=== PATIENT | male | born 1935 | race Caucasian/White ===

== ENCOUNTER 2021-10-23 18:15 | Inpatient (IN) | payer MEDICARE, SELFPAY ==
--- NOTE | ~2021-10-23 | XR_ITS ---
EXAMINATION: XR CHEST CLINICAL INFORMATION: Pacemaker placement COMPARISON: Previous chest x-rays most recent from yesterday TECHNIQUE: Frontal view of the chest was obtained. FINDINGS: The cardiac and mediastinal contours are stable. There is a left subclavian dual chamber pacemaker with one lead projecting over the right atrium and one lead projecting over the right atrial ventricular region or proximal right ventricle.. This appears more proximal than seen on yesterday's exams. This could be better assessed with repeat chest x-ray including lateral view if clinically indicated. There is subsegmental atelectasis in the left midlung. The lungs are otherwise clear. There is no pleural effusion or pneumothorax. There are degenerative changes of the spine. XR/XR chest 1V IMPRESSION: Left subclavian dual chamber pacemaker. The location of the ventricular lead may be slightly different or more proximal compared to yesterday's exam. Follow-up PA and lateral chest x-ray could be performed if clinically indicated.
--- NOTE | ~2021-10-23 | XR_ITS ---
EXAMINATION: XR CHEST CLINICAL INFORMATION: Acute respiratory failure. Question aspiration COMPARISON: Chest 10/23/2021 TECHNIQUE: Frontal view of the chest was obtained. FINDINGS: The lungs are hypoexpanded but clear of acute process. The heart size and pulmonary vascularity is normal. No gross bony abnormality seen. XR/XR chest 1V IMPRESSION: Hypoexpanded lungs without acute process.
--- NOTE | ~2021-10-23 | CT_ITS ---
EXAMINATION: CT HEAD WITHOUT CONTRAST CLINICAL INFORMATION: Change in mental status. COMPARISON: None. TECHNIQUE: Contiguous axial imaging was performed from the skull base to vertex without intravenous contrast. This CT examination was performed using dose optimization techniques as appropriate, variously including the following: * Automated exposure control * Adjustment of mA and/or kV according to patient size (this includes techniques or standardized protocols for targeted exams where dose is matched to indication/reason for exam; i.e. extremities or head) Use of iterative reconstruction technique DLP: 817 mGy-cm. FINDINGS: There is no evidence of acute intracranial hemorrhage or territorial infarction. No abnormal mass effect or midline shift is seen. [place] to white matter differentiation is well preserved. No extra-axial fluid collections are identified. No hydrocephalus. Proportional prominence of the ventricles and sulcal spaces is consistent with moderate volume loss. Patchy periventricular and deep white matter hypoattenuation is consistent with mild small vessel ischemic changes. The osseous structures and soft tissues are normal. The mastoid air cells and visualized portions of the paranasal sinuses are well aerated. CT/CT head/brain wo con IMPRESSION: No acute intracranial pathology. Chronic volume loss with small vessel ischemic change.
--- NOTE | ~2021-10-23 | CT_ITS ---
EXAMINATION: CT ANGIOGRAM OF THE CHEST WITH AND WITHOUT CONTRAST (CT PULMONARY ANGIOGRAM FOR PE) CT ABDOMEN AND PELVIS WITH CONTRAST CLINICAL INFORMATION: Distended abdomen. Rule out bowel obstruction. Chest pain. Hypoxia. COMPARISON: Chest radiograph from earlier in the evening. TECHNIQUE: Prior to contrast administration, noncontrast localization images were obtained. Subsequently, multidetector volumetric imaging was performed from the thoracic inlet to the pubic symphysis following the administration of 65 mL Omnipaque 350 intravenous contrast. This was followed by multidetector acquisition of the abdomen and pelvis. No contrast reaction reported Sagittal, coronal, and MIP oblique sagittal reformatted images were obtained on the CT workstation, uploaded to PACS, and reviewed. This CT examination was performed using dose optimization techniques as appropriate, variously including the following: *Automated exposure control *Adjustment of mA and/or kV according to patient size (this includes techniques or standardized protocols for targeted exams where dose is matched to indication/reason for exam; i.e. extremities or head) *Use of iterative reconstruction technique Total exam dose-length product 1340 mGy-cm FINDINGS: Motion limits the evaluation. QUALITY OF STUDY/CONTRAST BOLUS: Satisfactory. PULMONARY ARTERIES: No central or segmental pulmonary emboli. The main pulmonary artery is dilated measuring 4.4 cm. THORACIC AORTA: No aneurysm or dissection. LUNG: The central airways are patent. There is patchy groundglass opacification throughout the lingula. Bibasilar linear atelectasis. PLEURA: No pleural effusion or pneumothorax. MEDIASTINUM: Normal heart size. Coronary artery calcifications. No pericardial effusion. No hilar or mediastinal lymphadenopathy. No evidence of septal bowing or right heart strain. CHEST WALL/AXILLA: No axillary or internal mammary lymphadenopathy. LIVER, GALLBLADDER, AND BILIARY TREE: The liver is normal in size, shape, and attenuation. No focal hepatic lesion or biliary ductal dilatation is present. The gallbladder is unremarkable with no evidence of radiopaque gallstones, gallbladder wall thickening, or obvious pericholecystic inflammatory changes. PANCREAS: Unremarkable. SPLEEN: Unremarkable. ADRENAL GLANDS: Unremarkable. KIDNEYS AND URETERS: The kidneys are normal in size, shape, and attenuation. No hydronephrosis, hydroureter, or calculi seen. No perinephric stranding. Left midpole simple renal cyst. No follow-up imaging recommended. BLADDER: Unremarkable. GASTROINTESTINAL TRACT: The stomach is decompressed. Normal caliber small bowel. No obstruction. There is mild stool burden. Somewhat distended sigmoid colon. Scattered colonic diverticulosis without diverticulitis. The appendix is not seen. ABDOMINAL WALL: Fat-containing periumbilical abdominal wall hernia. LYMPH NODES: Normal. VASCULAR: Normal caliber aorta with mild atherosclerotic calcification. PELVIC VISCERA: The prostate and seminal vesicles are unremarkable. OSSEOUS STRUCTURES: No acute or suspicious osseous abnormality. Scoliotic curvature of the spine with multilevel degenerative changes. CT/CT angio chest PE protocol IMPRESSION: 1. No pulmonary embolism. 2. Groundglass opacities are seen in the lingula which could be infectious or inflammatory. 3. No acute finding in the abdomen or pelvis. No bowel obstruction. There is somewhat distended appearance of the sigmoid colon. VTE: negative
--- NOTE | ~2021-10-23 | XR_ITS ---
EXAMINATION: PORTABLE CHEST 1 VIEW CLINICAL INFORMATION: SOB, low O2 sat . COMPARISON: No recent pertinent prior studies are available for comparison. TECHNIQUE: Portable frontal view of the chest was obtained. FINDINGS: Lungs are hypoexpanded with increased markings at the left base obscuring the left hemidiaphragm. Early left basilar infiltrate would be suspected. No significant effusion, overt edema, or pneumothorax. Cardiac silhouette within normal limits for this technique with vascular calcification in the aorta. XR/XR chest 1V IMPRESSION: Hypoexpanded. Increased left basilar markings suggesting consolidation/atelectasis in the acute setting. Clinical correlation and follow-up would be recommended.
--- NOTE | ~2021-10-23 | FL_ITS ---
EXAMINATION: INTRAOPERATIVE FLUOROSCOPY AND CHEST X-RAY CLINICAL INFORMATION: Pacemaker COMPARISON: Previous chest x-ray 10/25/2021 TECHNIQUE: Fluoroscopy guidance was provided to Dr. Skinner for pacemaker placement. Fluoroscopy time 6.4 minutes. DAP 26 jeffries per centimeter squared. 1 saved fluoroscopy image. AP portable chest x-ray FINDINGS: Single fluoroscopic image demonstrates a dual-chamber pacemaker with lead projecting over the right atrium and one lead projecting over the right ventricle. CHEST: The cardiac and mediastinal contours are stable. There is a new left subclavian dual chamber pacemaker in satisfactory position. There may be pulmonary venous redistribution. There is atelectasis at the left lung base. There is no pleural effusion or pneumothorax. There are EKG leads. There are 2 rings projecting over the left upper quadrant. There is a linear density that projects over the base of the heart and upper midline abdomen measuring 8 cm. This is not seen on the fluoroscopic image. Clinical correlation to exclude foreign body recommended. There are degenerative changes of the spine and shoulders. FL/FL guidance in OR IMPRESSION: Left subclavian dual chamber pacemaker in satisfactory position. No pneumothorax. 8 cm new linear radiopaque density projecting over the base of the heart and upper midline abdomen seen on the AP portable chest x-ray only. Clinical correlation recommended to exclude foreign body.
[2021-10-23 18:49] VITALS: BP 112/66; BP 132/80; PULSE 105; PULSE 114; RESP 20; TEMP 37.6; O2SAT 96; BMI 29.7
--- NOTE | 2021-10-23 18:55 | ED.SOB ---
HPI - SOB/Dyspnea General Chief Complaint: Dyspnea <CHATO Jackson - Last Filed: 10/23/21 22:32> Stated Complaint: shortness of breath <CHATO Jackson - Last Filed: 10/23/21 22:32> Time Seen by Provider: 10/23/21 18:55 <MARCK JacksonBC - Last Filed: 10/23/21 22:32> Source: EMS and RN notes reviewed <CHATO Jackson - Last Filed: 10/23/21 22:32> Mode of arrival: EMS <CHATO Jackson - Last Filed: 10/23/21 22:32> Limitations: altered mental status <CHATO Jackson - Last Filed: 10/23/21 22:32> History of Present Illness HPI Narrative: 86-year-old male with past medical history of anemia, polyneuropathy, hyperlipidemia, diabetes, aphasia, was brought here today by EMS services. Patient was residing at local nursing facility. Patient was complaining of feeling short of breath yesterday and was placed on O2 at 2 L via nasal cannula. His O2 saturation was 86% at that time. Today staff noticed patient feeling weak. Rapid COVID test done and it was negative. PCP was called and suggested patient go to ER for evaluation. Patient received updraft in the ambulance and upon arrival to the emergency department his O2 sat is 94 on room air. Patient denies any chest pain, palpitations, shortness of breath. Patient is a poor historian. <CHATO Jackson - Last Filed: 10/23/21 22:32> MD elicited complaint: shortness of breath <CHATO Jackson - Last Filed: 10/23/21 22:32> Related Data Allergies/Adverse Reactions: Allergies Allergy/AdvReac Type Severity Reaction Status Date / Time rasagiline [From Azilect] Allergy Unknown Verified 10/23/21 18:48 risperidone Allergy Unknown Verified 10/23/21 18:48 sertraline Allergy Unknown Verified 10/23/21 18:48 <CHATO Jackson - Last Filed: 10/23/21 22:32> Review of Systems Review of Systems: Constitutional : No Weight loss, Fever, No Chills, No Night Sweats, No Fatigue, No Malaise ENT/Mouth : No Hearing loss, No Ear Pain, No Nasal Congestion, No Sinus Pain, No Hoarseness, No sore throat, No Rhinorrhea, No Swallowing Difficulty Eyes: No Eye Pain, No Swelling, No Redness, No Foreign Body, No Discharge, No Vision Changes Cardiovascular : No Chest Pain, SOB, No Dyspnea on Exertion, No Orthopnea, No Edema, No Palpitations Respiratory : No Cough, No Sputum, No Wheezing, No Smoke Exposure, No Dyspnea Gastrointestinal : No Nausea, No Vomiting, No Diarrhea, No Constipation, No abdominal Pain, No Hematochezia, No Melena Genitourinary : no irregular bleeding, No Dysuria, No Urinary Frequency, No Hematuria, No Urinary Incontinence, No Urgency, No Flank Pain, No Urinary Flow Changes, No Hesitancy Musculoskeletal : No joint pain, No Myalgias, No Joint Swelling Skin : No Skin Lesions, No rash Neuro : Weakness, No Numbness, No Paresthesias, No Loss of Consciousness, No Dizziness, No Headache <LORENE Jackson-BC - Last Filed: 10/23/21 22:32> Yes all other systems are reviewed and are negative <LORENE Jackson-BC - Last Filed: 10/23/21 22:32> [facility] Past Medical History Medical History: Medical History (Updated 10/23/21 @ 23:31 by Chuy Pineda MD) Anemia Aphasia Diabetes High cholesterol Psychosis <LORENE Jackson-BC - Last Filed: 10/23/21 22:32> Social History Social History: Social History Advance Directives: Yes Advance Directives Information Provided: No Advance Directives on File: No <LORENE Jackson-BC - Last Filed: 10/23/21 22:32> Physical Exam Vital Signs: Vital Signs: Last Vital Signs Temp 99.6 F 10/23/21 18:49 Pulse 88 10/23/21 22:00 Resp 15 10/23/21 22:00 BP 122/74 10/23/21 22:00 Pulse Ox 97 10/23/21 22:00 BMI result Body Mass Index 29.7 <Monika Prescott [employer]CH[employer]-BC - Last Filed: 10/23/21 22:32> Vital Signs: Last Vital Signs Temp 99.6 F 10/23/21 18:49 Pulse 88 10/23/21 22:00 Resp 15 10/23/21 22:00 BP 122/74 10/23/21 22:00 Pulse Ox 97 10/23/21 22:00 BMI result Body Mass Index 29.7 <Chuy Pineda MD - Last Filed: 10/23/21 23:31> Const: General: healthy appearing, no acute distress and well developed <Monika Prescott [employer]-BC - Last Filed: 10/23/21 22:32> Nutritional Appearance: well nourished <ERVIN JacksonP-BC - Last Filed: 10/23/21 22:32> Orientation/consciousness: patient oriented x3 <ERVIN JacksonP-BC - Last Filed: 10/23/21 22:32> HENMT: Head: Yes normal to inspection, Yes normocephalic and Yes atraumatic <ERVIN JacksonP-BC - Last Filed: 10/23/21 22:32> Face and sinus: Yes normal facial exam <LORENE Jackson-BC - Last Filed: 10/23/21 22:32> Mouth: Normal oral and palatal mucosa present <ERVIN JacksonP-BC - Last Filed: 10/23/21 22:32> Throat: Yes posterior oropharynx normal, Yes tonsils normal and Yes uvula midline <Monika Prescott [employer]-BC - Last Filed: 10/23/21 22:32> Eyes: General: appearance normal, both eyes and all related structures <Monika Prescott [employer]CH[employer]IC-BC - Last Filed: 10/23/21 22:32> Neck: Neck: Yes normal visual inspection, Yes full ROM and Yes trachea midline <Monikaleigh ann Prescott [employer]-BC - Last Filed: 10/23/21 22:32> Thyroid: Thyroid normal <Monika Prescott [employer]CH[employer]-BC - Last Filed: 10/23/21 22:32> Resp: Effort & Inspection: normal respiratory effort, no tracheal deviation and symmetric chest movement <Monika D Kenyon, [employer]CH[employer]IC-BC - Last Filed: 10/23/21 22:32> Auscultation: wheezes (Left and right upper lobes) inspiratory wheezes and diminished lung sounds (Bilateral lower lobes) <Monika D Kenyon, [employer]CH[employer]IC-BC - Last Filed: 10/23/21 22:32> Cardio: Rate: tachycardic <Monika D Kenyon, [employer]CH[employer]IC-BC - Last Filed: 10/23/21 22:32> Heart sounds: S1 normal heart sound present, S2 normal heart sound present, no gallops and no murmurs <Monika D Kenyon, [employer]CH[employer]IC-BC - Last Filed: 10/23/21 22:32> GI: Other: Umbilical hernia <Monika D Kenyon, [employer] MECH[employer]IC-BC - Last Filed: 10/23/21 22:32> Inspection: Yes normal to inspection, No distended and Yes obesity <Monika D Kenyon, [employer]CH[employer]IC-BC - Last Filed: 10/23/21 22:32> Palpation (GI): Soft to palpation, not firm, nontender and No hepatosplenomegaly present <Monika D Kenyon, [employer]CH[employer]IC-BC - Last Filed: 10/23/21 22:32> Auscultation: normal bowel sounds <Monika D Kenyon, [employer] MECH[employer]IC-BC - Last Filed: 10/23/21 22:32> : General: Yes no CVA tenderness <Monika D Kenyon, [employer] MECH[employer]IC-BC - Last Filed: 10/23/21 22:32> Back/Spine/Pelvis: Back: no CVA tenderness <Monika D Kenyon, [employer] MECH[employer]IC-BC - Last Filed: 10/23/21 22:32> Skin: General skin exam: elasticity normal, turgor normal and dry skin <Monika D Kenyon, [employer] MECH[employer]IC-BC - Last Filed: 10/23/21 22:32> Neuro: General: patient oriented x3 <Monika D Kenyon, [employer] MECH[employer]IC-BC - Last Filed: 10/23/21 22:32> Extrem: Other: Bilateral lower extremity pitting edema <Monika D Kenyon, [employer] MECH[employer]IC-BC - Last Filed: 10/23/21 22:32> Psych: Appearance: grossly normal <CHATO Jackson - Last Filed: 10/23/21 22:32> Mental Status: other (Altered) <CHATO Jackson - Last Filed: 10/23/21 22:32> Speech and movement: Normal speech and movement present <CHATO Jackson - Last Filed: 10/23/21 22:32> Attitude: cooperative <CHATO Jackson - Last Filed: 10/23/21 22:32> Course Course Course Narrative: 86-year-old male with past medical history of anemia, polyneuropathy, hyperlipidemia, diabetes, aphasia, was brought here today by EMS services. Patient was residing at local nursing facility. Patient was complaining of feeling short of breath yesterday and was placed on O2 at 2 L via nasal cannula. His O2 saturation was 86% at that time. Today staff noticed patient feeling weak. Rapid COVID test done and it was negative. PCP was called and suggested patient go to ER for evaluation. Patient received updraft in the ambulance and upon arrival to the emergency department his O2 sat is 94 on room air. Patient denies any chest pain, palpitations, shortness of breath. Patient is a poor historian. We will do chest x-ray, CBC, BMP, BNP, recheck for COVID. Upon exam patient does have mild wheeze on the RUQ, lung sounds diminished throughout. Will order updraft. Further treatment pending results <CHATO Jackson - Last Filed: 10/23/21 22:32> Reevaluation(s) Reevaluation #1: WBC 15.2, urine negative nitrate, bacteria. BNP 50, chest x-ray reviewed and it showed left lower lobe infiltrate, awaiting for official report from Radiology. Will add lactic acid, blood cultures will start Zosyn 3.375 g IV. Awaiting for chemistry results. COVID test negative. Most likely source of infection would be community acquired pneumonia, no source of infection and a urine. Pending admission, awaiting rest of the results, lactic and chest x-ray results pending. Reports given to Dr. Pena. <CHATO Jackson - Last Filed: 10/23/21 22:32> WBC 15.2, urine negative nitrate, bacteria. BNP 50, chest x-ray reviewed and it showed left lower lobe infiltrate, awaiting for official report from Radiology. Will add lactic acid, blood cultures will start Zosyn 3.375 g IV. Awaiting for chemistry results. COVID test negative. Most likely source of infection would be healthcare acquired pneumonia, no source of infection and a urine. Pending admission, awaiting rest of the results, lactic and chest x-ray results pending. Reports given to Dr. Pineda. <Chuy Pineda MD - Last Filed: 10/23/21 23:31> Reevaluation #2: [id number]: I assumed care of this patient from my colleague, nurse practitioner Morena Nielsen at 9:00 p.m, pending the patient's laboratory evaluation. Patient's [place] [address], elevated lactate acid of 3.2, negative COVID-19, urinalysis/microscopic with 15-29 RBCs but no WBCs, normal BNP of 50. Chest x-ray did reveal left lower lobe infiltrate. Patient was ordered to get a 30 cc/kilogram fluid bolus. I did discuss the patient's presentation with the covering hospitalist, Dr. Brown. He is concerned the patient may also have a pulmonary embolism therefore a CT pulmonary angiogram was ordered. I will also get a CT scan of the patient's brain secondary to his altered mental status. The patient will be admitted to the hospitalist service. <Chuy Pineda MD - Last Filed: 10/23/21 23:31> Time: 23:22 <Chuy Pineda MD - Last Filed: 10/23/21 23:31> MDM - SOB/Dyspnea Lab Data Result diagrams: : 10/23/21 19:51 10/23/21 20:40 <CHATO Jackson - Last Filed: 10/23/21 22:32> Labs: Lab Results 10/23/21 10/23/21 10/23/21 Range/Units 19:51 19:51 19:51 WBC 15.2 H (4.8-10.8) X10*3/uL RBC 3.89 L (4.60-5.80) X10*6/uL Hgb 12.7 L (14.0-18.0) g/dl Hct 37.9 L (42.0-52.0) % MCV 97.4 (80.0-98.0) fL MCH 32.6 (27.0-33.0) pg MCHC 33.5 (31.0-36.0) g/dl RDW 12.8 (11.0-16.0) % Plt Count 180 (160-400) X10*3/uL MPV 10.4 (9.4-12.4) fL Immature Gran % (Auto) 0.3 (0.0-0.4) % Neut % (Auto) 90.2 H (45-73) % Lymph % (Auto) 4.7 L (20-40) % [place] % (Auto) 4.6 (2-11) % Eos % (Auto) 0.0 (0-4) % Baso % (Auto) 0.2 (0-2) % Lymph # (Auto) 0.7 L (1.2-4.9) X10*3/uL [place] # (Auto) 0.7 (0.1-1.2) X10*3/uL Eos # (Auto) 0.0 (0.0-0.4) X10*3/uL Baso # (Auto) 0.0 (0.0-0.2) X10*3/uL Abs Immat Gran (auto) 0.04 H (0.00-0.03) X10*3/uL Absolute Neuts (auto) 13.7 H (2.0-8.3) x10*3/uL Absolute Nucleated RBC 0.000 (0.0-0.012) X10*3/uL Nucleated RBC % (auto) 0.0 (0.0-0.2) /100WBC Smear Tech's Comments VERIFIED Sodium (135-145) mmol/L Potassium (3.3-5.1) mmol/L Chloride (96-108) mmol/L Carbon Dioxide (22-29) mmol/L Anion Gap (12-20) BUN (9-16) mg/dL Creatinine (0.5-1.4) mg/dL Estim Creat Clear Calc Estimated GFR Random Glucose (60-115) mg/dL Lactic Acid (0.5-2.0) mmol/L Calcium (8.4-10.2) mg/dL B-Natriuretic Peptide 50 (<100) pg/mL Urine Color Urine Appearance Urine pH (5.0-8.0) Ur Specific [place] (1.005-1.025) Urine Protein (NEG-TRACE) MG/DL Urine Glucose (UA) (NEG) MG/DL Urine Ketones (NEG) MG/DL Urine Blood (NEG) Urine Nitrite (NEG) Ur Leukocyte Esterase (NEG) Urine RBC (0) /HPF Urine WBC (0-4) /HPF Ur Squamous Epith Cells /LPF Ur Renal Epithelial Cell /LPF Urine Bacteria /LPF Urine Mucus /LPF COVID-19 ([facility]) Negative (Negative) COVID-19 Clin Com See Note 10/23/21 10/23/21 10/23/21 Range/Units 19:59 20:40 20:55 WBC (4.8-10.8) X10*3/uL RBC (4.60-5.80) X10*6/uL Hgb (14.0-18.0) g/dl Hct (42.0-52.0) % MCV (80.0-98.0) fL MCH (27.0-33.0) pg MCHC (31.0-36.0) g/dl RDW (11.0-16.0) % Plt Count (160-400) X10*3/uL MPV (9.4-12.4) fL Immature Gran % (Auto) (0.0-0.4) % Neut % (Auto) (45-73) % Lymph % (Auto) (20-40) % [place] % (Auto) (2-11) % Eos % (Auto) (0-4) % Baso % (Auto) (0-2) % Lymph # (Auto) (1.2-4.9) X10*3/uL [place] # (Auto) (0.1-1.2) X10*3/uL Eos # (Auto) (0.0-0.4) X10*3/uL Baso # (Auto) (0.0-0.2) X10*3/uL Abs Immat Gran (auto) (0.00-0.03) X10*3/uL Absolute Neuts (auto) (2.0-8.3) x10*3/uL Absolute Nucleated RBC (0.0-0.012) X10*3/uL Nucleated RBC % (auto) (0.0-0.2) /100WBC Smear Tech's Comments Sodium 143 (135-145) mmol/L Potassium 3.7 (3.3-5.1) mmol/L Chloride 107 (96-108) mmol/L Carbon Dioxide 25 (22-29) mmol/L Anion Gap 15 (12-20) BUN 18 H (9-16) mg/dL Creatinine 0.89 (0.5-1.4) mg/dL Estim Creat Clear Calc 55.4 Estimated GFR > 60 Random Glucose 201 H (60-115) mg/dL Lactic Acid 3.2 H* (0.5-2.0) mmol/L Calcium 9.4 (8.4-10.2) mg/dL B-Natriuretic Peptide (<100) pg/mL Urine Color YELLOW Urine Appearance HAZY Urine pH 5.5 (5.0-8.0) Ur Specific [place] >= 1.030 H (1.005-1.025) Urine Protein 1+ H (NEG-TRACE) MG/DL Urine Glucose (UA) 100 H (NEG) MG/DL Urine Ketones 5 (NEG) MG/DL Urine Blood 1+ H (NEG) Urine Nitrite NEG (NEG) Ur Leukocyte Esterase NEG (NEG) Urine RBC 15-29 H (0) /HPF Urine WBC 0-2 (0-4) /HPF Ur Squamous Epith Cells TRACE /LPF Ur Renal Epithelial Cell TRACE /LPF Urine Bacteria 1+ /LPF Urine Mucus TRACE /LPF COVID-19 ([facility]) (Negative) COVID-19 Clin Com <Monika Prescott, [employer] MECH[employer]IC-BC - Last Filed: 10/23/21 22:32> Lab Results 10/23/21 10/23/21 10/23/21 Range/Units 19:51 19:51 19:51 WBC 15.2 H (4.8-10.8) X10*3/uL RBC 3.89 L (4.60-5.80) X10*6/uL Hgb 12.7 L (14.0-18.0) g/dl Hct 37.9 L (42.0-52.0) % MCV 97.4 (80.0-98.0) fL MCH 32.6 (27.0-33.0) pg MCHC 33.5 (31.0-36.0) g/dl RDW 12.8 (11.0-16.0) % Plt Count 180 (160-400) X10*3/uL MPV 10.4 (9.4-12.4) fL Immature Gran % (Auto) 0.3 (0.0-0.4) % Neut % (Auto) 90.2 H (45-73) % Lymph % (Auto) 4.7 L (20-40) % [place] % (Auto) 4.6 (2-11) % Eos % (Auto) 0.0 (0-4) % Baso % (Auto) 0.2 (0-2) % Lymph # (Auto) 0.7 L (1.2-4.9) X10*3/uL [place] # (Auto) 0.7 (0.1-1.2) X10*3/uL Eos # (Auto) 0.0 (0.0-0.4) X10*3/uL Baso # (Auto) 0.0 (0.0-0.2) X10*3/uL Abs Immat Gran (auto) 0.04 H (0.00-0.03) X10*3/uL Absolute Neuts (auto) 13.7 H (2.0-8.3) x10*3/uL Absolute Nucleated RBC 0.000 (0.0-0.012) X10*3/uL Nucleated RBC % (auto) 0.0 (0.0-0.2) /100WBC Smear Tech's Comments VERIFIED Sodium (135-145) mmol/L Potassium (3.3-5.1) mmol/L Chloride (96-108) mmol/L Carbon Dioxide (22-29) mmol/L Anion Gap (12-20) BUN (9-16) mg/dL Creatinine (0.5-1.4) mg/dL Estim Creat Clear Calc Estimated GFR Random Glucose (60-115) mg/dL Lactic Acid (0.5-2.0) mmol/L Calcium (8.4-10.2) mg/dL B-Natriuretic Peptide 50 (<100) pg/mL Urine Color Urine Appearance Urine pH (5.0-8.0) Ur Specific [place] (1.005-1.025) Urine Protein (NEG-TRACE) MG/DL Urine Glucose (UA) (NEG) MG/DL Urine Ketones (NEG) MG/DL Urine Blood (NEG) Urine Nitrite (NEG) Ur Leukocyte Esterase (NEG) Urine RBC (0) /HPF Urine WBC (0-4) /HPF Ur Squamous Epith Cells /LPF Ur Renal Epithelial Cell /LPF Urine Bacteria /LPF Urine Mucus /LPF COVID-19 ([facility]) Negative (Negative) COVID-19 Clin Com See Note 10/23/21 10/23/21 10/23/21 Range/Units 19:59 20:40 20:55 WBC (4.8-10.8) X10*3/uL RBC (4.60-5.80) X10*6/uL Hgb (14.0-18.0) g/dl Hct (42.0-52.0) % MCV (80.0-98.0) fL MCH (27.0-33.0) pg MCHC (31.0-36.0) g/dl RDW (11.0-16.0) % Plt Count (160-400) X10*3/uL MPV (9.4-12.4) fL Immature Gran % (Auto) (0.0-0.4) % Neut % (Auto) (45-73) % Lymph % (Auto) (20-40) % [place] % (Auto) (2-11) % Eos % (Auto) (0-4) % Baso % (Auto) (0-2) % Lymph # (Auto) (1.2-4.9) X10*3/uL [place] # (Auto) (0.1-1.2) X10*3/uL Eos # (Auto) (0.0-0.4) X10*3/uL Baso # (Auto) (0.0-0.2) X10*3/uL Abs Immat Gran (auto) (0.00-0.03) X10*3/uL Absolute Neuts (auto) (2.0-8.3) x10*3/uL Absolute Nucleated RBC (0.0-0.012) X10*3/uL Nucleated RBC % (auto) (0.0-0.2) /100WBC Smear Tech's Comments Sodium 143 (135-145) mmol/L Potassium 3.7 (3.3-5.1) mmol/L Chloride 107 (96-108) mmol/L Carbon Dioxide 25 (22-29) mmol/L Anion Gap 15 (12-20) BUN 18 H (9-16) mg/dL Creatinine 0.89 (0.5-1.4) mg/dL Estim Creat Clear Calc 55.4 Estimated GFR > 60 Random Glucose 201 H (60-115) mg/dL Lactic Acid 3.2 H* (0.5-2.0) mmol/L Calcium 9.4 (8.4-10.2) mg/dL B-Natriuretic Peptide (<100) pg/mL Urine Color YELLOW Urine Appearance HAZY Urine pH 5.5 (5.0-8.0) Ur Specific [place] >= 1.030 H (1.005-1.025) Urine Protein 1+ H (NEG-TRACE) MG/DL Urine Glucose (UA) 100 H (NEG) MG/DL Urine Ketones 5 (NEG) MG/DL Urine Blood 1+ H (NEG) Urine Nitrite NEG (NEG) Ur Leukocyte Esterase NEG (NEG) Urine RBC 15-29 H (0) /HPF Urine WBC 0-2 (0-4) /HPF Ur Squamous Epith Cells TRACE /LPF Ur Renal Epithelial Cell TRACE /LPF Urine Bacteria 1+ /LPF Urine Mucus TRACE /LPF COVID-19 ([facility]) (Negative) COVID-19 Clin Com <Chuy Pineda MD - Last Filed: 10/23/21 23:31> Discharge Plan Discharge Clinical Impression: Pneumonia, Acute alteration in mental status <CHATO Jackson - Last Filed: 10/23/21 22:32> Patient Disposition: Admitted As Inpatient <CHATO Jackson - Last Filed: 10/23/21 22:32>
--- NOTE | 2021-10-23 19:32 | ECG_ITS ---
Test Reason : dyspnea Blood Pressure : / mmHG Vent. Rate : 098 BPM Atrial Rate : 098 BPM P-R Int : 266 ms QRS Dur : 092 ms QT Int : 328 ms P-R-T Axes : 058 -10 004 degrees QTc Int : 418 ms Sinus rhythm with 1st degree A-V block Inferior infarct , age undetermined Abnormal ECG No previous ECGs available Referred By: Monika Prescott Electronically Signed By:Nasir Gates
[2021-10-23 19:58] LABS: Basophils Percent Auto 0.2 % (0-2); Hematocrit 37.9 % (42.0-52.0); Hemoglobin 12.7 g/dl (14.0-18.0); Imm Gran Abs Auto 0.04 X10*3/uL (0.00-0.03); Imm Gran Pct Auto 0.3 % (0.0-0.4); Lymphocytes Absolute Auto 0.7 X10*3/uL (1.2-4.9); Lymphocytes Percent Auto 4.7 % (20-40); MANUAL DIFF FLAG SCAN; Mean Corpuscular HGB Conc 33.5 g/dl (31.0-36.0); Mean Corpuscular Hemoglobin 32.6 pg (27.0-33.0); Mean Corpuscular Volume 97.4 fL (80.0-98.0); Mean Platelet Volume 10.4 fL (9.4-12.4); Monocytes Absolute Auto 0.7 X10*3/uL (0.1-1.2); Monocytes Percent Auto 4.6 % (2-11); Neutrophils Absolute Auto 13.7 x10*3/uL (2.0-8.3); Neutrophils Percent Auto 90.2 % (45-73); Platelet Count 180 X10*3/uL (160-400); Red Blood Count 3.89 X10*6/uL (4.60-5.80); Red Cell Distribution Width 12.8 % (11.0-16.0); SCAN SMEAR FLAG 1; White Blood Count 15.2 X10*3/uL (4.8-10.8)
[2021-10-23 19:59] VITALS: BP 120/77; PULSE 98; RESP 16; O2SAT 98
[2021-10-23] MEDS: 0.9 % Sodium Chloride 500 ML IV (20:04)
[2021-10-23 20:06] LABS: Appearance Urine HAZY; Color Urine YELLOW; Glucose Urine UA 100 MG/DL (NEG); Leukocyte Esterase Urine NEG (NEG); Nitrite Urine NEG (NEG); PH 5.5 (5.0-8.0); Specific Gravity - Urine >= 1.030 (1.005-1.025); UACC Culture Trigger NO; Urine Blood 1+ (NEG); Urine Ketones 5 MG/DL (NEG); Urine Protein 1+ MG/DL (NEG-TRACE)
[2021-10-23 20:12] LABS: WBC Urine 0-2 /HPF (0-4)
[2021-10-23 20:13] LABS: Bacteria Urine 1+ /LPF; Mucus Urine TRACE /LPF; Renal Epithelial Cells Urine TRACE /LPF; Squamous Epithelial Cell Urine TRACE /LPF
[2021-10-23 20:14] LABS: COVID-19 Test Negative (Negative)
[2021-10-23 20:16] LABS: SLIDE REVIEW VERIFIED
[2021-10-23 20:17] LABS: B Type Natriuretic Peptide 50 pg/mL (<100)
[2021-10-23] MEDS: Albuterol Sulfate (0.083%) 2.5 MG/3 ML VIAL.NEB 5 MG INHALE (20:24)
[2021-10-23 20:37] VITALS: PULSE 100; RESP 16; O2SAT 94
[2021-10-23 21:04] LABS: Anion Gap 15 (12-20); Blood Urea Nitrogen 18 mg/dL (9-16); Calcium 9.4 mg/dL (8.4-10.2); Carbon Dioxide 25 mmol/L (22-29); Chloride 107 mmol/L (96-108); Creatinine Clr Calc Pharmacy 55.4; Estimated Glomerular Filt Rate > 60; Glucose Random 201 mg/dL (60-115); Potassium 3.7 mmol/L (3.3-5.1); Sodium 143 mmol/L (135-145)
[2021-10-23 21:23] LABS: Lactic Acid 3.2 mmol/L (0.5-2.0)
[2021-10-23] MEDS: Piperacillin Sodium/Tazobactam 3.375 GM in 0.9 % Sodium Chloride 50 ML IV (21:38)
[2021-10-23 21:41] VITALS: BP 122/74; PULSE 100; RESP 17; O2SAT 97
[2021-10-23 22:00] VITALS: BP 122/74; PULSE 88; RESP 15; O2SAT 97
--- NOTE | 2021-10-23 22:05 | PC.NURSE ---
This RN spoke with PT's daughter (Kayleigh) who stated that PT might need his Sinemet, otherwise, PT may experience episodes of paralysis without the medication. Provider made aware.
[2021-10-23] MEDS: SODIUM CHLORIDE 2286 ML IV (22:33)
[2021-10-23 22:59] LABS: Reflex Lactate? Lactic Acid Added
--- NOTE | 2021-10-23 23:32 | P.HPHOSP_ITS ---
History of Present Illness Date of Service: 10/23/21 Chief Complaint: SOB 86-year-old male with a past medical history of hypertension, hyperlipidemia, diabetes, aphasia, COPD, Parkinson disease, longterm resident presented to the hospital with a chief complaint of shortness of breath for last 2 days. Patient is drowsy, altered; unable to obtain history. Most of the history obtained from the staff and records Per report patient was saturating 88% of the longterm placed on supplemental oxygen; diabetic COVID test was done which was negative. Subsequently patient was sent to the hospital for further evaluation. Denies any chest pain palpitations lightheadedness or dizziness. Denies any cough or sputum production. Denies any fevers. Denies any urinary symptoms. Review of all other systems is limited. ER course: Per ER team patient was saturating 94% on room air on presentation; chest x-ray showed left lower lobe pneumonia-patient was given Zosyn. CT chest and CT abdomen were done - results pending; EKG was nonischemic; patient was noted to be drowsy and response to tactile stimuli. also mentioned patient was noted to be altered. CT head was pending. On labs noted to have leukocytosis, lactic acidosis, urinalysis showed microscopic hematuria; patient was given 30 cc/kg IV fluid bolus; [facility] Medical History (Updated 10/23/21 @ 23:31 by Chuy Pineda MD) Anemia Aphasia Diabetes High cholesterol Psychosis Pertinent family history: unable to obtain information Social History Advance Directives: Yes Advance Directives Information Provided: No Advance Directives on File: No Meds Allergies Allergy/AdvReac Type Severity Reaction Status Date / Time rasagiline [From Azilect] Allergy Unknown Verified 10/23/21 18:48 risperidone Allergy Unknown Verified 10/23/21 18:48 sertraline Allergy Unknown Verified 10/23/21 18:48 Active Medications: Current Medications Acetaminophen (Acetaminophen 325 Mg Tablet) 650 mg PO Q6H PRN PRN Reason: Pain, Mild (Pain Scale 1-3) Albuterol/Ipratropium (Albuterol/Iprat 2.5/0.5mg 3 Ml Ampul.Neb) 3 ml INHALE RQ4H PRN PRN Reason: Shortness of Breath/Wheezing Benzonatate (Benzonatate 100 Mg Capsule) 100 mg PO TID PRN PRN Reason: Cough Enoxaparin Sodium (Enoxaparin Sodium 40 Mg/0.4 Ml Syringe) 40 mg SUBCUT Q24H GISELLE Ceftriaxone Sodium 1 gm/ (Sodium Chloride) 50 mls @ 100 mls/hr IV Q24H GISELLE Azithromycin 500 mg/ Sodium (Chloride) 250 mls @ 125 mls/hr IV Q24H GISELLE Melatonin (Melatonin 3 Mg Tablet) 6 mg PO BEDTIME PRN PRN Reason: Insomnia Pharmacy Consult (Consult Rx Perform Med Rec) 1 each MISCELLANE ONCE PRN PRN Reason: Consult order Senna (Sennosides 8.6 Mg Tablet) 17.2 mg PO BEDTIME PRN PRN Reason: Constipation Sodium Chloride (0.9 % Sodium Chloride Flush 3 Ml Syringe) 3 ml IVFLUSH QSHIFT GISELLE Physical Exam Verdana 4l Vital Signs and Narrative: Verdana 4d Verdana 4d Vital Signs: Verdana 4d Verdana 4Bd Last Vital Signs Verdana 4d [employer] New 4d [employer] Ranger New 4d Temp 99.6 F 10/23/21 18:49 [employer] New 4d Pulse 88 10/23/21 22:00 [employer] NewNew 4d Resp 15 10/23/21 22:00 BP 122/74 10/23/21 22:00 Pulse Ox 97 10/23/21 22:00 BMI result Body Mass Index 29.7 Gen: Appears be in no acute distress HEENT: NCAT, Moist mucosa. Pulmonary: Coarse breath sounds CVS: Normal S1-S2 Abdomen: BS+, Soft, Nontender Extremities: Warm well perfused Neuro: patient drowsy and altered; Results Labs CBC and Chem 7: 10/23/21 19:51 10/23/21 20:40 Labs: Laboratory Results - last 24 hr 10/23/21 10/23/21 10/23/21 19:51 19:51 19:51 MCV 97.4 MCH 32.6 MCHC 33.5 RDW 12.8 Plt Count 180 MPV 10.4 Immature Gran % (Auto) 0.3 Neut % (Auto) 90.2 H Lymph % (Auto) 4.7 L Payne % (Auto) 4.6 Eos % (Auto) 0.0 Baso % (Auto) 0.2 Lymph # (Auto) 0.7 L Payne # (Auto) 0.7 Eos # (Auto) 0.0 Baso # (Auto) 0.0 Abs Immat Gran (auto) 0.04 H Absolute Neuts (auto) 13.7 H Absolute Nucleated RBC 0.000 Nucleated RBC % (auto) 0.0 Smear Tech's Comments VERIFIED Anion Gap Estim Creat Clear Calc Estimated GFR Random Glucose Lactic Acid Calcium B-Natriuretic Peptide 50 Urine Color Urine Appearance Urine pH Ur Specific [place] Urine Protein Urine Glucose (UA) Urine Ketones Urine Blood Urine Nitrite Ur Leukocyte Esterase Urine RBC Urine WBC Ur Squamous Epith Cells Ur Renal Epithelial Cell Urine Bacteria Urine Mucus COVID-19 (KONRAD) Negative COVID-19 Clin Com See Note 10/23/21 10/23/21 10/23/21 19:59 20:40 20:55 MCV MCH MCHC RDW Plt Count MPV Immature Gran % (Auto) Neut % (Auto) Lymph % (Auto) Payne % (Auto) Eos % (Auto) Baso % (Auto) Lymph # (Auto) Payne # (Auto) Eos # (Auto) Baso # (Auto) Abs Immat Gran (auto) Absolute Neuts (auto) Absolute Nucleated RBC Nucleated RBC % (auto) Smear Tech's Comments Anion Gap 15 Estim Creat Clear Calc 55.4 Estimated GFR > 60 Random Glucose 201 H Lactic Acid 3.2 H* Calcium 9.4 B-Natriuretic Peptide Urine Color YELLOW Urine Appearance HAZY Urine pH 5.5 Ur Specific [place] >= 1.030 H Urine Protein 1+ H Urine Glucose (UA) 100 H Urine Ketones 5 Urine Blood 1+ H Urine Nitrite NEG Ur Leukocyte Esterase NEG Urine RBC 15-29 H Urine WBC 0-2 Ur Squamous Epith Cells TRACE Ur Renal Epithelial Cell TRACE Urine Bacteria 1+ Urine Mucus TRACE COVID-19 (KONRDA) COVID-19 Clin Com Imaging Radiologist's Impressions: Impressions Chest X-Ray 10/23/21 20:24 IMPRESSION: Hypoexpanded. Increased left basilar markings suggesting consolidation/atelectasis in the acute setting. Clinical correlation and follow-up would be recommended. Assessment and Plan (1) Pneumonia: Qualifiers: Laterality: left Lung location: lower lobe of lung Pneumonia type: due to unspecified organism Qualified Code(s): J18.9 - Pneumonia, unspecified organism Status: Acute 86-year-old male with a past medical history of hypertension, hyperlipidemia, diabetes, aphasia, COPD, Parkinson disease, longterm resident presented to the hospital with a chief complaint of shortness of breath. noted to have following conditions Altered mental status: Likely toxic metabolic encephalopathy. CT head showed no acute findings. NPO. Gentle IV fluids. Speech and swallow eval. Supportive care. Hypoxia: Patient was saturating 88% at the longterm. Currently saturating well on room air. Placed on supplemental oxygen p.r.n.. ? Pneumonia: Chest x-ray showed left lower lobe pneumonia. CT chest showed no evidence of pulmonary embolism but noted to have ground-glass opacities. Patient started on empiric antibiotics. Will continue for now. Microscopic hematuria: Will defer to the primary team tomorrow to follow-up repeat urinalysis after hydration to ensure improvement history of Parkinson disease: Continue home carbidopa levodopa. History of diabetes: Insulin sliding scale DVT prophylaxis: Lovenox Code status: Full code Quality Stroke Does the patient have a stroke diagnosis?: No VTE Prior VTE?: No VTE Risk Level:: Medical - moderate - high VTE Device Contraindication: Treatment Not Indicated VTE Drug Contraindication: N/A - Med Ordered
[2021-10-23 23:36] VITALS: BP 105/63; PULSE 87; RESP 15; O2SAT 97
[2021-10-23 23:57] LABS: ~Lactic Acid-LAB USE ONLY 3.6 mmol/L (0.5-2.0)
[2021-10-24] VITALS (8 sets, daily range): BP systolic 114–135; BP diastolic 67–87; PULSE 58–91; RESP 13–20; TEMP 36.7–37.4; O2SAT 94–98
--- NOTE | 2021-10-24 | ECG_ITS ---
Test Reason : repeat Blood Pressure : / mmHG Vent. Rate : 077 BPM Atrial Rate : 077 BPM P-R Int : 248 ms QRS Dur : 084 ms QT Int : 374 ms P-R-T Axes : 067 -14 011 degrees QTc Int : 423 ms Sinus rhythm with 1st degree A-V block with Premature atrial complexes Possible Lateral infarct , age undetermined or lead placement? Inferior infarct (cited on or before 23-OCT-2021) Abnormal ECG When compared with ECG of 23-OCT-2021 19:35, Premature atrial complexes are now Present Borderline criteria for Lateral infarct are now Present Referred By: Chuy Pineda Electronically Signed By:RICHARD FISHER MD
[2021-10-24] MEDS: Enoxaparin Sodium 40 MG/0.4 ML SYRINGE SUBCUT (00:03)
[2021-10-24] MEDS: cefTRIAXone sodium 1 GM in 0.9 % Sodium Chloride 50 ML IV (00:03)
[2021-10-24] MEDS: Carbidopa/Levodopa 25/100 TABLET 2 TAB PO ×5 (00:21→21:39)
--- NOTE | 2021-10-24 00:45 | PC.NURSE ---
PT able to swallow pills whole with repositioning in bed to sit up straight.
--- NOTE | 2021-10-24 00:46 | PC.NURSE ---
Repeat EKG put on hold for now. Per Mehran ROSALES
--- NOTE | 2021-10-24 00:46 | PC.NURSE ---
PT being transferred to CT scan.
[2021-10-24] MEDS: Azithromycin 500 MG in 0.9 % Sodium Chloride 250 ML 125 MG IV (01:27)
[2021-10-24] MEDS: 0.9 % Sodium Chloride Flush 3 ML SYRINGE IVFLUSH ×3 (01:27→16:33)
[2021-10-24] MEDS: 0.9 % Sodium Chloride 1,000 ML 999 ML IV (01:28)
[2021-10-24] MEDS: iohexoL 350 MG/ML 100 ML INFUS..BTL 65 ML IV (01:31)
[2021-10-24 01:37] LABS: Reflex Lactate? 2 Y
--- NOTE | 2021-10-24 03:49 | PC.NURSE ---
Pt bed wet from urine, changed bedding and mikel got pt comfortable.
[2021-10-24] MEDS: 0.9 % Sodium Chloride 1,000 ML 50 ML IVCONT (03:55)
--- NOTE | 2021-10-24 06:51 | PC.NURSE ---
PT is concerned that he came to the hospital without his glasses. PT asked this RN to call this facility to find the whereabouts of his glasses. Spoke with [facility] staff who confirmed that his glasses are at the facility.
[2021-10-24 07:28] LABS: Glucose, Whole Blood 113 mg/dL (60-115)
[2021-10-24 07:45] LABS: MANUAL DIFF FLAG NO
[2021-10-24 07:56] LABS: Basophils Percent Auto 0.3 % (0-2); Eosinophils Absolute Auto 0.1 X10*3/uL (0.0-0.4); Eosinophils Percent Auto 0.5 % (0-4); Hematocrit 36.4 % (42.0-52.0); Imm Gran Abs Auto 0.03 X10*3/uL (0.00-0.03); Imm Gran Pct Auto 0.2 % (0.0-0.4); Lymphocytes Absolute Auto 2.2 X10*3/uL (1.2-4.9); Lymphocytes Percent Auto 17.8 % (20-40); Mean Corpuscular Hemoglobin 31.7 pg (27.0-33.0); Mean Platelet Volume 11.3 fL (9.4-12.4); Monocytes Absolute Auto 0.7 X10*3/uL (0.1-1.2); Monocytes Percent Auto 5.7 % (2-11); Neutrophils Absolute Auto 9.5 x10*3/uL (2.0-8.3); Neutrophils Percent Auto 75.5 % (45-73); Platelet Count 188 X10*3/uL (160-400); Red Blood Count 3.79 X10*6/uL (4.60-5.80); White Blood Count 12.5 X10*3/uL (4.8-10.8)
[2021-10-24 08:21] LABS: Anion Gap 13 (12-20); Blood Urea Nitrogen 10 mg/dL (9-16); Calcium 9.1 mg/dL (8.4-10.2); Carbon Dioxide 23 mmol/L (22-29); Chloride 113 mmol/L (96-108); Creatinine Clr Calc Pharmacy 74.7; Estimated Glomerular Filt Rate > 60; Glucose Random 119 mg/dL (60-115); Potassium 3.5 mmol/L (3.3-5.1); Sodium 145 mmol/L (135-145)
--- NOTE | 2021-10-24 08:37 | PHA.MEDREC ---
Pharmacy Consult ? Medication Reconciliation Pharmacy has completed the medication reconciliation. pt from [facility] [place].
[2021-10-24] MEDS: Carbidopa/Levodopa CR 25/100 TABLET.ER 2 TAB PO ×2 (09:51→20:26)
[2021-10-24] MEDS: ARIPiprazole 15 MG TABLET PO (09:51)
--- NOTE | 2021-10-24 11:04 | P.PNIM_ITS ---
Subjective Subjective Date of Service: 10/24/21 Interval History: cc: sob interval history: still osb, cough Cardiovascular Cardiovascular: Reports no additional cardiovascular complaints Respiratory Respiratory: Reports no additional respiratory complaints Physical Exam Vital Signs: Vital Signs: Last Vital Signs Temp 99.4 F 10/24/21 10:59 Pulse 78 10/24/21 10:59 Resp 15 10/24/21 10:59 BP 131/79 10/24/21 10:59 Pulse Ox 94 10/24/21 10:59 BMI result Body Mass Index 29.7 General: AO X 3, no acute distress Resp: Crackles, no accessory muscles used CVS: S1,S2,RRR GI: soft, non tender, non distended Neuro: motor grossly intact, alert Psych: appropriate affect, appropriate insight Objective Data Active Medications Acetaminophen (Acetaminophen 325 Mg Tablet) 650 mg PO Q6H PRN PRN Reason: Pain, Mild (Pain Scale 1-3) Albuterol/Ipratropium (Albuterol/Iprat 2.5/0.5mg 3 Ml Ampul.Neb) 3 ml INHALE RQ4H PRN PRN Reason: Shortness of Breath/Wheezing Aripiprazole (Aripiprazole 15 Mg Tablet) 15 mg PO DAILY [facility] Last Admin: 10/24/21 09:51 Dose: 15 mg Documented by: FATUMA Carbidopa/Levodopa (Carbidopa/Levodopa Cr 25/100 Tablet.Er) 2 tab PO BID [facility] Last Admin: 10/24/21 09:51 Dose: 2 tab Documented by: FATUMA Carbidopa/Levodopa (Carbidopa/Levodopa 25/100 Tablet) 2 tab PO 6XD [facility] Last Admin: 10/24/21 09:51 Dose: 2 tab Documented by: FATUMA Dextrose (Dextrose 50 % 25 Gm/50 Ml Syringe) 25 gm IVPUSH Q15M PRN; Protocol PRN Reason: per Hypoglycemia Standing Ord. Enoxaparin Sodium (Enoxaparin Sodium 40 Mg/0.4 Ml Syringe) 40 mg SUBCUT Q24H [facility] Last Admin: 10/24/21 00:03 Dose: 40 mg Documented by: KING Glucose (Glucose Gel 15 Gm Gel..Gram.) 15 gm PO Q15M PRN; Protocol PRN Reason: per Hypoglycemia Standing Ord. Ceftriaxone Sodium 1 gm/ (Sodium Chloride) 50 mls @ 100 mls/hr IV Q24H [facility] Last Infusion: 10/24/21 01:27 Dose: 0 mls/hr Documented by: KING Azithromycin 500 mg/ Sodium (Chloride) 250 mls @ 125 mls/hr IV Q24H [facility] Last Infusion: 10/24/21 04:16 Dose: 0 mls/hr Documented by: KING Insulin Human Lispro (Insulin Lispro 100 Unit/Ml 3 Ml Vial) 0 unit SUBCUT QIDACHS [facility]; Protocol Last Admin: 10/24/21 09:51 Dose: Not Given Documented by: FATUMA Non-Admin Reason: NPO Pharmacy Consult (Consult Rx Perform Med Rec) 1 each MISCELLANE ONCE PRN PRN Reason: Consult order Senna (Sennosides 8.6 Mg Tablet) 17.2 mg PO BEDTIME PRN PRN Reason: Constipation Sodium Chloride (0.9 % Sodium Chloride Flush 3 Ml Syringe) 3 ml IVFLUSH QSHIFT [facility] Last Admin: 10/24/21 09:52 Dose: 3 ml Documented by: FTAUMA Labs CBC & Chem 7: 10/24/21 06:58 10/24/21 06:58 Labs: Laboratory Results - last 24 hr 10/23/21 10/23/21 10/23/21 19:51 19:51 19:51 MCV 97.4 MCH 32.6 MCHC 33.5 RDW 12.8 Plt Count 180 MPV 10.4 Immature Gran % (Auto) 0.3 Neut % (Auto) 90.2 H Lymph % (Auto) 4.7 L [place] % (Auto) 4.6 Eos % (Auto) 0.0 Baso % (Auto) 0.2 Lymph # (Auto) 0.7 L [place] # (Auto) 0.7 Eos # (Auto) 0.0 Baso # (Auto) 0.0 Abs Immat Gran (auto) 0.04 H Absolute Neuts (auto) 13.7 H Absolute Nucleated RBC 0.000 Nucleated RBC % (auto) 0.0 Smear Tech's Comments VERIFIED Anion Gap Estim Creat Clear Calc Estimated GFR POC Glucose Random Glucose Lactic Acid Lactic Acid F/U @ 2Hr Lactic Acid F/U @ 4Hr Calcium B-Natriuretic Peptide 50 Urine Color Urine Appearance Urine pH Ur Specific [place] Urine Protein Urine Glucose (UA) Urine Ketones Urine Blood Urine Nitrite Ur Leukocyte Esterase Urine RBC Urine WBC Ur Squamous Epith Cells Ur Renal Epithelial Cell Urine Bacteria Urine Mucus COVID-19 ([facility]RAD) Negative COVID-19 Clin Com See Note 10/23/21 10/23/21 10/23/21 19:59 20:40 20:55 MCV MCH MCHC RDW Plt Count MPV Immature Gran % (Auto) Neut % (Auto) Lymph % (Auto) [place] % (Auto) Eos % (Auto) Baso % (Auto) Lymph # (Auto) [place] # (Auto) Eos # (Auto) Baso # (Auto) Abs Immat Gran (auto) Absolute Neuts (auto) Absolute Nucleated RBC Nucleated RBC % (auto) Smear Tech's Comments Anion Gap 15 Estim Creat Clear Calc 55.4 Estimated GFR > 60 POC Glucose Random Glucose 201 H Lactic Acid 3.2 H* Lactic Acid F/U @ 2Hr Lactic Acid F/U @ 4Hr Calcium 9.4 B-Natriuretic Peptide Urine Color YELLOW Urine Appearance HAZY Urine pH 5.5 Ur Specific [place] >= 1.030 H Urine Protein 1+ H Urine Glucose (UA) 100 H Urine Ketones 5 Urine Blood 1+ H Urine Nitrite NEG Ur Leukocyte Esterase NEG Urine RBC 15-29 H Urine WBC 0-2 Ur Squamous Epith Cells TRACE Ur Renal Epithelial Cell TRACE Urine Bacteria 1+ Urine Mucus TRACE COVID-19 ([facility]) COVID-19 Clin Com 10/23/21 10/24/21 10/24/21 23:31 01:48 06:58 MCV 96.0 MCH 31.7 MCHC 33.0 RDW 13.0 Plt Count 188 MPV 11.3 Immature Gran % (Auto) 0.2 Neut % (Auto) 75.5 H Lymph % (Auto) 17.8 L [place] % (Auto) 5.7 Eos % (Auto) 0.5 Baso % (Auto) 0.3 Lymph # (Auto) 2.2 [place] # (Auto) 0.7 Eos # (Auto) 0.1 Baso # (Auto) 0.0 Abs Immat Gran (auto) 0.03 Absolute Neuts (auto) 9.5 H Absolute Nucleated RBC 0.000 Nucleated RBC % (auto) 0.0 Smear Tech's Comments Anion Gap Estim Creat Clear Calc Estimated GFR POC Glucose Random Glucose Lactic Acid Lactic Acid F/U @ 2Hr 3.6 H* Lactic Acid F/U @ 4Hr 3.0 H* Calcium B-Natriuretic Peptide Urine Color Urine Appearance Urine pH Ur Specific [place] Urine Protein Urine Glucose (UA) Urine Ketones Urine Blood Urine Nitrite Ur Leukocyte Esterase Urine RBC Urine WBC Ur Squamous Epith Cells Ur Renal Epithelial Cell Urine Bacteria Urine Mucus COVID-19 ([facility]) COVID-19 [employer] 10/24/21 10/24/21 06:58 07:10 MCV MCH MCHC RDW Plt Count MPV Immature Gran % (Auto) Neut % (Auto) Lymph % (Auto) [place] % (Auto) Eos % (Auto) Baso % (Auto) Lymph # (Auto) [place] # (Auto) Eos # (Auto) Baso # (Auto) Abs Immat Gran (auto) Absolute Neuts (auto) Absolute Nucleated RBC Nucleated RBC % (auto) Smear Tech's Comments Anion Gap 13 Estim Creat Clear Calc 74.7 Estimated GFR > 60 POC Glucose 113 Random Glucose 119 H D Lactic Acid Lactic Acid F/U @ 2Hr Lactic Acid F/U @ 4Hr Calcium 9.1 B-Natriuretic Peptide Urine Color Urine Appearance Urine pH Ur Specific [place] Urine Protein Urine Glucose (UA) Urine Ketones Urine Blood Urine Nitrite Ur Leukocyte Esterase Urine RBC Urine WBC Ur Squamous Epith Cells Ur Renal Epithelial Cell Urine Bacteria Urine Mucus COVID-19 ([facility]RAD) COVID-19 [employer] Assessment and Plan (1) Pneumonia: Status: Acute Assessment and Plan: 86M presented with sob, ams severe sepsis and acute hypoxic respiratory failure and metabolic encephalopathy due to left lingula pneumonia, likely aspiration pneumonia rocephin, azithro follow up cultures wean o2 as tolerated DIGITAL STRATEGY SPECIALIST parkinsons sinemet DM insulin microscopic hematuria outpatient work up if desired Quality Stroke Does the patient have a stroke diagnosis?: No VTE Prior VTE?: No VTE Risk Level:: Medical - moderate - high VTE Device Contraindication: Treatment Not Indicated VTE Drug Contraindication: N/A - Med Ordered
[2021-10-24 11:41] LABS: Glucose, Whole Blood 127 mg/dL (60-115)
--- NOTE | 2021-10-24 14:37 | MHC.CM.PN ---
IMM 10/24/21, CM CONTACTED TS HCP GABY [phone] TO REVIEW AND SEND IMM, GABY REPORTS PT IS IN A W/C AND PT IS 2 PERSON TXFR W/ STAFF OCCASIONALLY HAVING TO USE LIFT TO TRANSFER PT, GABY CONCERNED ABOUT PT RECEIVING ABILIFY AND SINEMET AND THIS CM HAS VERIFIED PT IS RECEIVING BOTH, GABY ALSO CONCERNED ABOUT PT NOT HAVING HIS GLASSES AND CM HAS REACHED OUT TO FACILITY FOR GLASSES AND COPY OF HCP VIA [email or web address], PT'S PCP JASMIN MCALLISTER AND PT HAS A NEUROLOGIST AT [facility]. D/C PLAN: RETURN TO [facility] W/ACTION FOR BLS TRANSPORT.
[2021-10-24 15:14] LABS: Glucose, Whole Blood 169 mg/dL (60-115)
[2021-10-24 16:35] LABS: Glucose, Whole Blood 132 mg/dL (60-115)
[2021-10-24] MEDS: Acetaminophen 325 MG TABLET 650 MG PO (18:09)
[2021-10-24 20:50] LABS: Glucose, Whole Blood 148 mg/dL (60-115)
--- NOTE | 2021-10-24 21:14 | PC.NURSE ---
Alert and oriented, but forgetful, bizarre, shouts out instead of using call walter. One dose of carbidopa/levodopa was missed due to not being available in unit, called registration, got patient into [facility]. SQ insulin was held by prior nurse for 12;00; for dinner, POC required no coverage. Patient was able to eat dinner and fed self. Pills whole in apple sauce. Iincontinent of urine and stool, attempted [place] catheter with good effect.
--- NOTE | 2021-10-24 22:55 | PC.NURSE ---
RN took over patient's care at 1900, patient alert and oriented, but vague/forgetful. Patient denies any pain or discomfort at this time, vss, repositioned, bedtime medications administered per emar.
[2021-10-25] VITALS (9 sets, daily range): BP systolic 113–135; BP diastolic 69–88; PULSE 80–110; RESP 20–76; TEMP 36.7–37.2; O2SAT 83–96
[2021-10-25] MEDS: cefTRIAXone sodium 1 GM in 0.9 % Sodium Chloride 50 ML IV ×2 (00:55→22:01)
[2021-10-25] MEDS: 0.9 % Sodium Chloride Flush 3 ML SYRINGE IVFLUSH ×4 (00:56→22:03)
[2021-10-25] MEDS: Enoxaparin Sodium 40 MG/0.4 ML SYRINGE SUBCUT ×2 (00:58→22:01)
[2021-10-25] MEDS: Azithromycin 500 MG in 0.9 % Sodium Chloride 250 ML 125 MG IV ×2 (00:59→22:36)
[2021-10-25] MEDS: Carbidopa/Levodopa 25/100 TABLET 2 TAB PO ×3 (06:27→21:37)
[2021-10-25 07:34] LABS: Hematocrit 38.9 % (42.0-52.0); Hemoglobin 12.8 g/dl (14.0-18.0); Mean Corpuscular HGB Conc 32.9 g/dl (31.0-36.0); Mean Corpuscular Hemoglobin 31.4 pg (27.0-33.0); Mean Corpuscular Volume 95.6 fL (80.0-98.0); Mean Platelet Volume 11.1 fL (9.4-12.4); Platelet Count 203 X10*3/uL (160-400); Red Blood Count 4.07 X10*6/uL (4.60-5.80); Red Cell Distribution Width 12.7 % (11.0-16.0); White Blood Count 10.4 X10*3/uL (4.8-10.8)
[2021-10-25 07:47] LABS: Anion Gap 14 (12-20); Blood Urea Nitrogen 11 mg/dL (9-16); Calcium 9.4 mg/dL (8.4-10.2); Carbon Dioxide 26 mmol/L (22-29); Chloride 106 mmol/L (96-108); Creatinine Clr Calc Pharmacy 71.5; Estimated Glomerular Filt Rate > 60; Glucose Fasting 141 mg/dL (60-99); Potassium 3.4 mmol/L (3.3-5.1); Sodium 143 mmol/L (135-145)
[2021-10-25 07:53] LABS: Glucose, Whole Blood 147 mg/dL (60-115)
[2021-10-25] MEDS: ARIPiprazole 15 MG TABLET PO (08:39)
[2021-10-25] MEDS: Carbidopa/Levodopa CR 25/100 TABLET.ER 2 TAB PO ×2 (08:39→21:32)
--- NOTE | 2021-10-25 10:28 | PC.NURSE ---
Pt A& Ox4 upon my initial assessment. No complaints of pain, shallow breathing with grunting and snorting, per RN report this is patient's baseline due to parkinson, asked the patient if the breathing was normal for him and he stated it was not. Lungs severely diminished, pt took medications in applesauce, no signs of aspiration. Pt pale in color, incontinence care provided, skin intact, repositioned. At approx 1000, pt found to be hypoxic on room air, O2 sat in the 40's, responsive and replied to name. Pt suctioned for small amount of clear mucus, respirations became more shallow and pt became unresponsive, rapid response called at this time. Pt placed on NRB and O2 went up to the 90's but pt remained unresponsive. Pt transported to ICU at this time.
--- NOTE | 2021-10-25 10:32 | HO.PM.IMPN ---
Subjective Subjective Date of Service: 10/25/21 Interval History: ?cc: sob interval history: still sob, cough Review of Systems Review of Systems: Yes Unobtainable due to mental condition Physical Exam Vital Signs: Vital Signs: Last Vital Signs Temp 98.9 F 10/25/21 00:00 Pulse 90 10/25/21 00:00 Resp 20 10/25/21 00:00 BP 135/80 10/25/21 00:00 Pulse Ox 96 10/24/21 22:47 BMI result Body Mass Index 29.7 General: initially lethargic, subdued but answering questions - during OCEANOGRAPHIC METEOROLOGIST obtunded, minimal movement to painful stimuli Resp: rhonchi bilateral, accessory muscles used CVS: S1,S2,RRR GI: soft, non tender, non distended Neuro: no focal defecits previously, during OCEANOGRAPHIC METEOROLOGIST obtunded, not protecting airway Psych: impaired insight Objective Data Active Medications Acetaminophen (Acetaminophen 325 Mg Tablet) 650 mg PO Q6H PRN PRN Reason: Pain, Mild (Pain Scale 1-3) Last Admin: 10/24/21 18:09 Dose: 650 mg Documented by: MUNIR Albuterol/Ipratropium (Albuterol/Iprat 2.5/0.5mg 3 Ml Ampul.Neb) 3 ml INHALE RQ4H PRN PRN Reason: Shortness of Breath/Wheezing Aripiprazole (Aripiprazole 15 Mg Tablet) 15 mg PO DAILY [facility] Last Admin: 10/25/21 08:39 Dose: 15 mg Documented by: BRENDA Carbidopa/Levodopa (Carbidopa/Levodopa 25/100 Tablet) 2 tab PO 6XD [facility] Last Admin: 10/25/21 09:10 Dose: Not Given Documented by: BRENDA Non-Admin Reason: Duplicate Order Carbidopa/Levodopa (Carbidopa/Levodopa Cr 25/100 Tablet.Er) 2 tab PO BID@0800,2000 [facility] Last Admin: 10/25/21 08:39 Dose: 2 tab Documented by: BRENDA Dextrose (Dextrose 50 % 25 Gm/50 Ml Syringe) 25 gm IVPUSH Q15M PRN; Protocol PRN Reason: per Hypoglycemia Standing Ord. Enoxaparin Sodium (Enoxaparin Sodium 40 Mg/0.4 Ml Syringe) 40 mg SUBCUT Q24H [facility] Last Admin: 10/25/21 00:58 Dose: 40 mg Documented by: MARIA LUZ Glucose (Glucose Gel 15 Gm Gel..Gram.) 15 gm PO Q15M PRN; Protocol PRN Reason: per Hypoglycemia Standing Ord. Ceftriaxone Sodium 1 gm/ (Sodium Chloride) 50 mls @ 100 mls/hr IV Q24H [facility] Last Infusion: 10/25/21 02:07 Dose: 0 mls/hr Documented by: MARIA LUZ Azithromycin 500 mg/ Sodium (Chloride) 250 mls @ 125 mls/hr IV Q24H [facility] Last Infusion: 10/25/21 03:00 Dose: 0 mls/hr Documented by: SENAIT Insulin Human Lispro (Insulin Lispro 100 Unit/Ml 3 Ml Vial) 0 unit SUBCUT QIDACHS [facility]; Protocol Last Admin: 10/25/21 08:31 Dose: Not Given Documented by: BRENDA Non-Admin Reason: No Insulin Coverage Pharmacy Consult (Consult Rx Perform Med Rec) 1 each MISCELLANE ONCE PRN PRN Reason: Consult order Senna (Sennosides 8.6 Mg Tablet) 17.2 mg PO BEDTIME PRN PRN Reason: Constipation Sodium Chloride (0.9 % Sodium Chloride Flush 3 Ml Syringe) 3 ml IVFLUSH QSHIFT [facility] Last Admin: 10/25/21 08:41 Dose: 3 ml Documented by: BRENDA Labs CBC & Chem 7: 10/25/21 07:07 10/25/21 07:07 Labs: Laboratory Results - last 24 hr 10/24/21 10/24/21 10/24/21 11:36 14:37 16:29 MCV MCH MCHC RDW Plt Count MPV Absolute Nucleated RBC Nucleated RBC % (auto) Anion Gap Estim Creat Clear Calc Estimated GFR POC Glucose 127 H 169 H 132 H Fasting Glucose Calcium 10/24/21 10/25/21 10/25/21 20:30 07:07 07:07 MCV 95.6 MCH 31.4 MCHC 32.9 RDW 12.7 Plt Count 203 MPV 11.1 Absolute Nucleated RBC 0.000 Nucleated RBC % (auto) 0.0 Anion Gap 14 Estim Creat Clear Calc 71.5 Estimated GFR > 60 POC Glucose 148 H Fasting Glucose 141 H Calcium 9.4 10/25/21 07:30 MCV MCH MCHC RDW Plt Count MPV Absolute Nucleated RBC Nucleated RBC % (auto) Anion Gap Estim Creat Clear Calc Estimated GFR POC Glucose 147 H Fasting Glucose Calcium Microbiology Microbiology Results: Microbiology 10/23/21 21:01 Blood Culture - Preliminary Blood - Venous No growth after 24 hours. 10/23/21 20:55 Blood Culture - Preliminary Blood - Venous No growth after 24 hours. Assessment and Plan (1) Pneumonia: Status: Acute Assessment and Plan: 86M presented with sob, ams, course now complicated by OCEANOGRAPHIC METEOROLOGIST for unresponsiveness, acute hypoxia into the 40s, patient placed on NRB and o2 improved to 100%, transfered to ICU severe sepsis and acute hypoxic respiratory failure and metabolic encephalopathy due to pneumonia, likely aspiration pneumonia, transferred to ICU has been on rocephin, azithro parkinsons sinemet DM insulin full code - confirmed with [facility] Corinna [phone] Quality Stroke Does the patient have a stroke diagnosis?: No VTE Prior VTE?: No VTE Risk Level:: Medical - moderate - high VTE Device Contraindication: Treatment Not Indicated VTE Drug Contraindication: N/A - Med Ordered
--- NOTE | 2021-10-25 10:49 | PM.CCPN ---
Subjective Subjective Date of Service: 10/25/21 Interval History: Mr. Evans was transferred to the ICU emergently from the ED overflow unit after an event where he became seemingly suddenly unresponsive, Sat?s in the 40s, and didn?t seem to be breathing well. ?He was transferred to ICU on NRBFM oxygen with the expectation that he would be intubated. The patient is an 86 yo M with PMHx of Parkinson's disease, COPD, diabetes, polyneuropathy, aphasia.? Lives is at nursing facility.? He was brought to the ED 2 days ago complaining of shortness of breath and weakness.? COVID test was negative at the nursing facility. In the ED, Sat was 94% on room air.? COVID test was negative.? Mental status was altered.? He was admitted to [facility] medicine with diagnoses of toxic/metabolic encephalopathy, and ? left lower lobe pneumonia.? He was treated with ceftriaxone and Zithromax. ?He had a CTA yesterday which showed no pulmonary embolism, but showed enlarged pulmonary arteries, and enlarged RV with straightened left heart border.? The radiologist read ground-glass opacities in the lingula.? Looks to me like he has shmutz in both lower lobes.? He was boarded in the ED overflow unit, waiting for a regular room. On arrival to the ICU this morning after the above event, the patient was easily arousable, but letargic.? He appears to have a fairly fixed neck in the left lateral and flexed position. ?He was able to talk and answer my simple questions.? He was breathing with a RR of about 20-24, with Sat 100% on the NRBFM, with abdom paradox but no access musc use. ?On 30% venti mask, RR was about 20 with Sat mid-90s.? Auscultation of his chest showed rhonchi isolated to the right lung.? Stat chest x-ray showed clear right lung field, with possibly a left lower lobe infiltrate.? The film is not significantly different from his admission chest x-ray on October 23. Over the next few hours, he became more fully awake.? At 14:30, he is fully awake, wearing his glasses, talks easily in full sentences, asks insightful questions, he's telling me about his , and he wants his medications.? HR is 81, SR, BP is 129/88, RR 16, Sat 95% on 4L NC with ETCO2 about 30.? Heart rate 81, blood pressure 129/88.? He is afebrile. IMPRESSION:? I can?t say for sure what happened in the overflow unit, but my guess is that the patient had an aspiration event mostly confined to the upper airway.? His oxygenation seems to be back to baseline, and his breathing is undoubtedly back to baseline.? No further treatment or follow-up for this is indicated at this time, other than a formal swallow evaluation. The patient is stable for transfer back to telemetry..? I will sign out to the hospitalists. Time:? [id number]. Critical Care Time (minutes): 0 Physical Exam Vital Signs: Vital Signs: Last Vital Signs Temp 98.9 F 10/25/21 00:00 Pulse 90 10/25/21 00:00 Resp 20 10/25/21 00:00 BP 135/80 10/25/21 00:00 Pulse Ox 96 10/24/21 22:47 BMI result Body Mass Index 29.7 Objective Data Labs CBC & Chem 7: 10/25/21 07:07 10/25/21 07:07 Labs: Laboratory Results - last 24 hr 10/24/21 10/24/21 10/24/21 11:36 14:37 16:29 WBC RBC Hgb Hct MCV MCH MCHC RDW Plt Count MPV Absolute Nucleated RBC Nucleated RBC % (auto) Sodium Potassium Chloride Carbon Dioxide Anion Gap BUN Creatinine Estim Creat Clear Calc Estimated GFR POC Glucose 127 H 169 H 132 H Fasting Glucose Calcium 10/24/21 10/25/21 10/25/21 20:30 07:07 07:07 WBC 10.4 RBC 4.07 L Hgb 12.8 L Hct 38.9 L MCV 95.6 MCH 31.4 MCHC 32.9 RDW 12.7 Plt Count 203 MPV 11.1 Absolute Nucleated RBC 0.000 Nucleated RBC % (auto) 0.0 Sodium 143 Potassium 3.4 Chloride 106 Carbon Dioxide 26 Anion Gap 14 BUN 11 Creatinine 0.69 Estim Creat Clear Calc 71.5 Estimated GFR > 60 POC Glucose 148 H Fasting Glucose 141 H Calcium 9.4 10/25/21 07:30 WBC RBC Hgb Hct MCV MCH MCHC RDW Plt Count MPV Absolute Nucleated RBC Nucleated RBC % (auto) Sodium Potassium Chloride Carbon Dioxide Anion Gap BUN Creatinine Estim Creat Clear Calc Estimated GFR POC Glucose 147 H Fasting Glucose Calcium Microbiology Microbiology Results: Microbiology 10/23/21 21:01 Blood - Venous Blood Culture - Preliminary No growth after 24 hours. 10/23/21 20:55 Blood - Venous Blood Culture - Preliminary No growth after 24 hours. Quality Stroke Does the patient have a stroke diagnosis?: No VTE Prior VTE?: No VTE Risk Level:: Medical - moderate - high VTE Device Contraindication: Treatment Not Indicated VTE Drug Contraindication: N/A - Med Ordered
[2021-10-25 11:44] LABS: ABG Base Excess 1.4 mmol/L; ABG HCO3 24 mmol/L (22-26); ABG pCO2 33 mmHg (32-45); ABG pCO2 TC 32 mmHg (32-45); ABG pH 7.47 (7.35-7.45); ABG pH TC 7.47 (7.35-7.45); ABG pO2 78 mmHg (83-108); ABG pO2 TC 77 (83-108)
[2021-10-25 11:47] LABS: Glucose, Whole Blood 192 mg/dL (60-115)
--- NOTE | 2021-10-25 11:49 | MHC.SLORD ---
Speech Language Pathology Order Status: Order received for bedside dysphagia evaluation. Per chart review, patient became unresponsive this morning and rapid response called. Patient placed on nonrebreather, 02 went up to 90s, but patient remained unresponsive. Patient transferred to ICU. HAND COREMAKER spoke to RN in unit, who reports patient slightly more responsive, but will not open eyes, swatting. Patient not appropriate for PO trials this morning given patient decline. Please contact HAND COREMAKER via [place] Message or ext [phone] if able to complete eval later today. Otherwise, plan for eval tomorrow morning.
[2021-10-25 12:21] LABS: ABG Refer to POC result
--- NOTE | 2021-10-25 16:30 | MHC.SL.SWA ---
Speech Pathologist Impression: Risk of Aspiration Oralpharyngeal Dysphagia Risk of Aspiration Due to: Neurological Condition Dysphasia Diet Status: Upgrade Liquid Consistency and Strategies for Safe Swallow: Liquid Intake Recommendation: [place] Thick Liquid Intake Strategies: Small Sips No Straws Solid Food Consistency: Dietary Recommendations: Grnd/Mech Altered (NDD2) Additional Modifications to Solid Foods: Recommend GROUND/MECH ALTERED (NDD2) solids and NECTAR THICK liquids, pills CRUSHED in PUREE. Patient is able to feed himself, but requires assistance with tray set up and throughout meal as needed. Aspiration precautions apply. MECHANICAL PROCESS ENGINEER will continue to f/u to monitor tolerance and re-assess potential for upgrade. Oral Medication Intake: Crushed with Puree Compensatory Strategies and Precautions to be Taken for Safe Swallow: Sitting Upright (90 deg) No Straw Small Bites and Sips Alternate Liquids/Solids Rate of Ingestion Change Supervision While Eating and Drinking for Safe Swallow: Total Assistance Swallowing Recommended Treatments: Compens. Strategy Educat. Recommendation for Speech: Inpatient Speech Therapy Comment: Frequency/Duration: M-F Date Range for Service Req: Timeline to reassess: Title Search Manager Clinican/Clinical Fellow: No Supervisory Statement: I have reviewed and agree with the student/clinical fellow's documentation: N/A Speech Language Pathologist: Carley Anderson M.A., CCC-MECHANICAL PROCESS ENGINEER
[2021-10-25 17:02] LABS: Glucose, Whole Blood 129 mg/dL (60-115)
--- NOTE | 2021-10-25 19:18 | PC.NURSE ---
Updated daughter on pt status, attempted to call Gonzalo from [facility]. Daughter said pt neurologist is Dr Brittany Pickard,
[2021-10-26] VITALS (8 sets, daily range): BP systolic 120–148; BP diastolic 57–96; PULSE 48–98; RESP 18–24; TEMP 36.2–37.1; O2SAT 93–100
--- NOTE | 2021-10-26 | ECG_ITS ---
Test Reason : pauses Blood Pressure : / mmHG Vent. Rate : 089 BPM Atrial Rate : 089 BPM P-R Int : 228 ms QRS Dur : 088 ms QT Int : 376 ms P-R-T Axes : 044 000 018 degrees QTc Int : 457 ms Sinus rhythm with 1st degree A-V block with Premature supraventricular complexes Possible Inferior infarct (cited on or before 23-OCT-2021) Abnormal ECG When compared with ECG of 24-OCT-2021 11:19, Borderline criteria for Lateral infarct are no longer Present Referred By: Gopal Jaimes Electronically Signed By:RICHARD FISHER MD
--- NOTE | 2021-10-26 00:06 | P.EN_ITS ---
Event Note Date of Service: 10/26/21 Event Note: pt had a 3 second pause - per nurse been having frequent pauses. w ill obtain ekg, consult cardiology. labs
[2021-10-26 00:50] LABS: Anion Gap 12 (12-20); Blood Urea Nitrogen 19 mg/dL (9-16); Calcium 9.6 mg/dL (8.4-10.2); Carbon Dioxide 26 mmol/L (22-29); Chloride 108 mmol/L (96-108); Creatinine Clr Calc Pharmacy 61.7; Estimated Glomerular Filt Rate > 60; Glucose Random 132 mg/dL (60-115); Potassium 3.2 mmol/L (3.3-5.1); Sodium 143 mmol/L (135-145)
[2021-10-26] MEDS: Carbidopa/Levodopa 25/100 TABLET 2 TAB PO ×2 (05:10→13:04)
[2021-10-26] MEDS: 0.9 % Sodium Chloride Flush 3 ML SYRINGE IVFLUSH ×2 (08:04→19:43)
[2021-10-26 08:16] LABS: Glucose, Whole Blood 135 mg/dL (60-115)
[2021-10-26] MEDS: KCl 40 mEq in 0.9 % Sodium Chl 40 MEQ/1,000 ML IV.SOLN 80 MEQ IVCONT ×2 (08:40→19:42)
--- NOTE | 2021-10-26 09:50 | P.CONCA_ITS ---
History of Present Illness History of Present Illness Date of Service: 10/26/21 Requesting physician: Thea Mcpherson Chief complaint: Pauses Narrative: I was requested to see Uriah in cardiology consultation today as overnight he was noted to have pauses up to 5.7 seconds including a pause this morning of 5.3 seconds. Reviewing the strip it appears that he has sinus bradycardia and then has also advanced blocks. He has PACs and some of the rhythm strips could appear to be blocked PACs in a bigeminal pattern. Does not appear to be that he has Wenckebach. No clear reported symptoms at that time. Patient has been admitted for hypoxemic respiratory failure suspected to be due to aspiration. He had a rapid response yesterday very was noted to be very hypoxic and was then subsequently briefly observed in the ICU and and recovered. He still requires oxygen supplementation. Findings are consistent with aspiration pneumonia and a speech swallow evaluation suggest that he has some swallowing issues. He has underlying issues with Parkinson's disease, diabetes, hypertension, question aphasia. He has not had any syncopal episode as per him. He does respond coherently to questions but somewhat appears to be confused as to the place. Review of Systems Constitutional: Constitutional: Reports no additional constitutional complaints Eyes: Eyes: Reports no additional eye complaints Cardiovascular: Cardiovascular: Denies chest pain, Denies lightheadedness, Denies Loss of Consciousness, Denies palpitations and Reports dyspnea Respiratory: Respiratory: Reports no additional respiratory complaints and Reports dyspnea Gastrointestinal: Gastrointestinal: Reports no additional gastrointestinal complaints Neurologic: Reports system reviewed and no additional complaints, except as documented Psychiatric: Psychiatric: Reports no additional psychiatric complaints Endocrine: Endocrine: Denies palpitations PMFSH Past Medical History Medical History (Updated 10/26/21 @ 09:57 by Angelito Cruz MD) Anemia Aphasia Diabetes High cholesterol Psychosis Social History Social History service: No Current occupational status: retired Meds Allergies Allergy/AdvReac Type Severity Reaction Status Date / Time rasagiline [From Azilect] Allergy Unknown Verified 10/23/21 18:48 risperidone Allergy Unknown Verified 10/23/21 18:48 sertraline Allergy Unknown Verified 10/23/21 18:48 Active Medications: Current Medications Acetaminophen (Acetaminophen 325 Mg Tablet) 650 mg PO Q6H PRN PRN Reason: Pain, Mild (Pain Scale 1-3) Last Admin: 10/24/21 18:09 Dose: 650 mg Documented by: Albuterol/Ipratropium (Albuterol/Iprat 2.5/0.5mg 3 Ml Ampul.Neb) 3 ml INHALE RQ4H PRN PRN Reason: Shortness of Breath/Wheezing Aripiprazole (Aripiprazole 15 Mg Tablet) 15 mg PO DAILY [facility] Last Admin: 10/26/21 08:10 Dose: Not Given Documented by: Carbidopa/Levodopa (Carbidopa/Levodopa 25/100 Tablet) 2 tab PO 6XD [facility] Last Admin: 10/26/21 05:10 Dose: 2 tab Documented by: Carbidopa/Levodopa (Carbidopa/Levodopa Cr 25/100 Tablet.Er) 2 tab PO BID@0800,2000 [facility] Last Admin: 10/26/21 08:11 Dose: Not Given Documented by: Dextrose (Dextrose 50 % 25 Gm/50 Ml Syringe) 25 gm IVPUSH Q15M PRN; Protocol PRN Reason: per Hypoglycemia Standing Ord. Enoxaparin Sodium (Enoxaparin Sodium 40 Mg/0.4 Ml Syringe) 40 mg SUBCUT Q24H [facility] Last Admin: 10/25/21 22:01 Dose: 40 mg Documented by: Glucose (Glucose Gel 15 Gm Gel..Gram.) 15 gm PO Q15M PRN; Protocol PRN Reason: per Hypoglycemia Standing Ord. Ceftriaxone Sodium 1 gm/ (Sodium Chloride) 50 mls @ 100 mls/hr IV Q24H [facility] Last Infusion: 10/25/21 22:33 Dose: Infused Documented by: Azithromycin 500 mg/ Sodium (Chloride) 250 mls @ 125 mls/hr IV Q24H [facility] Last Infusion: 10/26/21 01:56 Dose: Infused Documented by: Potassium Chloride/Sodium Chloride () 40 meq in 1,000 mls @ 80 mls/hr IVCONT . [id number] [facility] Last Admin: 10/26/21 08:40 Dose: 80 mls/hr Documented by: Insulin Human Lispro (Insulin Lispro 100 Unit/Ml 3 Ml Vial) 0 unit SUBCUT QIDACHS [facility]; Protocol Last Admin: 10/26/21 07:55 Dose: Not Given Documented by: Pharmacy Consult (Consult Rx Perform Med Rec) 1 each MISCELLANE ONCE PRN PRN Reason: Consult order Senna (Sennosides 8.6 Mg Tablet) 17.2 mg PO BEDTIME PRN PRN Reason: Constipation Sodium Chloride (0.9 % Sodium Chloride Flush 3 Ml Syringe) 3 ml IVFLUSH QSHIFT [facility] Last Admin: 10/26/21 08:04 Dose: 3 ml Documented by: Home Medications Medication Instructions Recorded Confirmed Last Taken Type amlodipine 10 mg tablet 10 mg PO DAILY 10/24/21 10/24/21 Unknown History aripiprazole 15 mg tablet 15 mg PO DAILY 10/24/21 10/24/21 Unknown History carbidopa 25 mg-levodopa 100 mg 2 tab PO 6XD 10/24/21 10/24/21 Unknown History tablet carbidopa ER 25 mg-levodopa 100 mg 2 tab PO BID 10/24/21 10/24/21 Unknown History tablet,extended release cholecalciferol (vitamin D3) 1,250 1,250 mcg PO QMONTH 10/24/21 10/24/21 Unknown History mcg (50,000 unit) capsule gabapentin 400 mg capsule 400 mg PO QID 10/24/21 10/24/21 Unknown History metformin 500 mg tablet 1 tab PO DAILY 10/24/21 10/24/21 Unknown History Physical Exam Vital Signs: Vital Signs: Last Vital Signs Temp 98.7 F 10/26/21 08:00 Pulse 62 10/26/21 08:00 Resp 24 H 10/26/21 08:00 BP 123/64 10/26/21 08:00 Pulse Ox 96 10/26/21 08:00 BMI result Body Mass Index 29.7 Const: General: cooperative, alert, awake and other (Pursed lip breathing) Nutritional Appearance: average body habitus HENMT: Head: Yes normocephalic and Yes atraumatic Neck: Neck: Yes trachea midline and Yes no JVD Resp: Effort & Inspection: normal respiratory effort Auscultation: no rales, no rhonchi and other (Coarse breath sounds at bases) Cardio: Jugular venous distension: no JVD Palpation: normal PMI Rate: regular rate Rhythm: regular rhythm Heart sounds: S1 normal heart sound present, S2 normal heart sound present, no click, no gallops, no murmurs and no rubs GI: Auscultation: normal bowel sounds Skin: General skin exam: no rashes or lesions noted Neuro: General: moves all extremities and other (Generalized tremors) Extrem: General: Yes no clubbing, cyanosis or edema Objective Labs and Meds Result diagrams: 10/25/21 07:07 10/26/21 00:18 Lab results: Laboratory Results - last 24 hr 10/25/21 10/25/21 10/25/21 11:37 11:39 16:58 O2 Saturation 96.0 ABG pH at Pt Temp 7.47 H ABG pH (Temp Correct) 7.47 H ABG pCO2 at Pt Temp 33 ABG pCO2 (Temp Corrct 32 ABG pO2 at Pt Temp 78 L ABG pO2 (Temp Correct 77 L ABG HCO3 24 ABG Base Excess (Actual) 1.4 Sodium Potassium Chloride Carbon Dioxide Anion Gap BUN Creatinine Estim Creat Clear Calc Estimated GFR POC Glucose 192 H 129 H Random Glucose Calcium Magnesium 10/26/21 10/26/21 00:18 07:12 O2 Saturation ABG pH at Pt Temp ABG pH (Temp Correct) ABG pCO2 at Pt Temp ABG pCO2 (Temp Corrct ABG pO2 at Pt Temp ABG pO2 (Temp Correct ABG HCO3 ABG Base Excess (Actual) Sodium 143 Potassium 3.2 L Chloride 108 Carbon Dioxide 26 Anion Gap 12 BUN 19 H D Creatinine 0.80 Estim Creat Clear Calc 61.7 Estimated GFR > 60 POC Glucose 135 H Random Glucose 132 H Calcium 9.6 Magnesium 2.0 Imaging Radiologist's impression: Impressions Chest X-Ray 10/25/21 10:47 IMPRESSION: Hypoexpanded lungs without acute process. Assessment and Plan (1) Sinus pause: Status: Acute Patient with underlying sinus rhythm with significant pauses with prior cardia as well as AV conduction issues with blocked PACs. Discussed with patient about need for pacemaker. He at this time declines to undergo pacemaker. Says that he wants to wait 48 hours. We discussed about possibility of cardiac standstill and requirement for resuscitative efforts. He was not sure but then said that he does not want to be resuscitated. Discussed with h ospitalist team. I discussed the need for pacemaker including the procedure including risk, benefits, alternatives. He continued to decline the pacemaker and said he does not want to make a decision in a clifton. No alternative to pacing therapy for him. Avoid rate lowering medications. Continue to manage his underlying medical issues as per the hospitalist team. Consider competency evaluation Will sign off the case and if patient agrees for pacemaker, please consult us again. Procedures Date of Service Date of Service: 10/26/21
--- NOTE | 2021-10-26 10:32 | PM.PSYCN ---
History of Present Illness Chief Complaint: Pauses [facility] Medical History (Updated 10/26/21 @ 09:57 by Angelito Cruz MD) Anemia Aphasia Diabetes High cholesterol Psychosis Diagnostics Vital Signs (24Hr): Vital Signs - 24 hr 10/25/21 11:00 10/25/21 12:00 10/25/21 13:00 Temperature 98.1 F Pulse Rate 87 80 91 Respiratory Rate 24 H 76 H 29 H Blood Pressure 113/69 122/76 135/69 Pulse Oximetry 96 83 L 94 10/25/21 14:00 10/25/21 14:08 10/25/21 16:00 Temperature Pulse Rate 110 H 92 Respiratory Rate 25 H 22 H Blood Pressure 129/88 131/70 Pulse Oximetry 88 L 96 91 L 10/26/21 00:00 10/26/21 04:00 10/26/21 08:00 Temperature 98.6 F 98.2 F 98.7 F Pulse Rate 98 98 62 Respiratory Rate 20 20 24 H Blood Pressure 137/89 147/73 H 123/64 Pulse Oximetry 97 98 96 BMI result Body Mass Index 29.7 Labs Results: 10/25/21 07:07 10/26/21 00:18 Labs: Laboratory Results - last 48 hr 10/24/21 10/24/21 10/24/21 11:36 14:37 16:29 WBC RBC Hgb Hct MCV MCH MCHC RDW Plt Count MPV Absolute Nucleated RBC Nucleated RBC % (auto) O2 Saturation ABG pH at Pt Temp ABG pH (Temp Correct) ABG pCO2 at Pt Temp ABG pCO2 (Temp Corrct ABG pO2 at Pt Temp ABG pO2 (Temp Correct ABG HCO3 ABG Base Excess (Actual) Sodium Potassium Chloride Carbon Dioxide Anion Gap BUN Creatinine Estim Creat Clear Calc Estimated GFR POC Glucose 127 H 169 H 132 H Random Glucose Fasting Glucose Calcium Magnesium 10/24/21 10/25/21 10/25/21 20:30 07:07 07:07 WBC 10.4 RBC 4.07 L Hgb 12.8 L Hct 38.9 L MCV 95.6 MCH 31.4 MCHC 32.9 RDW 12.7 Plt Count 203 MPV 11.1 Absolute Nucleated RBC 0.000 Nucleated RBC % (auto) 0.0 O2 Saturation ABG pH at Pt Temp ABG pH (Temp Correct) ABG pCO2 at Pt Temp ABG pCO2 (Temp Corrct ABG pO2 at Pt Temp ABG pO2 (Temp Correct ABG HCO3 ABG Base Excess (Actual) Sodium 143 Potassium 3.4 Chloride 106 Carbon Dioxide 26 Anion Gap 14 BUN 11 Creatinine 0.69 Estim Creat Clear Calc 71.5 Estimated GFR > 60 POC Glucose 148 H Random Glucose Fasting Glucose 141 H Calcium 9.4 Magnesium 10/25/21 10/25/21 10/25/21 07:30 11:37 11:39 WBC RBC Hgb Hct MCV MCH MCHC RDW Plt Count MPV Absolute Nucleated RBC Nucleated RBC % (auto) O2 Saturation 96.0 ABG pH at Pt Temp 7.47 H ABG pH (Temp Correct) 7.47 H ABG pCO2 at Pt Temp 33 ABG pCO2 (Temp Corrct 32 ABG pO2 at Pt Temp 78 L ABG pO2 (Temp Correct 77 L ABG HCO3 24 ABG Base Excess (Actual) 1.4 Sodium Potassium Chloride Carbon Dioxide Anion Gap BUN Creatinine Estim Creat Clear Calc Estimated GFR POC Glucose 147 H 192 H Random Glucose Fasting Glucose Calcium Magnesium 10/25/21 10/26/21 10/26/21 16:58 00:18 07:12 WBC RBC Hgb Hct MCV MCH MCHC RDW Plt Count MPV Absolute Nucleated RBC Nucleated RBC % (auto) O2 Saturation ABG pH at Pt Temp ABG pH (Temp Correct) ABG pCO2 at Pt Temp ABG pCO2 (Temp Corrct ABG pO2 at Pt Temp ABG pO2 (Temp Correct ABG HCO3 ABG Base Excess (Actual) Sodium 143 Potassium 3.2 L Chloride 108 Carbon Dioxide 26 Anion Gap 12 BUN 19 H D Creatinine 0.80 Estim Creat Clear Calc 61.7 Estimated GFR > 60 POC Glucose 129 H 135 H Random Glucose 132 H Fasting Glucose Calcium 9.6 Magnesium 2.0 Imaging Radiology Impressions: ITS Impressions Chest X-Ray 10/23/21 20:24 IMPRESSION: Hypoexpanded. Increased left basilar markings suggesting consolidation/atelectasis in the acute setting. Clinical correlation and follow-up would be recommended. Head CT 10/24/21 01:00 IMPRESSION: No acute intracranial pathology. Chronic volume loss with small vessel ischemic change. Abdomen/Pelvis CT 10/24/21 01:25 IMPRESSION: 1. No pulmonary embolism. 2. Groundglass opacities are seen in the lingula which could be infectious or inflammatory. 3. No acute finding in the abdomen or pelvis. No bowel obstruction. There is somewhat distended appearance of the sigmoid colon. VTE: negative Chest CTA 10/24/21 01:25 IMPRESSION: 1. No pulmonary embolism. 2. Groundglass opacities are seen in the lingula which could be infectious or inflammatory. 3. No acute finding in the abdomen or pelvis. No bowel obstruction. There is somewhat distended appearance of the sigmoid colon. VTE: negative Chest X-Ray 10/25/21 10:47 IMPRESSION: Hypoexpanded lungs without acute process. Medications Medications Current Medications Acetaminophen (Acetaminophen 325 Mg Tablet) 650 mg PO Q6H PRN PRN Reason: Pain, Mild (Pain Scale 1-3) Last Admin: 10/24/21 18:09 Dose: 650 mg Documented by: Albuterol/Ipratropium (Albuterol/Iprat 2.5/0.5mg 3 Ml Ampul.Neb) 3 ml INHALE RQ4H PRN PRN Reason: Shortness of Breath/Wheezing Aripiprazole (Aripiprazole 15 Mg Tablet) 15 mg PO DAILY [facility] Last Admin: 10/26/21 08:10 Dose: Not Given Documented by: Carbidopa/Levodopa (Carbidopa/Levodopa 25/100 Tablet) 2 tab PO 6XD [facility] Last Admin: 10/26/21 10:22 Dose: Not Given Documented by: Carbidopa/Levodopa (Carbidopa/Levodopa Cr 25/100 Tablet.Er) 2 tab PO BID@0800,2000 [facility] Last Admin: 10/26/21 08:11 Dose: Not Given Documented by: Dextrose (Dextrose 50 % 25 Gm/50 Ml Syringe) 25 gm IVPUSH Q15M PRN; Protocol PRN Reason: per Hypoglycemia Standing Ord. Enoxaparin Sodium (Enoxaparin Sodium 40 Mg/0.4 Ml Syringe) 40 mg SUBCUT Q24H [facility] Last Admin: 10/25/21 22:01 Dose: 40 mg Documented by: Glucose (Glucose Gel 15 Gm Gel..Gram.) 15 gm PO Q15M PRN; Protocol PRN Reason: per Hypoglycemia Standing Ord. Ceftriaxone Sodium 1 gm/ (Sodium Chloride) 50 mls @ 100 mls/hr IV Q24H [facility] Last Infusion: 10/25/21 22:33 Dose: Infused Documented by: Azithromycin 500 mg/ Sodium (Chloride) 250 mls @ 125 mls/hr IV Q24H [facility] Last Infusion: 10/26/21 01:56 Dose: Infused Documented by: Potassium Chloride/Sodium Chloride () 40 meq in 1,000 mls @ 80 mls/hr IVCONT .[id number] [facility] Last Admin: 10/26/21 08:40 Dose: 80 mls/hr Documented by: Insulin Human Lispro (Insulin Lispro 100 Unit/Ml 3 Ml Vial) 0 unit SUBCUT QIDACHS [facility]; Protocol Last Admin: 10/26/21 07:55 Dose: Not Given Documented by: Pharmacy Consult (Consult Rx Perform Med Rec) 1 each MISCELLANE ONCE PRN PRN Reason: Consult order Senna (Sennosides 8.6 Mg Tablet) 17.2 mg PO BEDTIME PRN PRN Reason: Constipation Sodium Chloride (0.9 % Sodium Chloride Flush 3 Ml Syringe) 3 ml IVFLUSH QSHIFT [facility] Last Admin: 10/26/21 08:04 Dose: 3 ml Documented by: Allergies Allergies Allergy/AdvReac Type Severity Reaction Status Date / Time rasagiline [From Azilect] Allergy Unknown Verified 10/23/21 18:48 risperidone Allergy Unknown Verified 10/23/21 18:48 sertraline Allergy Unknown Verified 10/23/21 18:48 Assessment & Plan I spent minutes with the patient and/or on the patient floor today, greater than?50% of which was spent counseling/coordinating care.
[2021-10-26 11:50] LABS: Glucose, Whole Blood 123 mg/dL (60-115)
--- NOTE | 2021-10-26 12:34 | MHC.SLORD ---
Speech Language Pathology Order Status: Attempted to see Pt this am to assess toleration of diet, re-assess swallow function. Pt pointedly refused treatment and asked me to leave. Per nurse, Pt has been refusing treatment generally, refusing food. Will follow and re-attempt if pt indicates readiness.
--- NOTE | 2021-10-26 12:39 | HO.PM.IMPN ---
Subjective Subjective Date of Service: 10/26/21 Interval History: Events from last night reviewed patient noted to have multiple recurrent pauses upto 5.7, patient remains asymptomatic, denies chest pain, no palpitation, no lightheadedness, and dizziness, resting quietly in bed, answers yes no to questions. Review of Systems Review of Systems: Yes all other systems are reviewed and are negative Physical Exam Vital Signs: Vital Signs: Last Vital Signs Temp 98.7 F 10/26/21 08:00 Pulse 62 10/26/21 08:00 Resp 24 H 10/26/21 08:00 BP 123/64 10/26/21 08:00 Pulse Ox 96 10/26/21 08:00 BMI result Body Mass Index 29.7 Const: Other: General resting in bed, no acute distress. Neck is supple no JVD. CVS regular rate rhythm, Respiratory lungs clear to auscultation, diminished at bases, using abdominal muscles, tachypneic, no wheeze, no rhonchi. No change since yesterday Gastrointestinal abdomen soft, nontender, bowel sounds audible, no guarding , no rigidity. Extremities no edema. Neuro nonfocal , speech clear, hand tremors Skin no rash Objective Data Active Medications Acetaminophen (Acetaminophen 325 Mg Tablet) 650 mg PO Q6H PRN PRN Reason: Pain, Mild (Pain Scale 1-3) Last Admin: 10/24/21 18:09 Dose: 650 mg Documented by: MUNIR Albuterol/Ipratropium (Albuterol/Iprat 2.5/0.5mg 3 Ml Ampul.Neb) 3 ml INHALE RQ4H PRN PRN Reason: Shortness of Breath/Wheezing Aripiprazole (Aripiprazole 15 Mg Tablet) 15 mg PO DAILY [facility] Last Admin: 10/26/21 08:10 Dose: Not Given Documented by: YOLI Non-Admin Reason: pt unable to swallow med Carbidopa/Levodopa (Carbidopa/Levodopa 25/100 Tablet) 2 tab PO 6XD [facility] Last Admin: 10/26/21 10:22 Dose: Not Given Documented by: YOLI Non-Admin Reason: pt refusing medication Carbidopa/Levodopa (Carbidopa/Levodopa Cr 25/100 Tablet.Er) 2 tab PO BID@0800,1999 [facility] Last Admin: 10/26/21 08:11 Dose: Not Given Documented by: YOLI Non-Admin Reason: pt unable to swallow med Dextrose (Dextrose 50 % 25 Gm/50 Ml Syringe) 25 gm IVPUSH Q15M PRN; Protocol PRN Reason: per Hypoglycemia Standing Ord. Enoxaparin Sodium (Enoxaparin Sodium 40 Mg/0.4 Ml Syringe) 40 mg SUBCUT Q24H [facility] Last Admin: 10/25/21 22:01 Dose: 40 mg Documented by: JESSENIA Glucose (Glucose Gel 15 Gm Gel..Gram.) 15 gm PO Q15M PRN; Protocol PRN Reason: per Hypoglycemia Standing Ord. Ceftriaxone Sodium 1 gm/ (Sodium Chloride) 50 mls @ 100 mls/hr IV Q24H [facility] Last Infusion: 10/25/21 22:33 Dose: 0 mls/hr Documented by: JESSENIA Azithromycin 500 mg/ Sodium (Chloride) 250 mls @ 125 mls/hr IV Q24H [facility] Last Infusion: 10/26/21 01:56 Dose: 0 mls/hr Documented by: JESSENIA Potassium Chloride/Sodium Chloride () 40 meq in 1,000 mls @ 80 mls/hr IVCONT .[id number] [facility] Last Admin: 10/26/21 08:40 Dose: 80 mls/hr Documented by: YOLI Insulin Human Lispro (Insulin Lispro 100 Unit/Ml 3 Ml Vial) 0 unit SUBCUT QIDACHS [facility]; Protocol Last Admin: 10/26/21 12:17 Dose: Not Given Documented by: YOLI Non-Admin Reason: bs 123 Pharmacy Consult (Consult Rx Perform Med Rec) 1 each MISCELLANE ONCE PRN PRN Reason: Consult order Senna (Sennosides 8.6 Mg Tablet) 17.2 mg PO BEDTIME PRN PRN Reason: Constipation Sodium Chloride (0.9 % Sodium Chloride Flush 3 Ml Syringe) 3 ml IVFLUSH QSHIFT [facility] Last Admin: 10/26/21 08:04 Dose: 3 ml Documented by: YOLI Labs CBC & Chem 7: 10/25/21 07:07 10/26/21 00:18 Labs: Laboratory Results - last 24 hr 10/25/21 10/26/21 10/26/21 16:58 00:18 07:12 Anion Gap 12 Estim Creat Clear Calc 61.7 Estimated GFR > 60 POC Glucose 129 H 135 H Random Glucose 132 H Calcium 9.6 Magnesium 2.0 10/26/21 11:31 Anion Gap Estim Creat Clear Calc Estimated GFR POC Glucose 123 H Random Glucose Calcium Magnesium Microbiology Microbiology Results: Microbiology 10/23/21 21:01 Blood Culture - Preliminary Blood - Venous No growth after 48 hours. 10/23/21 20:55 Blood Culture - Preliminary Blood - Venous No growth after 48 hours. Assessment and Plan (1) Sinus pause: Status: Acute (2) Pneumonia: Status: Acute (3) Acute alteration in mental status: Status: Acute Assessment and Plan: 86M presented with sob, ams, on 10/25 course complicated by an episode of unresponsive with hypoxia into the 40s, patient placed on NRB and o2 improved to 100%, transfered to ICU, soon after arrival to ICU he became arousable, communicated by answering simple questions, his oxygenation improved, stat chest x-ray showed clear right lung field with possibility of a left lower lobe infiltrate, patient was transferred back to medical floor with stable vitals, no cause of acute unresponsiveness was found CTA chest showed no PE since patient was back to baseline he was continued on antibiotics as before. On 10/26 patient noted to have bradycardia with multiple episode of sinus pauses, up to 5.7 seconds patient remained asymptomatic, blood pressure is stable, patient evaluated by landscape artist initially patient refused to have pace maker but after discussing with daughter Lyndsey patient agreed to undergo pacemaker placement, therefore obtained a thoracic surgery consultation, patient noted to have low potassium that will be repleted, stable Mag. Continue pacer pads, NPO after midnight, IV fluid, follow electrolytes, continue tele monitor, patient not on rate lowering medications. Spoke with patient's daughter Lyndsey informed her about patient's current clinical condition she wishes father to remain full code as per his wishes and she confirms that father wishes to undergo pacemaker placement. severe sepsis and acute hypoxic respiratory failure and metabolic encephalopathy due to pneumonia, likely aspiration pneumonia, Encephalopathy resolved, patient at baseline answering questions appropriately Continue rocephin, azithro D3/7, continue modified diet as per speech recommendation Wean oxygen as tolerated parkinsons Continue sinemet DM Blood sugars stable, continue insulin sliding scale, diabetic diet, resume metformin on discharge full code - confirmed with [facility] Corinna?[phone] Quality Stroke Does the patient have a stroke diagnosis?: No VTE Prior VTE?: No VTE Risk Level:: Medical - moderate - high VTE Device Contraindication: Treatment Not Indicated VTE Drug Contraindication: N/A - Med Ordered
[2021-10-26 15:53] LABS: Glucose, Whole Blood 120 mg/dL (60-115)
[2021-10-26 19:38] LABS: Glucose, Whole Blood 132 mg/dL (60-115)
[2021-10-26] MEDS: Enoxaparin Sodium 40 MG/0.4 ML SYRINGE SUBCUT (21:17)
[2021-10-26] MEDS: Azithromycin 500 MG in 0.9 % Sodium Chloride 250 ML 125 MG IV (21:18)
[2021-10-26] MEDS: cefTRIAXone sodium 1 GM in 0.9 % Sodium Chloride 50 ML IV (21:18)
[2021-10-27 02:28] VITALS: BP 138/68; PULSE 58; RESP 20; TEMP 36.1; O2SAT 99
[2021-10-27 07:03] LABS: INTERNATIONAL NORM RATIO 1.1 (0.9-1.1); Prothrombin Time 12.9 SEC (9.9-13.0)
[2021-10-27 07:31] LABS: Glucose, Whole Blood 102 mg/dL (60-115)
[2021-10-27 07:43] VITALS: BP 138/82; PULSE 55; RESP 24; TEMP 36.4; O2SAT 100
[2021-10-27 08:54] LABS: Anion Gap 15 (12-20); Blood Urea Nitrogen 19 mg/dL (9-16); Calcium 9.3 mg/dL (8.4-10.2); Carbon Dioxide 25 mmol/L (22-29); Chloride 110 mmol/L (96-108); Creatinine Clr Calc Pharmacy 66.7; Estimated Glomerular Filt Rate > 60; Glucose Random 128 mg/dL (60-115); Potassium 3.2 mmol/L (3.3-5.1); Sodium 147 mmol/L (135-145)
[2021-10-27] MEDS: ARIPiprazole 15 MG TABLET PO (10:30)
[2021-10-27 10:58] LABS: Glucose, Whole Blood 125 mg/dL (60-115)
[2021-10-27 11:15] VITALS: BP 140/64; PULSE 85; RESP 16; TEMP 36.6; O2SAT 100
--- NOTE | 2021-10-27 11:50 | P.PNCA_ITS ---
Subjective Subjective Date of Service: 10/27/21 Principal diagnosis: Sinus pause Interval history: Patient has no cardiac symptoms. Overnight eyes has sinus bradycardia, significant but no significant sinus pauses. Has agreed for pacemaker which is scheduled for later today Review of Systems Review of Systems Yes all other systems are reviewed and are negative Physical Exam Vital Signs: Last Vital Signs Temp 97.9 F 10/27/21 11:15 Pulse 85 10/27/21 11:15 Resp 16 10/27/21 11:15 BP 140/64 H 10/27/21 11:15 Pulse Ox 100 10/27/21 11:15 BMI result Verdana 4 Body Mass Index Verdana 4 29.7 Verdana 4 Verdana 4 Const General: cooperative, comfortable, alert and awake Nutritional Appearance: overweight Neck Neck: Yes trachea midline, Yes supple and Yes no JVD Cardio Jugular venous distension: no JVD Palpation: normal PMI Rate: regular rate Rhythm: regular rhythm Heart sounds: S1 normal heart sound present, S2 normal heart sound present, no click, no gallops and no murmurs Objective Labs and Meds Result diagrams: 10/25/21 07:07 10/27/21 06:30 Lab results: Laboratory Results - last 24 hr 10/26/21 10/26/21 10/26/21 11:31 15:40 19:32 PT INR Sodium Potassium Chloride Carbon Dioxide Anion Gap BUN Creatinine Estim Creat Clear Calc Estimated GFR POC Glucose 123 H 120 H 132 H Random Glucose Calcium Blood Type Antibody Screen 10/27/21 10/27/21 10/27/21 06:29 06:30 06:30 PT 12.9 INR 1.1 Sodium 147 H Potassium 3.2 L Chloride 110 H Carbon Dioxide 25 Anion Gap 15 BUN 19 H Creatinine 0.74 Estim Creat Clear Calc 66.7 Estimated GFR > 60 POC Glucose Random Glucose 128 H Calcium 9.3 Blood Type B Positive Antibody Screen NEGATIVE 10/27/21 10/27/21 07:15 10:47 PT INR Sodium Potassium Chloride Carbon Dioxide Anion Gap BUN Creatinine Estim Creat Clear Calc Estimated GFR POC Glucose 102 125 H Random Glucose Calcium Blood Type Antibody Screen Progress Note: A&P Assessment and plan (1) Sinus pause: Status: Acute Assessment and Plan: Significant sinus pauses as well as AV conduction abnormality and persistent sinus bradycardia without symptoms. This is however suggestive of sinoatrial rosendo dysfunction. Patient will benefit with pacing therapy. Schedule for dual-chamber pacemaker later today. Again discussed with patient about the risks and benefits. He showed some understanding and is more agreeable today. Will follow with you Fall Risk Details Current Medications: Current Medications Acetaminophen (Acetaminophen 325 Mg Tablet) 650 mg PO Q6H PRN PRN Reason: Pain, Mild (Pain Scale 1-3) Last Admin: 10/24/21 18:09 Dose: 650 mg Documented by: Albuterol/Ipratropium (Albuterol/Iprat 2.5/0.5mg 3 Ml Ampul.Neb) 3 ml INHALE RQ4H PRN PRN Reason: Shortness of Breath/Wheezing Aripiprazole (Aripiprazole 15 Mg Tablet) 15 mg PO DAILY [facility] Last Admin: 10/27/21 10:48 Dose: Not Given Documented by: Atropine Sulfate (Atropine Sulfate 1 Mg/Ml Vial) 0.5 mg IVPUSH ONCE PRN PRN Reason: bradycardia Carbidopa/Levodopa (Carbidopa/Levodopa 25/100 Tablet) 2 tab PO 6XD [facility] Last Admin: 10/27/21 10:48 Dose: Not Given Documented by: Carbidopa/Levodopa (Carbidopa/Levodopa Cr 25/100 Tablet.Er) 2 tab PO BID@0800,2000 [facility] Last Admin: 10/27/21 10:47 Dose: Not Given Documented by: Dextrose (Dextrose 50 % 25 Gm/50 Ml Syringe) 25 gm IVPUSH Q15M PRN; Protocol PRN Reason: per Hypoglycemia Standing Ord. Enoxaparin Sodium (Enoxaparin Sodium 40 Mg/0.4 Ml Syringe) 40 mg SUBCUT Q24H [facility] Last Admin: 10/26/21 21:17 Dose: 40 mg Documented by: Glucose (Glucose Gel 15 Gm Gel..Gram.) 15 gm PO Q15M PRN; Protocol PRN Reason: per Hypoglycemia Standing Ord. Ceftriaxone Sodium 1 gm/ (Sodium Chloride) 50 mls @ 100 mls/hr IV Q24H [facility] Last Infusion: 10/26/21 22:11 Dose: Infused Documented by: Azithromycin 500 mg/ Sodium (Chloride) 250 mls @ 125 mls/hr IV Q24H [facility] Last Infusion: 10/26/21 23:23 Dose: Infused Documented by: Potassium Chloride/Sodium Chloride () 40 meq in 1,000 mls @ 80 mls/hr IVCONT .[id number] [facility] Last Admin: 10/27/21 10:47 Dose: Not Given Documented by: Insulin Human Lispro (Insulin Lispro 100 Unit/Ml 3 Ml Vial) 0 unit SUBCUT Q IDACHS [facility]; Protocol Last Admin: 10/27/21 10:48 Dose: Not Given Documented by: Pharmacy Consult (Consult Rx Perform Med Rec) 1 each MISCELLANE ONCE PRN PRN Reason: Consult order Senna (Sennosides 8.6 Mg Tablet) 17.2 mg PO BEDTIME PRN PRN Reason: Constipation Sodium Chloride (0.9 % Sodium Chloride Flush 3 Ml Syringe) 3 ml IVFLUSH QSHIFT [facility] Last Admin: 10/27/21 10:20 Dose: Not Given Documented by: Time Spent With Patient Time: Total time spent is greater than 50% in coordination of care (as documented) at patient's floor/unit and/or counseling patient: Time with patient: 15 - 24 minutes Progress Note: Quality Stroke Does the patient have a stroke diagnosis?: No Procedures Date of Service Date of Service: 10/27/21
[2021-10-27] MEDS: KCl 40 mEq in 0.9 % Sodium Chl 40 MEQ/1,000 ML IV.SOLN 80 MEQ IVCONT (13:38)
--- NOTE | 2021-10-27 15:08 | PC.NURSE ---
Patient waiting to be called for pacer. remains NPO (unable to to give meds because he needs applesauce to ingest).
[2021-10-27 15:09] VITALS: BP 162/73; PULSE 80; RESP 20; TEMP 36.6; O2SAT 96
--- NOTE | 2021-10-27 15:23 | MHC.CM.PN ---
Male 86 DX arrythmia. He is scheduled for Pacemaker insertion today. DP return to [facility] via BLS.
[2021-10-27] MEDS: 0.9 % Sodium Chloride Flush 3 ML SYRINGE IVFLUSH (15:52)
[2021-10-27 16:12] LABS: Glucose, Whole Blood 123 mg/dL (60-115)
--- NOTE | 2021-10-27 16:12 | MHC.SHP ---
Pre-Procedural Eval Section A Date of Service: 10/27/21 Section B Chief Complaint: Pauses Allergies: Allergies Allergy/AdvReac Type Severity Reaction Status Date / Time rasagiline [From Azilect] Allergy Unknown Verified 10/23/21 18:48 risperidone Allergy Unknown Verified 10/23/21 18:48 sertraline Allergy Unknown Verified 10/23/21 18:48 Plan I have reviewed the history and physical and performed a pertinent physical examination on my patient. No changes have occurred unless specified.I had a discussion with him and his daughter about the risks, benefits, and alternatives of a dual-chamber permanent pacemaker. They understood and agreed to proceed. The patient is NPO.
--- NOTE | 2021-10-27 16:16 | P.CONGS_ITS ---
History of Present Illness Consult details Consult date: 10/27/21 Requesting physician: Angelito Cruz Narrative: 86-year-old male admitted with altered mental status and did have an aspiration is being treated for that. While in the hospital he did have a rapid response and was watched in the ICU for 24 hours without further incident. Noted on his rhythm strips were nearly 2nd pauses without clear symptomatology associated with this. There is also relatively frequent PACs. He was approached about a pacemaker yesterday but initially did not want to do it and now after discussion with his daughter has decided that he will proceed with a pacemaker if that is what he needs. He is still on supplemental oxygen. He does have some confusion at times it seems but denies cough or hemoptysis currently. He denies chest pain, shortness of breath, fevers, chills, or any new neurologic symptoms. Denies syncope in the past. Other than above, 12 point review of systems was done and documented separately in the office chart with detailed social and family history. PMFSH Past Medical History Medical History Anemia Aphasia Diabetes High cholesterol Psychosis Family History Pertinent family history: None Social History Social History service: No Current occupational status: retired Meds Allergies Allergy/AdvReac Type Severity Reaction Status Date / Time rasagiline [From Azilect] Allergy Unknown Verified 10/23/21 18:48 risperidone Allergy Unknown Verified 10/23/21 18:48 sertraline Allergy Unknown Verified 10/23/21 18:48 Active Medications: Current Medications Acetaminophen (Acetaminophen 325 Mg Tablet) 650 mg PO Q6H PRN PRN Reason: Pain, Mild (Pain Scale 1-3) Last Admin: 10/24/21 18:09 Dose: 650 mg Documented by: Albuterol/Ipratropium (Albuterol/Iprat 2.5/0.5mg 3 Ml Ampul.Neb) 3 ml INHALE RQ4H PRN PRN Reason: Shortness of Breath/Wheezing Aripiprazole (Aripiprazole 15 Mg Tablet) 15 mg PO DAILY [facility] Last Admin: 10/27/21 10:48 Dose: Not Given Documented by: Atropine Sulfate (Atropine Sulfate 1 Mg/Ml Vial) 0.5 mg IVPUSH ONCE PRN PRN Reason: bradycardia Carbidopa/Levodopa (Carbidopa/Levodopa 25/100 Tablet) 2 tab PO 6XD [facility] Last Admin: 10/27/21 14:57 Dose: Not Given Documented by: Carbidopa/Levodopa (Carbidopa/Levodopa Cr 25/100 Tablet.Er) 2 tab PO BID@0800,2000 [facility] Last Admin: 10/27/21 10:47 Dose: Not Given Documented by: Dextrose (Dextrose 50 % 25 Gm/50 Ml Syringe) 25 gm IVPUSH Q15M PRN; Protocol PRN Reason: per Hypoglycemia Standing Ord. Enoxaparin Sodium (Enoxaparin Sodium 40 Mg/0.4 Ml Syringe) 40 mg SUBCUT Q24H [facility] Last Admin: 10/26/21 21:17 Dose: 40 mg Documented by: Glucose (Glucose Gel 15 Gm Gel..Gram.) 15 gm PO Q15M PRN; Protocol PRN Reason: per Hypoglycemia Standing Ord. Ceftriaxone Sodium 1 gm/ (Sodium Chloride) 50 mls @ 100 mls/hr IV Q24H [facility] Last Infusion: 10/26/21 22:11 Dose: Infused Documented by: Azithromycin 500 mg/ Sodium (Chloride) 250 mls @ 125 mls/hr IV Q24H [facility] Last Infusion: 10/26/21 23:23 Dose: Infused Documented by: Potassium Chloride/Sodium Chloride () 40 meq in 1,000 mls @ 80 mls/hr IVCONT .[id number] [facility] Last Admin: 10/27/21 13:38 Dose: 80 mls/hr Documented by: Cefazolin Sodium/Dextrose (Ancef) 2 gm in 50 mls @ 100 mls/hr IV PREOP ONE Stop: 10/27/21 16:40 Insulin Human Lispro (Insulin Lispro 100 Unit/Ml 3 Ml Vial) 0 unit SUBCUT QIDACHS [facility]; Protocol Last Admin: 10/27/21 10:48 Dose: Not Given Documented by: Pharmacy Consult (Consult Rx Perform Med Rec) 1 each MISCELLANE ONCE PRN PRN Reason: Consult order Senna (Sennosides 8.6 Mg Tablet) 17.2 mg PO BEDTIME PRN PRN Reason: Constipation Sodium Chloride (0.9 % Sodium Chloride Flush 3 Ml Syringe) 3 ml IVFLUSH QSHIFT [facility] Last Admin: 10/27/21 15:52 Dose: 3 ml Documented by: Home Medications Medication Instructions Recorded Confirmed Last Taken Type amlodipine 10 mg 10 mg PO DAILY 10/24/21 10/24/21 Unknown History tablet aripiprazole 15 15 mg PO DAILY 10/24/21 10/24/21 Unknown History mg tablet carbidopa 25 2 tab PO 6XD 10/24/21 10/24/21 Unknown History mg-levodopa 100 mg tablet carbidopa ER 25 2 tab PO BID 10/24/21 10/24/21 Unknown History mg-levodopa 100 mg tablet,extended release cholecalciferol 1,250 mcg PO 10/24/21 10/24/21 Unknown History (vitamin D3) QMONTH 1,250 mcg (50,000 unit) capsule gabapentin 400 mg 400 mg PO QID 10/24/21 10/24/21 Unknown History capsule metformin 500 mg 1 tab PO DAILY 10/24/21 10/24/21 Unknown History tablet Physical Exam Verdana 4l Vital Signs: Verdana 4d Verdana 4d Vital Signs: Verdana 4d Verdana 4Bd Last Vital Signs Verdana 4d Tour Guide New 4d Tour Guide New 4d Temp 97.9 F 10/27/21 15:09 Tour Guide New 4d Pulse 80 10/27/21 15:09 Tour Guide New 4d Resp 20 10/27/21 15:09 BP 162/73 H 10/27/21 15:09 Pulse Ox 96 10/27/21 15:09 BMI result Body Mass Index 29.7 General: No acute distress HEENT: Moist mucous membranes, normocephalic, pupils equal round and reactive to light. Neck: No thyromegaly, supple, no JVD Lymph: No cervical, supraclavicular, or other lymphadenopathy Chest: No chest wall abnormalities or deformities Heart: Regular rate and rhythm bradycardic Lungs: Clear to auscultation bilaterally Abdomen: Soft, nontender, normal bowel sounds Extremities: No edema, cyanosis, or clubbing. Full range of motion Neuro: Grossly intact, alert and oriented x3, and nonfocal Skin: Warm and dry no rashes Affect: Normal Results Labs Result diagrams: 10/25/21 07:07 10/27/21 06:30 Labs: Abnormal lab results 10/26/21 10/27/21 10/27/21 Range/Units 19:32 06:30 10:47 Sodium 147 H (135-145) mmol/L Potassium 3.2 L (3.3-5.1) mmol/L Chloride 110 H (96-108) mmol/L BUN 19 H (9-16) mg/dL POC Glucose 132 H 125 H (60-115) mg/dL Random Glucose 128 H (60-115) mg/dL 10/27/21 Range/Units 16:03 Sodium (135-145) mmol/L Potassium (3.3-5.1) mmol/L Chloride (96-108) mmol/L BUN (9-16) mg/dL POC Glucose 123 H (60-115) mg/dL Random Glucose (60-115) mg/dL BMP 10/27/21 06:30 Sodium 147 H Potassium 3.2 L Chloride 110 H Carbon Dioxide 25 BUN 19 H Creatinine 0.74 Calcium 9.3 Urine 10/23/21 Range/Units 19:59 Urine Color YELLOW Urine Appearance HAZY Urine pH 5.5 (5.0-8.0) Ur Specific Muddy >= 1.030 H (1.005-1.025) Urine Protein 1+ H (NEG-TRACE) MG/DL Urine Glucose (UA) 100 H (NEG) MG/DL All other labs normal. Imaging Chest x-ray: image reviewed EKG: image reviewed Assessment and Plan (1) Sinus pause: Status: Acute 86-year-old male with significant nearly 6 second pauses occurring multiple times over the previous night and once in the morning. I do agree a dual- chamber permanent pacemaker is indicated and patient is NPO today in preparation for this. Plan is for dual-chamber permanent pacemaker as soon as the OR is available. Afterwards he will need to be in a sling for at least 2 days. Pacemaker will be checked tomorrow morning and upon discharge will need a 2 week follow-up with me in the office with restrictions of no lifting his left arm usually above the level of his shoulder or reaching behind himself with that arm. All questions were answered. I did discuss the risks, benefits, and alternatives with him in detail which he understood and agreed to proceed. Procedures Date of Service Date of Service: 10/27/21
--- NOTE | 2021-10-27 16:17 | P.PNIM_ITS ---
Subjective Subjective Date of Service: 10/27/21 Interval History: patient awake alert,feels uncomfortable since incontinent of urine and feels wet, is NPO for pacemaker placement, continue to have pauses on tele monitor remains asymptomatic. Review of Systems Review of Systems: Yes all other systems are reviewed and are negative Physical Exam Verdana 4l Vital Signs: Verdana 4d Verdana 4d Vital Signs: Verdana 4d Verdana 4Bd Last Vital Signs Verdana 4d Outside Plant Engineer New 4d Outside Plant Engineer New 4d Temp 97.9 F 10/27/21 15:09 Outside Plant Engineer New 4d Pulse 80 10/27/21 15:09 Outside Plant Engineer New 4d Resp 20 10/27/21 15:09 BP 162/73 H 10/27/21 15:09 Pulse Ox 96 10/27/21 15:09 BMI result Body Mass Index 29.7 Const: Other: General? resting in bed, no acute distress.? Neck is supple no JVD. CVS? regular rate rhythm, Respiratory lungs clear to auscultation, diminished at bases, no wheeze, no rhonchi.? No use of abdominal muscles Gastrointestinal abdomen soft, nontender, bowel sounds audible, no guarding , no rigidity. Extremities no? edema. Neuro nonfocal , speech clear, hand tremors Skin no rash psych appropriate affect Objective Data Active Medications Acetaminophen (Acetaminophen 325 Mg Tablet) 650 mg PO Q6H PRN PRN Reason: Pain, Mild (Pain Scale 1-3) Last Admin: 10/24/21 18:09 Dose: 650 mg Documented by: MUNIR Albuterol/Ipratropium (Albuterol/Iprat 2.5/0.5mg 3 Ml Ampul.Neb) 3 ml INHALE RQ4H PRN PRN Reason: Shortness of Breath/Wheezing Aripiprazole (Aripiprazole 15 Mg Tablet) 15 mg PO DAILY [facility] Last Admin: 10/27/21 10:30 Dose: 15 mg Documented by: ROSEMARY Atropine Sulfate (Atropine Sulfate 1 Mg/Ml Vial) 0.5 mg IVPUSH ONCE PRN PRN Reason: bradycardia Carbidopa/Levodopa (Carbidopa/Levodopa 25/100 Tablet) 2 tab PO 6XD [facility] Last Admin: 10/27/21 14:57 Dose: Not Given Documented by: ROSEMARY Non-Admin Reason: npo for pacer. takes pills in applesauce Carbidopa/Levodopa (Carbidopa/Levodopa Cr 25/100 Tablet.Er) 2 tab PO BID@0800,2000 [facility] Last Admin: 10/27/21 10:47 Dose: Not Given Documented by: ROSEMARY Non-Admin Reason: NPO Dextrose (Dextrose 50 % 25 Gm/50 Ml Syringe) 25 gm IVPUSH Q15M PRN; Protocol PRN Reason: per Hypoglycemia Standing Ord. Enoxaparin Sodium (Enoxaparin Sodium 40 Mg/0.4 Ml Syringe) 40 mg SUBCUT Q24H [facility] Last Admin: 10/26/21 21:17 Dose: 40 mg Documented by: DARRYL Glucose (Glucose Gel 15 Gm Gel..Gram.) 15 gm PO Q15M PRN; Protocol PRN Reason: per Hypoglycemia Standing Ord. Ceftriaxone Sodium 1 gm/ (Sodium Chloride) 50 mls @ 100 mls/hr IV Q24H [facility] Last Infusion: 10/26/21 22:11 Dose: 0 mls/hr Documented by: DARRYL Azithromycin 500 mg/ Sodium (Chloride) 250 mls @ 125 mls/hr IV Q24H [facility] Last Infusion: 10/26/21 23:23 Dose: 0 mls/hr Documented by: DARRYL Potassium Chloride/Sodium Chloride () 40 meq in 1,000 mls @ 80 mls/hr IVCONT .[id number] [facility] Last Admin: 10/27/21 13:38 Dose: 80 mls/hr Documented by: ROSEMARY Cefazolin Sodium/Dextrose (Ancef) 2 gm in 50 mls @ 100 mls/hr IV PREOP ONE Stop: 10/27/21 16:40 Insulin Human Lispro (Insulin Lispro 100 Unit/Ml 3 Ml Vial) 0 unit SUBCUT QIDACHS [facility]; Protocol Last Admin: 10/27/21 10:48 Dose: Not Given Documented by: ROSEMARY Non-Admin Reason: NPO Pharmacy Consult (Consult Rx Perform Med Rec) 1 each MISCELLANE ONCE PRN PRN Reason: Consult order Senna (Sennosides 8.6 Mg Tablet) 17.2 mg PO BEDTIME PRN PRN Reason: Constipation Sodium Chloride (0.9 % Sodium Chloride Flush 3 Ml Syringe) 3 ml IVFLUSH QSHIFT [facility] Last Admin: 10/27/21 15:52 Dose: 3 ml Documented by: ROSEMARY Labs CBC & Chem 7: 10/25/21 07:07 10/27/21 06:30 Labs: Laboratory Results - last 24 hr 10/26/21 10/27/21 10/27/21 19:32 06:29 06:30 PT 12.9 INR 1.1 Anion Gap Estim Creat Clear Calc Estimated GFR POC Glucose 132 H Random Glucose Calcium Blood Type B Positive Antibody Screen NEGATIVE 10/27/21 10/27/21 10/27/21 06:30 07:15 10:47 PT INR Anion Gap 15 Estim Creat Clear Calc 66.7 Estimated GFR > 60 POC Glucose 102 125 H Random Glucose 128 H Calcium 9.3 Blood Type Antibody Screen 10/27/21 16:03 PT INR Anion Gap Estim Creat Clear Calc Estimated GFR POC Glucose 123 H Random Glucose Calcium Blood Type Antibody Screen Assessment and Plan (1) Sinus pause: Status: Acute (2) Pneumonia: Status: Acute (3) Acute alteration in mental status: Status: Acute Plan 86M presented with sob, ams, on 10/25 course complicated by an episode of unresponsive with hypoxia into the 40s, patient placed on NRB and o2 improved to 100%, transfered to ICU, soon after arrival to ICU he became arousable, communicated by answering simple questions, his oxygenation improved, stat chest x-ray showed clear right lung field with possibility of a left lower lobe infiltrate, patient was transferred back to medical floor with stable vitals, no cause of acute unresponsiveness was found CTA chest showed no PE since patient was back to baseline he was continued on antibiotics as before. On 10/26 patient noted to have bradycardia with multiple episode of sinus pauses, up to 5.7 seconds patient remained asymptomatic, blood pressure is stable, patient evaluated by dental laboratory technology teacher initially patient refused to have pacemaker but after discussing with daughter Lyndsey patient agreed to undergo pacemaker placement, therefore obtained a thoracic surgery consultation, patient noted to have low potassium that will be repleted, stable Mag. Problem list Sinus pauses Continue pacer pads, NPO , IV fluid, follow electrolytes, continue tele monitor scheduled for pacemaker today by thoracic surgery avoid rate lowering medications severe sepsis and acute hypoxic respiratory failure and metabolic encephalopathy due to pneumonia, likely aspiration pneumonia, resolved Continue rocephin, azithro D4/7, continue modified diet as per speech recommendation Wean oxygen as tolerated Encephalopathy resolved, patient at baseline answering questions appropriately mild hypokalemia/ mild hypernatremia and hyperchloremia will change IV fluid to D5W and replete potassium parkinsons Continue sinemet DM Blood sugars stable, continue insulin sliding scale, diabetic diet, resume me tformin on discharge full code - Quality Stroke Does the patient have a stroke diagnosis?: No VTE Prior VTE?: No VTE Risk Level:: Medical - moderate - high VTE Device Contraindication: Treatment Not Indicated VTE Drug Contraindication: N/A - Med Ordered
[2021-10-27] MEDS: KCl 20 mEq in 5 % Dextrose 20 MEQ/1,000 ML IV.SOLN 80 MEQ IVCONT (17:49)
[2021-10-27] MEDS: Carbidopa/Levodopa 25/100 TABLET 2 TAB PO ×2 (17:50→21:00)
[2021-10-27 18:56] VITALS: BP 164/75; PULSE 71; RESP 20; TEMP 36.6; O2SAT 99
[2021-10-27 19:32] LABS: Glucose, Whole Blood 139 mg/dL (60-115)
[2021-10-27] MEDS: Carbidopa/Levodopa CR 25/100 TABLET.ER 2 TAB PO (21:00)
[2021-10-27 23:05] VITALS: BP 149/73; PULSE 73; RESP 20; TEMP 36.1; O2SAT 99
[2021-10-28] VITALS (15 sets, daily range): BP systolic 125–153; BP diastolic 65–88; PULSE 40–84; RESP 13–20; TEMP 36.2–37.1; O2SAT 94–100
[2021-10-28] MEDS: Enoxaparin Sodium 40 MG/0.4 ML SYRINGE SUBCUT ×2 (00:38→23:45)
[2021-10-28] MEDS: cefTRIAXone sodium 1 GM in 0.9 % Sodium Chloride 50 ML IV ×2 (00:38→23:43)
[2021-10-28] MEDS: Azithromycin 500 MG in 0.9 % Sodium Chloride 250 ML 125 MG IV (01:13)
--- NOTE | 2021-10-28 06:37 | PC.NURSE ---
Report given to short stay rn, patient down to short stay at 0615.
[2021-10-28 07:02] LABS: Glucose, Whole Blood 126 mg/dL (60-115)
[2021-10-28 07:05] LABS: Anion Gap 13 (12-20); Blood Urea Nitrogen 14 mg/dL (9-16); Calcium 8.9 mg/dL (8.4-10.2); Carbon Dioxide 26 mmol/L (22-29); Chloride 106 mmol/L (96-108); Creatinine Clr Calc Pharmacy 75.9; Estimated Glomerular Filt Rate > 60; Glucose Random 137 mg/dL (60-115); Potassium 3.2 mmol/L (3.3-5.1); Sodium 142 mmol/L (135-145)
--- NOTE | 2021-10-28 07:34 | HO.ANESPROP2 ---
HPI - Anesthesia Eval Consult details Narrative: 86 M for pacemaker insertion aspiration Pnemonia , sinus pauses , parkinson PMFSH Active Problems Active Problems: All Active Problems (Updated 10/26/21 @ 09:57 by Angelito Cruz MD) Sinus pause (Acute) Pneumonia (Acute) Acute alteration in mental status (Acute) Past Medical History Medical History Anemia Aphasia Diabetes High cholesterol Psychosis Family History Family history of problems with anesthesia: No Surgical History History of Problems with Anesthesia: No Social History Social History Patient Tobacco Use Status: Current everyday Tobacco user Tobacco use type: Cigar and Pipe Advance Directives Date on File: 10/28/21 service: No Current occupational status: retired [employer] Allergies Allergy/AdvReac Type Severity Reaction Status Date / Time rasagiline [From Azilect] Allergy Unknown Verified 10/23/21 18:48 risperidone Allergy Unknown Verified 10/23/21 18:48 sertraline Allergy Unknown Verified 10/23/21 18:48 Active Medications: Current Medications Acetaminophen (Acetaminophen 325 Mg Tablet) 650 mg PO Q6H PRN PRN Reason: Pain, Mild (Pain Scale 1-3) Last Admin: 10/24/21 18:09 Dose: 650 mg Documented by: Albuterol/Ipratropium (Albuterol/Iprat 2.5/0.5mg 3 Ml Ampul.Neb) 3 ml INHALE RQ4H PRN PRN Reason: Shortness of Breath/Wheezing Aripiprazole (Aripiprazole 15 Mg Tablet) 15 mg PO DAILY [facility] Last Admin: 10/27/21 10:48 Dose: Not Given Documented by: Atropine Sulfate (Atropine Sulfate 1 Mg/Ml Vial) 0.5 mg IVPUSH ONCE PRN PRN Reason: bradycardia Carbidopa/Levodopa (Carbidopa/Levodopa 25/100 Tablet) 2 tab PO 6XD [facility] Last Admin: 10/28/21 05:32 Dose: Not Given Documented by: Carbidopa/Levodopa (Carbidopa/Levodopa Cr 25/100 Tablet.Er) 2 tab PO BID@0800,2000 [facility] Last Admin: 10/27/21 21:00 Dose: 2 tab Documented by: Dextrose (Dextrose 50 % 25 Gm/50 Ml Syringe) 25 gm IVPUSH Q15M PRN; Protocol PRN Reason: per Hypoglycemia Standing Ord. Enoxaparin Sodium (Enoxaparin Sodium 40 Mg/0.4 Ml Syringe) 40 mg SUBCUT Q24H [facility] Last Admin: 10/28/21 00:38 Dose: 40 mg Documented by: Glucose (Glucose Gel 15 Gm Gel..Gram.) 15 gm PO Q15M PRN; Protocol PRN Reason: per Hypoglycemia Standing Ord. Ceftriaxone Sodium 1 gm/ (Sodium Chloride) 50 mls @ 100 mls/hr IV Q24H [facility] Last Infusion: 10/28/21 01:10 Dose: Infused Documented by: Azithromycin 500 mg/ Sodium (Chloride) 250 mls @ 125 mls/hr IV Q24H [facility] Last Infusion: 10/28/21 03:13 Dose: Infused Documented by: Potassium Chloride/Dextrose () 20 meq in 1,000 mls @ 80 mls/hr IVCONT .[id number] [facility] Last Admin: 10/28/21 05:30 Dose: Not Given Documented by: Insulin Human Lispro (Insulin Lispro 100 Unit/Ml 3 Ml Vial) 0 unit SUBCUT QIDACHS [facility]; Protocol Last Admin: 10/27/21 20:59 Dose: Not Given Documented by: Pharmacy Consult (Consult Rx Perform Med Rec) 1 each MISCELLANE ONCE PRN PRN Reason: Consult order Senna (Sennosides 8.6 Mg Tablet) 17.2 mg PO BEDTIME PRN PRN Reason: Constipation Sodium Chloride (0.9 % Sodium Chloride Flush 3 Ml Syringe) 3 ml IVFLUSH QSHIFT [facility] Last Admin: 10/27/21 21:05 Dose: Not Given Documented by: Home Medications Medication Instructions Recorded Confirmed Last Taken Type amlodipine 10 mg tablet 10 mg PO DAILY 10/24/21 10/24/21 Unknown History aripiprazole 15 mg tablet 15 mg PO DAILY 10/24/21 10/24/21 Unknown History carbidopa 25 mg-levodopa 100 mg 2 tab PO 6XD 10/24/21 10/24/21 Unknown History tablet carbidopa ER 25 mg-levodopa 100 mg 2 tab PO BID 10/24/21 10/24/21 Unknown History tablet,extended release cholecalciferol (vitamin D3) 1,250 1,250 mcg PO QMONTH 10/24/21 10/24/21 Unknown History mcg (50,000 unit) capsule gabapentin 400 mg capsule 400 mg PO QID 10/24/21 10/24/21 Unknown History metformin 500 mg tablet 1 tab PO DAILY 10/24/21 10/24/21 Unknown History Exam Exam Date and Time: October 28, 2021 0734 Height,Weight and Vital Signs: Height 5 ft 3 in Weight 76.2 kg Last Vital Signs Temp 98.4 F 10/28/21 06:22 Pulse 69 10/28/21 06:22 Resp 20 10/28/21 06:22 BP 136/72 10/28/21 06:22 Pulse Ox 97 10/28/21 06:22 Pertinent Lab Results Pertinent Lab Results: Laboratory Tests 10/23/21 10/23/21 10/23/21 19:51 19:51 19:51 WBC 15.2 H RBC 3.89 L Hgb 12.7 L Hct 37.9 L MCV 97.4 MCH 32.6 MCHC 33.5 RDW 12.8 Plt Count 180 MPV 10.4 Immature Gran % (Auto) 0.3 Neut % (Auto) 90.2 H Lymph % (Auto) 4.7 L [place] % (Auto) 4.6 Eos % (Auto) 0.0 Baso % (Auto) 0.2 Lymph # (Auto) 0.7 L [place] # (Auto) 0.7 Eos # (Auto) 0.0 Baso # (Auto) 0.0 Abs Immat Gran (auto) 0.04 H Absolute Neuts (auto) 13.7 H Absolute Nucleated RBC 0.000 Nucleated RBC % (auto) 0.0 Smear Tech's Comments VERIFIED PT INR O2 Saturation ABG pH at Pt Temp ABG pH (Temp Correct) ABG pCO2 at Pt Temp ABG pCO2 (Temp Corrct ABG pO2 at Pt Temp ABG pO2 (Temp Correct ABG HCO3 ABG Base Excess (Actual) Sodium Potassium Chloride Carbon Dioxide Anion Gap BUN Creatinine Estim Creat Clear Calc Estimated GFR POC Glucose Random Glucose Fasting Glucose Lactic Acid Lactic Acid F/U @ 2Hr Lactic Acid F/U @ 4Hr Calcium Magnesium B-Natriuretic Peptide 50 Urine Color Urine Appearance Urine pH Ur Specific [place] Urine Protein Urine Glucose (UA) Urine Ketones Urine Blood Urine Nitrite Ur Leukocyte Esterase Urine RBC Urine WBC Ur Squamous Epith Cells Ur Renal Epithelial Cell Urine Bacteria Urine Mucus COVID-19 ([facility]) Negative COVID-19 Clin Com See Note Blood Type Antibody Screen 10/23/21 10/23/21 10/23/21 19:59 20:40 20:55 WBC RBC Hgb Hct MCV MCH MCHC RDW Plt Count MPV Immature Gran % (Auto) Neut % (Auto) Lymph % (Auto) [place] % (Auto) Eos % (Auto) Baso % (Auto) Lymph # (Auto) [place] # (Auto) Eos # (Auto) Baso # (Auto) Abs Immat Gran (auto) Absolute Neuts (auto) Absolute Nucleated RBC Nucleated RBC % (auto) Smear Tech's Comments PT INR O2 Saturation ABG pH at Pt Temp ABG pH (Temp Correct) ABG pCO2 at Pt Temp ABG pCO2 (Temp Corrct ABG pO2 at Pt Temp ABG pO2 (Temp Correct ABG HCO3 ABG Base Excess (Actual) Sodium 143 Potassium 3.7 Chloride 107 Carbon Dioxide 25 Anion Gap 15 BUN 18 H Creatinine 0.89 Estim Creat Clear Calc 55.4 Estimated GFR > 60 POC Glucose Random Glucose 201 H Fasting Glucose Lactic Acid 3.2 H* Lactic Acid F/U @ 2Hr Lactic Acid F/U @ 4Hr Calcium 9.4 Magnesium B-Natriuretic Peptide Urine Color YELLOW Urine Appearance HAZY Urine pH 5.5 Ur Specific [place] >= 1.030 H Urine Protein 1+ H Urine Glucose (UA) 100 H Urine Ketones 5 Urine Blood 1+ H Urine Nitrite NEG Ur Leukocyte Esterase NEG Urine RBC 15-29 H Urine WBC 0-2 Ur Squamous Epith Cells TRACE Ur Renal Epithelial Cell TRACE Urine Bacteria 1+ Urine Mucus TRACE COVID-19 ([facility]) COVID-19 Clin Com Blood Type Antibody Screen 10/23/21 10/24/21 10/24/21 23:31 01:48 06:58 WBC 12.5 H RBC 3.79 L Hgb 12.0 L Hct 36.4 L MCV 96.0 MCH 31.7 MCHC 33.0 RDW 13.0 Plt Count 188 MPV 11.3 Immature Gran % (Auto) 0.2 Neut % (Auto) 75.5 H Lymph % (Auto) 17.8 L [place] % (Auto) 5.7 Eos % (Auto) 0.5 Baso % (Auto) 0.3 Lymph # (Auto) 2.2 [place] # (Auto) 0.7 Eos # (Auto) 0.1 Baso # (Auto) 0.0 Abs Immat Gran (auto) 0.03 Absolute Neuts (auto) 9.5 H Absolute Nucleated RBC 0.000 Nucleated RBC % (auto) 0.0 Smear Tech's Comments PT INR O2 Saturation ABG pH at Pt Temp ABG pH (Temp Correct) ABG pCO2 at Pt Temp ABG pCO2 (Temp Corrct ABG pO2 at Pt Temp ABG pO2 (Temp Correct ABG HCO3 ABG Base Excess (Actual) Sodium Potassium Chloride Carbon Dioxide Anion Gap BUN Creatinine Estim Creat Clear Calc Estimated GFR POC Glucose Random Glucose Fasting Glucose Lactic Acid Lactic Acid F/U @ 2Hr 3.6 H* Lactic Acid F/U @ 4Hr 3.0 H* Calcium Magnesium B-Natriuretic Peptide Urine Color Urine Appearance Urine pH Ur Specific [place] Urine Protein Urine Glucose (UA) Urine Ketones Urine Blood Urine Nitrite Ur Leukocyte Esterase Urine RBC Urine WBC Ur Squamous Epith Cells Ur Renal Epithelial Cell Urine Bacteria Urine Mucus COVID-19 ([facility]) COVID-19 Clin Com Blood Type Antibody Screen 10/24/21 10/24/21 10/24/21 06:58 07:10 11:36 WBC RBC Hgb Hct MCV MCH MCHC RDW Plt Count MPV Immature Gran % (Auto) Neut % (Auto) Lymph % (Auto) [place] % (Auto) Eos % (Auto) Baso % (Auto) Lymph # (Auto) [place] # (Auto) Eos # (Auto) Baso # (Auto) Abs Immat Gran (auto) Absolute Neuts (auto) Absolute Nucleated RBC Nucleated RBC % (auto) Smear Tech's Comments PT INR O2 Saturation ABG pH at Pt Temp ABG pH (Temp Correct) ABG pCO2 at Pt Temp ABG pCO2 (Temp Corrct ABG pO2 at Pt Temp ABG pO2 (Temp Correct ABG HCO3 ABG Base Excess (Actual) Sodium 145 Potassium 3.5 Chloride 113 H Carbon Dioxide 23 Anion Gap 13 BUN 10 Creatinine 0.66 Estim Creat Clear Calc 74.7 Estimated GFR > 60 POC Glucose 113 127 H Random Glucose 119 H D Fasting Glucose Lactic Acid Lactic Acid F/U @ 2Hr Lactic Acid F/U @ 4Hr Calcium 9.1 Magnesium B-Natriuretic Peptide Urine Color Urine Appearance Urine pH Ur Specific [place] Urine Protein Urine Glucose (UA) Urine Ketones Urine Blood Urine Nitrite Ur Leukocyte Esterase Urine RBC Urine WBC Ur Squamous Epith Cells Ur Renal Epithelial Cell Urine Bacteria Urine Mucus COVID-19 ([facility]) COVID-19 [employer] Blood Type Antibody Screen 10/24/21 10/24/21 10/24/21 14:37 16:29 20:30 WBC RBC Hgb Hct MCV MCH MCHC RDW Plt Count MPV Immature Gran % (Auto) Neut % (Auto) Lymph % (Auto) [place] % (Auto) Eos % (Auto) Baso % (Auto) Lymph # (Auto) [place] # (Auto) Eos # (Auto) Baso # (Auto) Abs Immat Gran (auto) Absolute Neuts (auto) Absolute Nucleated RBC Nucleated RBC % (auto) Smear Tech's Comments PT INR O2 Saturation ABG pH at Pt Temp ABG pH (Temp Correct) ABG pCO2 at Pt Temp ABG pCO2 (Temp Corrct ABG pO2 at Pt Temp ABG pO2 (Temp Correct ABG HCO3 ABG Base Excess (Actual) Sodium Potassium Chloride Carbon Dioxide Anion Gap BUN Creatinine Estim Creat Clear Calc Estimated GFR POC Glucose 169 H 132 H 148 H Random Glucose Fasting Glucose Lactic Acid Lactic Acid F/U @ 2Hr Lactic Acid F/U @ 4Hr Calcium Magnesium B-Natriuretic Peptide Urine Color Urine Appearance Urine pH Ur Specific [place] Urine Protein Urine Glucose (UA) Urine Ketones Urine Blood Urine Nitrite Ur Leukocyte Esterase Urine RBC Urine WBC Ur Squamous Epith Cells Ur Renal Epithelial Cell Urine Bacteria Urine Mucus COVID-19 ([facility]) COVID-19 [facility] Blood Type Antibody Screen 10/25/21 10/25/21 10/25/21 07:07 07:07 07:30 WBC 10.4 RBC 4.07 L Hgb 12.8 L Hct 38.9 L MCV 95.6 MCH 31.4 MCHC 32.9 RDW 12.7 Plt Count 203 MPV 11.1 Immature Gran % (Auto) Neut % (Auto) Lymph % (Auto) [place] % (Auto) Eos % (Auto) Baso % (Auto) Lymph # (Auto) [place] # (Auto) Eos # (Auto) Baso # (Auto) Abs Immat Gran (auto) Absolute Neuts (auto) Absolute Nucleated RBC 0.000 Nucleated RBC % (auto) 0.0 Smear Tech's Comments PT INR O2 Saturation ABG pH at Pt Temp ABG pH (Temp Correct) ABG pCO2 at Pt Temp ABG pCO2 (Temp Corrct ABG pO2 at Pt Temp ABG pO2 (Temp Correct ABG HCO3 ABG Base Excess (Actual) Sodium 143 Potassium 3.4 Chloride 106 Carbon Dioxide 26 Anion Gap 14 BUN 11 Creatinine 0.69 Estim Creat Clear Calc 71.5 Estimated GFR > 60 POC Glucose 147 H Random Glucose Fasting Glucose 141 H Lactic Acid Lactic Acid F/U @ 2Hr Lactic Acid F/U @ 4Hr Calcium 9.4 Magnesium B-Natriuretic Peptide Urine Color Urine Appearance Urine pH Ur Specific [place] Urine Protein Urine Glucose (UA) Urine Ketones Urine Blood Urine Nitrite Ur Leukocyte Esterase Urine RBC Urine WBC Ur Squamous Epith Cells Ur Renal Epithelial Cell Urine Bacteria Urine Mucus COVID-19 ([facility]) [employer] Blood Type Antibody Screen 10/25/21 10/25/21 10/25/21 11:37 11:39 16:58 WBC RBC Hgb Hct MCV MCH MCHC RDW Plt Count MPV Immature Gran % (Auto) Neut % (Auto) Lymph % (Auto) [place] % (Auto) Eos % (Auto) Baso % (Auto) Lymph # (Auto) [place] # (Auto) Eos # (Auto) Baso # (Auto) Abs Immat Gran (auto) Absolute Neuts (auto) Absolute Nucleated RBC Nucleated RBC % (auto) Smear Tech's Comments PT INR O2 Saturation 96.0 ABG pH at Pt Temp 7.47 H ABG pH (Temp Correct) 7.47 H ABG pCO2 at Pt Temp 33 ABG pCO2 (Temp Corrct 32 ABG pO2 at Pt Temp 78 L ABG pO2 (Temp Correct 77 L ABG HCO3 24 ABG Base Excess (Actual) 1.4 Sodium Potassium Chloride Carbon Dioxide Anion Gap BUN Creatinine Estim Creat Clear Calc Estimated GFR POC Glucose 192 H 129 H Random Glucose Fasting Glucose Lactic Acid Lactic Acid F/U @ 2Hr Lactic Acid F/U @ 4Hr Calcium Magnesium B-Natriuretic Peptide Urine Color Urine Appearance Urine pH Ur Specific [place] Urine Protein Urine Glucose (UA) Urine Ketones Urine Blood Urine Nitrite Ur Leukocyte Esterase Urine RBC Urine WBC Ur Squamous Epith Cells Ur Renal Epithelial Cell Urine Bacteria Urine Mucus COVID-19 ([facility]) COVID-19 [employer] Blood Type Antibody Screen 10/26/21 10/26/21 10/26/21 00:18 07:12 11:31 WBC RBC Hgb Hct MCV MCH MCHC RDW Plt Count MPV Immature Gran % (Auto) Neut % (Auto) Lymph % (Auto) [place] % (Auto) Eos % (Auto) Baso % (Auto) Lymph # (Auto) [place] # (Auto) Eos # (Auto) Baso # (Auto) Abs Immat Gran (auto) Absolute Neuts (auto) Absolute Nucleated RBC Nucleated RBC % (auto) Smear Tech's Comments PT INR O2 Saturation ABG pH at Pt Temp ABG pH (Temp Correct) ABG pCO2 at Pt Temp ABG pCO2 (Temp Corrct ABG pO2 at Pt Temp ABG pO2 (Temp Correct ABG HCO3 ABG Base Excess (Actual) Sodium 143 Potassium 3.2 L Chloride 108 Carbon Dioxide 26 Anion Gap 12 BUN 19 H D Creatinine 0.80 Estim Creat Clear Calc 61.7 Estimated GFR > 60 POC Glucose 135 H 123 H Random Glucose 132 H Fasting Glucose Lactic Acid Lactic Acid F/U @ 2Hr Lactic Acid F/U @ 4Hr Calcium 9.6 Magnesium 2.0 B-Natriuretic Peptide Urine Color Urine Appearance Urine pH Ur Specific [place] Urine Protein Urine Glucose (UA) Urine Ketones Urine Blood Urine Nitrite Ur Leukocyte Esterase Urine RBC Urine WBC Ur Squamous Epith Cells Ur Renal Epithelial Cell Urine Bacteria Urine Mucus COVID-19 ([facility]) COVID-19 Clin [facility] Blood Type Antibody Screen 10/26/21 10/26/21 10/27/21 15:40 19:32 06:29 WBC RBC Hgb Hct MCV MCH MCHC RDW Plt Count MPV Immature Gran % (Auto) Neut % (Auto) Lymph % (Auto) [place] % (Auto) Eos % (Auto) Baso % (Auto) Lymph # (Auto) [place] # (Auto) Eos # (Auto) Baso # (Auto) Abs Immat Gran (auto) Absolute Neuts (auto) Absolute Nucleated RBC Nucleated RBC % (auto) Smear Tech's Comments PT 12.9 INR 1.1 O2 Saturation ABG pH at Pt Temp ABG pH (Temp Correct) ABG pCO2 at Pt Temp ABG pCO2 (Temp Corrct ABG pO2 at Pt Temp ABG pO2 (Temp Correct ABG HCO3 ABG Base Excess (Actual) Sodium Potassium Chloride Carbon Dioxide Anion Gap BUN Creatinine Estim Creat Clear Calc Estimated GFR POC Glucose 120 H 132 H Random Glucose Fasting Glucose Lactic Acid Lactic Acid F/U @ 2Hr Lactic Acid F/U @ 4Hr Calcium Magnesium B-Natriuretic Peptide Urine Color Urine Appearance Urine pH Ur Specific [place] Urine Protein Urine Glucose (UA) Urine Ketones Urine Blood Urine Nitrite Ur Leukocyte Esterase Urine RBC Urine WBC Ur Squamous Epith Cells Ur Renal Epithelial Cell Urine Bacteria Urine Mucus COVID-19 ([facility]) COVID-19 [employer] Blood Type Antibody Screen 10/27/21 10/27/21 10/27/21 06:30 06:30 07:15 WBC RBC Hgb Hct MCV MCH MCHC RDW Plt Count MPV Immature Gran % (Auto) Neut % (Auto) Lymph % (Auto) [place] % (Auto) Eos % (Auto) Baso % (Auto) Lymph # (Auto) [place] # (Auto) Eos # (Auto) Baso # (Auto) Abs Immat Gran (auto) Absolute Neuts (auto) Absolute Nucleated RBC Nucleated RBC % (auto) Smear Tech's Comments PT INR O2 Saturation ABG pH at Pt Temp ABG pH (Temp Correct) ABG pCO2 at Pt Temp ABG pCO2 (Temp Corrct ABG pO2 at Pt Temp ABG pO2 (Temp Correct ABG HCO3 ABG Base Excess (Actual) Sodium 147 H Potassium 3.2 L Chloride 110 H Carbon Dioxide 25 Anion Gap 15 BUN 19 H Creatinine 0.74 Estim Creat Clear Calc 66.7 Estimated GFR > 60 POC Glucose 102 Random Glucose 128 H Fasting Glucose Lactic Acid Lactic Acid F/U @ 2Hr Lactic Acid F/U @ 4Hr Calcium 9.3 Magnesium B-Natriuretic Peptide Urine Color Urine Appearance Urine pH Ur Specific [place] Urine Protein Urine Glucose (UA) Urine Ketones Urine Blood Urine Nitrite Ur Leukocyte Esterase Urine RBC Urine WBC Ur Squamous Epith Cells Ur Renal Epithelial Cell Urine Bacteria Urine Mucus COVID-19 ([facility]) COVID-19 [employer] [facility] Blood Type B Positive Antibody Screen NEGATIVE 10/27/21 10/27/21 10/27/21 10:47 16:03 19:23 WBC RBC Hgb Hct MCV MCH MCHC RDW Plt Count MPV Immature Gran % (Auto) Neut % (Auto) Lymph % (Auto) [place] % (Auto) Eos % (Auto) Baso % (Auto) Lymph # (Auto) [place] # (Auto) Eos # (Auto) Baso # (Auto) Abs Immat Gran (auto) Absolute Neuts (auto) Absolute Nucleated RBC Nucleated RBC % (auto) Smear Tech's Comments PT INR O2 Saturation ABG pH at Pt Temp ABG pH (Temp Correct) ABG pCO2 at Pt Temp ABG pCO2 (Temp Corrct ABG pO2 at Pt Temp ABG pO2 (Temp Correct ABG HCO3 ABG Base Excess (Actual) Sodium Potassium Chloride Carbon Dioxide Anion Gap BUN Creatinine Estim Creat Clear Calc Estimated GFR POC Glucose 125 H 123 H 139 H Random Glucose Fasting Glucose Lactic Acid Lactic Acid F/U @ 2Hr Lactic Acid F/U @ 4Hr Calcium Magnesium B-Natriuretic Peptide Urine Color Urine Appearance Urine pH Ur Specific [place] Urine Protein Urine Glucose (UA) Urine Ketones Urine Blood Urine Nitrite Ur Leukocyte Esterase Urine RBC Urine WBC Ur Squamous Epith Cells Ur Renal Epithelial Cell Urine Bacteria Urine Mucus COVID-19 ([facility]) [employer] Blood Type Antibody Screen 10/28/21 10/28/21 05:53 06:54 WBC RBC Hgb Hct MCV MCH MCHC RDW Plt Count MPV Immature Gran % (Auto) Neut % (Auto) Lymph % (Auto) [place] % (Auto) Eos % (Auto) Baso % (Auto) Lymph # (Auto) [place] # (Auto) Eos # (Auto) Baso # (Auto) Abs Immat Gran (auto) Absolute Neuts (auto) Absolute Nucleated RBC Nucleated RBC % (auto) Smear Tech's Comments PT INR O2 Saturation ABG pH at Pt Temp ABG pH (Temp Correct) ABG pCO2 at Pt Temp ABG pCO2 (Temp Corrct ABG pO2 at Pt Temp ABG pO2 (Temp Correct ABG HCO3 ABG Base Excess (Actual) Sodium 142 Potassium 3.2 L Chloride 106 Carbon Dioxide 26 Anion Gap 13 BUN 14 Creatinine 0.65 Estim Creat Clear Calc 75.9 Estimated GFR > 60 POC Glucose 126 H Random Glucose 137 H Fasting Glucose Lactic Acid Lactic Acid F/U @ 2Hr Lactic Acid F/U @ 4Hr Calcium 8.9 Magnesium B-Natriuretic Peptide Urine Color Urine Appearance Urine pH Ur Specific [place] Urine Protein Urine Glucose (UA) Urine Ketones Urine Blood Urine Nitrite Ur Leukocyte Esterase Urine RBC Urine WBC Ur Squamous Epith Cells Ur Renal Epithelial Cell Urine Bacteria Urine Mucus COVID-19 ([facility]) COVID-19 [employer] [facility] Blood Type Antibody Screen Airway Mallampati Class: III TM Dist: >3cm Neck ROM: Full Loose/Missing/Broken Teeth: Yes Heart: rrr Lungs: bl breath sounds Assessment and Plan Assessment Anesthesia Assessment: Anesthesia Plan Discussed Final Anesthetic Review Family History of Problems with Anesthesia: No History of Problems with Anesthesia: No NPO: Yes ASA Class: IV Final Preanesthetic Review: Meds/Allgs Chart Reviewed, Consent Obtained/Reviewed and Anes Risks/Benef Reviewed Patient Risk: High Procedure Risk: Intermediate Anesthetic Plan Anesthetic Plan: GA Disposition: Inp. Admit - Standard Bed
--- NOTE | 2021-10-28 09:24 | P.OP_ITS ---
Operative Note Operative Note Date of Service: 10/28/21 Narrative: Preoperative diagnosis: Heart block Postoperative diagnosis: Same Operation: Placement of dual-chamber permanent pacemaker with fluoroscopic guidance Surgeon: Shaggy Freeman MD Specimens: None EBL: 5 cc Operative findings: The pacemaker placed was a [employer] MRI serial [id number]. The atrial lead was a [employer] serial number [id number]. The ventricular lead was a [employer] serial number [id number]. Parameters in the right atrial lead sensing was 2.3 with impedance of 410 and a threshold of 0.3 volts at 0.4 milliseconds. In the ventricular lead threshold was 0.7 volts at 0.4 milliseconds with an impedance of 520 Ohms. Patient tolerated procedure well. Operation in detail: The patient was brought to the operating room, placed supine on the operating room table, anesthesia moderate of ices were placed, and the patient was gently sedated. A time-out was performed confirming the correct patient site and procedure. After injection of local anesthetic, a 3 cm incision was made in the left infraclavicular region and carried down to the pectoralis fascia with electrocautery. The patient was then placed in Trendelenburg and an 18 gauge needle was used to access subclavian vein on the 1st take. And a wire was placed into the right atrium under fluoroscopic guidance. A 2nd 18 gauge needle was then used to access the subclavian vein again on the 1st ache and a wire was placed under fluoroscopic guidance and parked in the right atrium. The patient was then taken out of Trendelenburg and a pocket was formed using blunt and electrocautery dissection. The 1st 6 [place] sheath was then placed over wire and the wire and dilator were removed. The ventricular lead was then placed through the sheath and parked in the right atrium and the peel-away sheath was removed. After several attempts using a curved stylet we were eventually able to access the right ventricle and the tip of the lead was positioned at the right ventricular apex. The endocardial screw was deployed and the lead was tested with excellent parameters above. This lead was then secured with silk sutures to the pectoralis fascia. The 2nd 6 [place] sheath was then placed over the 2nd wire and a wire dilator removed. The atrial lead was then placed and parked in the right atrium. AJ stylet was used to position this in the right atrial appendage. The endocardial screws deployed and the lead was tested with excellent parameters above. This lead was also secured with silk sutures to the pectoralis fascia. The pocket was then copiously irrigated with antibiotic solution. The leads were then placed in their appropriate receptacles and the pacemaker was tested again with excellent parameters. The generator and excess lead was then placed into the pocket. The wound was then closed with a deep running 3-0 Vicryl suture followed by running 3-0 Vicryl suture and Dermabond glue in the skin. The patient was then brought back to the recovery room in stable condition.
[2021-10-28 11:37] LABS: Glucose, Whole Blood 117 mg/dL (60-115)
[2021-10-28] MEDS: 0.9 % Sodium Chloride Flush 3 ML SYRINGE IVFLUSH ×3 (12:18→20:16)
[2021-10-28] MEDS: Potassium Chloride ER 20 MEQ TAB.ER.PRT 40 MEQ PO (12:19)
[2021-10-28] MEDS: Carbidopa/Levodopa 25/100 TABLET 2 TAB PO ×4 (12:19→20:15)
--- NOTE | 2021-10-28 12:43 | P.PNCA_ITS ---
Subjective Subjective Date of Service: 10/28/21 Principal diagnosis: Sinus pause Interval history: Status post pacemaker today. Appears much more alert and awake today. Happier. No significant pain. Review of Systems Review of Systems Yes Unobtainable due to mental status Physical Exam Vital Signs: Last Vital Signs Temp 97.5 F 10/28/21 11:00 Pulse 79 10/28/21 11:00 Resp 20 10/28/21 11:00 BP 142/88 H 10/28/21 11:00 Pulse Ox 95 10/28/21 11:00 BMI result Verdana 4 Body Mass Index Verdana 4 29.7 Verdana 4 Verdana 4 Const General: cooperative, comfortable, alert and awake Orientation/consciousness: patient oriented x3 Neck Neck: Yes trachea midline, Yes supple and Yes no JVD Chest Chest palpation & inspection: other (Small hematoma at the site of pacemaker) Resp Effort & Inspection: decreased respiratory effort Auscultation: clear to auscultation bilaterally Cardio Jugular venous distension: no JVD Palpation: normal PMI Rate: regular rate Rhythm: regular rhythm Heart sounds: S1 normal heart sound present and S2 normal heart sound present Skin General skin exam: no rashes or lesions noted Neuro General: patient oriented x3 and no focal motor deficits Extrem General: Yes no clubbing, cyanosis or edema Objective Labs and Meds Result diagrams: 10/25/21 07:07 10/28/21 05:53 Lab results: Laboratory Results - last 24 hr 10/27/21 10/27/21 10/28/21 16:03 19:23 05:53 Sodium 142 Potassium 3.2 L Chloride 106 Carbon Dioxide 26 Anion Gap 13 BUN 14 Creatinine 0.65 Estim Creat Clear Calc 75.9 Estimated GFR > 60 POC Glucose 123 H 139 H Random Glucose 137 H Calcium 8.9 10/28/21 10/28/21 06:54 11:24 Sodium Potassium Chloride Carbon Dioxide Anion Gap BUN Creatinine Estim Creat Clear Calc Estimated GFR POC Glucose 126 H 117 H Random Glucose Calcium Imaging Radiologist's impression: Impressions Guidance Fluoroscopy 10/28/21 09:20 IMPRESSION: Left subclavian dual chamber pacemaker in satisfactory position. No pneumothorax. 8 cm new linear radiopaque density projecting over the base of the heart and upper midline abdomen seen on the AP portable chest x-ray only. Clinical correlation recommended to exclude foreign body. Chest X-Ray 10/28/21 10:04 IMPRESSION: Left subclavian dual chamber pacemaker in satisfactory position. No pneumothorax. 8 cm new linear radiopaque density projecting over the base of the heart and upper midline abdomen seen on the AP portable chest x-ray only. Clinical correlation recommended to exclude foreign body. Progress Note: A&P Assessment and plan (1) Sinus pause: Status: Acute Assessment and Plan: Sinus pause status post dual-chamber pacemaker. Mentally doing extremely well. Respiratory pattern also has improved. Pacemaker pocket looks benign. Chest x- ray tomorrow and a pacer check tomorrow. If stable from cardiac perspective can be discharged home. Will set up for outpatient follow-up in 6 weeks time. Fall Risk Details Current Medications: Current Medications Acetaminophen (Acetaminophen 325 Mg Tablet) 650 mg PO Q6H PRN PRN Reason: Pain, Mild (Pain Scale 1-3) Last Admin: 10/24/21 18:09 Dose: 650 mg Documented by: Albuterol/Ipratropium (Albuterol/Iprat 2.5/0.5mg 3 Ml Ampul.Neb) 3 ml INHALE RQ4H PRN PRN Reason: Shortness of Breath/Wheezing Aripiprazole (Aripiprazole 15 Mg Tablet) 15 mg PO DAILY [facility] Last Admin: 10/27/21 10:48 Dose: Not Given Documented by: Atropine Sulfate (Atropine Sulfate 1 Mg/Ml Vial) 0.5 mg IVPUSH ONCE PRN PRN Reason: bradycardia Carbidopa/Levodopa (Carbidopa/Levodopa 25/100 Tablet) 2 tab PO 6XD [facility] Last Admin: 10/28/21 12:19 Dose: 2 tab Documented by: Carbidopa/Levodopa (Carbidopa/Levodopa Cr 25/100 Tablet.Er) 2 tab PO BID@0800, 2000 [facility] Last Admin: 10/28/21 12:16 Dose: Not Given Documented by: Dextrose (Dextrose 50 % 25 Gm/50 Ml Syringe) 25 gm IVPUSH Q15M PRN; Protocol PRN Reason: per Hypoglycemia Standing Ord. Enoxaparin Sodium (Enoxaparin Sodium 40 Mg/0.4 Ml Syringe) 40 mg SUBCUT Q24H [facility] Last Admin: 10/28/21 00:38 Dose: 40 mg Documented by: Fentanyl (Fentanyl Citrate/Pf 100 Mcg/2 Ml Vial) 25 mcg IVPUSH Q5M PRN; Protocol PRN Reason: Pain, Moderate (Pain Scale 4-6 Glucose (Glucose Gel 15 Gm Gel..Gram.) 15 gm PO Q15M PRN; Protocol PRN Reason: per Hypoglycemia Standing Ord. Ceftriaxone Sodium 1 gm/ (Sodium Chloride) 50 mls @ 100 mls/hr IV Q24H [facility] Last Infusion: 10/28/21 01:10 Dose: Infused Documented by: Azithromycin 500 mg/ Sodium (Chloride) 250 mls @ 125 mls/hr IV Q24H [facility] Last Infusion: 10/28/21 03:13 Dose: Infused Documented by: Insulin Human Lispro (Insulin Lispro 100 Unit/Ml 3 Ml Vial) 0 unit SUBCUT [facility]; Protocol Last Admin: 10/28/21 12:24 Dose: Not Given Documented by: Pharmacy Consult (Consult Rx Perform Med Rec) 1 each MISCELLANE ONCE PRN PRN Reason: Consult order Senna (Sennosides 8.6 Mg Tablet) 17.2 mg PO BEDTIME PRN PRN Reason: Constipation Sodium Chloride (0.9 % Sodium Chloride Flush 3 Ml Syringe) 3 ml IVFLUSH QSHIFT [facility] Last Admin: 10/28/21 12:18 Dose: 3 ml Documented by: Time Spent With Patient Time: Total time spent is greater than 50% in coordination of care (as documented) at patient's floor/unit and/or counseling patient: Time with patient: 15 - 24 minutes Progress Note: Quality Stroke Does the patient have a stroke diagnosis?: No Procedures Date of Service Date of Service: 10/28/21
--- NOTE | 2021-10-28 15:18 | P.PNIM_ITS ---
Subjective Subjective Date of Service: 10/28/21 Interval History: returned back after pacemaker placement, denies pain, denies shortness of breath, no nausea, no vomiting, no overnight events. Review of Systems Review of Systems: Yes all other systems are reviewed and are negative Physical Exam Verdana 4l Vital Signs: Verdana 4d Verdana 4d Vital Signs: Verdana 4d Verdana 4Bd Last Vital Signs Verdana 4d Mold Swabber New 4d Mold Swabber New 4d Temp 97.8 F 10/28/21 15:04 Mold Swabber New 4d Pulse 80 10/28/21 15:04 Mold Swabber New 4d Resp 20 10/28/21 15:04 BP 137/73 10/28/21 15:04 Pulse Ox 94 10/28/21 15:04 BMI result Body Mass Index 29.7 Const: Other: NGeneral? resting i n bed, no acute di stress.? Neck is s upple no JVD. CVS? regular rate rhyt hm, Respiratory clifford ngs clear to auscu ltation, no wheez e, no rhonchi.?? N o use of abdominal muscles Gastroint estinal abdomen so ft, nontender, bow el sounds audible, no guarding , no rigidity. Extremit ies left arm in sl ing, dressing to l eft anterior chest at site of pacema ker, no bleeding N euro nonfocal , sp eech clear, hand t remors Skin no korina h psych appropriat e affect Objective Data Active Medications Acetaminophen (Acetaminophen 325 Mg Tablet) 650 mg PO Q6H PRN PRN Reason: Pain, Mild (Pain Scale 1-3) Last Admin: 10/24/21 18:09 Dose: 650 mg Documented by: MUNIR Albuterol/Ipratropium (Albuterol/Iprat 2.5/0.5mg 3 Ml Ampul.Neb) 3 ml INHALE R Q4H PRN PRN Reason: Shortness of Breath/Wheezing Aripiprazole (Aripiprazole 15 Mg Tablet) 15 mg PO DAILY [facility] Last Admin: 10/27/21 10:30 Dose: 15 mg Documented by: ROSEMARY Atropine Sulfate (Atropine Sulfate 1 Mg/Ml Vial) 0.5 mg IVPUSH ONCE PRN PRN Reason: bradycardia Carbidopa/Levodopa (Carbidopa/Levodopa 25/100 Tablet) 2 tab PO 6XD [facility] Last Admin: 10/28/21 12:19 Dose: 2 tab Documented by: LILIAN Carbidopa/Levodopa (Carbidopa/Levodopa Cr 25/100 Tablet.Er) 2 tab PO BID@0800,2000 [facility] Last Admin: 10/28/21 12:16 Dose: Not Given Documented by: LILIAN Non-Admin Reason: Off Unit: Surgery Dextrose (Dextrose 50 % 25 Gm/50 Ml Syringe) 25 gm IVPUSH Q15M PRN; Protocol PRN Reason: per Hypoglycemia Standing Ord. Enoxaparin Sodium (Enoxaparin Sodium 40 Mg/0.4 Ml Syringe) 40 mg SUBCUT Q24H [facility] Last Admin: 10/28/21 00:38 Dose: 40 mg Documented by: BHAVANI Fentanyl (Fentanyl Citrate/Pf 100 Mcg/2 Ml Vial) 25 mcg IVPUSH Q5M PRN; Protocol PRN Reason: Pain, Moderate (Pain Scale 4-6 Glucose (Glucose Gel 15 Gm Gel..Gram.) 15 gm PO Q15M PRN; Protocol PRN Reason: per Hypoglycemia Standing Ord. Ceftriaxone Sodium 1 gm/ (Sodium Chloride) 50 mls @ 100 mls/hr IV Q24H [facility] Last Infusion: 10/28/21 01:10 Dose: 0 mls/hr Documented by: BHAVANI Azithromycin 500 mg/ Sodium (Chloride) 250 mls @ 125 mls/hr IV Q24H [facility] Last Infusion: 10/28/21 03:13 Dose: 0 mls/hr Documented by: BHAVANI Insulin Human Lispro (Insulin Lispro 100 Unit/Ml 3 Ml Vial) 0 unit SUBCUT QIDACHS [facility]; Protocol Last Admin: 10/28/21 12:24 Dose: Not Given Documented by: LILIAN Non-Admin Reason: No Insulin Coverage Pharmacy Consult (Consult Rx Perform Med Rec) 1 each MISCELLANE ONCE PRN PRN Reason: Consult order Senna (Sennosides 8.6 Mg Tablet) 17.2 mg PO BEDTIME PRN PRN Reason: Constipation Sodium Chloride (0.9 % Sodium Chloride Flush 3 Ml Syringe) 3 ml IVFLUSH QSHIFT [facility] Last Admin: 10/28/21 12:18 Dose: 3 ml Documented by: LILIAN Labs CBC & Chem 7: 10/25/21 07:07 10/28/21 05:53 Labs: Laboratory Results - last 24 hr 10/27/21 10/27/21 10/28/21 16:03 19:23 05:53 Anion Gap 13 Estim Creat Clear Calc 75.9 Estimated GFR > 60 POC Glucose 123 H 139 H Random Glucose 137 H Calcium 8.9 10/28/21 10/28/21 06:54 11:24 Anion Gap Estim Creat Clear Calc Estimated GFR POC Glucose 126 H 117 H Random Glucose Calcium Assessment and Plan (1) Sinus pause: Status: Acute (2) Pneumonia: Status: Acute (3) Acute alteration in mental status: Status: Acute Plan 86M presented with sob, ams, on 10/25 course complicated by an episode of unresponsive with hypoxia into the 40s, patient placed on NRB and o2 improved to 100%, transfered to ICU, soon after arrival to ICU he became arousable, communicated by answering simple questions, his oxygenation improved, stat chest x-ray showed clear right lung field with possibility of a left lower lobe infiltrate, patient was transferred back to medical floor with stable vitals, no cause of acute unresponsiveness was found CTA chest showed no PE since patient was back to baseline he was continued on antibiotics as before. On 10/26 patient noted to have bradycardia with multiple episode of sinus pauses, up to 5.7 seconds patient remained asymptomatic, blood pressure is stable, patient evaluated by armored truck driver initially patient refused to have pacemaker but after discussing with daughter Lyndsey patient agreed to undergo pacemaker placement, therefore obtained a thoracic surgery consultation, patient noted to have low potassium that will be repleted, stable Mag. Problem list Sinus pauses status post dual-chamber pacemaker placement, patient offers no acute complaints awake alert answering questions appropriately continue tele monitor Being followed by Cardiology in thoracic surgery will have chest x-ray and pacemaker check tomorrow severe sepsis and acute hypoxic respiratory failure and metabolic encephalopathy due to pneumonia, likely aspiration pneumonia, resolved Continue rocephin, azithro D5/7, continue modified diet as per speech recommendation, transition to by mouth antibiotic at am. Wean oxygen as tolerated Encephalopathy resolved, patient at baseline answering questions appropriately mild hypokalemia will replete and follow mild hypernatremia and hyperchloremia resolved will DC IV fluid parkinsons Continue sinemet DM Blood sugars stable, continue insulin sliding scale, diabetic diet, resume metformin on discharge full code - Disposition back to nursing facility Quality Stroke Does the patient have a stroke diagnosis?: No VTE Prior VTE?: No VTE Risk Level:: Medical - moderate - high VTE Device Contraindication: Treatment Not Indicated VTE Drug Contraindication: N/A - Med Ordered
--- NOTE | 2021-10-28 15:21 | PC.NURSE ---
Addendum entered by Chelsie Rhodes RN 10/28/21 19:20: dsg intact on left chest. sling on left arm. VSS denies pain Original Note: 1500 dsg intact on right upper chest sling on arm. Denies pain
[2021-10-28 15:58] LABS: Glucose, Whole Blood 167 mg/dL (60-115)
[2021-10-28] MEDS: Insulin Lispro 100 UNIT/ML 3 ML VIAL SUBCUT (16:13)
[2021-10-28 20:00] LABS: Glucose, Whole Blood 126 mg/dL (60-115)
[2021-10-28] MEDS: Carbidopa/Levodopa CR 25/100 TABLET.ER 2 TAB PO (20:15)
[2021-10-29] MEDS: Azithromycin 500 MG in 0.9 % Sodium Chloride 250 ML 125 MG IV (00:25)
[2021-10-29 04:00] VITALS: BP 138/63; PULSE 69; RESP 16; TEMP 36.9; O2SAT 95
[2021-10-29 06:00] VITALS: BMI 28.2
[2021-10-29] MEDS: Carbidopa/Levodopa 25/100 TABLET 2 TAB PO ×3 (06:36→11:48)
[2021-10-29 06:57] LABS: Anion Gap 12 (12-20); Blood Urea Nitrogen 10 mg/dL (9-16); Calcium 8.9 mg/dL (8.4-10.2); Carbon Dioxide 27 mmol/L (22-29); Chloride 107 mmol/L (96-108); Creatinine Clr Calc Pharmacy 71.8; Estimated Glomerular Filt Rate > 60; Glucose Random 124 mg/dL (60-115); Potassium 3.3 mmol/L (3.3-5.1); Sodium 143 mmol/L (135-145)
[2021-10-29 07:17] LABS: Glucose, Whole Blood 144 mg/dL (60-115)
[2021-10-29 07:44] VITALS: BP 147/86; PULSE 78; RESP 16; TEMP 36.4; O2SAT 98
[2021-10-29] MEDS: ARIPiprazole 15 MG TABLET PO (09:00)
[2021-10-29] MEDS: Carbidopa/Levodopa CR 25/100 TABLET.ER 2 TAB PO (09:00)
[2021-10-29] MEDS: 0.9 % Sodium Chloride Flush 3 ML SYRINGE IVFLUSH (09:01)
[2021-10-29 09:08] VITALS: O2SAT 97
[2021-10-29 11:01] LABS: Glucose, Whole Blood 174 mg/dL (60-115)
--- NOTE | 2021-10-29 11:10 | P.DS_ITS ---
DS: Providers Provider Date of Service: 10/29/21 Date of admission: 10/23/21 23:28 Primary care physician: Shannen Hodge MD Consults: 10/26/21 00:06 Consult to Cardiology Routine Consulting Provider: Angelito Cruz Reason for consultation: pauses Has provider been notified: No 10/26/21 07:27 Consult to Cardiology Routine Consulting Provider: Angelito Cruz Reason for consultation: sinus pause Has provider been notified: No 10/26/21 12:36 Consult to Thoracic Surgery Routine Consulting Provider: Shaggy Freeman Reason for consultation: pacemaker Has provider been notified: No DS: Diagnosis Discharge Diagnosis (1) Sinus pause: Status: Acute (2) Pneumonia: Status: Acute (3) Acute alteration in mental status: Status: Acute DS: Summary Hospital Course Hospital Course: Chief Complaint: SOB ?86-year-old male with a past medical history of hypertension, hyperlipidemia, diabetes, aphasia, COPD, Parkinson disease, correction resident presented to the hospital with a chief complaint of shortness of breath for last 2 days.? ? Patient is drowsy, altered; unable to obtain history. Most of the history obtained from the staff and records Per report patient was saturating 88% of the correction placed on supplemental oxygen; diabetic COVID test was done which? was negative.? Subsequently patient was sent to the hospital for further evaluation.? Denies any chest pain palpitations lightheadedness or dizziness.? Denies any cough or sputum production.? Denies any fevers.? Denies any urinary symptoms.? Review of all other systems is limited.? ER course: Per ER team patient was saturating 94% on room air on presentation; chest x-ray showed left lower lobe pneumonia-patient was given Zosyn.? CT chest and CT abdomen were done - results pending; EKG was nonischemic; patient was noted to be drowsy and response to tactile stimuli. also mentioned patient was noted to be altered.? CT head was pending. On labs noted to have leukocytosis, lactic acidosis, urinalysis showed microscopic hematuria; patient was given 30 cc/kg IV fluid bolus; hospital course 86M presented with sob, ams, patient diagnosed to have acute metabolic encephalopathy,severe sepsis due to pneumonia and acute hypoxic respiratory failure and electrolyte abnormality andwas placed on IV antibiotic, IV fluids and O2 support subsequently on 10/25 hospital course complicated by an episode of unresponsive with? hypoxia into the 40s, patient placed on NRB and o2 improved to 100%, transfered to ICU, soon after arrival to ICU he became arousable, communicated by answering simple questions, his oxygenation improved, stat chest x-ray showed clear right lung field with possibility of a left lower lobe infiltrate, patient was transferred back to medical floor with stable vitals, no cause of acute unresponsiveness was found CTA chest showed no PE since patient was back to baseline he was continued on antibiotics as before,on 10/26 patient noted to have bradycardia with multiple episode of sinus pauses, up to 5.7 seconds patient remained asymptomatic, blood pressure stable, patient evaluated by juke box mechanic initially patient refused to have pacemaker but after discussing with daughter Lyndsey patient agreed to undergo pacemaker placement, but was placed on 10/28 postprocedure patient remains stable pacemaker functioning fine therefore patient is being discharged back to rehab facility to finish a total 7 day course of antibiotic for pneumonia, mild hypokalemia and hypernatremia has been normalized, patient was noted to have soft blood pressures therefore dose of Norvasc has been reduced to 5 mg by mouth daily all other medications will remain same. All features of severe sepsis resolved. Likely acute metabolic encephalopathy related to electrolyte abnormalities ,infection and sinus pauses. patient need to follow post pacemaker instructions. In regard to chronic medical issues including Parkinson's disease diabetes mellitus he is recommended to continue home medication Time Spent with Patient Time attestation: Total time spent providing and/or coordinating discharge services: Discharge coordination time: Greater than 30 minutes Quality: Stroke Does the patient have a stroke diagnosis?: No Physical Exam Verdana 4l Vital Signs: Verdana 4d Verdana 4d Vital Signs: Verdana 4d Verdana 4Bd Last Vital Signs Verdana 4d Community Living Instructor New 4d Community Living Instructor New 4d Temp 97.6 F 10/29/21 07:44 Community Living Instructor New 4d Pulse 78 10/29/21 07:44 Community Living Instructor New 4d Resp 16 10/29/21 07:44 BP 147/86 H 10/29/21 07:44 Pulse Ox 97 10/29/21 09:08 BMI result Body Mass Index 28.2 Const: Other: General? resting in bed, no acute distress.? Neck is supple no JVD. left arm in sling, dressing to left anterior chest?at site of pacemaker, no bleeding CVS? regular rate rhythm, Respiratory lungs clear to auscultation, diminished at bases, no wheeze, no rhonchi.?? No use of abdominal muscles Gastrointestinal abdomen soft, nontender, bowel sounds audible, no guarding , no rigidity. Extremities no? edema. Neuro nonfocal , speech clear, hand tremors Skin no rash psych appropriate affect DS: Data Data Completed and Pending Labs on day of discharge: Laboratory Results - last 24 hr 10/28/21 10/28/21 10/28/21 11:24 15:50 19:50 Sodium Potassium Chloride Carbon Dioxide Anion Gap BUN Creatinine Estim Creat Clear Calc Estimated GFR POC Glucose 117 H 167 H 126 H Random Glucose Calcium 10/29/21 10/29/21 10/29/21 05:52 07:09 10:57 Sodium 143 Potassium 3.3 Chloride 107 Carbon Dioxide 27 Anion Gap 12 BUN 10 Creatinine 0.67 Estim Creat Clear Calc 71.8 Estimated GFR > 60 POC Glucose 144 H 174 H Random Glucose 124 H Calcium 8.9 Discharge Plan Discharge Patient Disposition: [facility] Discharge Diagnosis: Sinus pause/bradycardia status post pacemaker placement severe sepsis due to pneumonia acute hypoxic respiratory failure acute metabolic encephalopathy mild hypokalemia and hypernatremia Referrals: Shannen Hodge MD [Primary Care Provider] - 1 Week Discharge Medications: New cefuroxime axetil 500 mg tablet 500 mg PO Q12H Qty: 4 0RF amlodipine 5 mg tablet 5 mg PO DAILY Qty: 30 0RF Continued metformin 500 mg tablet 1 tab PO DAILY 0RF gabapentin 400 mg capsule 400 mg PO QID 0RF aripiprazole 15 mg tablet 15 mg PO DAILY 0RF carbidopa-levodopa 25-100 mg tablet extended release 2 tab PO BID 0RF carbidopa-levodopa 25-100 mg tablet 2 tab PO 6XD 0RF cholecalciferol (vitamin D3) 1,250 mcg (50,000 unit) Capsule 1,250 mcg PO QMONTH 0RF Rx Instructions: takes on the 4th of each month Discontinued amlodipine 10 mg tablet 10 mg PO DAILY 0RF Discharge Orders: Discharge Order (Routine); Ordered 10/29/21 Ordered By: Thea Mcpherson Diet: diabetic diet Activity on Discharge: As tolerated Stand Alone Forms: Patient Portal Discharge page Care Plan Goals: status post pacemaker placement, in regard to pneumonia take 2 more days of by mouth antibiotics, dose of amlodipine lowered due to low blood pressure, continue all other medications as before. Health Concerns: resume all home medication Plan of Treatment: Outpatient follow-up with Dr. Matt Coon in 10 days for wound check, outpatient follow-up with Cardiology Dr. Marinelli in 6 weeks Assessment: as per discharge summary
[2021-10-29] MEDS: Insulin Lispro 100 UNIT/ML 3 ML VIAL SUBCUT (11:46)
[2021-10-29] MEDS: Potassium Chloride ER 20 MEQ TAB.ER.PRT PO (11:46)
--- NOTE | 2021-10-29 11:51 | HO.POSTANES ---
Post Anesthesia Evaluation Post Anesthesia Evaluation Vital Signs: Vital Signs Temp Pulse Resp BP Pulse Ox 10/29/21 09:08 97 10/29/21 07:44 97.6 F 78 16 147/86 H 98 10/29/21 04:00 98.5 F 69 16 138/63 95 Anesthesia: General Mental Status: Awake Pain Control: Satisfactory Nausea/Vomiting: None Hydration: Adequate Anesthesia-Related Issues: No Anes. Related Issues
--- NOTE | 2021-10-29 11:59 | MHC.CM.PN ---
pt dcd today arrangements made with gelacio christopher [phone] at [place] [facility]
--- NOTE | 2021-10-29 12:02 | P.PNTS_ITS ---
Subjective Subjective Date of Service: 10/29/21 Interval history: Patient was seen and examined this afternoon at 12 noon. Denies any concerning symptoms such as dizziness, shortness of breath, hemoptysis, fevers or chills. Physical Exam Verdana 4l Vital Signs: Verdana 4d Verdana 4d Vital Signs: Verdana 4d Verdana 4Bd Last Vital Signs Verdana 4d Loader Operator Supervisor New 4d Loader Operator Supervisor New 4d Temp 97.6 F 10/29/21 07:44 Loader Operator Supervisor New 4d Pulse 78 10/29/21 07:44 Loader Operator Supervisor New 4d Resp 16 10/29/21 07:44 BP 147/86 H 10/29/21 07:44 Pulse Ox 97 10/29/21 09:08 BMI result Body Mass Index 28.2 Const: General: comfortable, no acute distress, alert and awake Eyes: General: appearance normal, both eyes and all related structures Sclerae: sclerae normal Neck: Other: No subcutaneous emphysema noted Neck: Yes normal visual inspection, Yes trachea midline and Yes no JVD Chest: Other: Left-sided surgical incision along the anterior midclavicular line does not appear to have any erythema, edema or signs of hematoma. Dressing is clean dry and intact. Resp: Other: BS clear with no adventitious sounds such as wheezes or rhonchi. 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 According to nursing pacemaker rep was here this morning who interrogated the leads and stated that everything was working okay. Patient is being prepared for discharge. And will follow up with Dr.Laki Freeman in 2 weeks for postop appointment. Surgical discharge instructions. ACTIVITY: ARM MOVEMENT RESTRICTIONS: No lifting your left arm over your head or behind your back, no pushing/pulling/lifting anything >10lb with your ___ arm for 6-8 weeks. This ensures the pacemaker wires stay in place and do not get pulled out accidentally. Make sure you are doing gentle range of motion exercises with the ___ arm (such as pendulum exercise) to make sure your elbow and shoulder do not get frozen up. ARM SLING: Keep the sling on until tomorrow. You may then take the sling off and leave it off. HOWEVER, if you are noticing a difficulty limiting your ___ arm movement (as outline above) then wear your sling during the day to make sure you are adhering to the restrictions above. Ask your doctor when you can expect to return to work. You can still exercise. It is good for your body and your heart. Talk with your doctor about an exercise plan. INCISION CARE: You may shower starting tomorrow. Sponge bathe only until then. Do not submerge yourself in water (baths, pools, etc.) for 2 weeks. Monitor the incision for increased redness, swelling, bruising, pain, open area, or drainage. OTHER PRECAUTIONS: Before you receive any treatment, tell all healthcare providers (including your dentist) that you have a pacemaker. You will be given an ID card that contains information about your pacemaker. Always carry this card with you. You can show this card if your pacemaker sets off a metal detector. You should also show it to avoid screening with a hand-held security wand. Keep your cell phone away from your pacemaker. Do not carry the phone in your shirt pocket, even it if is turned off. Avoid strong magnets. Examples are those used in MRI's or in hand-held security wands. Avoid strong electrical esquivel. Examples are those made by radio transmitting towers, [employer] radios, and heavy-duty electrical equipment. Avoid leaning over the open deleon of a running car. A running engine creates an electrical field. Most household and yard appliances will not cause any problems. If you use any large power tools, such as an industrial research clerk, talk with your doctor. WHEN TO CALL YOUR DOCTOR: Call your doctor immediately if you have any of the following: Dizziness Chest pain Lack of energy Fainting spells Twitching chest muscles Rapid pule or pounding heartbeat Shortness of breath Pain around your pacemaker Fever above 100.4 F (38 C) or other signs of infection (redness, swelling, drainage, or warmth at the incision site). Hiccups that will not stop FOLLOWUP APPOINTMENTS: Call Dr. Freeman's office (Thoracic Surgery) as soon as you get home to schedule a followup appointment for 2 weeks from now. The office number is / . Call your embroidery designer to make an appointment for the next couple weeks. Make regular follow-up appointments with your doctor. He or she will check the pacemaker to make sure it is working properly. Fall Risk Details Current Medications: Current Medications Acetaminophen (Acetaminophen 325 Mg Tablet) 650 mg PO Q6H PRN PRN Reason: Pain, Mild (Pain Scale 1-3) Last Admin: 10/24/21 18:09 Dose: 650 mg Documented by: Albuterol/Ipratropium (Albuterol/Iprat 2.5/0.5mg 3 Ml Ampul.Neb) 3 ml INHALE RQ4H PRN PRN Reason: Shortness of Breath/Wheezing Aripiprazole (Aripiprazole 15 Mg Tablet) 15 mg PO DAILY [facility] Last Admin: 10/29/21 09:00 Dose: 15 mg Documented by: Atropine Sulfate (Atropine Sulfate 1 Mg/Ml Vial) 0.5 mg IVPUSH ONCE PRN PRN Reason: bradycardia Carbidopa/Levodopa (Carbidopa/Levodopa 25/100 Tablet) 2 tab PO 6XD [facility] Last Admin: 10/29/21 11:48 Dose: 2 tab Documented by: Carbidopa/Levodopa (Carbidopa/Levodopa Cr 25/100 Tablet.Er) 2 tab PO BID@0800,2000 [facility] Last Admin: 10/29/21 09:00 Dose: 2 tab Documented by: Dextrose (Dextrose 50 % 25 Gm/50 Ml Syringe) 25 gm IVPUSH Q15M PRN; Protocol PRN Reason: per Hypoglycemia Standing Ord. Enoxaparin Sodium (Enoxaparin Sodium 40 Mg/0.4 Ml Syringe) 40 mg SUBCUT Q24H [facility] Last Admin: 10/28/21 23:45 Dose: 40 mg Documented by: Fentanyl (Fentanyl Citrate/Pf 100 Mcg/2 Ml Vial) 25 mcg IVPUSH Q5M PRN; Protocol PRN Reason: Pain, Moderate (Pain Scale 4-6 Glucose (Glucose Gel 15 Gm Gel..Gram.) 15 gm PO Q15M PRN; Protocol PRN Reason: per Hypoglycemia Standing Ord. Ceftriaxone Sodium 1 gm/ (Sodium Chloride) 50 mls @ 100 mls/hr IV Q24H [facility] Last Infusion: 10/29/21 00:24 Dose: Infused Documented by: Azithromycin 500 mg/ Sodium (Chloride) 250 mls @ 125 mls/hr IV Q24H [facility] Last Infusion: 10/29/21 02:36 Dose: Infused Documented by: Insulin Human Lispro (Insulin Lispro 100 Unit/Ml 3 Ml Vial) 0 unit SUBCUT QIDACHS [facility]; Protocol Last Admin: 10/29/21 11:46 Dose: 2 unit Documented by: Pharmacy Consult (Consult Rx Perform Med Rec) 1 each MISCELLANE ONCE PRN PRN Reason: Consult order Senna (Sennosides 8.6 Mg Tablet) 17.2 mg PO BEDTIME PRN PRN Reason: Constipation Sodium Chloride (0.9 % Sodium Chloride Flush 3 Ml Syringe) 3 ml IVFLUSH QSHIFT [facility] Last Admin: 10/29/21 09:01 Dose: 3 ml Documented by: Time Spent With Patient Time: Total time spent is greater than 50% in coordination of care (as documented) at patient's floor/unit and/or counseling patient: Time with patient: less than 15 minutes Quality Stroke Does the patient have a stroke diagnosis?: No VTE Prior VTE?: No VTE Risk Level:: Medical - moderate - high VTE Device Contraindication: Treatment Not Indicated VTE Drug Contraindication: N/A - Med Ordered
--- NOTE | 2021-10-29 12:20 | P.PNCA_ITS ---
Subjective Subjective Date of Service: 10/29/21 Principal diagnosis: Sinus pause Interval history: No cardiac complaints Review of Systems Review of Systems Yes all other systems are reviewed and are negative Physical Exam Vital Signs: Last Vital Signs Temp 97.6 F 10/29/21 07:44 Pulse 78 10/29/21 07:44 Resp 16 10/29/21 07:44 BP 147/86 H 10/29/21 07:44 Pulse Ox 97 10/29/21 09:08 BMI result Verdana 4 Body Mass Index Verdana 4 28.2 Verdana 4 Verdana 4 Const General: cooperative, comfortable, no acute distress, alert and awake Nutritional Appearance: overweight Orientation/consciousness: patient oriented x3 Neck Neck: Yes trachea midline, Yes supple and Yes no JVD Resp Effort & Inspection: normal respiratory effort Auscultation: clear to auscultation bilaterally Cardio Heart sounds: S1 normal heart sound present, S2 normal heart sound present, no click, no gallops and no murmurs Neuro General: patient oriented x3 and no focal motor deficits Objective Labs and Meds Result diagrams: 10/25/21 07:07 10/29/21 05:52 Lab results: Laboratory Results - last 24 hr 10/28/21 10/28/21 10/29/21 15:50 19:50 05:52 Sodium 143 Potassium 3.3 Chloride 107 Carbon Dioxide 27 Anion Gap 12 BUN 10 Creatinine 0.67 Estim Creat Clear Calc 71.8 Estimated GFR > 60 POC Glucose 167 H 126 H Random Glucose 124 H Calcium 8.9 10/29/21 10/29/21 07:09 10:57 Sodium Potassium Chloride Carbon Dioxide Anion Gap BUN Creatinine Estim Creat Clear Calc Estimated GFR POC Glucose 144 H 174 H Random Glucose Calcium Imaging Radiologist's impression: Impressions Chest X-Ray 10/29/21 08:41 IMPRESSION: Left subclavian dual chamber pacemaker. The location of the ventricular lead may be slightly different or more proximal compared to yesterday's exam. Follow-up PA and lateral chest x-ray could be performed if clinically indicated. Progress Note: A&P Assessment and plan (1) Sinus pause: Status: Acute Assessment and Plan: Significant sinus pause as well as sinus bradycardia status post dual-chamber pacemaker. Doing well. Pacemaker function is adequate. Patient's mental status appears much significantly improved. Could be due to treatment of his underlying medical condition. Will follow up in the clinic in 6 weeks time. Fall Risk Details Current Medications: Current Medications Acetaminophen (Acetaminophen 325 Mg Tablet) 650 mg PO Q6H PRN PRN Reason: Pain, Mild (Pain Scale 1-3) Last Admin: 10/24/21 18:09 Dose: 650 mg Documented by: Albuterol/Ipratropium (Albuterol/Iprat 2.5/0.5mg 3 Ml Ampul.Neb) 3 ml INHALE RQ4H PRN PRN Reason: Shortness of Breath/Wheezing Aripiprazole (Aripiprazole 15 Mg Tablet) 15 mg PO DAILY [facility] Last Admin: 10/29/21 09:00 Dose: 15 mg Documented by: Atropine Sulfate (Atropine Sulfate 1 Mg/Ml Vial) 0.5 mg IVPUSH ONCE PRN PRN Reason: bradycardia Carbidopa/Levodopa (Carbidopa/Levodopa 25/100 Tablet) 2 tab PO 6XD [facility] Last Admin: 10/29/21 11:48 Dose: 2 tab Documented by: Carbidopa/Levodopa (Carbidopa/Levodopa Cr 25/100 Tablet.Er) 2 tab PO BID@0800,2000 [facility] Last Admin: 10/29/21 09:00 Dose: 2 tab Documented by: Dextrose (Dextrose 50 % 25 Gm/50 Ml Syringe) 25 gm IVPUSH Q15M PRN; Protocol PRN Reason: per Hypoglycemia Standing Ord. Enoxaparin Sodium (Enoxaparin Sodium 40 Mg/0.4 Ml Syringe) 40 mg SUBCUT Q24H [facility] Last Admin: 10/28/21 23:45 Dose: 40 mg Documented by: Fentanyl (Fentanyl Citrate/Pf 100 Mcg/2 Ml Vial) 25 mcg IVPUSH Q5M PRN; Protocol PRN Reason: Pain, Moderate (Pain Scale 4-6 Glucose (Glucose Gel 15 Gm Gel..Gram.) 15 gm PO Q15M PRN; Protocol PRN Reason: per Hypoglycemia Standing Ord. Ceftriaxone Sodium 1 gm/ (Sodium Chloride) 50 mls @ 100 mls/hr IV Q24H [facility] Last Infusion: 10/29/21 00:24 Dose: Infused Documented by: Azithromycin 500 mg/ Sodium (Chloride) 250 mls @ 125 mls/hr IV Q24H [facility] Last Infusion: 10/29/21 02:36 Dose: Infused Documented by: Insulin Human Lispro (Insulin Lispro 100 Unit/Ml 3 Ml Vial) 0 unit SUBCUT QIDACHS [facility]; Protocol Last Admin: 10/29/21 11:46 Dose: 2 unit Documented by: Pharmacy Consult (Consult Rx Perform Med Rec) 1 each MISCELLANE ONCE PRN PRN Reason: Consult order Senna (Sennosides 8.6 Mg Tablet) 17.2 mg PO BEDTIME PRN PRN Reason: Constipation Sodium Chloride (0.9 % Sodium Chloride Flush 3 Ml Syringe) 3 ml IVFLUSH [facility] Last Admin: 10/29/21 09:01 Dose: 3 ml Documented by: Time Spent With Patient Time: Total time spent is greater than 50% in coordination of care (as documented) at patient's floor/unit and/or counseling patient: Time with patient: 15 - 24 minutes Progress Note: Quality Stroke Does the patient have a stroke diagnosis?: No Procedures Date of Service Date of Service: 10/29/21
--- NOTE | 2021-10-29 13:20 | MHC.SL.SWA ---
Speech Pathologist Impression: Risk of Aspiration Oralpharyngeal Dysphagia Risk of Aspiration Due to: Neurological Condition Dysphasia Diet Status: Upgrade Liquid Consistency and Strategies for Safe Swallow: Liquid Intake Recommendation: Thin Liquid Intake Strategies: Small Sips No Straws Solid Food Consistency: Upgrade to thin Oral Medication Intake: Crushed with Puree Compensatory Strategies and Precautions to be Taken for Safe Swallow: Sitting Upright (90 deg) No Straw Small Bites and Sips Alternate Liquids/Solids Rate of Ingestion Change Supervision While Eating and Drinking for Safe Swallow: Intermittent Supervision Foods to Avoid: Swallowing Recommended Treatments: Compens. Strategy Educat. Recommendation for Speech: Inpatient Speech Therapy Comment: upgrade to thin Frequency/Duration: M-F Date Range for Service Req: Timeline to reassess: Fire Manager Clinican/Clinical Fellow: No Supervisory Statement: I have reviewed and agree with the student/clinical fellow's documentation: N/A Speech Language Pathologist: Kaley Pemberton MA, CCC-WOMEN'S SWIM COACH
[2021-10-29 15:10] VITALS: BP 148/87; PULSE 54; RESP 18; TEMP 36.5; O2SAT 98
== END 2021-10-29 16:11 | disposition skilled nursing facility (03) | DRG 853 ==
LOC: HO.ED 23:31 → HO.EDOVER 23:59 → HO.ICU 10-25 10:54 → HO.S3 10-25 19:28 → HO.IMC 10-26 17:14
PROVIDERS: Anesthesiology; Internal Medicine; Nurse Practitioner Family; Surgery; Admitting Provider Hospitalist; Emergency Provider Emergency Medicine Emergency Medical Services; PCP Internal Medicine; Visit Provider Hospitalist
PROC: 0JH606Z Insertion of Pacemaker, Dual Chamber into Chest Subcutaneous Tissue and Fascia, Open Approach (ICD-10-PCS; principal; 2021-10-28 07:30)
DX: A41.9 Sepsis, unspecified organism (principal); J18.9 Pneumonia, unspecified organism; J96.01 Acute respiratory failure with hypoxia; G93.41 Metabolic encephalopathy; E87.0 Hyperosmolality and hypernatremia; I49.5 Sick sinus syndrome; E87.6 Hypokalemia; R65.20 Severe sepsis without septic shock; R31.29 Other microscopic hematuria; E11.9 Type 2 diabetes mellitus without complications; G20 Parkinson's disease; Z20.822 Contact with and (suspected) exposure to COVID-19; Z79.899 Other long term (current) drug therapy
CPT/HCPCS: 36415; 36600; 70450; 71045; 71275; 74177; 80048; 81001; 82803; 82947; 83605; 83735; 83880; 85025; 85027; 85610; 86850; 86900; 86901; 87040; 87635; 92526; 92610; 93005; 94640; 96361; 96365; 99285; C1785; C1892; C1898; J0456; J0690; J0696; J1650; J2370; J2405; J2543; J3010; J3370; Q9967

== ENCOUNTER → 2021-11-12 10:23 | Outpatient (BNVA) | payer MEDICARE, SELFPAY | PROVIDERS: PCP Internal Medicine; Visit Provider Surgery | DX: Z79.899 Other long term (current) drug therapy (principal); F17.290 Nicotine dependence, other tobacco product, uncomplicated; Z79.84 Long term (current) use of oral hypoglycemic drugs | CPT/HCPCS: 99212 ==

== ENCOUNTER → 2021-12-22 09:01 | Outpatient (BNVA) | payer MEDICARE, SELFPAY | PROVIDERS: Visit Provider Internal Medicine Cardiovascular Disease | DX: Z45.018 Encounter for adjustment and management of other part of cardiac pacemaker (principal); I48.0 Paroxysmal atrial fibrillation | CPT/HCPCS: 99212 ==

== ENCOUNTER → 2022-01-06 10:05 | Outpatient (BNVA) | payer MEDICARE, SELFPAY | PROVIDERS: Visit Provider Psychiatry & Neurology Neurology | DX: G20 Parkinson's disease (principal); F22 Delusional disorders; R41.89 Other symptoms and signs involving cognitive functions and awareness | CPT/HCPCS: 99212 ==

== ENCOUNTER 2022-01-30 16:06 | Emergency (ER) | payer MEDICARE, MEDICAID, SELFPAY ==
--- NOTE | ~2022-01-30 | CT_ITS ---
EXAMINATION: CT ABDOMEN AND PELVIS WITH CONTRAST CLINICAL INFORMATION: Lower abdominal pain. COMPARISON: CT abdomen/pelvis dated 10/24/2021. TECHNIQUE: Multidetector volumetric images were obtained from the superior aspect of the liver through the pubic symphysis following administration 85 mL of Omnipaque 350 intravenous contrast. Sagittal and coronal reformatted images were obtained on the technologist's workstation. Oral Contrast: No. This CT examination was performed using dose optimization techniques as appropriate, variously including the following: *Automated exposure control. *Adjustment of mA and/or kV according to patient size (this includes techniques or standardized protocols for targeted exams where dose is matched to indication/reason for exam; i.e. extremities or head). *Use of iterative reconstruction technique. DLP: 975 mGy-cm FINDINGS: LUNG BASES: Bilateral dependent atelectasis. LIVER, GALLBLADDER, AND BILIARY TREE: The liver is normal in size, shape, and attenuation. No focal hepatic lesion or biliary ductal dilatation is present. The gallbladder is unremarkable with no evidence of radiopaque gallstones, gallbladder wall thickening, or obvious pericholecystic inflammatory changes. PANCREAS: Unremarkable. SPLEEN: Unremarkable. ADRENAL GLANDS: Unremarkable. KIDNEYS AND URETERS: The kidneys are normal in size, shape, and attenuation. No hydronephrosis, hydroureter, or calculi seen. Redemonstration of a simple left renal cyst. This is not clinically significant and no dedicated follow-up imaging is recommended. No perinephric stranding. BLADDER: Partially distended and unremarkable. GASTROINTESTINAL TRACT: Redundant colon with prominent bowel gas in the sigmoid. No evidence of obstruction. No bowel wall thickening or inflammatory change. Appendix not seen, however, no right lower quadrant inflammatory change to suggest acute appendicitis. PERITONEAL CAVITY: No intra-abdominal free air or free fluid. ABDOMINAL WALL: Redemonstration of a fat-containing periumbilical hernia. No inflammatory or ischemic change. LYMPH NODES: No significant lymphadenopathy. VASCULAR: Unremarkable. PELVIC VISCERA: The prostate and seminal vesicles are unremarkable. OSSEOUS STRUCTURES: Unremarkable. CT/CT abdomen pelvis w con IMPRESSION: 1. Redundant colon with prominent bowel gas in the sigmoid. No evidence of obstruction. No wall thickening or inflammatory change. 2. No intra-abdominal mass, lymphadenopathy, or ascites. 3. Additional chronic findings are unchanged. Fleischner guidelines were followed.
--- NOTE | ~2022-01-30 | CT_ITS ---
EXAMINATION: CT HEAD WITHOUT CONTRAST CLINICAL INFORMATION: Altered consciousness. COMPARISON: 10/24/2021 TECHNIQUE: Contiguous axial imaging was performed from the skull base to vertex without intravenous administration of contrast. This CT examination was performed using dose optimization techniques as appropriate, variously including the following: *Automated exposure control *Adjustment of mA and/or kV according to patient size (this includes techniques or standardized protocols for targeted exams where dose is matched to indication/reason for exam; i.e. extremities or head) *Use of iterative reconstruction technique DLP: 798 mGy-cm FINDINGS: There is atherosclerotic calcification of cavernous carotid arteries. Chronic, mild patchy hypoattenuation within supratentorial white white matter is compatible with sequela microangiopathy. The jeffries-white matter differentiation is maintained. No evidence of an acute major vascular territory infarction. No intracranial hemorrhage, extra-axial fluid collection, focal mass effect or midline shift. Chronic volume loss of brain parenchyma with commensurate prominence of ventricles and sulci; no hydrocephalus. The brainstem and cerebellum are unremarkable. The cerebellar tonsils are in normal position. Small mucus retention cyst of the partially visualized left maxillary sinus. Mild mucosal thickening of inferior frontal sinuses. The mastoid air cells and middle ear cavities are well aerated. Chronic degenerative arthropathy at the right temporomandibular joint. There is calcium deposition (likely calcium pyrophosphate dihydrate crystal deposition) along the transverse ligament posterior to the dens. Chronic degenerative subarticular sclerosis and osseous spurring at the atlantodental articulation. CT/CT head/brain wo con IMPRESSION: No intracranial hemorrhage or other acute intracranial pathology compared to 10/24/2021.
--- NOTE | ~2022-01-30 | XR_ITS ---
EXAMINATION: XR chest 1V CLINICAL INFORMATION: Reason for Exam ALOC COMPARISON: Chest radiograph 10/29/2021 TECHNIQUE: One view of the chest XR/XR chest 1V FINDINGS/IMPRESSION: Low lung volumes. Minimal streaky left basilar airspace opacities favored to reflect atelectasis in the setting of low lung volumes. The patient's head overlies the lung apices which limits evaluation. No pneumothorax. No pleural effusion. Unchanged cardiomediastinal silhouette. Left chest wall dual lead cardiac pacemaker in place.
[2022-01-30 16:27] VITALS: BP 126/82; BP 135/85; PULSE 73; PULSE 74; RESP 20; TEMP 36.6; O2SAT 93; O2SAT 97; BMI 25.2
--- NOTE | 2022-01-30 16:46 | ECG_ITS ---
Test Reason : BRADYCARDIA Blood Pressure : / mmHG Vent. Rate : 073 BPM Atrial Rate : 073 BPM P-R Int : 282 ms QRS Dur : 114 ms QT Int : 412 ms P-R-T Axes : 058 -61 097 degrees QTc Int : 453 ms Atrial-sensed ventricular-paced rhythm with prolonged AV conduction Abnormal ECG When compared with ECG of 26-OCT-2021 00:30, Electronic ventricular pacemaker has replaced Sinus rhythm Referred By: Darwin Juárez Electronically Signed By:Nasir Gates
--- NOTE | 2022-01-30 16:55 | ED_ITS ---
HPI - General Adult General Chief complaint: Altered Mental Status Stated complaint: ams Time Seen by Provider: 01/30/22 16:39 Source: EMS, RN notes reviewed and old records reviewed Limitations: altered mental status History of Present Illness HPI narrative: This is a an 86-year-old male sent in from his intermediate facility as he leon s been more lethargic and does not seem himself. The patient usually is independent in his wheelchair. Patient does have a history of mild cognitive impairment, schizophrenia, paranoid personality disorder, hypertension, type 2 diabetes restlessness and agitation, tremor, polyneuropathy, hyponatremia, hyperlipidemia, anemia hyperlipidemia. Not clear if the patient is a reliable historian but he denies any headache, chest pain, shortness of breath. He does admit to abdominal pain but when asked about it said it is ?ring of fire?. Denies any vomiting. EMS reported that the patient recently had a pacemaker placed, but that on route he had episodes of bradycardia down into the 20s before his pacemaker apparently kicked in. Related Data Home Medications Medication Instructions Recorded Confirmed carbidopa 25 mg-levodopa 100 mg 2 tab PO 6XD 10/24/21 01/06/22 tablet carbidopa ER 25 mg-levodopa 100 mg 2 tab PO BID 10/24/21 01/06/22 tablet,extended release cholecalciferol (vitamin D3) 1,250 1,250 mcg PO QMONTH 10/24/21 01/06/22 mcg (50,000 unit) capsule gabapentin 400 mg capsule 400 mg PO QID 10/24/21 01/06/22 metformin 500 mg tablet 1 tab PO DAILY 10/24/21 01/06/22 acetaminophen 325 mg tablet 650 mg PO Q6H PRN 01/06/22 01/06/22 acetaminophen 650 mg rectal 650 mg SD Q6H 01/06/22 01/06/22 suppository albuterol sulfate 90 mcg/actuation 2 puff INHALATION Q4-6H PRN 01/06/22 01/06/22 aerosol inhaler (Ventolin HFA) albuterol sulfate 90 mcg/actuation 2 inh INHALATION Q4-6H PRN 01/06/22 01/06/22 breath activated powder inhaler aripiprazole 10 mg tablet 10 mg PO DAILY 01/06/22 01/06/22 bisacodyl 10 mg rectal suppository 10 mg SD DAILY PRN 01/06/22 01/06/22 dextrose 40 % oral gel (Glutose-15) 15 g PO Q15M PRN 01/06/22 01/06/22 glucagon 1 mg injection kit mg IM 01/06/22 01/06/22 hydrocortisone acetate 25 mg 25 mg SD BID 01/06/22 01/06/22 rectal suppository (Anucort-HC) magnesium hydroxide 400 mg/5 mL 30 ml PO .PRN ml 01/06/22 01/06/22 oral suspension (Milk of Magnesia) miconazole nitrate 2 % topical 1 appl TOPICAL BID 01/06/22 01/06/22 cream naloxone 0.4 mg/mL injection 0.4 mg SUBCUT Q2M PRN 01/06/22 01/06/22 solution naloxone 4 mg/actuation nasal spray 4 mg INTRANASAL Q3M PRN 01/06/22 01/06/22 Previous Rx's Medication Instructions Recorded amlodipine 5 mg tablet 5 mg PO DAILY #30 tab 10/29/21 apixaban 5 mg tablet (Eliquis) 5 mg PO BID #60 tab 12/22/21 metoprolol succinate 50 mg 50 mg PO DAILY #30 tab 12/22/21 tablet,extended release 24 hr (Toprol XL) cefdinir 300 mg capsule 300 mg PO BID #14 cap 01/30/22 Allergies Allergy/AdvReac Type Severity Reaction Status Date / Time rasagiline [From Azilect] Allergy Unknown Verified 01/06/22 10:18 risperidone Allergy Unknown Verified 01/06/22 10:18 sertraline Allergy Unknown Verified 01/06/22 10:18 Review of Systems Review of Systems: Yes Unobtainable due to mental status and Other (As per HPI) [facility] Past Medical History Medical History Anemia Aphasia Diabetes High cholesterol HTN (hypertension) Neuropathy Pacemaker (~10/2021) Paranoid behavior Paroxysmal atrial fibrillation Psychosis Surgical History History of cardiac pacemaker (~10/2021) Social History Social History Household Members Other:: [facility] Patient Tobacco Use Status: Former Tobacco user Tobacco use type: Cigar and Pipe Advance Directives: Yes Advance Directives on File: Yes Advance Directives Date on File: 10/28/21 service: No Current occupational status: retired Physical Exam ED Vital Signs: Vital Signs - 24 hr 01/30/22 16:27 01/30/22 23:27 Temperature 97.8 F Pulse Rate 74 60 Respiratory Rate 20 18 Blood Pressure 135/85 155/89 H Pulse Oximetry 97 98 BMI result Body Mass Index 25.2 Const Other: Patient is somewhat somnolent but readily arousable, does answer questions General: no acute distress Orientation/consciousness: patient oriented x3 HENMT Head: Yes normal to inspection General nose exam: Normal external nose present Mouth: moist mucous membranes Throat: Yes posterior oropharynx normal, Yes tonsils normal and Yes uvula midline Eyes Eyelids: Yes eyelids normal Conjunctivae: conjunctivae normal Pupils: Equal, round and reactive pupils present Neck Neck: Yes supple Resp Effort & Inspection: normal respiratory effort Auscultation: clear to auscultation bilaterally Cardio Rate: regular rate Rhythm: regular rhythm Heart sounds: S1 normal heart sound present, S2 normal heart sound present, no gallops, no murmurs and no rubs GI Other: Soft, mildly obese, tender right lower quadrant Inspection: No distended Palpation (GI): Soft to palpation and Tenderness to palpation present (GI) Skin General skin exam: other (Warm and dry) Neuro Other: Occasional slight jerking/tremors of extremities General: patient oriented x3 and CN's II-XI intact bilaterally Cranial nerves: Yes Equal, round and reactive pupils present Extrem General: Yes no pedal edema Psych Affect: normal affect Attitude: cooperative Medical Decision Making [facility] Narrative Medical decision making narrative: Patient sent in for increased lethargy from his intermediate facility. Patient had poor historian due to his mental status change, history of psychosis. CT of the brain was negative her chest x-ray showed no acute acute findings. Laboratory work showed mild dehydration with a BUN of 24, creatinine 1.1. Urinalysis showed too numerous to count white blood cells per high-power field. Urinalysis also positive for nitrites. Patient was treated with 1 g of Rocephin IV as well as normal saline 1 L IV. Patient can be discharged back to his intermediate facility on cefdinir. Lab Data Lab results reviewed: Yes I reviewed the patient's lab results. Result diagrams: 01/30/22 16:59 01/30/22 18:00 Labs: Lab Results 01/30/22 01/30/22 01/30/22 Range/Units 16:59 18:00 19:04 WBC 10.0 (4.8-10.8) X10*3/uL RBC 3.78 L (4.60-5.80) X10*6/uL Hgb 12.0 L (14.0-18.0) g/dl Hct 36.4 L (42.0-52.0) % MCV 96.3 (80.0-98.0) fL MCH 31.7 (27.0-33.0) pg MCHC 33.0 (31.0-36.0) g/dl RDW 12.9 (11.0-16.0) % Plt Count 163 (160-400) X10*3/uL MPV 11.4 (9.4-12.4) fL Immature Gran % (Auto) 0.2 (0.0-0.4) % Neut % (Auto) 55.6 (45-73) % Lymph % (Auto) 30.6 (20-40) % [place] % (Auto) 7.4 (2-11) % Eos % (Auto) 5.4 H (0-4) % Baso % (Auto) 0.8 (0-2) % Lymph # (Auto) 3.1 (1.2-4.9) X10*3/uL [place] # (Auto) 0.7 (0.1-1.2) X10*3/uL Eos # (Auto) 0.5 H (0.0-0.4) X10*3/uL Baso # (Auto) 0.1 (0.0-0.2) X10*3/uL Abs Immat Gran (auto) 0.02 (0.00-0.03) X10*3/uL Absolute Neuts (auto) 5.6 (2.0-8.3) x10*3/uL Absolute Nucleated RBC 0.000 (0.0-0.012) X10*3/uL Nucleated RBC % (auto) 0.0 (0.0-0.2) /100WBC Sodium 144 (135-145) mmol/L Potassium 3.8 (3.3-5.1) mmol/L Chloride 110 H (96-108) mmol/L Carbon Dioxide 25 (22-29) mmol/L Anion Gap 13 (12-20) BUN 24 H D (9-16) mg/dL Creatinine 1.10 (0.5-1.4) mg/dL Estim Creat Clear Calc 47.5 Estimated GFR > 60 Random Glucose 107 (60-115) mg/dL Calcium 9.1 (8.4-10.2) mg/dL Magnesium 1.7 (1.6-2.6) mg/dL Total Bilirubin 0.6 (0.0-1.0) mg/dL AST 15 (5-37) U/L ALT < 6 (0-40) U/L Alkaline Phosphatase 76 (39-117) U/L Total Protein 6.4 L (6.5-8.0) g/dL Albumin 3.9 (3.5-5.0) g/dL Urine Color YELLOW Urine Appearance HAZY Urine pH 5.5 (5.0-8.0) Ur Specific [place] 1.025 (1.005-1.025) Urine Protein NEG (NEG-TRACE) MG/DL Urine Glucose (UA) NEG (NEG) MG/DL Urine Ketones NEG (NEG) MG/DL Urine Blood NEG (NEG) Urine Nitrite POS H (NEG) Ur Leukocyte Esterase 1+ H (NEG) Urine RBC 1-4 (0) /HPF Urine WBC 30-49 H (0-4) /HPF Ur Squamous Epith Cells TRACE /LPF Ur Renal Epithelial Cell TRACE /LPF Urine Bacteria 4+ /LPF Hyaline Casts 0-2 /LPF Urine Mucus 1+ /LPF Imaging Data Chest x-ray: Radiologist's impression: FINDINGS/IMPRESSION: ? Low lung volumes. Minimal streaky left basilar airspace opacities favored to reflect atelectasis in the setting of low lung volumes. The patient's head overlies the lung apices which limits evaluation. ? No pneumothorax. No pleural effusion. ? Unchanged cardiomediastinal silhouette. ? Left chest wall dual lead cardiac pacemaker in place. ? CT brain: Radiologist's impression: IMPRESSION: No intracranial hemorrhage or other acute intracranial pathology compared to 10/24/2021. CT abdomen and pelvis with IV contrast: Radiologist's impression: 1. Redundant colon with prominent bowel gas in the sigmoid. No evidence of obstruction. No wall thickening or inflammatory change. ? 2. No intra-abdominal mass, lymphadenopathy, or ascites. ? 3. Additional chronic findings are unchanged.? ECG Data Attestation: I personally reviewed and interpreted this ECG as follows: Interpretation: Atrial sensed ventricular paced rhythm with prolonged AV conduction. No discordant T-waves. No ectopy., no pauses Discharge Plan Discharge Clinical Impression: Acute UTI, Acute alteration in mental status Patient Disposition: Home, Self-Care Additional Instructions: Take the antibiotics as prescribed. Encourage fluids. Follow up with primary c are physician. Return for any new or worsened symptoms. Prescriptions: New cefdinir 300 mg capsule 300 mg PO BID Qty: 14 0RF No Action metformin 500 mg tablet 1 tab PO DAILY 0RF gabapentin 400 mg capsule 400 mg PO QID 0RF carbidopa-levodopa 25-100 mg tablet extended release 2 tab PO BID 0RF carbidopa-levodopa 25-100 mg tablet 2 tab PO 6XD 0RF cholecalciferol (vitamin D3) 1,250 mcg (50,000 unit) Capsule 1,250 mcg PO QMONTH 0RF Rx Instructions: takes on the 4th of each month amlodipine 5 mg tablet 5 mg PO DAILY Qty: 30 0RF miconazole nitrate 2 % cream 1 appl topical BID 0RF naloxone 0.4 mg/mL solution 0.4 mg subcut Q2M PRN0RF Rx Instructions: NTExceed 10 mg total dose/episode naloxone 4 mg/actuation spray,non-aerosol 4 mg intranasal Q3M PRN0RF Rx Instructions: spray 1 dose into ONE nostril; alternate nostrils w each dose until help arrives acetaminophen 325 mg tablet 650 mg PO Q6H PRN0RF acetaminophen 650 mg suppository 650 mg SD Q6H 0RF albuterol sulfate 90 mcg/actuation aerosol powdr breath activated 2 inh inhalation Q4-6H PRN0RF bisacodyl 10 mg suppository 10 mg SD DAILY PRN0RF glucagon 1 mg kit IM 0RF dextrose [Glutose-15] 40 % gel 15 g PO Q15M PRN0RF Rx Instructions: until symptoms of low blood sugar are controlled hydrocortisone acetate [Anucort-HC] 25 mg suppository 25 mg SD BID 0RF magnesium hydroxide [Milk of Magnesia] 400 mg/5 mL suspension 30 ml PO .PRN 0RF albuterol sulfate [Ventolin HFA] 90 mcg/actuation HFA aerosol inhaler 2 puff inhalation Q4-6H PRN0RF aripiprazole 10 mg tablet 10 mg PO DAILY 0RF metoprolol succinate [Toprol XL] 50 mg tablet extended release 24 hr 50 mg PO DAILY Qty: 30 5RF Eliquis 5 mg tablet 5 mg PO BID Qty: 60 5RF
[2022-01-30 17:07] LABS: MANUAL DIFF FLAG NO
[2022-01-30] MEDS: 0.9 % Sodium Chloride 500 ML 999 ML IV (17:07)
[2022-01-30 17:08] LABS: Basophils Absolute Auto 0.1 X10*3/uL (0.0-0.2); Basophils Percent Auto 0.8 % (0-2); Eosinophils Absolute Auto 0.5 X10*3/uL (0.0-0.4); Eosinophils Percent Auto 5.4 % (0-4); Hematocrit 36.4 % (42.0-52.0); Imm Gran Abs Auto 0.02 X10*3/uL (0.00-0.03); Imm Gran Pct Auto 0.2 % (0.0-0.4); Lymphocytes Absolute Auto 3.1 X10*3/uL (1.2-4.9); Lymphocytes Percent Auto 30.6 % (20-40); Mean Corpuscular Hemoglobin 31.7 pg (27.0-33.0); Mean Corpuscular Volume 96.3 fL (80.0-98.0); Mean Platelet Volume 11.4 fL (9.4-12.4); Monocytes Absolute Auto 0.7 X10*3/uL (0.1-1.2); Monocytes Percent Auto 7.4 % (2-11); Neutrophils Absolute Auto 5.6 x10*3/uL (2.0-8.3); Neutrophils Percent Auto 55.6 % (45-73); Platelet Count 163 X10*3/uL (160-400); Red Blood Count 3.78 X10*6/uL (4.60-5.80); Red Cell Distribution Width 12.9 % (11.0-16.0)
[2022-01-30 18:35] LABS: Alanine Aminotransferase < 6 U/L (0-40); Albumin Level 3.9 g/dL (3.5-5.0); Alkaline Phosphatase 76 U/L (39-117); Anion Gap 13 (12-20); Aspartate Amino Transferase 15 U/L (5-37); Bilirubin Total 0.6 mg/dL (0.0-1.0); Blood Urea Nitrogen 24 mg/dL (9-16); Calcium 9.1 mg/dL (8.4-10.2); Carbon Dioxide 25 mmol/L (22-29); Chloride 110 mmol/L (96-108); Creatinine Clr Calc Pharmacy 47.5; Estimated Glomerular Filt Rate > 60; Glucose Random 107 mg/dL (60-115); Magnesium 1.7 mg/dL (1.6-2.6); Potassium 3.8 mmol/L (3.3-5.1); Sodium 144 mmol/L (135-145); Total Protein 6.4 g/dL (6.5-8.0)
[2022-01-30 19:15] LABS: Appearance Urine HAZY; Color Urine YELLOW; Glucose Urine UA NEG (NEG); Leukocyte Esterase Urine 1+ (NEG); Nitrite Urine POS (NEG); PH 5.5 (5.0-8.0); Specific Gravity - Urine 1.025 (1.005-1.025); UACC Culture Trigger YES; Urine Blood NEG (NEG); Urine Ketones NEG (NEG); Urine Protein NEG (NEG-TRACE)
[2022-01-30 19:23] LABS: WBC Urine 30-49 /HPF (0-4)
[2022-01-30 19:24] LABS: Bacteria Urine 4+ /LPF; Hyaline Casts Urine 0-2 /LPF; Mucus Urine 1+ /LPF; Renal Epithelial Cells Urine TRACE /LPF; Squamous Epithelial Cell Urine TRACE /LPF
[2022-01-30] MEDS: iohexoL 350 MG/ML 100 ML INFUS..BTL IV (20:16)
[2022-01-30] MEDS: cefTRIAXone sodium 1 GM in 0.9 % Sodium Chloride 50 ML IV (23:00)
[2022-01-30] MEDS: 0.9 % Sodium Chloride 500 ML IV (23:01)
[2022-01-30 23:27] VITALS: BP 155/89; PULSE 60; RESP 18; O2SAT 98
--- NOTE | 2022-01-30 23:57 | PC.NURSE ---
report given to Ezekiel @ [facility] on 2nd floor.
[2022-01-31 02:00] VITALS: BP 143/85; PULSE 76; RESP 16; TEMP 36.5; O2SAT 98
--- NOTE | 2022-01-31 03:21 | PC.NURSE ---
pt alert to self. pt repositioned and faisal care completed. pt is awaiting for ambulance to return to facility.
[2022-01-31 04:32] VITALS: RESP 16
== END 2022-01-31 04:37 | disposition home or self-care (01) ==
PROVIDERS: Emergency Provider Emergency Medicine
DX: N39.0 Urinary tract infection, site not specified (principal); R41.82 Altered mental status, unspecified; I10 Essential (primary) hypertension; E11.9 Type 2 diabetes mellitus without complications; I48.0 Paroxysmal atrial fibrillation; Z95.0 Presence of cardiac pacemaker
CPT/HCPCS: 36415; 70450; 71045; 74177; 80053; 81001; 83735; 85025; 87086; 87088; 87186; 93005; 96365; 99284; J0696; Q9967

== ENCOUNTER 2022-02-20 17:12 | Inpatient (IN) | payer MEDICARE, SELFPAY ==
--- NOTE | ~2022-02-20 | CT_ITS ---
EXAMINATION: CT HEAD WITHOUT CONTRAST CLINICAL INFORMATION: Altered mental status. COMPARISON: CT head 01/30/2022. TECHNIQUE: Contiguous axial imaging was performed from the skull base to vertex without intravenous administration of contrast. This CT examination was performed using dose optimization techniques as appropriate, variously including the following: *Automated exposure control *Adjustment of mA and/or kV according to patient size (this includes techniques or standardized protocols for targeted exams where dose is matched to indication/reason for exam; i.e. extremities or head) *Use of iterative reconstruction technique DLP: 908 mGy-cm FINDINGS: Images are suboptimal secondary to motion artifact. Moderate diffuse commensurate prominence of ventricles and sulci is noted. No intracranial hemorrhage, tumors or acute infarcts are visualized. A left ocular lens extraction is noted. A 2 mm calcific density is noted in the region of the right palpebral cutaneous margin and corresponds to a similar finding present on the 01/30/2022 examination. No significant opacification of the mastoid air cells, middle ear cavities and visualized paranasal sinuses. Mild periventricular white matter and subcortical white matter patchy hypodensities are noted. CT/CT head/brain wo con IMPRESSION: *No acute intracranial abnormalities. *Mild chronic microangiopathic ischemic changes and mild-moderate diffuse parenchymal volume loss of the brain.
--- NOTE | ~2022-02-20 | CT_ITS ---
EXAMINATION: CT chest wo con, CT abdomen pelvis wo con CLINICAL INFORMATION: Reason for Exam ams, tachypnea COMPARISON: CT abdomen 01/30/2022, CT angiography chest 10/24/2021, chest radiograph 01/30/2022. TECHNIQUE: Unenhanced CT of the chest, abdomen pelvis. This CT examination was performed using dose optimization techniques as appropriate, variously including the following: *Automated exposure control *Adjustment of mA and/or kV according to patient size (this includes techniques or standardized protocols for targeted exams where dose is matched to indication/reason for exam; i.e. extremities or head) *Use of iterative reconstruction technique DLP: 2376 mGy-cm FINDINGS: Lungs: Mild bibasilar dependent atelectasis of the lungs is identified. No pulmonary consolidation visualized. Pleura: No pneumothoraces or pleural effusions. Mediastinum: Normal heart size. No lymphadenopathy. Partially visualized left pectoral pacer and associated pacer leads. Partially visualized diffuse coronary artery calcific atherosclerosis. Moderate scattered aortic calcific atherosclerosis. CHEST WALL: No axillary lymphadenopathy. Liver: Normal. Gallbladder and biliary system: Physiologically distended gallbladder. No biliary duct dilatation. Pancreas: Diffuse pancreatic atrophy. Spleen: Normal. Adrenal glands: Normal. Kidneys: A 2.5 cm low density (-11 Hounsfield units) lesion is associated with the anterior aspect of the interpolar segment of the left kidney consistent with a simple cyst requiring no additional imaging follow-up. A 7 mm rounded low density (-17 Hounsfield unit) focus is noted in association with the inferior pole the left kidney consistent with a simple cyst requiring no additional imaging follow-up. No hydronephrosis, perinephric inflammatory changes or renal calculi identified. Urinary bladder: No mural thickening. Gastrointestinal system: Marked redundancy and distention of the sigmoid colon is present with the sigmoid colon measuring up to 12 cm in maximum transaxial diameter. Sigmoid colon extends into the right upper abdominal quadrant. Reticulation of the sigmoid mesentery is present with crossing of proximal and distal segments of the sigmoid colon noted within the the pelvis (series 23 images [id number]) suggestive of an [id number]-sign. 4. Sigmoid volvulus. Remainder of the colon measures up to 7 cm in maximum transverse diameter, predominantly within the ascending colon, slightly above normal limits of size. The appendix is not visualized. No free intraperitoneal gas is noted. No free intraperitoneal fluid collections identified. A small hiatal hernia is noted. Abdominal wall: A periumbilical hernia containing omental fat measuring 5.5 cm in diameter without evidence of associated inflammatory changes is approximately unchanged in size compared with 01/30/2022. Abdominal lymphovascular structures: Moderate scattered calcific atherosclerosis. Normal caliber of the abdominal aorta. No lymphadenopathy. Osseous structures of the chest, abdomen and pelvis: Prominent rotatory scoliosis of the lumbar spine convex rightward is noted. Chronic appearing Schmorl's node deformities of the superior and inferior endplates of L2 are visualized. Similar findings were present on the 01/30/2022 examination. Prominent thoracic kyphosis is noted. Multilevel intervertebral disc space narrowing and endplate osteophytosis is noted within the incidentally visualized cervical spine. CT/CT abdomen pelvis wo con IMPRESSION: *Findings suspicious for sigmoid volvulus resulting in partial or high-grade obstruction. The sigmoid colon measures up to 12 cm with associated twisting and inflammatory changes of the sigmoid mesentery. The differential diagnosis includes colonic pseudoobstruction (Azucena syndrome) though no marked dilatation of the colon outside of the sigmoid colon is noted. No small bowel dilatation identified. No free intraperitoneal gas or fluid collections. *Mild bibasilar atelectasis of the lungs; otherwise, no acute cardiopulmonary abnormalities. *Partially visualized extensive diffuse coronary artery calcific atherosclerosis. This result was discussed with Taylor Crook NP MD by telephone at 02/20/2022 8:50 PM and it was ascertained that the content and urgency of the report was understood at the time of direct communication.
--- NOTE | ~2022-02-20 | XR_ITS ---
EXAMINATION: XR ABDOMEN KUB CLINICAL INDICATION: 1 bullous. Status post sigmoidoscopy COMPARISON: None TECHNIQUE: AP view of the abdomen. FINDINGS: There is moderate gas and stool seen throughout the colon. Question colonic ileus no organomegaly. There is moderate dextroscoliosis lumbar spine. There are degenerative disc changes and spondylosis. No visible acute fracture or dislocation seen. No lytic process. XR/XR KUB IMPRESSION: Constipation with likely colonic ileus status post sigmoidoscopy.
[2022-02-20 17:25] VITALS: BP 136/74; BP 145/70; PULSE 50; PULSE 82; RESP 20; TEMP 37.2; O2SAT 90; O2SAT 97; BMI 22.6
--- NOTE | 2022-02-20 17:30 | ECG_ITS ---
Test Reason : GENERAL MEDICAL Blood Pressure : / mmHG Vent. Rate : 082 BPM Atrial Rate : 082 BPM P-R Int : 274 ms QRS Dur : 094 ms QT Int : 388 ms P-R-T Axes : 067 -13 -26 degrees QTc Int : 453 ms Sinus rhythm with 1st degree A-V block Inferior infarct , age undetermined Posterior infarct, age undetermined Abnormal ECG When compared with ECG of 30-JAN-2022 17:28, Sinus rhythm has replaced Electronic ventricular pacemaker Referred By: Taylor Crook Electronically Signed By:Nasir Gates
--- NOTE | 2022-02-20 17:59 | ED.AMS ---
HPI - Altered Mental Status General Chief Complaint: Altered Mental Status Stated Complaint: AMS Time Seen by Provider: 02/20/22 17:16 Source: EMS Mode of arrival: EMS Limitations: altered mental status History of Present Illness HPI narrative: 86 yo male with a history of Parkinson's disease, high cholesterol, anemia, AFib on Eliquis, hypertension here from [facility] with concerns for altered mental status since 03:00 o'clock this afternoon. Per EMS they noted the patient's abdomen to be distended and painful to touch. On arrival the patient is drowsy but arouses to verbal. He is oriented x3. He is complaining of abdominal pain but denies any nausea, vomiting, diarrhea. Tells me his last bowel movement was this morning. He is denying any urinary symptoms, fevers or chills. Related Data Home Medications Medication Instructions Recorded Confirmed carbidopa 25 mg-levodopa 100 mg 2 tab PO 6XD 10/24/21 02/20/22 tablet cholecalciferol (vitamin D3) 1,250 1,250 mcg PO QMONTH 10/24/21 02/20/22 mcg (50,000 unit) capsule gabapentin 400 mg capsule 400 mg PO QID 10/24/21 02/20/22 metformin 500 mg tablet 1 tab PO DAILY 10/24/21 02/20/22 aripiprazole 10 mg tablet 10 mg PO DAILY 01/06/22 02/20/22 miconazole nitrate 2 % topical 1 appl TOPICAL BID 01/06/22 02/20/22 cream carbidopa ER 50 mg-levodopa 200 mg 1 tab PO BID@,02/20/22 02/20/22 tablet,extended release Previous Rx's Medication Instructions Recorded amlodipine 5 mg tablet 5 mg PO DAILY #30 tab 10/29/21 apixaban 5 mg tablet (Eliquis) 5 mg PO BID #60 tab 12/22/21 metoprolol succinate 50 mg 50 mg PO DAILY #30 tab 12/22/21 tablet,extended release 24 hr (Toprol XL) Allergies Allergy/AdvReac Type Severity Reaction Status Date / Time rasagiline [From Azilect] Allergy Unknown Verified 01/06/22 10:18 risperidone Allergy Unknown Verified 01/06/22 10:18 sertraline Allergy Unknown Verified 01/06/22 10:18 Review of Systems Review of Systems: Yes Unobtainable due to mental status Constitutional: Constitutional: Reports no additional constitutional complaints, Denies body ache(s), Denies chills, Denies fever(s), Denies headache(s) and Denies weakness Eyes: Eyes: Reports no additional eye complaints and Denies change in vision ENT: Reports system reviewed and no additional complaints, except as documented, Denies dizziness, Denies headache(s), Denies nasal congestion, Denies nasal discharge and Denies neck pain Cardiovascular: Cardiovascular: Reports no additional cardiovascular complaints, Denies chest pain, Denies leg edema and Denies dyspnea Respiratory: Respiratory: Reports no additional respiratory complaints, Denies cough and Denies dyspnea Gastrointestinal: Gastrointestinal: Reports no additional gastrointestinal complaints, Reports abdominal pain, Denies diarrhea, Denies nausea and Denies vomiting Genitourinary: Genitourinary: Denies urinary incontinence Musculoskeletal: Musculoskeletal: Reports no additional musculoskeletal complaints, Denies back pain, Denies arthralgias, Denies joint swelling, Denies neck pain, Denies numbness and Denies tingling Integumentary/Breasts: Skin/Breast: Reports system reviewed and no additional complaints, except as docu and Denies rash Neurologic: Reports system reviewed and no additional complaints, except as documented, Denies dizziness, Denies headache(s), Denies numbness, Denies tingling and Denies weakness PMFSH Past Medical History Attestation statement: The following information was validated with the patient. Source: old records reviewed and nursing notes reviewed Medical History Anemia Aphasia Diabetes High cholesterol HTN (hypertension) Neuropathy Pacemaker (~10/2021) Paranoid behavior Paroxysmal atrial fibrillation Psychosis Surgical History History of cardiac pacemaker (~10/2021) Social History Social History Household Members Other:: [facility]ARE [facility] Patient Tobacco Use Status: Former Tobacco user Tobacco use type: Cigar and Pipe Advance Directives: Yes Advance Directives on File: Yes Advance Directives Date on File: 10/28/21 service: No Current occupational status: retired Physical Exam ED Vital Signs: Vital Signs - 24 hr 02/20/22 17:25 02/20/22 18:21 02/20/22 21:29 Temperature 99.0 F 99.0 F 98.8 F Pulse Rate 82 81 77 Respiratory Rate 20 16 16 Blood Pressure 136/74 127/77 127/81 Pulse Oximetry 97 95 97 BMI result Body Mass Index 22.6 Const General: alert Orientation/consciousness: patient oriented x3 Limitations: altered mental status [facility] Head: Yes normal to inspection Ears: hearing grossly normal bilaterally General nose exam: Normal external nose present Face and sinus: Yes normal facial exam Mouth: Normal oral and palatal mucosa present Throat: Yes posterior oropharynx normal, Yes tonsils normal and Yes uvula midline Eyes General: appearance normal, both eyes and all related structures Pupils: Equal, round and reactive pupils present Neck Neck: Yes normal visual inspection, Yes full ROM, Yes no lymphadenopathy and Yes no meningeal signs Chest Chest palpation & inspection: normal inspection of the chest Resp Effort & Inspection: normal respiratory effort Auscultation: clear to auscultation bilaterally Cardio Rate: regular rate Rhythm: regular rhythm Peripheral pulses: Peripheral pulses 2+ throughout GI Other: Distended There is an umbilical hernia with surrounding warmth and redness Diffusely tender Hypoactive bowel sounds General: Yes no CVA tenderness Back/Spine/Pelvis Back: no CVA tenderness Skin General skin exam: no rashes or lesions noted Neuro General: patient oriented x3, moves all extremities, no meningeal signs and Unable to assess gait Cranial nerves: Yes CN's II-XII intact bilaterally, Yes Equal, round and reactive pupils present, Yes Bilaterally intact EOM present, Yes Nystagmus not present, Yes Normal facial strength present and Yes Midline tongue present Gait exam (Neuro): Unable to assess gait Extrem General: Yes normal to inspection Course Course Course Narrative: 86-year-old male coming from a intermediate with concern for change in mental status from sometime this afternoon. During transport EMS noted the patient had a distended abdomen it was quite tender. On arrival the patient is drowsy but responds to verbal stimuli. He is oriented x3. His neuro exam was unremarkable. He has a distended and firm abdomen that is diffusely tender. He has an umbilical hernia with surrounding abdominal wall erythema and warmth. Hypoactive bowel sounds Concern for bowel obstruction versus incarcerated hernia. Will need labs, UA, CT, EKG, flu and COVID testing. At this time infection is suspected. Antibiotics ordered. Patient direct to CT scan. Reevaluation(s) Reevaluation #1: CT A/P shows *Findings suspicious for sigmoid volvulus resulting in partial or high-grade obstruction. The sigmoid colon measures up to 12 cm with associated twisting and inflammatory changes of the sigmoid mesentery. The differential diagnosis includes colonic pseudoobstruction ([place] syndrome) though no marked dilatation of the colon outside of the sigmoid colon is noted. No small bowel dilatation identified. No free intraperitoneal gas or fluid collection Spoke to surgery (Nayeli) who recommended contact GI for a sigmoidoscopy. Call out to Dr. Connell to discuss -informed by nursing that patient has gross hematuria while straight cathing. A Weems catheter with CBI will be started. However, after a weems catheter was placed the urine appears clear. Dr Bauman attempted to place a NGT at the bedside but unsuccessful. Time: 21:00 Reevaluation #2: I spoke to Dr. Connell who will come in to consult on the patient and likely perform a sigmoidoscopy. The patient is unable to provide consent. I spoke to his healthcare proxy Lyndsey Viera [phone]. I explained to her the patient's current status. I explained to her that he will need further interventions and admission to the hospital. She is agreeable to this. Dr Amador tells me patient should be admitted to medicine service. They will consult. I spoke to Dr Brown who accepted patient post procedure unless patient will require higher level of care. Time: 21:30 MDM - Altered Mental Status MDM Narrative Medical decision making narrative: Small-bowel obstruction, incarcerated hernia Medical Records Attestation: I reviewed the patient's medical records. Lab Data Attestation: I reviewed the patient's lab results. Result diagrams: 02/20/22 18:33 02/20/22 18:33 Labs: Lab Results 02/20/22 02/20/22 02/20/22 Range/Units 18:33 18:33 18:33 WBC 15.1 H (4.8-10.8) X10*3/uL RBC 4.06 L (4.60-5.80) X10*6/uL Hgb 12.8 L (14.0-18.0) g/dl Hct 38.8 L (42.0-52.0) % MCV 95.6 (80.0-98.0) fL MCH 31.5 (27.0-33.0) pg MCHC 33.0 (31.0-36.0) g/dl RDW 13.0 (11.0-16.0) % Plt Count 177 (160-400) X10*3/uL MPV 11.3 (9.4-12.4) fL Immature Gran % (Auto) 0.3 (0.0-0.4) % Neut % (Auto) 77.1 H (45-73) % Lymph % (Auto) 16.3 L (20-40) % [place] % (Auto) 5.6 (2-11) % Eos % (Auto) 0.4 (0-4) % Baso % (Auto) 0.3 (0-2) % Lymph # (Auto) 2.5 (1.2-4.9) X10*3/uL [place] # (Auto) 0.8 (0.1-1.2) X10*3/uL Eos # (Auto) 0.1 (0.0-0.4) X10*3/uL Baso # (Auto) 0.1 (0.0-0.2) X10*3/uL Abs Immat Gran (auto) 0.05 H (0.00-0.03) X10*3/uL Absolute Neuts (auto) 11.6 H (2.0-8.3) x10*3/uL Absolute Nucleated RBC 0.000 (0.0-0.012) X10*3/uL Nucleated RBC % (auto) 0.0 (0.0-0.2) /100WBC PT 18.3 H (9.9-13.0) SEC INR 1.6 H (0.9-1.1) Sodium 139 (135-145) mmol/L Potassium 4.0 (3.3-5.1) mmol/L Chloride 103 (96-108) mmol/L Carbon Dioxide 26 (22-29) mmol/L Anion Gap 14 (12-20) BUN 27 H (9-16) mg/dL Creatinine 1.18 (0.5-1.4) mg/dL Estim Creat Clear Calc 47.5 Estimated GFR 59 Random Glucose 147 H D (60-115) mg/dL Lactic Acid (0.5-2.0) mmol/L Calcium 9.8 D (8.4-10.2) mg/dL Magnesium 2.0 (1.6-2.6) mg/dL Total Bilirubin 1.0 (0.0-1.0) mg/dL Direct Bilirubin 0.4 (0.0-0.5) mg/dL AST 20 (5-37) U/L ALT 7 (0-40) U/L Alkaline Phosphatase 86 (39-117) U/L Troponin I High Sens (<3.5-35.0) ng/L Total Protein 7.6 (6.5-8.0) g/dL Albumin 4.6 (3.5-5.0) g/dL COVID-19 (KONRAD) (Negative) COVID-19 Clin Com Influenza Type A (EMELI) (Negative) Influenza Type B (EMELI) (Negative) Influenza A & B Note Blood Type Antibody Screen 02/20/22 02/20/22 02/20/22 Range/Units 18:33 18:34 18:34 WBC (4.8-10.8) X10*3/uL RBC (4.60-5.80) X10*6/uL Hgb (14.0-18.0) g/dl Hct (42.0-52.0) % MCV (80.0-98.0) fL MCH (27.0-33.0) pg MCHC (31.0-36.0) g/dl RDW (11.0-16.0) % Plt Count (160-400) X10*3/uL MPV (9.4-12.4) fL Immature Gran % (Auto) (0.0-0.4) % Neut % (Auto) (45-73) % Lymph % (Auto) (20-40) % [place] % (Auto) (2-11) % Eos % (Auto) (0-4) % Baso % (Auto) (0-2) % Lymph # (Auto) (1.2-4.9) X10*3/uL [place] # (Auto) (0.1-1.2) X10*3/uL Eos # (Auto) (0.0-0.4) X10*3/uL Baso # (Auto) (0.0-0.2) X10*3/uL Abs Immat Gran (auto) (0.00-0.03) X10*3/uL Absolute Neuts (auto) (2.0-8.3) x10*3/uL Absolute Nucleated RBC (0.0-0.012) X10*3/uL Nucleated RBC % (auto) (0.0-0.2) /100WBC PT (9.9-13.0) SEC INR (0.9-1.1) Sodium (135-145) mmol/L Potassium (3.3-5.1) mmol/L Chloride (96-108) mmol/L Carbon Dioxide (22-29) mmol/L Anion Gap (12-20) BUN (9-16) mg/dL Creatinine (0.5-1.4) mg/dL Estim Creat Clear Calc Estimated GFR Random Glucose (60-115) mg/dL Lactic Acid 1.6 (0.5-2.0) mmol/L Calcium (8.4-10.2) mg/dL Magnesium (1.6-2.6) mg/dL Total Bilirubin (0.0-1.0) mg/dL Direct Bilirubin (0.0-0.5) mg/dL AST (5-37) U/L ALT (0-40) U/L Alkaline Phosphatase (39-117) U/L Troponin I High Sens 4.2 (<3.5-35.0) ng/L Total Protein (6.5-8.0) g/dL Albumin (3.5-5.0) g/dL COVID-19 (KONRAD) (Negative) COVID-19 Clin Com Influenza Type A (EMELI) Negative (Negative) Influenza Type B (EMELI) Negative (Negative) Influenza A & B Note See Note Blood Type Antibody Screen 02/20/22 02/20/22 Range/Units 18:34 18:34 WBC (4.8-10.8) X10*3/uL RBC (4.60-5.80) X10*6/uL Hgb (14.0-18.0) g/dl Hct (42.0-52.0) % MCV (80.0-98.0) fL MCH (27.0-33.0) pg MCHC (31.0-36.0) g/dl RDW (11.0-16.0) % Plt Count (160-400) X10*3/uL MPV (9.4-12.4) fL Immature Gran % (Auto) (0.0-0.4) % Neut % (Auto) (45-73) % Lymph % (Auto) (20-40) % [place] % (Auto) (2-11) % Eos % (Auto) (0-4) % Baso % (Auto) (0-2) % Lymph # (Auto) (1.2-4.9) X10*3/uL [place] # (Auto) (0.1-1.2) X10*3/uL Eos # (Auto) (0.0-0.4) X10*3/uL Baso # (Auto) (0.0-0.2) X10*3/uL Abs Immat Gran (auto) (0.00-0.03) X10*3/uL Absolute Neuts (auto) (2.0-8.3) x10*3/uL Absolute Nucleated RBC (0.0-0.012) X10*3/uL Nucleated RBC % (auto) (0.0-0.2) /100WBC PT (9.9-13.0) SEC INR (0.9-1.1) Sodium (135-145) mmol/L Potassium (3.3-5.1) mmol/L Chloride (96-108) mmol/L Carbon Dioxide (22-29) mmol/L Anion Gap (12-20) BUN (9-16) mg/dL Creatinine (0.5-1.4) mg/dL Estim Creat Clear Calc Estimated GFR Random Glucose (60-115) mg/dL Lactic Acid (0.5-2.0) mmol/L Calcium (8.4-10.2) mg/dL Magnesium (1.6-2.6) mg/dL Total Bilirubin (0.0-1.0) mg/dL Direct Bilirubin (0.0-0.5) mg/dL AST (5-37) U/L ALT (0-40) U/L Alkaline Phosphatase (39-117) U/L Troponin I High Sens (<3.5-35.0) ng/L Total Protein (6.5-8.0) g/dL Albumin (3.5-5.0) g/dL COVID-19 (KONRAD) Negative (Negative) COVID-19 Clin Com See Note Influenza Type A (EMELI) (Negative) Influenza Type B (EMELI) (Negative) Influenza A & B Note Blood Type B Positive Antibody Screen NEGATIVE Imaging Data Ct chest/abdomen: Attestation: I personally reviewed and interpreted this imaging study as follows: Radiologist's impression: FINDINGS: Lungs: Mild bibasilar dependent atelectasis of the lungs is identified. No pulmonary consolidation visualized. Pleura: No pneumothoraces or pleural effusions. Mediastinum: Normal heart size. No lymphadenopathy. Partially visualized left pectoral pacer and associated pacer leads. Partially visualized diffuse coronary artery calcific atherosclerosis. Moderate scattered aortic calcific atherosclerosis. CHEST WALL: No axillary lymphadenopathy. Liver: Normal. Gallbladder and biliary system: Physiologically distended gallbladder. No biliary duct dilatation. Pancreas: Diffuse pancreatic atrophy. Spleen: Normal. Adrenal glands: Normal. Kidneys: A 2.5 cm low density (-11 Hounsfield units) lesion is associated with the anterior aspect of the interpolar segment of the left kidney consistent with a simple cyst requiring no additional imaging follow-up. A 7 mm rounded low density (-17 Hounsfield unit) focus is noted in association with the inferior pole the left kidney consistent with a simple cyst requiring no additional imaging follow-up. No hydronephrosis, perinephric inflammatory changes or renal calculi identified. Urinary bladder: No mural thickening. Gastrointestinal system: Marked redundancy and distention of the sigmoid colon is present with the sigmoid colon measuring up to 12 cm in maximum transaxial diameter. Sigmoid colon extends into the right upper abdominal quadrant. Reticulation of the sigmoid mesentery is present with crossing of proximal and distal segments of the sigmoid colon noted within the the pelvis (series 23 images [id number]) suggestive of an [id number]-spot-sign. 4. Sigmoid volvulus. Remainder of the colon measures up to 7 cm in maximum transverse diameter, predominantly within the ascending colon, slightly above normal limits of size. The appendix is not visualized. No free intraperitoneal gas is noted. No free intraperitoneal fluid collections identified. A small hiatal hernia is noted. Abdominal wall: A periumbilical hernia containing omental fat measuring 5.5 cm in diameter without evidence of associated inflammatory changes is approximately unchanged in size compared with 01/30/2022. Abdominal lymphovascular structures: Moderate scattered calcific atherosclerosis. Normal caliber of the abdominal aorta. No lymphadenopathy. Osseous structures of the chest, abdomen and pelvis: Prominent rotatory scoliosis of the lumbar spine convex rightward is noted. Chronic appearing Schmorl's node deformities of the superior and inferior endplates of L2 are visualized. Similar findings were present on the 01/30/2022 examination. Prominent thoracic kyphosis is noted. Multilevel intervertebral disc space narrowing and endplate osteophytosis is noted within the incidentally visualized cervical spine. CT/CT abdomen pelvis wo con IMPRESSION: *Findings suspicious for sigmoid volvulus resulting in partial or high-grade obstruction. The sigmoid colon measures up to 12 cm with associated twisting and inflammatory changes of the sigmoid mesentery. The differential diagnosis includes colonic pseudoobstruction ([place] syndrome) though no marked dilatation of the colon outside of the sigmoid colon is noted. No small bowel dilatation identified. No free intraperitoneal gas or fluid collections. *Mild bibasilar atelectasis of the lungs; otherwise, no acute cardiopulmonary abnormalities. *Partially visualized extensive diffuse coronary artery calcific atherosclerosis. CT scan - head: Attestation: I personally reviewed and interpreted this imaging study as follows: Radiologist's impression: FINDINGS: Images are suboptimal secondary to motion artifact. Moderate diffuse commensurate prominence of ventricles and sulci is noted. No intracranial hemorrhage, tumors or acute infarcts are visualized. A left ocular lens extraction is noted. A 2 mm calcific density is noted in the region of the right palpebral cutaneous margin and corresponds to a similar finding present on the 01/30/2022 examination. No significant opacification of the mastoid air cells, middle ear cavities and visualized paranasal sinuses. Mild periventricular white matter and subcortical white matter patchy hypodensities are noted. CT/CT head/brain wo con IMPRESSION: *No acute intracranial abnormalities. *Mild chronic microangiopathic ischemic changes and mild-moderate diffuse parenchymal volume loss of the brain. ECG Data ECG #1: Attestation: I personally reviewed and interpreted this ECG as follows: ECG interpretation date: 02/20/22 ECG interpretation time: 19:04 Interpretation: Sinus rhythm with first-degree AV block, rate of 82, normal NC, normal QRS Critical Care Time Critical Care Time Critical Care Time: Yes Total Critical Care Time: 90 Attestation: Discussion with specialist (surgery, Gastroenterology, medicine), re-evaluations the patient, discussion w/ family about plan of care Discharge Plan Discharge Clinical Impression: Sigmoid volvulus, Encephalopathy, Leukocytosis Patient Disposition: Admitted As Inpatient
--- NOTE | 2022-02-20 18:07 | PHA.MEDREC ---
Pharmacy Consult ? Medication Reconciliation Pharmacy has completed the medication reconciliation. meds per [facility]
[2022-02-20 18:21] VITALS: BP 127/77; PULSE 81; RESP 16; TEMP 37.2; O2SAT 95
[2022-02-20] MEDS: Piperacillin Sodium/Tazobactam 3.375 GM in 0.9 % Sodium Chloride 50 ML IV (18:32)
[2022-02-20] MEDS: fentaNYL citrate/PF 100 MCG/2 ML VIAL 50 MCG IVPUSH (18:32)
[2022-02-20 18:42] LABS: MANUAL DIFF FLAG NO
[2022-02-20 18:44] LABS: Basophils Absolute Auto 0.1 X10*3/uL (0.0-0.2); Basophils Percent Auto 0.3 % (0-2); Eosinophils Absolute Auto 0.1 X10*3/uL (0.0-0.4); Eosinophils Percent Auto 0.4 % (0-4); Hematocrit 38.8 % (42.0-52.0); Hemoglobin 12.8 g/dl (14.0-18.0); Imm Gran Abs Auto 0.05 X10*3/uL (0.00-0.03); Imm Gran Pct Auto 0.3 % (0.0-0.4); Lymphocytes Absolute Auto 2.5 X10*3/uL (1.2-4.9); Lymphocytes Percent Auto 16.3 % (20-40); Mean Corpuscular Hemoglobin 31.5 pg (27.0-33.0); Mean Corpuscular Volume 95.6 fL (80.0-98.0); Mean Platelet Volume 11.3 fL (9.4-12.4); Monocytes Absolute Auto 0.8 X10*3/uL (0.1-1.2); Monocytes Percent Auto 5.6 % (2-11); Neutrophils Absolute Auto 11.6 x10*3/uL (2.0-8.3); Neutrophils Percent Auto 77.1 % (45-73); Platelet Count 177 X10*3/uL (160-400); Red Blood Count 4.06 X10*6/uL (4.60-5.80); White Blood Count 15.1 X10*3/uL (4.8-10.8)
--- NOTE | 2022-02-20 18:45 | PC.NURSE ---
Pt comes in via EMS from [facility]F with AMS since this afternoon, recently seen for same here on 01/30 and treated for UTI. Pt is lethargic but awakens to name. Oriented to person place and year at this time. C/O pain to abd, umbilical hernia present at this time with redness around it, bladder scaned per provider request, no urine present. Lungs diminished, paced on the monitor in the 70's, straight cath for urine done, approx 100cc thick bloody urine noted. Per provider, urine not to be sent due to blood. Bilateral IV's established, blood cultures drawn, labs sent. Plan for admission. Will continue to monitor.
[2022-02-20 18:49] LABS: INTERNATIONAL NORM RATIO 1.6 (0.9-1.1); Prothrombin Time 18.3 SEC (9.9-13.0)
[2022-02-20 18:55] LABS: Influenza A Negative (Negative); Influenza B2 Negative (Negative)
[2022-02-20 18:56] LABS: COVID-19 Test Negative (Negative); IDNOW Serial# 16C4AD1C; Lactic Acid 1.6 mmol/L (0.5-2.0)
[2022-02-20 19:00] LABS: Alanine Aminotransferase 7 U/L (0-40); Albumin Level 4.6 g/dL (3.5-5.0); Alkaline Phosphatase 86 U/L (39-117); Anion Gap 14 (12-20); Aspartate Amino Transferase 20 U/L (5-37); Bilirubin Direct 0.4 mg/dL (0.0-0.5); Blood Urea Nitrogen 27 mg/dL (9-16); Calcium 9.8 mg/dL (8.4-10.2); Carbon Dioxide 26 mmol/L (22-29); Chloride 103 mmol/L (96-108); Creatinine Clr Calc Pharmacy 47.5; Estimated Glomerular Filt Rate 59; Glucose Random 147 mg/dL (60-115); Sodium 139 mmol/L (135-145); Total Protein 7.6 g/dL (6.5-8.0)
[2022-02-20 19:01] LABS: Troponin-I High Sensitivity 4.2 ng/L (<3.5-35.0)
--- NOTE | 2022-02-20 20:04 | PC.NURSE ---
This RN with help of EDT, attempt NG tube placement with no success, pt unable to follow commands and swallow water on command. MD at bedside to attempt NG tube placement with no success.
--- NOTE | 2022-02-20 21:28 | PC.NURSE ---
CBI placed by this RN per SURGERY TECHNICIAN, urine clear without clots, SURGERY TECHNICIAN at bedside, CBI capped with no fluids running through, catheter to remain in place.
[2022-02-20 21:29] VITALS: BP 127/81; PULSE 77; RESP 16; TEMP 37.1; O2SAT 97
[2022-02-20 23:04] LABS: Appearance Urine CLEAR; Color Urine YELLOW; Glucose Urine UA NEG (NEG); Leukocyte Esterase Urine NEG (NEG); Nitrite Urine NEG (NEG); Specific Gravity - Urine >= 1.030 (1.005-1.025); UACC Culture Trigger NO; Urine Blood 3+ (NEG); Urine Ketones 5 MG/DL (NEG); Urine Protein 1+ MG/DL (NEG-TRACE)
[2022-02-20 23:14] LABS: Bacteria Urine 1+ /LPF; Mucus Urine 1+ /LPF; RBC Urine 30-49 /HPF (0); Squamous Epithelial Cell Urine 1+ /LPF
--- NOTE | 2022-02-20 23:14 | MHC.SHP ---
Pre-Procedural Eval Section A Date of Service: 02/20/22 The patient is an INPATIENT: No Changes since office visit: No Cold of Flu in the past 2 weeks, No New Medical Problems, No Changes in Medication and No Patient answered all questions The History & Physical has been completed within 30 days and I have reviewed it.: Yes Section B Chief Complaint: AMS Allergies: Allergies Allergy/AdvReac Type Severity Reaction Status Date / Time rasagiline [From Azilect] Allergy Unknown Verified 01/06/22 10:18 risperidone Allergy Unknown Verified 01/06/22 10:18 sertraline Allergy Unknown Verified 01/06/22 10:18 Plan I have reviewed the history and physical and performed a pertinent physical examination on my patient. No changes have occurred unless specified.
--- NOTE | 2022-02-20 23:15 | PM.EVENT ---
Event Note Date of Service: 02/20/22 Event Note: GI consult dictated CT appears to show sigmoid volvulus Plan is for flex sig for further evaluation.
[2022-02-20 23:21] VITALS: BP 165/92; PULSE 70; RESP 16; TEMP 37.2; O2SAT 100
--- NOTE | 2022-02-20 23:25 | P.CONAN_ITS ---
[facility] Active Problems Active Problems: All Active Problems (Updated 02/20/22 @ 21:48 by Taylor Crook NP) Sigmoid volvulus (Acute) Encephalopathy (Acute) Leukocytosis (Acute) Parkinson's disease (Acute) Neuropathy (Acute) Paranoid behavior (Acute) HTN (hypertension) (Acute) Cognitive impairment (Acute) Paroxysmal atrial fibrillation (Acute) Pacemaker (Acute ~10/2021) Pneumonia (Acute) Past Medical History Medical History Anemia Aphasia Diabetes High cholesterol HTN (hypertension) Neuropathy Pacemaker (~10/2021) Paranoid behavior Paroxysmal atrial fibrillation Psychosis Family History Family history of problems with anesthesia: No Surgical History Surgical History History of cardiac pacemaker (~10/2021) History of Problems with Anesthesia: No Social History Social History Household Members Other:: CORRECTION Patient Tobacco Use Status: Former Tobacco user Tobacco use type: Cigar and Pipe Advance Directives: Yes Advance Directives on File: Yes Advance Directives Date on File: 10/28/21 service: No Current occupational status: retired Meds Allergies Allergy/AdvReac Type Severity Reaction Status Date / Time rasagiline [From Azilect] Allergy Unknown Verified 01/06/22 10:18 risperidone Allergy Unknown Verified 01/06/22 10:18 sertraline Allergy Unknown Verified 01/06/22 10:18 Active Medications: Current Medications Pharmacy Consult (Consult Rx Perform Med Rec) 1 each MISCELLANE ONCE PRN PRN Reason: Consult order Home Medications Medication Instructions Recorded Confirmed Last Taken Type carbidopa 25 mg-levodopa 100 mg 2 tab PO 6XD 10/24/21 02/20/22 02/20/22 History tablet cholecalciferol (vitamin D3) 1,250 1,250 mcg PO QMONTH 10/24/21 02/20/22 02/02/22 History mcg (50,000 unit) capsule gabapentin 400 mg capsule 400 mg PO QID 10/24/21 02/20/22 02/20/22 History metformin 500 mg tablet 1 tab PO DAILY 10/24/21 02/20/22 02/20/22 History aripiprazole 10 mg tablet 10 mg PO DAILY 01/06/22 02/20/22 02/20/22 History miconazole nitrate 2 % topical 1 appl TOPICAL BID 01/06/22 02/20/22 02/20/22 History cream carbidopa ER 50 mg-levodopa 200 mg 1 tab PO BID@,02/20/22 02/20/22 02/20/22 History tablet,extended release Exam Exam Date and Time: February 20, [id number] Height,Weight and Vital Signs: Height 5 ft 11 in Weight 73.5 kg Last Vital Signs Temp 98.9 F 02/20/22 23:21 Pulse 70 02/20/22 23:21 Resp 16 02/20/22 23:21 BP 165/92 H 02/20/22 23: Pulse Ox 100 02/20/22 23:21 Pertinent Lab Results Pertinent Lab Results: Laboratory Tests 02/20/22 02/20/22 02/20/22 18:33 18:33 18:33 WBC 15.1 H RBC 4.06 L Hgb 12.8 L Hct 38.8 L MCV 95.6 MCH 31.5 MCHC 33.0 RDW 13.0 Plt Count 177 MPV 11.3 Immature Gran % (Auto) 0.3 Neut % (Auto) 77.1 H Lymph % (Auto) 16.3 L [place]ole % (Auto) 5.6 Eos % (Auto) 0.4 Baso % (Auto) 0.3 Lymph # (Auto) 2.5 [place]ole # (Auto) 0.8 Eos # (Auto) 0.1 Baso # (Auto) 0.1 Abs Immat Gran (auto) 0.05 H Absolute Neuts (auto) 11.6 H Absolute Nucleated RBC 0.000 Nucleated RBC % (auto) 0.0 PT 18.3 H INR 1.6 H Sodium 139 Potassium 4.0 Chloride 103 Carbon Dioxide 26 Anion Gap 14 BUN 27 H Creatinine 1.18 Estim Creat Clear Calc 47.5 Estimated GFR 59 Random Glucose 147 H D Lactic Acid Calcium 9.8 D Magnesium 2.0 Total Bilirubin 1.0 Direct Bilirubin 0.4 AST 20 ALT 7 Alkaline Phosphatase 86 Troponin I High Sens Total Protein 7.6 Albumin 4.6 Urine Color Urine Appearance Urine pH Ur Specific [place] Urine Protein Urine Glucose (UA) Urine Ketones Urine Blood Urine Nitrite Ur Leukocyte Esterase Urine RBC Urine WBC Ur Squamous Epith Cells Urine Bacteria Hyaline Casts Urine Mucus COVID-19 (KONRAD) COVID-19 Clin Com Influenza Type A (EMELI) Influenza Type B (EMELI) Influenza A & B Note Blood Type Antibody Screen 02/20/22 02/20/22 02/20/22 18:33 18:34 18:34 WBC RBC Hgb Hct MCV MCH MCHC RDW Plt Count MPV Immature Gran % (Auto) Neut % (Auto) Lymph % (Auto) [place] % (Auto) Eos % (Auto) Baso % (Auto) Lymph # (Auto) [place] # (Auto) Eos # (Auto) Baso # (Auto) Abs Immat Gran (auto) Absolute Neuts (auto) Absolute Nucleated RBC Nucleated RBC % (auto) PT INR Sodium Potassium Chloride Carbon Dioxide Anion Gap BUN Creatinine Estim Creat Clear Calc Estimated GFR Random Glucose Lactic Acid 1.6 Calcium Magnesium Total Bilirubin Direct Bilirubin AST ALT Alkaline Phosphatase Troponin I High Sens 4.2 Total Protein Albumin Urine Color Urine Appearance Urine pH Ur Specific [place] Urine Protein Urine Glucose (UA) Urine Ketones Urine Blood Urine Nitrite Ur Leukocyte Esterase Urine RBC Urine WBC Ur Squamous Epith Cells Urine Bacteria Hyaline Casts Urine Mucus COVID-19 (KONRAD) COVID-19 Clin Com Influenza Type A (EMELI) Negative Influenza Type B (EMELI) Negative Influenza A & B Note See Note Blood Type Antibody Screen 02/20/22 02/20/22 02/20/22 18:34 18:34 23:00 WBC RBC Hgb Hct MCV MCH MCHC RDW Plt Count MPV Immature Gran % (Auto) Neut % (Auto) Lymph % (Auto) [place] % (Auto) Eos % (Auto) Baso % (Auto) Lymph # (Auto) [place] # (Auto) Eos # (Auto) Baso # (Auto) Abs Immat Gran (auto) Absolute Neuts (auto) Absolute Nucleated RBC Nucleated RBC % (auto) PT INR Sodium Potassium Chloride Carbon Dioxide Anion Gap BUN Creatinine Estim Creat Clear Calc Estimated GFR Random Glucose Lactic Acid Calcium Magnesium Total Bilirubin Direct Bilirubin AST ALT Alkaline Phosphatase Troponin I High Sens Total Protein Albumin Urine Color YELLOW Urine Appearance CLEAR Urine pH 6.0 Ur Specific [place] >= 1.030 H Urine Protein 1+ H Urine Glucose (UA) NEG Urine Ketones 5 Urine Blood 3+ H Urine Nitrite NEG Ur Leukocyte Esterase NEG Urine RBC 30-49 H Urine WBC 1-4 Ur Squamous Epith Cells 1+ Urine Bacteria 1+ Hyaline Casts 10-14 Urine Mucus 1+ COVID-19 (KONRAD) Negative COVID-19 Clin Com See Note Influenza Type A (EMELI) Influenza Type B (EMELI) Influenza A & B Note Blood Type B Positive Antibody Screen NEGATIVE Airway Mallampati Class: III TM Dist: >3cm Neck ROM: Limited Loose/Missing/Broken Teeth: Yes, Upper and Lower Assessment and Plan Assessment Anesthesia Assessment: Anesthesia Plan Discussed and Chart Reviewed Final Anesthetic Review Family History of Problems with Anesthesia: No History of Problems with Anesthesia: No NPO: Yes ASA Class: III and Emergency Final Preanesthetic Review: Meds/Allgs Chart Reviewed and Consent Obtained/Reviewed Patient Risk: Intermediate Procedure Risk: Low Anesthetic Plan Anesthetic Plan: MAC: Disposition: Inp. Admit - ICU
[2022-02-20 23:42] LABS: Glucose, Whole Blood 140 mg/dL (60-115)
[2022-02-21] VITALS (19 sets, daily range): BP systolic 92–178; BP diastolic 54–86; PULSE 60–84; RESP 15–19; TEMP 36.4–37.4; O2SAT 94–100
--- NOTE | 2022-02-21 00:27 | PM.EVENT ---
Event Note Date of Service: 02/21/22 Event Note: Flex sig note dictated scope passed to 35 cm, large amount of air and liquid stool suctioned with marked improvement in abd distension no sign of ischemia rec obtain kub in am follow clinically
--- NOTE | 2022-02-21 00:29 | P.BOP_ITS ---
Brief Operative Note Date of Service: 02/21/22 Pre-op diagnosis: volvulus Post-op diagnosis: same Procedure: flex sig Surgeon: Galileo Connell Anesthesia: MAC Was an Seeing [employer] Trainer used for this Procedure?: No Estimated blood loss (mL): 0 Pathology: none sent Condition: stable Disposition: PACU
--- NOTE | 2022-02-21 00:30 | PM.IMHP ---
History of Present Illness Date of Service: 02/21/22 Chief Complaint: abdominal pain 86-year-old male with a past medical history of hypertension, hyperlipidemia, diabetes, paroxysmal AFib, history of cardiac pacemaker, cognitive impairment, aphasia, psychosis, anemia, [facility]; presented to the hospital with a chief complaint of abdominal distention/pain. Patient is a poor historian. Most of the history obtained from the records. Patient has been having abdominal discomfort and confusion subsequently the staff sent him to the hospital for further evaluation. Denies patient having any fever chills cough. Review of all other systems is limited. ER course: Per ER team patient noted to be confused on presentation; noted to have abdominal distention and tenderness; CT scan showed sigmoid volvulus with partial SBO; general surgery was consulted who suggested no acute surgical intervention currently and recommended GI follow-up for possible sigmoidoscopy. ER team spoke to Gastroenterology and subsequently had sigmoidoscopy done; postprocedure patient was admitted to the medicine service for observation. [facility] Medical History Anemia Aphasia Diabetes High cholesterol HTN (hypertension) Neuropathy Pacemaker (~10/2021) Paranoid behavior Paroxysmal atrial fibrillation Psychosis Surgical History History of cardiac pacemaker (~10/2021) Social History Household Members Other:: [facility] Patient Tobacco Use Status: Former Tobacco user Tobacco use type: Cigar and Pipe Advance Directives: Yes Advance Directives on File: Yes Advance Directives Date on File: 10/28/21 service: No Current occupational status: retired Meds Allergies Allergy/AdvReac Type Severity Reaction Status Date / Time rasagiline [From Azilect] Allergy Unknown Verified 01/06/22 10:18 risperidone Allergy Unknown Verified 01/06/22 10:18 sertraline Allergy Unknown Verified 01/06/22 10:18 Active Medications: Current Medications Dextrose (Dextrose 50 % 25 Gm/50 Ml Syringe) 25 gm IVPUSH Q15M PRN; Protocol PRN Reason: per Hypoglycemia Standing Ord. Glucose (Glucose Gel 15 Gm Gel..Gram.) 15 gm PO Q15M PRN; Protocol PRN Reason: per Hypoglycemia Standing Ord. Hydromorphone HCl (Hydromorphone Hcl 1 Mg/Ml Syringe) 0.5 mg IVPUSH Q4H PRN; Protocol PRN Reason: Pain, Severe (Pain Scale 7-10) Sodium Chloride () 1,000 mls @ 50 mls/hr IVCONT .Q20H [facility] Insulin Human Lispro (Insulin Lispro 100 Unit/Ml 3 Ml Vial) 0 unit SUBCUT QIDACHS [facility]; Protocol Melatonin (Melatonin 3 Mg Tablet) 6 mg PO BEDTIME PRN PRN Reason: Insomnia Pharmacy Consult (Consult Rx Perform Med Rec) 1 each MISCELLANE ONCE PRN PRN Reason: Consult order Sodium Chloride (0.9 % Sodium Chloride Flush 3 Ml Syringe) 3 ml IVFLUSH QSHIFT [facility] Home Medications Medication Instructions Recorded Confirmed Last Taken Type carbidopa 25 mg-levodopa 100 mg 2 tab PO 6XD 10/24/21 02/20/22 02/20/22 History tablet cholecalciferol (vitamin D3) 1,250 1,250 mcg PO QMONTH 10/24/21 02/20/22 02/02/22 History mcg (50,000 unit) capsule gabapentin 400 mg capsule 400 mg PO QID 10/24/21 02/20/22 02/20/22 History metformin 500 mg tablet 1 tab PO DAILY 10/24/21 02/20/22 02/20/22 History aripiprazole 10 mg tablet 10 mg PO DAILY 01/06/22 02/20/22 02/20/22 History miconazole nitrate 2 % topical 1 appl TOPICAL BID 01/06/22 02/20/22 02/20/22 History cream carbidopa ER 50 mg-levodopa 200 mg 1 tab PO BID@02/20/22 02/20/22 02/20/22 History tablet,extended release Physical Exam Vital Signs and Narrative: Vital Signs: Last Vital Signs Temp 98.9 F 02/20/22 23: Pulse 70 02/20/22 23:21 Resp 16 02/20/22 23:21 BP 165/92 H 02/20/22 23:21 Pulse Ox 100 02/20/22 23:21 BMI result Body Mass Index 22.6 Results Labs CBC and Chem 7: 02/20/22 18:33 02/20/22 18:33 Labs: Laboratory Results - last 24 hr 02/20/22 02/20/22 02/20/22 18:33 18:33 18:33 MCV 95.6 MCH 31.5 MCHC 33.0 RDW 13.0 Plt Count 177 MPV 11.3 Immature Gran % (Auto) 0.3 Neut % (Auto) 77.1 H Lymph % (Auto) 16.3 L Sherman % (Auto) 5.6 Eos % (Auto) 0.4 Baso % (Auto) 0.3 Lymph # (Auto) 2.5 Sherman # (Auto) 0.8 Eos # (Auto) 0.1 Baso # (Auto) 0.1 Abs Immat Gran (auto) 0.05 H Absolute Neuts (auto) 11.6 H Absolute Nucleated RBC 0.000 Nucleated RBC % (auto) 0.0 PT 18.3 H INR 1.6 H Anion Gap 14 Estim Creat Clear Calc 47.5 Estimated GFR 59 POC Glucose Random Glucose 147 H D Lactic Acid Calcium 9.8 D Magnesium 2.0 Total Bilirubin 1.0 Direct Bilirubin 0.4 AST 20 ALT 7 Alkaline Phosphatase 86 Troponin I High Sens Total Protein 7.6 Albumin 4.6 Urine Color Urine Appearance Urine pH Ur Specific [place] Urine Protein Urine Glucose (UA) Urine Ketones Urine Blood Urine Nitrite Ur Leukocyte Esterase Urine RBC Urine WBC Ur Squamous Epith Cells Urine Bacteria Hyaline Casts Urine Mucus COVID-19 (KONRAD) COVID-19 Clin Com Influenza Type A (EMELI) Influenza Type B (EMELI) Influenza A & B Note Blood Type Antibody Screen 02/20/22 02/20/22 02/20/22 18:33 18:34 18:34 MCV MCH MCHC RDW Plt Count MPV Immature Gran % (Auto) Neut % (Auto) Lymph % (Auto) Sherman % (Auto) Eos % (Auto) Baso % (Auto) Lymph # (Auto) Sherman # (Auto) Eos # (Auto) Baso # (Auto) Abs Immat Gran (auto) Absolute Neuts (auto) Absolute Nucleated RBC Nucleated RBC % (auto) PT INR Anion Gap Estim Creat Clear Calc Estimated GFR POC Glucose Random Glucose Lactic Acid 1.6 Calcium Magnesium Total Bilirubin Direct Bilirubin AST ALT Alkaline Phosphatase Troponin I High Sens 4.2 Total Protein Albumin Urine Color Urine Appearance Urine pH Ur Specific [place] Urine Protein Urine Glucose (UA) Urine Ketones Urine Blood Urine Nitrite Ur Leukocyte Esterase Urine RBC Urine WBC Ur Squamous Epith Cells Urine Bacteria Hyaline Casts Urine Mucus COVID-19 (KONRAD) COVID-19 Clin Com Influenza Type A (EMELI) Negative Influenza Type B (EMELI) Negative Influenza A & B Note See Note Blood Type Antibody Screen 02/20/22 02/20/22 02/20/22 18:34 18:34 23:00 MCV MCH MCHC RDW Plt Count MPV Immature Gran % (Auto) Neut % (Auto) Lymph % (Auto) Sherman % (Auto) Eos % (Auto) Baso % (Auto) Lymph # (Auto) Sherman # (Auto) Eos # (Auto) Baso # (Auto) Abs Immat Gran (auto) Absolute Neuts (auto) Absolute Nucleated RBC Nucleated RBC % (auto) PT INR Anion Gap Estim Creat Clear Calc Estimated GFR POC Glucose Random Glucose Lactic Acid Calcium Magnesium Total Bilirubin Direct Bilirubin AST ALT Alkaline Phosphatase Troponin I High Sens Total Protein Albumin Urine Color YELLOW Urine Appearance CLEAR Urine pH 6.0 Ur Specific [place] >= 1.030 H Urine Protein 1+ H Urine Glucose (UA) NEG Urine Ketones 5 Urine Blood 3+ H Urine Nitrite NEG Ur Leukocyte Esterase NEG Urine RBC 30-49 H Urine WBC 1-4 Ur Squamous Epith Cells 1+ Urine Bacteria 1+ Hyaline Casts 10-14 Urine Mucus 1+ COVID-19 (KONRAD) Negative COVID-19 Clin Com See Note Influenza Type A (EMELI) Influenza Type B (EMELI) Influenza A & B Note Blood Type B Positive Antibody Screen NEGATIVE 02/20/22 23:37 MCV MCH MCHC RDW Plt Count MPV Immature Gran % (Auto) Neut % (Auto) Lymph % (Auto) Sherman % (Auto) Eos % (Auto) Baso % (Auto) Lymph # (Auto) Sherman # (Auto) Eos # (Auto) Baso # (Auto) Abs Immat Gran (auto) Absolute Neuts (auto) Absolute Nucleated RBC Nucleated RBC % (auto) PT INR Anion Gap Estim Creat Clear Calc Estimated GFR POC Glucose 140 H Random Glucose Lactic Acid Calcium Magnesium Total Bilirubin Direct Bilirubin AST ALT Alkaline Phosphatase Troponin I High Sens Total Protein Albumin Urine Color Urine Appearance Urine pH Ur Specific [place] Urine Protein Urine Glucose (UA) Urine Ketones Urine Blood Urine Nitrite Ur Leukocyte Esterase Urine RBC Urine WBC Ur Squamous Epith Cells Urine Bacteria Hyaline Casts Urine Mucus COVID-19 (KONRAD) COVID-19 Clin Com Influenza Type A (EMELI) Influenza Type B (EMELI) Influenza A & B Note Blood Type Antibody Screen Imaging Radiologist's Impressions: Impressions Abdomen/Pelvis CT 02/20/22 17:55 IMPRESSION: *Findings suspicious for sigmoid volvulus resulting in partial or high-grade obstruction. The sigmoid colon measures up to 12 cm with associated twisting and inflammatory changes of the sigmoid mesentery. 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 No small bowel dilatation identified. No free intraperitoneal gas or fluid collections. *Mild bibasilar atelectasis of the lungs; otherwise, no acute cardiopulmonary abnormalities. *Partially visualized extensive diffuse coronary artery calcific atherosclerosis. This result was discussed with Taylor Crook NP MD by telephone at 02/20/2022 8:50 PM and it was ascertained that the content and urgency of the report was understood at the time of direct communication. Chest CT 02/20/22 17:55 IMPRESSION: *Findings suspicious for sigmoid volvulus resulting in partial or high-grade obstruction. The sigmoid colon measures up to 12 cm with associated twisting and inflammatory changes of the sigmoid mesentery. 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 No small bowel dilatation identified. No free intraperitoneal gas or fluid collections. *Mild bibasilar atelectasis of the lungs; otherwise, no acute cardiopulmonary abnormalities. *Partially visualized extensive diffuse coronary artery calcific atherosclerosis. This result was discussed with Taylor Crook NP MD by telephone at 02/20/2022 8:50 PM and it was ascertained that the content and urgency of the report was understood at the time of direct communication. Head CT 02/20/22 17:55 IMPRESSION: *No acute intracranial abnormalities. *Mild chronic microangiopathic ischemic changes and mild-moderate diffuse parenchymal volume loss of the brain. Assessment and Plan (1) Sigmoid volvulus: Status: Acute (2) Encephalopathy: Status: Acute (3) Parkinson's disease: Status: Acute Plan 86-year-old male with a past medical history of hypertension, hyperlipidemia, diabetes, paroxysmal AFib, history of cardiac pacemaker, cognitive impairment, aphasia, psychosis, anemia, [facility] resident; presented to the hospital with a chief complaint of abdominal distention/pain. Noted to have sigmoid volvulus. Status post sigmoidoscopy. Admitted for further management. Sigmoid volvulus: Patient is status post sigmoidoscopy by Dr. Connell. Per Dr. Connell, post procedure patient abdomen is soft; recommended KUB in the morning. Mentioned no evidence of ischemia noted. NPO Gentle IV fluids Supportive care Altered mental status: Likely Toxic metabolic encephalopathy. CT head negative. UA negative for infection. CT chest showed no evidence of pneumonia. Supportive care. Hematuria: Question traumatic. The following urine appears yellow. Not infected. Repeat urinalysis evetually after hydration to ensure improvement. Hypertension/hyperlipidemia: Continue home medications History of Parkinson's: Continue home carbidopa levodopa History of diabetes: Insulin sliding scale History of AFib: Continue home Eliquis DVT prophylaxis: Patient on Eliquis Code status: Full code Quality Stroke Does the patient have a stroke diagnosis?: No VTE Prior VTE?: No VTE Risk Level:: Medical - moderate - high VTE Device Contraindication: Treatment Not Indicated VTE Drug Contraindication: N/A - Med Ordered
[2022-02-21] MEDS: Sodium Chloride 0.45 % 1,000 ML 50 ML IVCONT ×2 (01:27→19:43)
--- NOTE | 2022-02-21 02:12 | OP_ITS ---
SURGEON: Galileo Connell MD INDICATIONS: Sigmoid volvulus. PREOPERATIVE DIAGNOSIS: POSTOPERATIVE DIAGNOSIS: PROCEDURE PERFORMED: ESTIMATED BLOOD LOSS: COMPLICATIONS: ANESTHESIA: ASSISTANTS: SPECIMENS: PROCEDURE: Flexible sigmoidoscopy to 35 cm. MEDICATIONS: Monitored anesthesia care. DESCRIPTION OF PROCEDURE: History and physical performed. The risks and benefits of the procedure were explained to the patient's daughter, Lyndsey Viera, and informed consent was obtained. The patient was placed in the left lateral decubitus position. The Olympus video colonoscope was introduced into the rectum following a digital rectal examination. The scope was advanced to 35-40 cm. Examination was performed. The scope was removed. He tolerated the procedure well and was taken to recovery room in stable condition. FINDINGS: There appeared to be a sigmoid volvulus located at approximately 25 cm with puckering of the mucosa and dilation above this. There was a large amount of liquid stool and air, which was suctioned after passing the twisted area. This resulted in immediate decompression of the patient's abdomen with significant softening. There was no evidence of ischemia. The scope was then withdrawn without retroflexing or additional insufflation. IMPRESSION: Sigmoid volvulus. RECOMMENDATION: Followup KUB will be obtained in the morning. MD CYNDIE Mondargon/ELVIN / [id number] MTDD
[2022-02-21 06:02] LABS: PLT CLUMP 1; SCAN SMEAR FLAG 1
[2022-02-21 06:04] LABS: Basophils Percent Auto 0.3 % (0-2); Eosinophils Absolute Auto 0.1 X10*3/uL (0.0-0.4); Eosinophils Percent Auto 0.5 % (0-4); Hematocrit 37.2 % (42.0-52.0); Hemoglobin 12.3 g/dl (14.0-18.0); Imm Gran Abs Auto 0.05 X10*3/uL (0.00-0.03); Imm Gran Pct Auto 0.4 % (0.0-0.4); Lymphocytes Absolute Auto 2.4 X10*3/uL (1.2-4.9); Lymphocytes Percent Auto 18.4 % (20-40); MANUAL DIFF FLAG SCAN; Mean Corpuscular HGB Conc 33.1 g/dl (31.0-36.0); Mean Corpuscular Hemoglobin 31.5 pg (27.0-33.0); Mean Corpuscular Volume 95.1 fL (80.0-98.0); Mean Platelet Volume 12.4 fL (9.4-12.4); Monocytes Absolute Auto 0.8 X10*3/uL (0.1-1.2); Neutrophils Absolute Auto 9.7 x10*3/uL (2.0-8.3); Neutrophils Percent Auto 74.4 % (45-73); Red Blood Count 3.91 X10*6/uL (4.60-5.80)
[2022-02-21 06:29] LABS: Anion Gap 14 (12-20); Blood Urea Nitrogen 21 mg/dL (9-16); Calcium 9.1 mg/dL (8.4-10.2); Carbon Dioxide 23 mmol/L (22-29); Chloride 105 mmol/L (96-108); Creatinine Clr Calc Pharmacy 75.8; Estimated Glomerular Filt Rate > 60; Glucose Random 122 mg/dL (60-115); Potassium 3.7 mmol/L (3.3-5.1); Sodium 138 mmol/L (135-145)
[2022-02-21 06:35] LABS: Platelet Count 87 X10*3/uL (160-400)
[2022-02-21 06:37] LABS: SLIDE REVIEW VERIFIED
--- NOTE | 2022-02-21 07:10 | P.CONGS_ITS ---
History of Present Illness Consult details Consult date: 02/21/22 Narrative: 86-year-old male patient, resident of [facility] with multiple medical problems including hypertension, hyperlipidemia, diabetes, AFib, aphasia, cognitive impairment, presenting with abdominal distension and pain. Patient was subsequently sent to the emergency department for further evaluation. Abdominal CT revealed evidence of sigmoid volvulus. Patient underwent sigmoidoscopy this morning by Dr. Connell. This morning the patient is in the ICU. There is no apparent abdominal pain. No nausea or vomiting. Review of Systems Review of Systems: Yes Unobtainable due to mental status PMFSH Past Medical History Medical History Anemia Aphasia Diabetes High cholesterol HTN (hypertension) Neuropathy Pacemaker (~10/2021) Paranoid behavior Paroxysmal atrial fibrillation Psychosis Surgical History Surgical History History of cardiac pacemaker (~10/2021) Social History Social History Household Members Other:: HALFWAY Patient Tobacco Use Status: Former Tobacco user Tobacco use type: Cigar and Pipe Advance Directives: Yes Advance Directives on File: Yes Advance Directives Date on File: 10/28/21 service: No Current occupational status: retired Meds Allergies Allergy/AdvReac Type Severity Reaction Status Date / Time rasagiline [From Azilect] Allergy Unknown Verified 01/06/22 10:18 risperidone Allergy Unknown Verified 01/06/22 10:18 sertraline Allergy Unknown Verified 01/06/22 10:18 Active Medications: Current Medications Amlodipine Besylate (Amlodipine Besylate 5 Mg Tablet) 5 mg PO DAILY G[facility]LE; Protocol Apixaban (Apixaban 5 Mg Tablet) 5 mg PO BID [facility] Aripiprazole (Aripiprazole 10 Mg Tablet) 10 mg PO DAILY [facility] Carbidopa/Levodopa (Carbidopa/Levodopa 25/100 Tablet) 2 tab PO 6XD [facility] Last Admin: 02/21/22 05:41 Dose: Not Given Documented by: Carbidopa/Levodopa (Carbidopa/Levodopa Cr 50/200 Tablet.Er) 1 tab PO BID@ GIS[facility]LE Dextrose (Dextrose 50 % 25 Gm/50 Ml Syringe) 25 gm IVPUSH Q15M PRN; Protocol PRN Reason: per Hypoglycemia Standing Ord. Ergocalciferol (Ergocalciferol (Vitamin D2) 1,250 Mcg Capsule) 1,250 mcg PO Q28D [facility] Gabapentin (Gabapentin 400 Mg Capsule) 400 mg PO QID [facility] Glucose (Glucose Gel 15 Gm Gel..Gram.) 15 gm PO Q15M PRN; Protocol PRN Reason: per Hypoglycemia Standing Ord. Hydromorphone HCl (Hydromorphone Hcl 1 Mg/Ml Syringe) 0.5 mg IVPUSH Q4H PRN; Protocol PRN Reason: Pain, Severe (Pain Scale 7-10) Sodium Chloride () 1,000 mls @ 50 mls/hr IVCONT .Q20H [facility] Last Admin: 02/21/22 01:27 Dose: 50 mls/hr Documented by: Insulin Human Lispro (Insulin Lispro 100 Unit/Ml 3 Ml Vial) 0 unit SUBCUT QIDACHS [facility]; Protocol Melatonin (Melatonin 3 Mg Tablet) 6 mg PO BEDTIME PRN PRN Reason: Insomnia Metoprolol Succinate (Metoprolol Succinate Er 50 Mg Tab.Er.24h) 50 mg PO DAILY [facility]; Protocol Miconazole Nitrate (Miconazole 2 % Extra Thick Cr 56.7 Gm Tube) 1 appl TOPICAL BID [facility]; Protocol Pharmacy Consult (Consult Rx Perform Med Rec) 1 each MISCELLANE ONCE PRN PRN Reason: Consult order Sodium Chloride (0.9 % Sodium Chloride Flush 3 Ml Syringe) 3 ml IVFLUSH QSHIFT [facility] Home Medications Medication Instructions Recorded Confirmed Last Taken Type carbidopa 25 mg-levodopa 100 mg 2 tab PO 6XD 10/24/21 02/20/22 02/20/22 History tablet cholecalciferol (vitamin D3) 1,250 1,250 mcg PO QMONTH 10/24/21 02/20/22 02/02/22 History mcg (50,000 unit) capsule gabapentin 400 mg capsule 400 mg PO QID 10/24/21 02/20/22 02/20/22 History metformin 500 mg tablet 1 tab PO DAILY 10/24/21 02/20/22 02/20/22 History aripiprazole 10 mg tablet 10 mg PO DAILY 01/06/22 02/20/22 02/20/22 History miconazole nitrate 2 % topical 1 appl TOPICAL BID 01/06/22 02/20/22 02/20/22 History cream carbidopa ER 50 mg-levodopa 200 mg 1 tab PO BID@,02/20/22 02/20/22 02/20/22 History tablet,extended release Physical Exam Vital Signs: Vital Signs: Last Vital Signs Temp 99.4 F 02/21/22 00:30 Pulse 74 02/21/22 06:00 Resp 17 02/21/22 06:00 BP 127/74 02/21/22 06:00 Pulse Ox 96 02/21/22 06:00 BMI result Body Mass Index 22.6 Const: General: no acute distress and lethargic Nutritional Appearance: well nourished Orientation/consciousness: lethargic HEENT: Head: Yes normocephalic and Yes atraumatic Chest: Other: Breathing comfortably on room air, no respiratory distress GI: Other: Soft, nondistended, nontender to palpation. Rebound, guarding, or rigidity. Skin: Other: Warm, dry, no rash Extrem: Other: No edema Results Labs Result diagrams: 02/21/22 05:29 02/21/22 05:29 Labs: Abnormal lab results 02/20/22 02/20/22 02/20/22 Range/Units 18:33 18:33 18:33 WBC 15.1 H (4.8-10.8) X10*3/uL RBC 4.06 L (4.60-5.80) X10*6/uL Hgb 12.8 L (14.0-18.0) g/dl Hct 38.8 L (42.0-52.0) % Plt Count (160-400) X10*3/uL Neut % (Auto) 77.1 H (45-73) % Lymph % (Auto) 16.3 L (20-40) % Abs Immat Gran (auto) 0.05 H (0.00-0.03) X10*3/uL Absolute Neuts (auto) 11.6 H (2.0-8.3) x10*3/uL PT 18.3 H (9.9-13.0) SEC INR 1.6 H (0.9-1.1) BUN 27 H (9-16) mg/dL POC Glucose (60-115) mg/dL Random Glucose 147 H D (60-115) mg/dL Ur Specific [place] (1.005-1.025) Urine Protein (NEG-TRACE) MG/DL Urine Blood (NEG) Urine RBC (0) /HPF 02/20/22 02/20/22 02/21/22 Range/Units 23:00 23:37 05:29 WBC 13.0 H (4.8-10.8) X10*3/uL RBC 3.91 L (4.60-5.80) X10*6/uL Hgb 12.3 L (14.0-18.0) g/dl Hct 37.2 L (42.0-52.0) % Plt Count 87 L D (160-400) X10*3/uL Neut % (Auto) 74.4 H (45-73) % Lymph % (Auto) 18.4 L (20-40) % Abs Immat Gran (auto) 0.05 H (0.00-0.03) X10*3/uL Absolute Neuts (auto) 9.7 H (2.0-8.3) x10*3/uL PT (9.9-13.0) SEC INR (0.9-1.1) BUN (9-16) mg/dL POC Glucose 140 H (60-115) mg/dL Random Glucose (60-115) mg/dL Ur Specific [place] >= 1.030 H (1.005-1.025) Urine Protein 1+ H (NEG-TRACE) MG/DL Urine Blood 3+ H (NEG) Urine RBC 30-49 H (0) /HPF 02/21/22 Range/Units 05:29 WBC (4.8-10.8) X10*3/uL RBC (4.60-5.80) X10*6/uL Hgb (14.0-18.0) g/dl Hct (42.0-52.0) % Plt Count (160-400) X10*3/uL Neut % (Auto) (45-73) % Lymph % (Auto) (20-40) % Abs Immat Gran (auto) (0.00-0.03) X10*3/uL Absolute Neuts (auto) (2.0-8.3) x10*3/uL PT (9.9-13.0) SEC INR (0.9-1.1) BUN 21 H (9-16) mg/dL POC Glucose (60-115) mg/dL Random Glucose 122 H (60-115) mg/dL Ur Specific [place] (1.005-1.025) Urine Protein (NEG-TRACE) MG/DL Urine Blood (NEG) Urine RBC (0) /HPF Short CBC 02/20/22 02/21/22 Range/Units 18:33 05:29 WBC 15.1 H 13.0 H (4.8-10.8) X10*3/uL Hgb 12.8 L 12.3 L (14.0-18.0) g/dl Hct 38.8 L 37.2 L (42.0-52.0) % Plt Count 177 87 L D (160-400) X10*3/uL BMP 02/20/22 02/21/22 18:33 05:29 Sodium 139 138 Potassium 4.0 3.7 Chloride 103 105 Carbon Dioxide 26 23 BUN 27 H 21 H Creatinine 1.18 0.74 Calcium 9.8 D 9.1 D Liver Function 02/20/22 Range/Units 18:33 Total Bilirubin 1.0 (0.0-1.0) mg/dL Direct Bilirubin 0.4 (0.0-0.5) mg/dL AST 20 (5-37) U/L ALT 7 (0-40) U/L Alkaline Phosphatase 86 (39-117) U/L Albumin 4.6 (3.5-5.0) g/dL Urine 02/20/22 Range/Units 23:00 Urine Color YELLOW Urine Appearance CLEAR Urine pH 6.0 (5.0-8.0) Ur Specific [place] >= 1.030 H (1.005-1.025) Urine Protein 1+ H (NEG-TRACE) MG/DL Urine Glucose (UA) NEG (NEG) MG/DL All other labs normal. Assessment and Plan (1) Sigmoid volvulus: Status: Acute Plan Sigmoid volvulus S/P endoscopy last night. Abdomen is very soft this morning without apparent tenderness. Will check a.m. x-rays. Would be best to avoid surgery if possible on this elderly male with mental status changes and multiple medical problems. Procedures Date of Service Date of Service: 02/21/22
[2022-02-21 07:13] LABS: Glucose, Whole Blood 122 mg/dL (60-115)
--- NOTE | 2022-02-21 08:42 | PM.EVENT ---
Event Note Date of Service: 02/21/22 Event Note: Patient seen and examined, admitted this morning for sigmoid volvulus and underwent emergent Flex sig for decompression, KUB this morning shows constipation. Exam: abdomen is soft, surgery following,
[2022-02-21] MEDS: Carbidopa/Levodopa CR 50/200 TABLET.ER 1 TAB PO ×2 (09:26→20:43)
[2022-02-21] MEDS: Gabapentin 400 MG CAPSULE PO ×4 (09:26→20:42)
[2022-02-21] MEDS: Apixaban 5 MG TABLET PO ×2 (09:26→20:42)
[2022-02-21] MEDS: ARIPiprazole 10 MG TABLET PO (09:26)
[2022-02-21] MEDS: Metoprolol Succinate ER 50 MG TAB.ER.24H PO (09:26)
[2022-02-21] MEDS: Miconazole 2 % Extra Thick Cr 56.7 Gm Tube 1 APPL TOPICAL ×2 (09:26→20:44)
[2022-02-21] MEDS: amLODIPine Besylate 5 MG TABLET PO (09:26)
[2022-02-21] MEDS: Carbidopa/Levodopa 25/100 TABLET 2 TAB PO ×5 (09:59→20:48)
[2022-02-21 11:55] LABS: Glucose, Whole Blood 126 mg/dL (60-115)
--- NOTE | 2022-02-21 12:50 | MHC.CM.PN ---
PATIENT IS IN FROM [facility]. PLAN IS FOR HIS RETURN TOMORROW REFERRAL PLACED IN [facility]
--- NOTE | 2022-02-21 14:22 | MHC.CLN ---
Addendum entered by Brianna Galdamez, LEXA 02/21/22 14:24: ORDER WRITTEN FOR ENSURE CLEAR TID. PROVIDES 720 KCALS, 24 G PROTEIN. Original Note: NUTRITION CONSULT FOR POOR INTAKE. DIET=CLEAR LIQUIDS. SKIN WITH REDNESS TO BILATERAL BUTTOCKS. ADDING ENSURE CLEAR BID TO IMPROVE NUTRITIONAL INTAKE. SUPPLEMENT PROVIDES 480 KCALS, 16 G PROTEIN.
--- NOTE | 2022-02-21 15:25 | CONS_ITS ---
DATE OF SERVICE: 02/20/2022 REFERRING PHYSICIAN: Taylor Crook NP REASON FOR CONSULTATION: Sigmoid volvulus. HISTORY OF PRESENT ILLNESS: The patient is an 86-year-old [facility] resident who presented to the emergency room today with complaints of abdominal distention. 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 He apparently did not undergo colonoscopy at that time. He was evaluated in the emergency department with imaging studies including CT scanning. This is reviewed. It is interpreted as showing sigmoid volvulus. Consultation is requested regarding flexible sigmoidoscopy for relief of his volvulus. PAST MEDICAL HISTORY: 1. Parkinson disease. 2. Hypertension. 3. Atrial fibrillation with pacemaker placement. 4. Elevated cholesterol. 5. Anemia. CURRENT MEDICATIONS: Current medication list is reviewed in the chart. ALLERGIES: RASAGILINE, RISPERIDONE, SERTRALINE. FAMILY HISTORY: This is reviewed in the chart and is noncontributory. SOCIAL HISTORY: There is no current tobacco or alcohol use. REVIEW OF SYSTEMS: This is not reliably obtainable. PHYSICAL EXAMINATION: GENERAL: Pleasant male, lying on a stretcher. He provides very little history. VITAL SIGNS: In the emergency department stable. SKIN: Anicteric. HEENT: No scleral icterus. NECK: Without lymphadenopathy or thyromegaly. LUNGS: Clear. HEART: Regular rate and rhythm. S1, S2. No murmur. ABDOMEN: Distended. Bowel sounds are present. No organomegaly is noted. EXTREMITIES: Without edema. LABORATORY DATA: Reviewed. IMPRESSION: Abdominal pain with CT findings consistent with sigmoid volvulus. I have discussed flexible sigmoidoscopy with the patient's daughter, Lyndsey Viera ([phone]). She understands risks and benefits and agrees to proceed. This will be scheduled for this evening. Thanks for asking me to see him. I will follow him in the hospital with you. MD CYNDIE Mondragon/ELVIN / [id number] MTDD
[2022-02-21 15:37] LABS: Glucose, Whole Blood 192 mg/dL (60-115)
[2022-02-21 19:38] LABS: Glucose, Whole Blood 152 mg/dL (60-115)
[2022-02-22] VITALS (7 sets, daily range): BP systolic 111–136; BP diastolic 57–73; PULSE 60–87; RESP 17–18; TEMP 36.4–36.9; O2SAT 95–99
[2022-02-22] MEDS: Carbidopa/Levodopa 25/100 TABLET 2 TAB PO ×6 (05:44→20:55)
[2022-02-22 07:32] LABS: Glucose, Whole Blood 113 mg/dL (60-115)
[2022-02-22] MEDS: Gabapentin 400 MG CAPSULE PO ×4 (09:05→20:50)
[2022-02-22] MEDS: amLODIPine Besylate 5 MG TABLET PO (09:05)
[2022-02-22] MEDS: Metoprolol Succinate ER 50 MG TAB.ER.24H PO (09:05)
[2022-02-22] MEDS: ARIPiprazole 10 MG TABLET PO (09:05)
[2022-02-22] MEDS: Apixaban 5 MG TABLET PO ×2 (09:05→20:50)
[2022-02-22] MEDS: Carbidopa/Levodopa CR 50/200 TABLET.ER 1 TAB PO ×2 (09:05→20:50)
--- NOTE | 2022-02-22 09:33 | HO.PM.IMPN ---
Subjective Subjective Date of Service: 02/22/22 Interval History: f/u on sigmoid volvulus interval history: doing well since Flex sig decompression tolerating present diet Review of Systems no n/v or abdominal pain, no fever Physical Exam Vital Signs: Vital Signs: Last Vital Signs Temp 97.5 F 02/22/22 07:17 Pulse 60 02/22/22 07:17 Resp 18 02/22/22 07:17 BP 131/66 02/22/22 07:17 Pulse Ox 97 02/22/22 07:17 BMI result Body Mass Index 22.6 Const: Other: General: AO X 3, no acute distress Resp: CTA bilateral CVS: S1,S2,RRR GI: +BS, NT, no distention Skin: No rash Neuro: motor grossly intact Psych: appropriate affect Objective Data Active Medications Amlodipine Besylate (Amlodipine Besylate 5 Mg Tablet) 5 mg PO DAILY [facility]; Protocol Last Admin: 02/22/22 09:05 Dose: 5 mg Documented by: NORBERTO Apixaban (Apixaban 5 Mg Tablet) 5 mg PO BID [facility] Last Admin: 02/22/22 09:05 Dose: 5 mg Documented by: NORBERTO Aripiprazole (Aripiprazole 10 Mg Tablet) 10 mg PO DAILY [facility] Last Admin: 02/22/22 09:05 Dose: 10 mg Documented by: NORBERTO Carbidopa/Levodopa (Carbidopa/Levodopa 25/100 Tablet) 2 tab PO 6XD [facility] Last Admin: 02/22/22 09:07 Dose: 2 tab Documented by: NORBERTO Carbidopa/Levodopa (Carbidopa/Levodopa Cr 50/200 Tablet.Er) 1 tab PO BID@ [facility] Last Admin: 02/22/22 09:05 Dose: 1 tab Documented by: NORBERTO Dextrose (Dextrose 50 % 25 Gm/50 Ml Syringe) 25 gm IVPUSH Q15M PRN; Protocol PRN Reason: per Hypoglycemia Standing Ord. Ergocalciferol (Ergocalciferol (Vitamin D2) 1,250 Mcg Capsule) 1,250 mcg PO Q28D [facility] Gabapentin (Gabapentin 400 Mg Capsule) 400 mg PO QID [facility] Last Admin: 02/22/22 09:05 Dose: 400 mg Documented by: NORBERTO Glucose (Glucose Gel 15 Gm Gel..Gram.) 15 gm PO Q15M PRN; Protocol PRN Reason: per Hypoglycemia Standing Ord. Hydromorphone HCl (Hydromorphone Hcl 1 Mg/Ml Syringe) 0.5 mg IVPUSH Q4H PRN; Protocol PRN Reason: Pain, Severe (Pain Scale 7-10) Sodium Chloride () 1,000 mls @ 50 mls/hr IVCONT .Q20H [facility] Last Admin: 02/21/22 19:43 Dose: 50 mls/hr Documented by: MARILIN Insulin Human Lispro (Insulin Lispro 100 Unit/Ml 3 Ml Vial) 0 unit SUBCUT QIDACHS [facility]; Protocol Last Admin: 02/22/22 07:19 Dose: Not Given Documented by: NORBERTO Non-Admin Reason: No Insulin Coverage Melatonin (Melatonin 3 Mg Tablet) 6 mg PO BEDTIME PRN PRN Reason: Insomnia Metoprolol Succinate (Metoprolol Succinate Er 50 Mg Tab.Er.24h) 50 mg PO DAILY [facility]; Protocol Last Admin: 02/22/22 09:05 Dose: 50 mg Documented by: NORBERTO Miconazole Nitrate (Miconazole 2 % Extra Thick Cr 56.7 Gm Tube) 1 appl TOPICAL BID [facility]; Protocol Last Admin: 02/21/22 20:44 Dose: 1 appl Documented by: MARILIN Pharmacy Consult (Consult Rx Perform Med Rec) 1 each MISCELLANE ONCE PRN PRN Reason: Consult order Sodium Chloride (0.9 % Sodium Chloride Flush 3 Ml Syringe) 3 ml IVFLUSH QSHIFT [facility] Last Admin: 02/22/22 07:20 Dose: Not Given Documented by: NORBERTO Non-Admin Reason: IV Running Labs CBC & Chem 7: 02/21/22 05:29 02/21/22 05:29 Labs: Laboratory Results - last 24 hr 02/21/22 02/21/22 02/21/22 11:51 15:32 19:08 POC Glucose 126 H 192 H 152 H 02/22/22 07:15 POC Glucose 113 Microbiology Microbiology Results: Microbiology 02/20/22 18:33 Blood Culture - Preliminary Blood - Venous No growth after 24 hours. 02/20/22 18:19 Blood Culture - Preliminary Blood - Venous No growth after 24 hours. Assessment and Plan (1) Sigmoid volvulus: Status: Acute Plan 86-year-old male with a past medical history of hypertension, hyperlipidemia, diabetes, paroxysmal AFib, history of cardiac pacemaker, cognitive impairment, aphasia, psychosis, anemia, long term resident; presented to the hospital with a chief complaint of abdominal distention/pain.? ? Noted to have sigmoid volvulus.? Status post sigmoidoscopy.? Admitted for further management.? Sigmoid volvulus status post sigmoidoscopy with decompression by Dr. Connell, follow up kUb showed constipation, tolerating liquid diet Altered mental status: Likely ? Toxic metabolic encephalopathy.? Back to baseline Hematuria:? Question traumatic weems, resolved.. Hypertension: continue Norvasc and metoprolool hyperlipidemia:? Statin History of Parkinson's: Continue home carbidopa levodopa History of diabetes:? Insulin sliding scale History of AFib:metoprolol for rate control and OAC w/ Eliquis DVT prophylaxis:? Patient on Eliquis Code status: Full code need for inpatient: ongoing monitoring s/p volvulous reversal and diet been advanced slowly Quality Stroke Does the patient have a stroke diagnosis?: No VTE Prior VTE?: No VTE Risk Level:: Medical - moderate - high VTE Device Contraindication: Treatment Not Indicated VTE Drug Contraindication: N/A - Med Ordered
[2022-02-22] MEDS: Miconazole 2 % Extra Thick Cr 56.7 Gm Tube 1 APPL TOPICAL ×2 (10:10→20:57)
--- NOTE | 2022-02-22 10:22 | PM.PNGS ---
Subjective Subjective Date of Service: 02/22/22 <ZENIA Monzon - Last Filed: 02/22/22 10:32> 02/22/22 <Roberto Swift MD - Last Filed: 02/22/22 19:02> Interval history: Patient resting comfortably this morning without any new complaints. Out of ICU. He says I feel fine, I want to go home. Denies any abdominal pain. Reports that he has been able to tolerate clear liquids without nausea or vomiting. Had a loose BM last night, does not think he has passed gas. Lloyd cath in place. <ZENIA Monzon - Last Filed: 02/22/22 10:32> Physical Exam Vital Signs: Vital Signs: Last Vital Signs Temp 97.5 F 02/22/22 07:17 Pulse 60 02/22/22 07:17 Resp 18 02/22/22 07:17 BP 131/66 02/22/22 07:17 Pulse Ox 97 02/22/22 07:17 BMI result Body Mass Index 22.6 <ZENIA Monzon - Last Filed: 02/22/22 10:32> Const: General: comfortable and no acute distress <ZENIA Monzon - Last Filed: 02/22/22 10:32> Resp: Effort & Inspection: normal respiratory effort <ZENIA Monzon - Last Filed: 02/22/22 10:32> Cardio: Rate: regular rate <ZENIA Monzon - Last Filed: 02/22/22 10:32> Rhythm: regular rhythm <ZENIA Monzon - Last Filed: 02/22/22 10:32> GI: Other: Abdomen soft, appears distended but nontender, +BS <ZENIA Monzon - Last Filed: 02/22/22 10:32> Extrem: Other: no calf tenderness <ZENIA Monzon - Last Filed: 02/22/22 10:32> Objective Data Active Medications Amlodipine Besylate (Amlodipine Besylate 5 Mg Tablet) 5 mg PO DAILY [facility]; Protocol Last Admin: 02/22/22 09:05 Dose: 5 mg Documented by: DABA Apixaban (Apixaban 5 Mg Tablet) 5 mg PO BID [facility] Last Admin: 02/22/22 09:05 Dose: 5 mg Documented by: NORBERTO Aripiprazole (Aripiprazole 10 Mg Tablet) 10 mg PO DAILY [facility] Last Admin: 02/22/22 09:05 Dose: 10 mg Documented by: NORBERTO Carbidopa/Levodopa (Carbidopa/Levodopa 25/100 Tablet) 2 tab PO 6XD [facility] Last Admin: 02/22/22 09:07 Dose: 2 tab Documented by: NORBERTO Carbidopa/Levodopa (Carbidopa/Levodopa Cr 50/200 Tablet.Er) 1 tab PO BID@ [facility] Last Admin: 02/22/22 09:05 Dose: 1 tab Documented by: NORBEROT Dextrose (Dextrose 50 % 25 Gm/50 Ml Syringe) 25 gm IVPUSH Q15M PRN; Protocol PRN Reason: per Hypoglycemia Standing Ord. Ergocalciferol (Ergocalciferol (Vitamin D2) 1,250 Mcg Capsule) 1,250 mcg PO Q28D [facility] Gabapentin (Gabapentin 400 Mg Capsule) 400 mg PO QID [facility] Last Admin: 02/22/22 09:05 Dose: 400 mg Documented by: NORBERTO Glucose (Glucose Gel 15 Gm Gel..Gram.) 15 gm PO Q15M PRN; Protocol PRN Reason: per Hypoglycemia Standing Ord. Hydromorphone HCl (Hydromorphone Hcl 1 Mg/Ml Syringe) 0.5 mg IVPUSH Q4H PRN; Protocol PRN Reason: Pain, Severe (Pain Scale 7-10) Sodium Chloride () 1,000 mls @ 50 mls/hr IVCONT .Q20H [facility] Last Admin: 02/21/22 19:43 Dose: 50 mls/hr Documented by: MARILIN Insulin Human Lispro (Insulin Lispro 100 Unit/Ml 3 Ml Vial) 0 unit SUBCUT QIDACHS [facility]; Protocol Last Admin: 02/22/22 07:19 Dose: Not Given Documented by: NORBERTO Non-Admin Reason: No Insulin Coverage Melatonin (Melatonin 3 Mg Tablet) 6 mg PO BEDTIME PRN PRN Reason: Insomnia Metoprolol Succinate (Metoprolol Succinate Er 50 Mg Tab.Er.24h) 50 mg PO DAILY [facility]; Protocol Last Admin: 02/22/22 09:05 Dose: 50 mg Documented by: NORBERTO Miconazole Nitrate (Miconazole 2 % Extra Thick Cr 56.7 Gm Tube) 1 appl TOPICAL BID [facility]; Protocol Last Admin: 02/22/22 10:10 Dose: 1 appl Documented by: NORBERTO Pharmacy Consult (Consult Rx Perform Med Rec) 1 each MISCELLANE ONCE PRN PRN Reason: Consult order Sodium Chloride (0.9 % Sodium Chloride Flush 3 Ml Syringe) 3 ml IVFLUSH QSHIFT [facility] Last Admin: 02/22/22 07:20 Dose: Not Given Documented by: NORBERTO Non-Admin Reason: IV Running <ZENIA Monzon - Last Filed: 02/22/22 10:32> Labs CBC & Chem 7: : 02/21/22 05:29 02/21/22 05:29 <ZENIA Monzon - Last Filed: 02/22/22 10:32> Labs: Laboratory Results - last 24 hr 02/21/22 02/21/22 02/21/22 11:51 15:32 19:08 POC Glucose 126 H 192 H 152 H 02/22/22 07:15 POC Glucose 113 <ZENIA Monzon - Last Filed: 02/22/22 10:32> Microbiology Microbiology Results: Microbiology 02/20/22 18:33 Blood Culture - Preliminary Blood - Venous No growth after 24 hours. 02/20/22 18:19 Blood Culture - Preliminary Blood - Venous No growth after 24 hours. <ZENIA Monzon - Last Filed: 02/22/22 10:32> Procedures Date of Service Date of Service: 02/22/22 <ZENIA Monzon - Last Filed: 02/22/22 10:32> Progress Note: A&P Assessment and plan (1) Sigmoid volvulus: Status: Acute <ZENIA Monzon - Last Filed: 02/22/22 10:32> Plan 86 year old male with sigmoid volvulus s/p flexible sigmoidoscopy for decompression by GI. Abdomen currently soft and nontender. No plan for surgical intervention at this time. Continue medical management. <ZENIA Monzon - Last Filed: 02/22/22 10:32> 86 year old male with sigmoid volvulus s/p flexible sigmoidoscopy for decompression by GI. Abdomen currently soft and nontender. No plan for surgical intervention at this time. Continue medical management. Patient seen and examined. He denies abdominal pain. Abdomen is soft and non-distended, Agree with the above assessment and plan. <Roberto Swift MD - Last Filed: 02/22/22 19:02> Time Spent With Patient Time: Total time spent is greater than 50% in coordination of care (as documented) at patient's floor/unit and/or counseling patient: <ZENIA Monzon - Last Filed: 02/22/22 10:32> Quality Stroke Does the patient have a stroke diagnosis?: No <ZENIA Monzon - Last Filed: 02/22/22 10:32> VTE Prior VTE?: No <ZENIA Monzon - Last Filed: 02/22/22 10:32> VTE Risk Level:: Medical - moderate - high <ZENIA Monzon - Last Filed: 02/22/22 10:32> VTE Device Contraindication: Treatment Not Indicated <ZENIA Monzon - Last Filed: 02/22/22 10:32> VTE Drug Contraindication: N/A - Med Ordered <ZENIA Monzon - Last Filed: 02/22/22 10:32>
[2022-02-22 11:35] LABS: Glucose, Whole Blood 121 mg/dL (60-115)
[2022-02-22 15:56] LABS: Glucose, Whole Blood 129 mg/dL (60-115)
[2022-02-22] MEDS: Sodium Chloride 0.45 % 1,000 ML 50 ML IVCONT (17:35)
--- NOTE | 2022-02-22 22:11 | PM.EVENT ---
Event Note Date of Service: 02/22/22 Event Note: Bacteremia: Blood Cx growing GPC- final pending. Vancomycin IV ordered.
[2022-02-22] MEDS: 0.9 % Sodium Chloride Flush 3 ML SYRINGE IVFLUSH (22:35)
[2022-02-22] MEDS: vancomycin HCL 1,500 MG in 0.9 % Sodium Chloride 500 ML 333.33 MG IV (22:35)
[2022-02-23] MEDS: Sodium Chloride 0.45 % 1,000 ML 50 ML IVCONT (00:15)
[2022-02-23 03:22] VITALS: BP 144/73; PULSE 71; RESP 17; TEMP 36.4; O2SAT 96
[2022-02-23] MEDS: Carbidopa/Levodopa 25/100 TABLET 2 TAB PO ×4 (05:05→14:22)
[2022-02-23 07:23] VITALS: BP 144/70; PULSE 62; RESP 18; TEMP 36.3; O2SAT 97
[2022-02-23 07:42] LABS: Glucose, Whole Blood 121 mg/dL (60-115)
[2022-02-23] MEDS: Metoprolol Succinate ER 50 MG TAB.ER.24H PO (08:04)
[2022-02-23] MEDS: Apixaban 5 MG TABLET PO (08:04)
[2022-02-23] MEDS: Carbidopa/Levodopa CR 50/200 TABLET.ER 1 TAB PO (08:05)
[2022-02-23] MEDS: ARIPiprazole 10 MG TABLET PO (08:05)
[2022-02-23] MEDS: Miconazole 2 % Extra Thick Cr 56.7 Gm Tube 1 APPL TOPICAL (08:05)
[2022-02-23] MEDS: Gabapentin 400 MG CAPSULE PO ×2 (08:05→12:25)
[2022-02-23] MEDS: amLODIPine Besylate 5 MG TABLET PO (08:05)
[2022-02-23 11:25] LABS: Glucose, Whole Blood 117 mg/dL (60-115)
[2022-02-23 11:37] VITALS: BP 133/77; PULSE 60; RESP 16; TEMP 36.4; O2SAT 98
[2022-02-23 12:03] LABS: Estimated Glomerular Filt Rate > 60
--- NOTE | 2022-02-23 12:56 | PM.DS ---
DS: Providers Provider Date of Service: 02/23/22 Date of admission: 02/21/22 00:26 Primary care physician: Shannen Hodge MD Consults: 02/21/22 00:27 Consult to Gastroenterology Routine Consulting Provider: Galileo Connell Reason for consultation: sigmoid volvulus Consult to General Surgery Routine Consulting Provider: Samantha Amador Reason for consultation: sigmoid volvulus DS: Diagnosis Discharge Diagnosis (1) Sigmoid volvulus: Status: Acute DS: Summary Hospital Course Hospital Course: from initial hpi: Chief Complaint:? abdominal pain ?86-year-old male with a past medical history of hypertension, hyperlipidemia, diabetes, paroxysmal AFib, history of cardiac pacemaker, cognitive impairment, aphasia, psychosis, anemia, residential resident; presented to the hospital with a chief complaint of abdominal distention/pain.? Patient is a poor historian.? Most of the history obtained from the records.? Patient has been having abdominal discomfort and confusion subsequently the staff sent him to the hospital for further evaluation.? Denies patient having any fever chills cough.? Review of all other systems is limited.? ER course: Per ER team patient noted to be confused on presentation; noted to have abdominal distention and tenderness; CT scan showed sigmoid volvulus with partial SBO; general surgery was consulted who suggested no acute surgical intervention currently and recommended GI follow-up for possible sigmoidoscopy.? ER team spoke to Gastroenterology and subsequently had sigmoidoscopy done; postprocedure patient was admitted to the medicine service for observation. hospital course: Patient was admitted for acute sigmoid volvulus which resolved status post sigmoidoscopy and decompression. Follow-up KUB showed constipation, patient tolerated liquid diet and then solid diet. Course was complicated by metabolic encephalopathy likely due to history of dementia with possible delirium, patient is now back to baseline. Patient had some hematuria due to possible traumatic Lloyd which is resolved. For his hypertension you continue amlodipine and metoprolol. First hyperlipidemia continue statin. For his Parkinson's you continue Sinemet. For diabetes he will continue metformin. First paroxysmal atrial fibrillation new will continue metoprolol and Eliquis. Patient is doing better will be discharged back to [facility] facility. Time Spent with Patient Time attestation: Total time spent providing and/or coordinating discharge services: Discharge coordination time: Greater than 30 minutes Quality: Safe Use of Opioids Does Pt have an Active Cancer Diagnosis on the Problem List?: No Quality: Stroke Does the patient have a stroke diagnosis?: No Physical Exam Vital Signs: Vital Signs: Last Vital Signs Temp 97.6 F 02/23/22 11:37 Pulse 60 02/23/22 11:37 Resp 16 02/23/22 11:37 BP 133/77 02/23/22 11:37 Pulse Ox 98 02/23/22 11:37 BMI result Body Mass Index 22.6 General: AO X 3, no acute distress Resp:? CTA bilateral CVS: S1,S2,RRR GI: +BS, NT, no distention Skin: No rash Neuro:? motor grossly intact Psych: appropriate affect DS: Data Data Completed and Pending Completed studies during hospitalization [Text1]: Procedures Insertion of Pacemaker Lead into Right Atrium, Percutaneous Approach (10/23/21) Insertion of Pacemaker Lead into Right Ventricle, Percutaneous Approach (10/23/21) Insertion of Pacemaker, Dual Chamber into Chest Subcutaneous Tissue and Fascia, Open Approach (10/23/21) Labs on day of discharge: Laboratory Results - last 24 hr 02/22/22 02/23/22 02/23/22 15:32 07:19 11:09 Creatinine Estim Creat Clear Calc Estimated GFR POC Glucose 129 H 121 H 117 H 02/23/22 11:19 Creatinine 0.66 Estim Creat Clear Calc 85.0 Estimated GFR > 60 POC Glucose Preliminary micro results at discharge 02/20/22 18:33 Blood Culture - Preliminary Blood - Venous No growth after 48 hours. Discharge Plan Discharge Patient Disposition: [facility] Discharge Diagnosis: sigmoid volvulus Referrals: Shannen Hodge MD [Primary Care Provider] - 1 Week Discharge Medications: Continued metformin 500 mg tablet 1 tab PO DAILY 0RF gabapentin 400 mg capsule 400 mg PO QID 0RF carbidopa-levodopa 25-100 mg tablet 2 tab PO 6XD 0RF Rx Instructions: 0600,0900,1100,1400,1700,2100 cholecalciferol (vitamin D3) 1,250 mcg (50,000 unit) Capsule 1,250 mcg PO QMONTH 0RF Rx Instructions: takes on the 4th of each month amlodipine 5 mg tablet 5 mg PO DAILY Qty: 30 0RF carbidopa-levodopa 50-200 mg Tablet Extended Release 1 tab PO BID@ 0RF miconazole nitrate 2 % cream 1 appl topical BID 0RF Rx Instructions: to groin aripiprazole 10 mg tablet 10 mg PO DAILY 0RF metoprolol succinate [Toprol XL] 50 mg tablet extended release 24 hr 50 mg PO DAILY Qty: 30 5RF Eliquis 5 mg tablet 5 mg PO BID Qty: 60 5RF Discharge Orders: Discharge Order (Routine); Ordered 02/23/22 Ordered By: Rah Hoffman Diet: advance to usual diet Activity on Discharge: As tolerated Stand Alone Forms: Patient Portal Discharge page Care Plan Goals: recovery Health Concerns: sigmoid volvulus Plan of Treatment: conitnue chopped, nectart thick diet Assessment: see above
--- NOTE | 2022-02-23 12:59 | MHC.CM.PN ---
PATIENT IS DC BACK TO [facility] TODAY RN AND UNIT AWARE OF PLAN. IMM 02/21 PREVIOUSLY COMPLETED
--- NOTE | 2022-02-23 13:41 | MHC.CM.PN ---
NO RESPONSE IN ALLSCRIPTS FROM [facility] CASE MANAGEMENT ATTEMPTING TO SECURE PATIENT'S RETURN FOR 1600 TODAY CALL TO [facility] SECOD FLOOR [phone] TOYA ROSALES IS AGREEABLE TO PATIENT'S RETURN ANDTHE 1600 TRANSPORT.
[2022-02-23] MEDS: 0.9 % Sodium Chloride Flush 3 ML SYRINGE IVFLUSH (14:25)
[2022-02-23 15:46] LABS: Glucose, Whole Blood 124 mg/dL (60-115)
[2022-02-23 15:49] VITALS: BP 132/61; PULSE 86; RESP 18; TEMP 37.1; O2SAT 96
== END 2022-02-23 16:20 | disposition skilled nursing facility (03) | DRG 388 ==
LOC: HO.ED 21:48 → HO.EDOVER 02-21 00:30 → HO.ICU 02-21 01:41 → HO.S3 02-21 07:19
PROVIDERS: Internal Medicine; Internal Medicine Gastroenterology; Nurse Practitioner Family; Admitting Provider Hospitalist; Emergency Provider Internal Medicine; PCP Internal Medicine; Visit Provider Internal Medicine
PROC: 0DJD8ZZ Inspection of Lower Intestinal Tract, Via Natural or Artificial Opening Endoscopic (ICD-10-PCS; CPT 45330; principal; 2022-02-20 23:59)
DX: K56.2 Volvulus (principal); G92.8 Other toxic encephalopathy; R47.01 Aphasia; T83.83XA Hemorrhage due to genitourinary prosthetic devices, implants and grafts, initial encounter; F05 Delirium due to known physiological condition; Z95.0 Presence of cardiac pacemaker; E11.40 Type 2 diabetes mellitus with diabetic neuropathy, unspecified; G20 Parkinson's disease; I48.0 Paroxysmal atrial fibrillation; D72.829 Elevated white blood cell count, unspecified; I10 Essential (primary) hypertension; R31.0 Gross hematuria; F02.80 Dementia in other diseases classified elsewhere, unspecified severity, without behavioral disturbance, psychotic disturbance, mood disturbance, and anxiety; E78.5 Hyperlipidemia, unspecified; I48.91 Unspecified atrial fibrillation; Z20.822 Contact with and (suspected) exposure to COVID-19; Z87.891 Personal history of nicotine dependence; Z88.8 Allergy status to other drugs, medicaments and biological substances; Z79.01 Long term (current) use of anticoagulants; Z79.84 Long term (current) use of oral hypoglycemic drugs; Z79.899 Other long term (current) drug therapy
CPT/HCPCS: 36415; 70450; 71250; 74018; 74176; 80048; 80076; 81001; 82565; 82947; 83605; 83735; 84484; 85025; 85610; 86850; 86900; 86901; 87040; 87147; 87205; 87502; 87635; 93005; 96365; 96375; 99232; 99285; 99291; 99292; C1758; J2543; J3010; J3370

== ENCOUNTER → 2022-05-12 09:51 | Outpatient (BNVA) | payer MEDICARE, SELFPAY | PROVIDERS: PCP Internal Medicine; Visit Provider Psychiatry & Neurology Neurology | DX: G20 Parkinson's disease (principal); F22 Delusional disorders; R41.89 Other symptoms and signs involving cognitive functions and awareness; Z99.3 Dependence on wheelchair; Z95.0 Presence of cardiac pacemaker | CPT/HCPCS: 99212 ==

== ENCOUNTER → 2022-11-14 10:32 | Outpatient (BNVA) | payer MEDICARE, SELFPAY | PROVIDERS: PCP Internal Medicine; Visit Provider Psychiatry & Neurology Neurology | DX: G20 Parkinson's disease (principal); F22 Delusional disorders; R41.89 Other symptoms and signs involving cognitive functions and awareness; I48.0 Paroxysmal atrial fibrillation; I10 Essential (primary) hypertension; E11.9 Type 2 diabetes mellitus without complications; Z99.3 Dependence on wheelchair; Z95.0 Presence of cardiac pacemaker | CPT/HCPCS: 99212 ==

== ENCOUNTER 2022-11-23 02:23 | Inpatient (IN) | payer MEDICARE, SELFPAY ==
[2022-11-23] VITALS (19 sets, daily range): BP systolic 93–145; BP diastolic 49–78; PULSE 71–113; RESP 14–31; TEMP 36.8–39; O2SAT 89–100; BMI 26.7
--- NOTE | ~2022-11-23 | XR_ITS ---
EXAMINATION: XR CHEST CLINICAL INFORMATION: Shortness of breath COMPARISON: 02/20/2022 TECHNIQUE: Frontal view of the chest was obtained. FINDINGS: Left-sided pacemaker lead tips overlie the right atrium and right ventricle. Lung volumes are symmetric. There is focal opacity in the mid to upper right lung. There is limited assessment for pneumothorax at the lung apices due to patient positioning/overlapping structures. No significant pleural effusion. Cardiac size is within normal limits. Calcification is present at the aortic arch. No acute osseous findings are seen. XR/XR chest 1V IMPRESSION: Focal opacity in the mid to upper right lung, suspicious for pneumonia in the proper clinical setting. Radiographic followup after treatment/resolution of symptoms is recommended.
--- NOTE | ~2022-11-23 | CT_ITS ---
EXAMINATION: CT CHEST, ABDOMEN AND PELVIS WITH CONTRAST CLINICAL INFORMATION: Distended abdomen, question volvulus, aspiration pneumonia COMPARISON: 02/20/2022 TECHNIQUE: Multidetector volumetric imaging was performed through the chest, abdomen and pelvis following the administration of 85 mL of Omnipaque 350 intravenous contrast. Sagittal and coronal reformatted images were obtained on the technologist's workstation. Axial MIP volume rendering provided. This CT examination was performed using dose optimization techniques as appropriate, variously including the following: *Automated exposure control *Adjustment of mA and/or kV according to patient size (this includes techniques or standardized protocols for targeted exams where dose is matched to indication/reason for exam; i.e. extremities or head) *Use of iterative reconstruction technique DLP: 1214 mGy-cm FINDINGS: CHEST: Lungs: There are multifocal bilateral pulmonary consolidations, most extensive in the right upper lobe and overall greater in the right lung than the left. Mediastinum: Thyroid gland is grossly unremarkable. No significant adenopathy is seen. Cardiac size is within normal limits; no pericardial effusion. Coronary artery calcifications are present. There is atherosclerotic calcification along the aorta. Main pulmonary artery is dilated, suggesting pulmonary artery hypertension. Pleura: There is no significant effusion. No pleural mass or thickening. Chest Wall/Axilla: No axillary lymphadenopathy is present. Left-sided pacemaker is present with leads extending to the right atrium and right ventricle. ABDOMEN/PELVIS: Limited detailed evaluation in some regions due to motion artifact. Liver, Gallbladder, Biliary Tree: The liver is normal in size, shape, and attenuation. No focal hepatic lesion or biliary ductal dilatation is present. The gallbladder is unremarkable. Pancreas: Suboptimally assessed due to motion artifact. Grossly unremarkable. Spleen: Grossly unremarkable. Adrenal Glands: Unremarkable. Kidneys and Ureters: No hydronephrosis or obstructing calculus identified bilaterally. Hypodensity in the upper left kidney favors a cyst; no follow-up recommended. Bladder: Nearly empty, with Lloyd catheter present. Gastrointestinal Tract: Much of the colon is distended with gas and stool, most prominently the sigmoid colon, without a twisting configuration to suggest volvulus. Mild perirectal stranding is noted. No significant bowel wall thickening is seen. No convincing evidence for bowel obstruction. No free fluid or free air is seen. Abdominal Wall: Fat-containing inguinal hernias, right greater than left. Fat-containing umbilical hernia. Lymphovascular Structures: Lymph nodes: Normal. Vascular: There is atherosclerotic calcification along the aorta and iliac arteries. Pelvic Viscera: Unremarkable. OSSEOUS STRUCTURES: Degenerative changes are noted in the spine. CT/CT abdomen pelvis w IV con IMPRESSION: 1. Multifocal bilateral pulmonary consolidations, most extensive in the right upper lobe. Appearance is suspicious for multifocal pneumonia. 2. Much of the colon is distended with gas and stool, most prominently the sigmoid colon, without findings of volvulus. Mild perirectal stranding is noted, which could reflect early/mild stercoral colitis. 3. Dilated main pulmonary artery, suggesting pulmonary artery hypertension.
--- NOTE | ~2022-11-23 | CT_ITS ---
EXAMINATION: CT HEAD WITHOUT CONTRAST CLINICAL INFORMATION: Altered mental status, on anticoagulation COMPARISON: 02/20/2022 TECHNIQUE: Contiguous axial imaging was performed from the skull base to vertex without intravenous administration of contrast. This CT examination was performed using dose optimization techniques as appropriate, variously including the following: *Automated exposure control *Adjustment of mA and/or kV according to patient size (this includes techniques or standardized protocols for targeted exams where dose is matched to indication/reason for exam; i.e. extremities or head) *Use of iterative reconstruction technique DLP: 805 mGy-cm FINDINGS: There is no evidence of acute intracranial hemorrhage or territorial infarction. No abnormal mass-effect or midline shift is seen. [place] to white matter differentiation is well preserved. No extra-axial fluid collections are identified. The ventricles are normal in size. There is mild periventricular white matter hypoattenuation consistent with chronic small vessel ischemic disease. Mild volume loss is noted. The osseous structures and soft tissues are normal. The mastoid air cells and visualized portions of the paranasal sinuses are well-aerated. CT/CT head/brain wo IV con IMPRESSION: No acute intracranial pathology.
--- NOTE | 2022-11-23 02:35 | ECG_ITS ---
Test Reason : sob/ ams Blood Pressure : / mmHG Vent. Rate : 083 BPM Atrial Rate : 000 BPM P-R Int : 000 ms QRS Dur : 082 ms QT Int : 348 ms P-R-T Axes : 000 021 012 degrees QTc Int : 408 ms Artifact in tracing Undetermined rhythm Nonspecific ST and T wave abnormality in lateral leads Other leads cannot be interpreted Abnormal ECG When compared with ECG of 20-FEB-2022 19:04, due to poor quality, cannot compare Referred By: Yony Bauman Electronically Signed By:PATRICIA HUFF
--- NOTE | 2022-11-23 02:40 | ED_ITS ---
HPI - SOB/Dyspnea General Chief Complaint: Dyspnea Stated Complaint: sob /ams Time Seen by Provider: 11/23/22 02:35 Source: EMS and RN notes reviewed Mode of arrival: EMS Limitations: altered mental status History of Present Illness HPI Narrative: Patient 87 years old male with history hypertension, hyperlipidemia, diabetes, Parkinson's disease COPD, paroxysmal AFib sick sinus syndrome status post pacemaker aphasia psychosis metabolic encephalopathy came from longterm for increased shortness of breath started just prior to arrival saturating 70% on room air prior to this patient according to staff patient was at his baseline on arrival patient rectal temperature was 102.2 blood pressure 97/49 pulse rate 78 beats per minute was placed on CPAP saturating 100% Related Data Home Medications Medication Instructions Recorded Confirmed carbidopa 25 mg-levodopa 100 mg 2 tab PO 6XD 10/24/21 05/12/22 tablet cholecalciferol (vitamin D3) 1,250 1,250 mcg PO QMONTH 10/24/21 05/12/22 mcg (50,000 unit) capsule gabapentin 400 mg capsule 400 mg PO QID 10/24/21 05/12/22 aripiprazole 10 mg tablet 10 mg PO DAILY 01/06/22 05/12/22 miconazole nitrate 2 % topical 1 appl topical BID 01/06/22 05/12/22 cream carbidopa ER 50 mg-levodopa 200 mg 1 tab PO BID@,02/20/22 05/12/22 tablet,extended release albuterol sulfate 90 mcg/actuation 2 puff inhalation Q6H PRN 11/14/22 aerosol inhaler bisacodyl 10 mg rectal suppository 10 mg MA DAILY PRN 11/14/22 gabapentin 400 mg capsule 400 mg PO TID 11/14/22 metoprolol succinate 50 mg 50 mg PO DAILY 11/14/22 tablet,extended release 24 hr naloxone 1 mg/mL injection syringe 1 mg IM Q2M PRN 11/14/22 potassium chloride 20 mEq/15 mL 20 meq PO DAILY 11/14/22 oral liquid sennosides 8.6 mg tablet (Natural 8.6 mg PO BID 11/14/22 Senna Laxative) Previous Rx's Medication Instructions Recorded amlodipine 5 mg tablet 5 mg PO DAILY #30 tabs 10/29/21 apixaban 5 mg tablet (Eliquis) 5 mg PO BID #60 tabs 12/22/21 metoprolol succinate 50 mg 50 mg PO DAILY #30 tabs 12/22/21 tablet,extended release 24 hr (Toprol XL) Allergies Allergy/AdvReac Type Severity Reaction Status Date / Time risperidone Allergy Unknown Verified 05/12/22 10:24 sertraline Allergy Unknown Verified 05/12/22 10:24 rasagiline [From Azilect] AdvReac Unknown Verified 11/14/22 11:03 Review of Systems Review of Systems: Yes Unobtainable due to mental status [facility] Past Medical History Medical History Anemia Aphasia Diabetes High cholesterol HTN (hypertension) Neuropathy Pacemaker (~10/2021) Paranoid behavior Paroxysmal atrial fibrillation Psychosis Surgical History History of cardiac pacemaker (~10/2021) Social History Social History Household Members: None Household Members Other:: SNF Housing: Prison Unable to assess alcohol history related to: Unknown Patient Tobacco Use Status: Former Tobacco user Tobacco use type: Cigar and Pipe Advance Directives: Yes Advance Directives on File: Yes Advance Directives Date on File: 10/28/21 service: No Current occupational status: retired Physical Exam Vital Signs: Vital Signs: Last Vital Signs Temp 99.7 F 11/23/22 06:00 Pulse 106 H 11/23/22 06:05 Resp 24 H 11/23/22 06:05 BP 128/71 11/23/22 06:00 Pulse Ox 98 11/23/22 06:00 O2 Del Method 11/23/22 06:00 O2 Flow Rate 4 11/23/22 06:00 FiO2 60 11/23/22 04:00 BMI result Body Mass Index 26.7 Appearance: Lethargic in obvious respiratory distress Eyes: PERRLA, No Nystagmus ENT: Pharynx normal. Oral Mucosa moist Neck: Normal inspection. Neck supple. CVS: Normal heart rate and rhythm. Pulses normal. Respiratory: severe respiratory distress. Equal air entry bilateral, bilateral crackles diffuse Abdomen: Soft and nontender. Bowel sounds are present, no mass palpable, no CVA tenderness Skin: Skin warm and dry. Normal skin color. Normal skin turgor. Extremities: No lower extremity edema. No calf tenderness Neuro: Lethargic moving all 4 extremities aphasic Medications Administered Discontinued Medications Generic Name Dose Route Start Last Admin Trade Name Cori PRN Reason Stop Dose Admin Acetaminophen 650 mg 11/23/22 02:58 11/23/22 03:03 Acetaminophen Supp 650 Mg Supp.Rect MA 11/23/22 02:59 650 mg ONCE ONE Administration Acetaminophen 650 mg 11/23/22 03:46 11/23/22 03:53 Acetaminophen Supp 650 Mg Supp.Rect MA 11/23/22 03:47 650 mg ONCE ONE Administration Albuterol Sulfate 2.5 mg/ 0 mg 11/23/22 05:53 11/23/22 06:05 Ipratropium [place] 0.5 mg INHALE 11/23/22 05:54 1 each ONCE ONE Administration Piperacillin Sod/Tazobactam 50 mls @ 100 mls/hr 11/23/22 02:58 11/23/22 03:31 Sod 3.375 gm/ Sodium Chloride IV 11/23/22 03:27 Infused ONCE ONE Infusion Sodium Chloride 1,000 mls @ 999 mls/hr 11/23/22 03:10 11/23/22 04:40 Ns IV 11/23/22 04:10 Infused .Q1H1M ONE Infusion Sodium Chloride 1,000 mls @ 999 mls/hr 11/23/22 03:22 11/23/22 04:41 Ns IV 11/23/22 04:22 Infused .Q1H1M ONE Infusion Sodium Chloride 1,000 mls @ 999 mls/hr 11/23/22 03:46 11/23/22 05:41 Ns IV 11/23/22 04:46 999 mls/hr .Q1H1M ONE Administration Iohexol 85 ml 11/23/22 04:24 11/23/22 04:24 Iohexol 350 Mg/Ml 100 Ml Infus..Btl IV 11/23/22 04:25 85 ml ONCE ONE Administration Medical Decision Making Medical Decision Making MDM Narrative: 5 amPatient with acute respiratory failure with background of COPD and aspiration pneumonias with history of Parkinson disease comes in acute acute shortness of breath with high fever meet any criteria for sepsis workup showed multifocal pneumonia patient initially placed on CPAP improved now on 4 L saturating 94% will give DuoNeb treatment received IV fluids more than 30 cc/kilogram and IV antibiotic Zosyn Focus exam for sepsis was done at 06:00 Differential Diagnosis CHF/aspiration pneumonia/pneumothorax/pleural effusion/PE Consult Healthcare Provider Management of the patient was discussed with: Hospitalist Lab Data MDM Lab Attestation statement: I reviewed the patient's lab results. 11/23/22 02:40 11/23/22 02:40 Labs: Lab Results 11/23/22 11/23/22 11/23/22 Range/Units 02:40 02:40 02:40 WBC 8.5 (4.8-10.8) X10*3/uL RBC 3.93 L (4.60-5.80) X10*6/uL Hgb 12.4 L (14.0-18.0) g/dl Hct 38.2 L (42.0-52.0) % MCV 97.2 (80.0-98.0) fL MCH 31.6 (27.0-33.0) pg MCHC 32.5 (31.0-36.0) g/dl RDW 13.6 (11.0-16.0) % Plt Count 167 D (160-400) X10*3/uL MPV 11.1 (9.4-12.4) fL Immature Gran % (Auto) 0.1 (0.0-0.4) % Neut % (Auto) 85.7 H (45-73) % Lymph % (Auto) 9.7 L (20-40) % [place] % (Auto) 3.6 (2-11) % Eos % (Auto) 0.5 (0-4) % Baso % (Auto) 0.4 (0-2) % Lymph # (Auto) 0.8 L (1.2-4.9) X10*3/uL [place] # (Auto) 0.3 (0.1-1.2) X10*3/uL Eos # (Auto) 0.0 (0.0-0.4) X10*3/uL Baso # (Auto) 0.0 (0.0-0.2) X10*3/uL Abs Immat Gran (auto) 0.01 (0.00-0.03) X10*3/uL Absolute Neuts (auto) 7.3 (2.0-8.3) x10*3/uL Absolute Nucleated RBC 0.000 (0.0-0.012) X10*3/uL Nucleated RBC % (auto) 0.0 (0.0-0.2) /100WBC PT 17.4 H (10.0-13.1) SEC INR 1.5 H (0.9-1.1) APTT 31.4 (26.0-36.4) SEC VBG pH (7.32-7.43) VBG pCO2 mmHg VBG pO2 mmHg VBG HCO3 (22-26) mmol/L VBG O2 Saturation % VBG Base Excess mmol/L Sodium 145 (135-145) mmol/L Potassium 4.0 (3.3-5.1) mmol/L Chloride 108 (96-108) mmol/L Carbon Dioxide 26 (22-29) mmol/L Anion Gap 15 (12-20) BUN 22 H (9-16) mg/dL Creatinine 0.86 (0.5-1.4) mg/dL Estim Creat Clear Calc 53.6 Estimated GFR > 60 Random Glucose 207 H (60-115) mg/dL Lactic Acid (0.5-2.0) mmol/L Lactic Acid F/U @ 2Hr (0.5-2.0) mmol/L Calcium 9.3 (8.4-10.2) mg/dL Magnesium 1.7 (1.6-2.6) mg/dL Total Bilirubin 1.5 H (0.0-1.0) mg/dL AST 13 (5-37) U/L ALT < 6 (0-40) U/L Alkaline Phosphatase 74 (39-117) U/L Troponin I High Sens (<3.5-35.0) ng/L B-Natriuretic Peptide (<100) pg/mL Total Protein 7.0 (6.5-8.0) g/dL Albumin 4.4 (3.5-5.0) g/dL Urine Color Urine Appearance Urine pH (5.0-9.0) Ur Specific [place] (1.005-1.025) Urine Protein (Neg-Trace) mg/dL Urine Glucose (UA) (Negative) mg/dL Urine Ketones (Negative) mg/dL Urine Blood (Negative) Urine Nitrite (Negative) Ur Leukocyte Esterase (Negative) Influenza Type A (PCR) (Negative) Influenza Type B (PCR) (Negative) RSV RNA Qual (PCR) (Negative) SARS-CoV-2 RNA (RT-PCR) (Negative) 11/23/22 11/23/22 11/23/22 Range/Units 02:40 02:40 02:40 WBC (4.8-10.8) X10*3/uL RBC (4.60-5.80) X10*6/uL Hgb (14.0-18.0) g/dl Hct (42.0-52.0) % MCV (80.0-98.0) fL MCH (27.0-33.0) pg MCHC (31.0-36.0) g/dl RDW (11.0-16.0) % Plt Count (160-400) X10*3/uL MPV (9.4-12.4) fL Immature Gran % (Auto) (0.0-0.4) % Neut % (Auto) (45-73) % Lymph % (Auto) (20-40) % [place] % (Auto) (2-11) % Eos % (Auto) (0-4) % Baso % (Auto) (0-2) % Lymph # (Auto) (1.2-4.9) X10*3/uL [place] # (Auto) (0.1-1.2) X10*3/uL Eos # (Auto) (0.0-0.4) X10*3/uL Baso # (Auto) (0.0-0.2) X10*3/uL Abs Immat Gran (auto) (0.00-0.03) X10*3/uL Absolute Neuts (auto) (2.0-8.3) x10*3/uL Absolute Nucleated RBC (0.0-0.012) X10*3/uL Nucleated RBC % (auto) (0.0-0.2) /100WBC PT (10.0-13.1) SEC INR (0.9-1.1) APTT (26.0-36.4) SEC VBG pH (7.32-7.43) VBG pCO2 mmHg VBG pO2 mmHg VBG HCO3 (22-26) mmol/L VBG O2 Saturation % VBG Base Excess mmol/L Sodium (135-145) mmol/L Potassium (3.3-5.1) mmol/L Chloride (96-108) mmol/L Carbon Dioxide (22-29) mmol/L Anion Gap (12-20) BUN (9-16) mg/dL Creatinine (0.5-1.4) mg/dL Estim Creat Clear Calc Estimated GFR Random Glucose (60-115) mg/dL Lactic Acid 2.2 H* (0.5-2.0) mmol/L Lactic Acid F/U @ 2Hr (0.5-2.0) mmol/L Calcium (8.4-10.2) mg/dL Magnesium (1.6-2.6) mg/dL Total Bilirubin (0.0-1.0) mg/dL AST (5-37) U/L ALT (0-40) U/L Alkaline Phosphatase (39-117) U/L Troponin I High Sens 3.4 (<3.5-35.0) ng/L B-Natriuretic Peptide 138 H (<100) pg/mL Total Protein (6.5-8.0) g/dL Albumin (3.5-5.0) g/dL Urine Color Urine Appearance Urine pH (5.0-9.0) Ur Specific [place] (1.005-1.025) Urine Protein (Neg-Trace) mg/dL Urine Glucose (UA) (Negative) mg/dL Urine Ketones (Negative) mg/dL Urine Blood (Negative) Urine Nitrite (Negative) Ur Leukocyte Esterase (Negative) Influenza Type A (PCR) (Negative) Influenza Type B (PCR) (Negative) RSV RNA Qual (PCR) (Negative) SARS-CoV-2 RNA (RT-PCR) (Negative) 11/23/22 11/23/22 11/23/22 Range/Units 02:46 03:09 03:09 WBC (4.8-10.8) X10*3/uL RBC (4.60-5.80) X10*6/uL Hgb (14.0-18.0) g/dl Hct (42.0-52.0) % MCV (80.0-98.0) fL MCH (27.0-33.0) pg MCHC (31.0-36.0) g/dl RDW (11.0-16.0) % Plt Count (160-400) X10*3/uL MPV (9.4-12.4) fL Immature Gran % (Auto) (0.0-0.4) % Neut % (Auto) (45-73) % Lymph % (Auto) (20-40) % [place] % (Auto) (2-11) % Eos % (Auto) (0-4) % Baso % (Auto) (0-2) % Lymph # (Auto) (1.2-4.9) X10*3/uL [place] # (Auto) (0.1-1.2) X10*3/uL Eos # (Auto) (0.0-0.4) X10*3/uL Baso # (Auto) (0.0-0.2) X10*3/uL Abs Immat Gran (auto) (0.00-0.03) X10*3/uL Absolute Neuts (auto) (2.0-8.3) x10*3/uL Absolute Nucleated RBC (0.0-0.012) X10*3/uL Nucleated RBC % (auto) (0.0-0.2) /100WBC PT (10.0-13.1) SEC INR (0.9-1.1) APTT (26.0-36.4) SEC VBG pH 7.29 L (7.32-7.43) VBG pCO2 50 mmHg VBG pO2 33 mmHg VBG HCO3 24 (22-26) mmol/L VBG O2 Saturation 42.0 % VBG Base Excess -2.3 mmol/L Sodium (135-145) mmol/L Potassium (3.3-5.1) mmol/L Chloride (96-108) mmol/L Carbon Dioxide (22-29) mmol/L Anion Gap (12-20) BUN (9-16) mg/dL Creatinine (0.5-1.4) mg/dL Estim Creat Clear Calc Estimated GFR Random Glucose (60-115) mg/dL Lactic Acid (0.5-2.0) mmol/L Lactic Acid F/U @ 2Hr (0.5-2.0) mmol/L Calcium (8.4-10.2) mg/dL Magnesium (1.6-2.6) mg/dL Total Bilirubin (0.0-1.0) mg/dL AST (5-37) U/L ALT (0-40) U/L Alkaline Phosphatase (39-117) U/L Troponin I High Sens (<3.5-35.0) ng/L B-Natriuretic Peptide (<100) pg/mL Total Protein (6.5-8.0) g/dL Albumin (3.5-5.0) g/dL Urine Color Yellow Urine Appearance Clear Urine pH 5.5 (5.0-9.0) Ur Specific [place] 1.025 (1.005-1.025) Urine Protein Negative (Neg-Trace) mg/dL Urine Glucose (UA) Negative (Negative) mg/dL Urine Ketones Trace (Negative) mg/dL Urine Blood Negative (Negative) Urine Nitrite Negative (Negative) Ur Leukocyte Esterase Negative (Negative) Influenza Type A (PCR) NEGATIVE (Negative) Influenza Type B (PCR) NEGATIVE (Negative) RSV RNA Qual (PCR) NEGATIVE (Negative) SARS-CoV-2 RNA (RT-PCR) NEGATIVE (Negative) 11/23/22 Range/Units 05:37 WBC (4.8-10.8) X10*3/uL RBC (4.60-5.80) X10*6/uL Hgb (14.0-18.0) g/dl Hct (42.0-52.0) % MCV (80.0-98.0) fL MCH (27.0-33.0) pg MCHC (31.0-36.0) g/dl RDW (11.0-16.0) % Plt Count (160-400) X10*3/uL MPV (9.4-12.4) fL Immature Gran % (Auto) (0.0-0.4) % Neut % (Auto) (45-73) % Lymph % (Auto) (20-40) % [place] % (Auto) (2-11) % Eos % (Auto) (0-4) % Baso % (Auto) (0-2) % Lymph # (Auto) (1.2-4.9) X10*3/uL [place] # (Auto) (0.1-1.2) X10*3/uL Eos # (Auto) (0.0-0.4) X10*3/uL Baso # (Auto) (0.0-0.2) X10*3/uL Abs Immat Gran (auto) (0.00-0.03) X10*3/uL Absolute Neuts (auto) (2.0-8.3) x10*3/uL Absolute Nucleated RBC (0.0-0.012) X10*3/uL Nucleated RBC % (auto) (0.0-0.2) /100WBC PT (10.0-13.1) SEC INR (0.9-1.1) APTT (26.0-36.4) SEC VBG pH (7.32-7.43) VBG pCO2 mmHg VBG pO2 mmHg VBG HCO3 (22-26) mmol/L VBG O2 Saturation % VBG Base Excess mmol/L Sodium (135-145) mmol/L Potassium (3.3-5.1) mmol/L Chloride (96-108) mmol/L Carbon Dioxide (22-29) mmol/L Anion Gap (12-20) BUN (9-16) mg/dL Creatinine (0.5-1.4) mg/dL Estim Creat Clear Calc Estimated GFR Random Glucose (60-115) mg/dL Lactic Acid (0.5-2.0) mmol/L Lactic Acid F/U @ 2Hr 2.6 H* (0.5-2.0) mmol/L Calcium (8.4-10.2) mg/dL Magnesium (1.6-2.6) mg/dL Total Bilirubin (0.0-1.0) mg/dL AST (5-37) U/L ALT (0-40) U/L Alkaline Phosphatase (39-117) U/L Troponin I High Sens (<3.5-35.0) ng/L B-Natriuretic Peptide (<100) pg/mL Total Protein (6.5-8.0) g/dL Albumin (3.5-5.0) g/dL Urine Color Urine Appearance Urine pH (5.0-9.0) Ur Specific [place] (1.005-1.025) Urine Protein (Neg-Trace) mg/dL Urine Glucose (UA) (Negative) mg/dL Urine Ketones (Negative) mg/dL Urine Blood (Negative) Urine Nitrite (Negative) Ur Leukocyte Esterase (Negative) Influenza Type A (PCR) (Negative) Influenza Type B (PCR) (Negative) RSV RNA Qual (PCR) (Negative) SARS-CoV-2 RNA (RT-PCR) (Negative) ABG Data Attestation ABG: I personally reviewed and interpreted this ABG as follows: Interpretation: Respiratory hypoxia Independent Interpretation I performed an independent interpretation of an: EKG Interpretation: Normal sinus rhythm heart rate 88 beats per minute nonspecific ST T wave changes no acute ischemia Critical Care Time Critical Care Time Critical Care Time: Yes Total Critical Care Time: 90 Attestation: The patient was critically ill with a high probability of imminent or life threatening deterioration. I spent greater than 90 minutes of discontinuous time evaluating the patient,delivering critical care at the bedside, discussing and evaluating pertinent data with consultants. Critical care time does not include time spent performing separately billable procedures or teaching. Total time spent performing critical care was 90 minutes. Discharge Plan Discharge Clinical Impression: Acute hypoxemic respiratory failure, Multifocal pneumonia Patient Disposition: Admitted As Inpatient
[2022-11-23 02:48] LABS: MANUAL DIFF FLAG NO
[2022-11-23 02:50] LABS: Basophils Percent Auto 0.4 % (0-2); Eosinophils Percent Auto 0.5 % (0-4); Hematocrit 38.2 % (42.0-52.0); Hemoglobin 12.4 g/dl (14.0-18.0); Imm Gran Abs Auto 0.01 X10*3/uL (0.00-0.03); Imm Gran Pct Auto 0.1 % (0.0-0.4); Lymphocytes Absolute Auto 0.8 X10*3/uL (1.2-4.9); Lymphocytes Percent Auto 9.7 % (20-40); Mean Corpuscular HGB Conc 32.5 g/dl (31.0-36.0); Mean Corpuscular Hemoglobin 31.6 pg (27.0-33.0); Mean Corpuscular Volume 97.2 fL (80.0-98.0); Mean Platelet Volume 11.1 fL (9.4-12.4); Monocytes Absolute Auto 0.3 X10*3/uL (0.1-1.2); Monocytes Percent Auto 3.6 % (2-11); Neutrophils Absolute Auto 7.3 x10*3/uL (2.0-8.3); Neutrophils Percent Auto 85.7 % (45-73); Platelet Count 167 X10*3/uL (160-400); Red Blood Count 3.93 X10*6/uL (4.60-5.80); Red Cell Distribution Width 13.6 % (11.0-16.0); White Blood Count 8.5 X10*3/uL (4.8-10.8)
[2022-11-23 02:56] LABS: INTERNATIONAL NORM RATIO 1.5 (0.9-1.1); Prothrombin Time 17.4 SEC (10.0-13.1)
[2022-11-23 02:58] LABS: Partial Thromboplastin Time 31.4 SEC (26.0-36.4)
[2022-11-23 02:59] LABS: Venous Blood Gas Refer to POC result
[2022-11-23 03:00] LABS: VBG Base Excess -2.3 mmol/L; VBG HCO3 24 mmol/L (22-26); VBG pCO2 50 mmHg; VBG pH 7.29 (7.32-7.43); VBG pO2 33 mmHg
[2022-11-23] MEDS: Piperacillin Sodium/Tazobactam 3.375 GM in 0.9 % Sodium Chloride 50 ML IV (03:03)
[2022-11-23] MEDS: Acetaminophen Supp 650 MG SUPP.RECT PR ×2 (03:03→03:53)
[2022-11-23 03:10] LABS: Lactic Acid 2.2 mmol/L (0.5-2.0)
--- NOTE | 2022-11-23 03:10 | PC.NURSE ---
Lab called for Dr. Nuñez, wh
--- NOTE | 2022-11-23 03:11 | PC.NURSE ---
Lab called with critical value for pt. unavailable to take call. This RN took a value of 2.2 for lactic acid. notified.
[2022-11-23 03:12] LABS: Alanine Aminotransferase < 6 U/L (0-40); Albumin Level 4.4 g/dL (3.5-5.0); Alkaline Phosphatase 74 U/L (39-117); Anion Gap 15 (12-20); Aspartate Amino Transferase 13 U/L (5-37); Bilirubin Total 1.5 mg/dL (0.0-1.0); Blood Urea Nitrogen 22 mg/dL (9-16); Calcium 9.3 mg/dL (8.4-10.2); Carbon Dioxide 26 mmol/L (22-29); Chloride 108 mmol/L (96-108); Creatinine Clr Calc Pharmacy 53.6; Estimated Glomerular Filt Rate > 60; Glucose Random 207 mg/dL (60-115); Magnesium 1.7 mg/dL (1.6-2.6); Sodium 145 mmol/L (135-145)
[2022-11-23 03:14] LABS: Troponin-I High Sensitivity 3.4 ng/L (<3.5-35.0)
--- NOTE | 2022-11-23 03:14 | PC.NURSE ---
Pt's hypotensive, a-fib on the monitor and febrile. Pt's labs and urine was sent, pt weems cath was inserted with the core. pt meds were administered as order by the provider. pt is on Cpap 100. Pt lungs sound bilaterally throughout Rhonchi. Pt is proxymal a-fib on the monitor and is taking anticoagulants. Pt has deep breathing. Pt was clean and changed. Pt abd is distended and rigid. Pt is arousable to stimuli, IVF running.
[2022-11-23 03:15] LABS: B Type Natriuretic Peptide 138 pg/mL (<100)
[2022-11-23] MEDS: 0.9 % Sodium Chloride 1,000 ML 999 ML IV ×4 (03:25→07:34)
[2022-11-23 03:29] LABS: Appearance Urine Clear; Color Urine Yellow; Glucose Urine UA Negative (Negative); Leukocyte Esterase Urine Negative (Negative); Nitrite Urine Negative (Negative); PH 5.5 (5.0-9.0); Specific Gravity - Urine 1.025 (1.005-1.025); Urine Blood Negative (Negative); Urine Ketones Trace mg/dL (Negative); Urine Protein Negative (Neg-Trace)
[2022-11-23 03:51] LABS: Influenza A PCR NEGATIVE (Negative); Influenza B PCR NEGATIVE (Negative); Resp Syncy Virus RNA Qual PCR NEGATIVE (Negative); SARS COV2 PCR INHOUSE NEGATIVE (Negative)
--- NOTE | 2022-11-23 03:55 | PC.NURSE ---
nursing interventions: ice bags were placed under his arms and perinal area to decrease the temp core. Pt has 2 bags IVF running as order. Pt is going to Ct scan. BP has been improving. IV 20 on his L upper arm guided with ultrasound.
--- NOTE | 2022-11-23 04:22 | PC.NURSE ---
Pt was bladder scan 17. pt is on continuos monitor technician HR 120. fibrile and cpap 97%.
[2022-11-23] MEDS: iohexoL 350 MG/ML 100 ML INFUS..BTL 85 ML IV (04:24)
[2022-11-23 04:46] LABS: Reflex Lactate? Lactic Acid Added
[2022-11-23 05:53] LABS: ~Lactic Acid-LAB USE ONLY 2.6 mmol/L (0.5-2.0)
--- NOTE | 2022-11-23 06:09 | ECG_ITS ---
Test Reason : repeat Blood Pressure : / mmHG Vent. Rate : 088 BPM Atrial Rate : 088 BPM P-R Int : 272 ms QRS Dur : 086 ms QT Int : 370 ms P-R-T Axes : 047 -06 -49 degrees QTc Int : 447 ms Sinus rhythm with 1st degree A-V block Low voltage QRS Inferior infarct , age undetermined Nonspecific ST and T wave abnormality Abnormal ECG When compared with ECG of 23-NOV-2022 02:37, due to poor quality of prior EKG, cannot compare Referred By: Yony Bauman Electronically Signed By:PATRICIA HUFF
[2022-11-23] MEDS: Norepinephrine Bitartrate/D5W 8 MG/250 ML PLAST..BAG 6.42 MG IV (07:34)
[2022-11-23 07:40] LABS: Reflex Lactate? 2 Y
--- NOTE | 2022-11-23 08:05 | PHA.MEDREC ---
Pharmacy Consult ? Medication Reconciliation Pharmacy has completed the medication reconciliation.
--- NOTE | 2022-11-23 08:29 | PM.CCN ---
Critical Care Event Note Summary Date of Service: 11/23/22 Code activated: No Narrative: Briefly, 87-year-old gentleman with underlying Parkinson's, prior aspiration events, AFib status post pacemaker being admitted with acute hypoxia and metabolic acidosis. CT scan with mostly right-sided patchy infiltrate consistent with aspiration event. Requires 4-5 L to maintain normal oximetry at this time. On my exam systolic blood pressure in 120s after receiving 3 L of fluid. Lethargic, but arousable and answers. It appears that patient had another aspiration episode. Agree with Unasyn for the next 48-72 hours. His developing lactic acidosis appears to be secondary to stercolitis and he would likely require laxatives or enema. At this time patient does not require intensive care unit level of care. Please notify for re-evaluation, if patient's condition changes. Critical Care Time (minutes): 0
[2022-11-23 08:40] LABS: ~Lactic Acid-LAB USE ONLY 2.3 mmol/L (0.5-2.0)
--- NOTE | 2022-11-23 11:12 | P.HPHOSP_ITS ---
History of Present Illness Date of Service: 11/23/22 Attending physician on admission: Obey Manzo Chief Complaint: Increasing SOB Pt is a 87-year-old male with a PMH significant for?Parkinson's, COPD, paroxysmal AFib on Eliquis, sick sinus syndrome s/p pacemaker, HTN, and HLD who presents to the ED from SNF with increased SOB and decreased mentation. Patient unable to provide HPI; HPI obtained from chart review , family, and facility staff. Pt was apparently at baseline yesterday evening, but found during the night by staff to be satting in the 70s. Supplemental O2 at the facility only brought him up to the low 80s. In the ED patient was found to be febrile at 102.2, tachypneic up to 31, and tachycardic up to 113. Patient was placed on CPAP and oxygenating at 100%. In the morning patient's blood pressure dropped to 84/47 and then 81/46. Pt given 30 ml/kg crystalloids for septic shock. Patient was then started on Levophed drip. Patient seen and evaluated by manager leadership development, with patient's systolic pressure in the 120s after receiving 3 L fluid, lethargic but arousable, on 4-5 L of supplemental O2; deemed stable enough for hospital floor and not requiring ICU level of care at this time. Patient's healthcare proxy says that patient is normally alert and oriented x3, and has had a recent history for the past couple of years of septic shock whenever he is finding often infection. Healthcare proxy also notes patient has a history of sigmoid volvulus and receives regular enemas. In the ED labs were significant for no leukocytosis, lactic acid of 2.2 with repeat of 2.6 and 2.3, glucose of 207, BNP slightly elevated at 138. VBG showed pH of 7.29. UA negative for UTI. CXR showed focal opacity in the mid to upper right lung suspicious for pneumonia. CT?chest showed multifocal bilateral pulmonary consolidations suspicious for multifocal pneumonia. CT of abdomen and pelvis showed distended colon with gas and stool most prominently in the sigmoid colon without findings of volvulus, suggestive of early/mild stercoral colitis, and dilated main pulmonary artery suggestive of artery hypertension. CT of head showed no acute intracranial pathology. Repeat EKG demonstrated sinus rhythm with first-degree AV block and no evidence ST elevations or depressions. Pt was treated with Pt will be admitted to the hospital for treatment of acute respiratory failure and metabolic encephalopathy in the setting of multifocal pneumonia. Review of Systems Review of Systems: Unable to obtain due to patient's mentation [facility] Medical History Anemia Aphasia Diabetes High cholesterol HTN (hypertension) Neuropathy Pacemaker (~10/2021) Paranoid behavior Paroxysmal atrial fibrillation Psychosis Surgical History History of cardiac pacemaker (~10/2021) Social History Household Members: None Household Members Other:: SNF Housing: Residential Unable to assess alcohol history related to: Unknown Patient Tobacco Use Status: Former Tobacco user Tobacco use type: Cigar and Pipe Advance Directives: Yes Advance Directives on File: Yes Advance Directives Date on File: 10/28/21 service: No Current occupational status: retired Meds Allergies Allergy/AdvReac Type Severity Reaction Status Date / Time risperidone Allergy Unknown Verified 05/12/22 10:24 sertraline Allergy Unknown Verified 05/12/22 10:24 rasagiline [From Azilect] AdvReac Unknown Verified 11/14/22 11:03 Active Medications: Current Medications Norepinephrine Bitartrate (Levophed) 8 mg in 250 mls @ 0 mls/hr IV .Q0M GISELLE; Protocol Last Titration: 11/23/22 08:14 Dose: 0 mcg/kg/min, 0 mls/hr Pharmacy Consult (Consult Rx Perform Med Rec) 1 each MISCELLANE ONCE PRN PRN Reason: Consult order Home Medications Medication Instructions Recorded Confirmed Last Taken Type carbidopa 25 mg-levodopa 100 mg 2 tab PO 6XD 10/24/21 11/23/22 02/20/22 History tablet cholecalciferol (vitamin D3) 1,250 1,250 mcg PO QMONTH 10/24/21 11/23/22 02/02/22 History mcg (50,000 unit) capsule gabapentin 400 mg capsule 400 mg PO QID 10/24/21 11/23/22 02/20/22 History aripiprazole 10 mg tablet 10 mg PO DAILY 01/06/22 11/23/22 02/20/22 History carbidopa ER 50 mg-levodopa 200 mg 1 tab PO BID@09,02/20/22 11/23/22 02/20/22 History tablet,extended release albuterol sulfate 90 mcg/actuation 2 puff inhalation Q6H PRN Wheezing 11/14/22 11/23/22 Unknown History aerosol inhaler potassium chloride 20 mEq/15 mL 20 meq PO DAILY 11/14/22 11/23/22 Unknown History oral liquid Physical Exam Vital Signs and Narrative: Vital Signs: Last Vital Signs Temp 99.9 F 11/23/22 08:00 Pulse 75 11/23/22 09:40 Resp 26 H 11/23/22 09:40 BP 121/70 11/23/22 09:40 Pulse Ox 97 11/23/22 09:40 O2 Del Method 11/23/22 09:40 O2 Flow Rate 3 11/23/22 09:40 FiO2 60 11/23/22 04:00 BMI result Body Mass Index 26.7 Constitutional: Somnolent, arousable but unable to follow commands or answer questions.. Mental Status: Not oriented to person, place, or time. Respiratory: Diffuse rhonchi throughout. Cardiovascular: S1, S2, tachycardic. Gastrointestinal: Abdomen soft, non-tender, mildly-distended. Umbilical hernia. Skin: No rashes or lesions noted. Musculoskeletal: No cyanosis or clubbing. Extremities: No edema. Results Labs 11/23/22 02:40 11/23/22 02:40 Labs: Laboratory Results - last 24 hr 11/23/22 11/23/22 11/23/22 02:40 02:40 02:40 MCV 97.2 MCH 31.6 MCHC 32.5 RDW 13.6 Plt Count 167 D MPV 11.1 Immature Gran % (Auto) 0.1 Neut % (Auto) 85.7 H Lymph % (Auto) 9.7 L [place] % (Auto) 3.6 Eos % (Auto) 0.5 Baso % (Auto) 0.4 Lymph # (Auto) 0.8 L [place] # (Auto) 0.3 Eos # (Auto) 0.0 Baso # (Auto) 0.0 Abs Immat Gran (auto) 0.01 Absolute Neuts (auto) 7.3 Absolute Nucleated RBC 0.000 Nucleated RBC % (auto) 0.0 PT 17.4 H INR 1.5 H APTT 31.4 VBG pH VBG pCO2 VBG pO2 VBG HCO3 VBG O2 Saturation VBG Base Excess Anion Gap 15 Estim Creat Clear Calc 53.6 Estimated GFR > 60 Random Glucose 207 H Lactic Acid Lactic Acid F/U @ 2Hr Lactic Acid F/U @ 4Hr Calcium 9.3 Magnesium 1.7 Total Bilirubin 1.5 H AST 13 ALT < 6 Alkaline Phosphatase 74 Troponin I High Sens B-Natriuretic Peptide Total Protein 7.0 Albumin 4.4 Urine Color Urine Appearance Urine pH Ur Specific [place] Urine Protein Urine Glucose (UA) Urine Ketones Urine Blood Urine Nitrite Ur Leukocyte Esterase Influenza Type A (PCR) Influenza Type B (PCR) RSV RNA Qual (PCR) SARS-CoV-2 RNA (RT-PCR) 11/23/22 11/23/22 11/23/22 02:40 02:40 02:40 MCV MCH MCHC RDW Plt Count MPV Immature Gran % (Auto) Neut % (Auto) Lymph % (Auto) [place] % (Auto) Eos % (Auto) Baso % (Auto) Lymph # (Auto) [place] # (Auto) Eos # (Auto) Baso # (Auto) Abs Immat Gran (auto) Absolute Neuts (auto) Absolute Nucleated RBC Nucleated RBC % (auto) PT INR APTT VBG pH VBG pCO2 VBG pO2 VBG HCO3 VBG O2 Saturation VBG Base Excess Anion Gap Estim Creat Clear Calc Estimated GFR Random Glucose Lactic Acid 2.2 H* Lactic Acid F/U @ 2Hr Lactic Acid F/U @ 4Hr Calcium Magnesium Total Bilirubin AST ALT Alkaline Phosphatase Troponin I High Sens 3.4 B-Natriuretic Peptide 138 H Total Protein Albumin Urine Color Urine Appearance Urine pH Ur Specific [place] Urine Protein Urine Glucose (UA) Urine Ketones Urine Blood Urine Nitrite Ur Leukocyte Esterase Influenza Type A (PCR) Influenza Type B (PCR) RSV RNA Qual (PCR) SARS-CoV-2 RNA (RT-PCR) 11/23/22 11/23/22 11/23/22 02:46 03:09 03:09 MCV MCH MCHC RDW Plt Count MPV Immature Gran % (Auto) Neut % (Auto) Lymph % (Auto) [place] % (Auto) Eos % (Auto) Baso % (Auto) Lymph # (Auto) [place] # (Auto) Eos # (Auto) Baso # (Auto) Abs Immat Gran (auto) Absolute Neuts (auto) Absolute Nucleated RBC Nucleated RBC % (auto) PT INR APTT VBG pH 7.29 L VBG pCO2 50 VBG pO2 33 VBG HCO3 24 VBG O2 Saturation 42.0 VBG Base Excess -2.3 Anion Gap Estim Creat Clear Calc Estimated GFR Random Glucose Lactic Acid Lactic Acid F/U @ 2Hr Lactic Acid F/U @ 4Hr Calcium Magnesium Total Bilirubin AST ALT Alkaline Phosphatase Troponin I High Sens B-Natriuretic Peptide Total Protein Albumin Urine Color Yellow Urine Appearance Clear Urine pH 5.5 Ur Specific [place] 1.025 Urine Protein Negative Urine Glucose (UA) Negative Urine Ketones Trace Urine Blood Negative Urine Nitrite Negative Ur Leukocyte Esterase Negative Influenza Type A (PCR) NEGATIVE Influenza Type B (PCR) NEGATIVE RSV RNA Qual (PCR) NEGATIVE SARS-CoV-2 RNA (RT-PCR) NEGATIVE 11/23/22 11/23/22 05:37 08:17 MCV MCH MCHC RDW Plt Count MPV Immature Gran % (Auto) Neut % (Auto) Lymph % (Auto) [place] % (Auto) Eos % (Auto) Baso % (Auto) Lymph # (Auto) [place] # (Auto) Eos # (Auto) Baso # (Auto) Abs Immat Gran (auto) Absolute Neuts (auto) Absolute Nucleated RBC Nucleated RBC % (auto) PT INR APTT VBG pH VBG pCO2 VBG pO2 VBG HCO3 VBG O2 Saturation VBG Base Excess Anion Gap Estim Creat Clear Calc Estimated GFR Random Glucose Lactic Acid Lactic Acid F/U @ 2Hr 2.6 H* Lactic Acid F/U @ 4Hr 2.3 H* Calcium Magnesium Total Bilirubin AST ALT Alkaline Phosphatase Troponin I High Sens B-Natriuretic Peptide Total Protein Albumin Urine Color Urine Appearance Urine pH Ur Specific [place] Urine Protein Urine Glucose (UA) Urine Ketones Urine Blood Urine Nitrite Ur Leukocyte Esterase Influenza Type A (PCR) Influenza Type B (PCR) RSV RNA Qual (PCR) SARS-CoV-2 RNA (RT-PCR) Imaging Radiologist's Impressions: Impressions Chest X-Ray 11/23/22 02:58 IMPRESSION: Focal opacity in the mid to upper right lung, suspicious for pneumonia in the proper clinical setting. Radiographic followup after treatment/resolution of symptoms is recommended. Abdomen/Pelvis CT 11/23/22 04:15 IMPRESSION: 1. Multifocal bilateral pulmonary consolidations, most extensive in the right upper lobe. Appearance is suspicious for multifocal pneumonia. 2. Much of the colon is distended with gas and stool, most prominently the sigmoid colon, without findings of volvulus. Mild perirectal stranding is noted, which could reflect early/mild stercoral colitis. 3. Dilated main pulmonary artery, suggesting pulmonary artery hypertension. Chest CT 11/23/22 04:15 IMPRESSION: 1. Multifocal bilateral pulmonary consolidations, most extensive in the right upper lobe. Appearance is suspicious for multifocal pneumonia. 2. Much of the colon is distended with gas and stool, most prominently the sigmoid colon, without findings of volvulus. Mild perirectal stranding is noted, which could reflect early/mild stercoral colitis. 3. Dilated main pulmonary artery, suggesting pulmonary artery hypertension. Head CT 11/23/22 04:15 IMPRESSION: No acute intracranial pathology. Assessment and Plan (1) Acute hypoxemic respiratory failure: Status: Acute (2) Multifocal pneumonia: Status: Acute (3) Encephalopathy: Status: Acute Plan Pt is a 87-year-old male with a PMH significant for?Parkinson's, COPD, paroxysmal AFib on Eliquis, sick sinus syndrome s/p pacemaker, HTN, and HLD who presents to the ED from SNF with increased SOB and decreased mentation. Pt found in ED to be in septic shock and received sepsis bundle. Pt will be admitted to the hospital for treatment of acute hypoxic respiratory failure and metabolic encephalopathy in setting of multifocal pneumonia. Acute hypoxic respiratory failure in the setting of multifocal pneumonia Patient desatting to 70s prior to arrival, placed on CPAP upon arrival, now on [address] with evidence of multifocal pneumonia Patient received Zosyn in the ED Unasyn 3g q6hr Titrate O2>90, wean as tolerated Check VBG Acute metabolic encephalopathy Likely secondary to multifocal pneumonia Patient has history of metabolic encephalopathy in the setting of infection during past couple years Patient denies treated with IVF, IV abx Monitor mentation Severe sepsis Patient febrile, tachycardic, tachypneic, hypotensive, with lactic acidosis Pt received septic bundle in ED: IVF 30 mls/kg, IV abx, vasopressors Acute lactic acidosis Pt's lactic acid 2.2 with repeats of 2.6 and 2.3 Pt received septic bundle in ED: IVF 30 mls/kg, IV abx, vasopressors Repeat lactic acid Stercoral colitis Laxatives, enema COPD Continue home inhaler DuoNebs AFib Hold home PO meds pending swallow eval, metoprolol, Eliquis Lovenox 1mg/kg q12 until can restart Eliquis Parkinson's Hold p.o. carbidopa levodopa pending swallow eval History of Diabetes Patient currently not on medication Random glucose 207 SSI Full Code Attending:?Dr. Manzo DVT Prophylaxis: Lovenox Pt will require a hospitalization of at least two nights for treatment of?acute hypoxic respiratory failure and metabolic encephalopathy in setting of multifoc al pneumonia with IV abx. Time Spent With Patient Time: Total time managing care of this patient today ____ minutes. Quality Stroke Does the patient have a stroke diagnosis?: No VTE Prior VTE?: No VTE Risk Level:: Medical - moderate - high VTE Device Contraindication: Treatment Not Indicated VTE Drug Contraindication: N/A - Med Ordered
--- NOTE | 2022-11-23 11:44 | PC.NURSE ---
patient lethargic. arouses to touch. weems draining yellow urine. on 3L oxygen via oxymask. lungs have rhonci.
--- NOTE | 2022-11-23 14:04 | PC.RT ---
RT attempted multiple times to obtain ABG without success. Pt not cooperative, and became threatening. Pt stable at this time on 2L oxymask [id number]
[2022-11-23] MEDS: Enoxaparin Sodium 80 MG/0.8 ML SYRINGE 70 MG SUBCUT (14:27)
[2022-11-23] MEDS: Ampicillin Sodium/Sulbactam Na 3 GM in 0.9 % Sodium Chloride 100 ML IV ×2 (14:27→23:15)
[2022-11-23] MEDS: Sodium Phosphate,Mono-Dibasic 133 ML ENEMA PR (14:27)
[2022-11-23 15:55] LABS: VBG Base Excess -4.7 mmol/L; VBG HCO3 20 mmol/L (22-26); VBG pCO2 36 mmHg; VBG pH 7.35 (7.32-7.43); VBG pO2 60 mmHg
--- NOTE | 2022-11-23 16:30 | MHC.SL.SWA ---
Speech Pathologist Impression: Oropharyngeal dysphagia, risk of aspiration Risk of Aspiration Due to: Neurological Condition History of Pneumonia Weak Cough Dysphasia Diet Status: No change at this time; Recommend continue NPO status Liquid Consistency and Strategies for Safe Swallow: Liquid Intake Recommendation: NPO Solid Food Consistency: Dietary Recommendations: NPO Additional Modifications to Solid Foods: Pt seen for bedside dysphagia evaluation in ED this afternoon. Pt displayed overt s/s of aspiration with ice chips, trace amount of puree. Pt w/ wet vocal quality. Volitional cough was weak, nonproductive. Recommend continue NPO status at this time. Ensure daily oral care, elevate head of bed at least 30 degrees. [employer] notified MD, RN, RD. Plan to re-evaluate tomorrow. Oral Medication Intake: NPO Please contact the pharmacy regarding appropriate crushable or liquid drug formulations that are available whenever modified delivery is recommended. Supervision While Eating and Drinking for Safe Swallow: PO with [employer] Recommendation for Speech: Inpatient Speech Therapy Payloader Machine Operator Clinican/Clinical Fellow: No Supervisory Statement: I have reviewed and agree with the student/clinical fellow's documentation: N/A Speech Language Pathologist: Carley Anderson M.A., [facility]-[employer]
[2022-11-23 16:52] LABS: Venous Blood Gas Refer to POC result
--- NOTE | 2022-11-23 18:07 | PC.NURSE ---
patient alert, asking for food. explained to him that he is NPO. oral care provided
--- NOTE | 2022-11-23 19:43 | PC.NURSE ---
alert. redirected from pulling on weems. initially seemed a little confused and stated that he was the major of [place]. clearing though and then alert, oriented to person, place. states he has no pain unless his parkinsonian tremor begins. skin is warm, flush, irregular radial pulse. a flutter on monitor. awaits placement on floor.
--- NOTE | 2022-11-23 21:49 | PC.NURSE ---
rn to rn with Mark.
[2022-11-23 22:18] LABS: Glucose, Whole Blood 116 mg/dL (60-115)
[2022-11-23] MEDS: 0.9 % Sodium Chloride Flush 3 ML SYRINGE IVFLUSH (23:16)
[2022-11-23] MEDS: Ketorolac Tromethamine 15 MG/ML VIAL IVPUSH (23:49)
[2022-11-23] MEDS: Lidocaine 4 % Patch ADH..PATCH 1 PATCH TRANSDERMA (23:49)
[2022-11-24] VITALS (12 sets, daily range): BP systolic 134–152; BP diastolic 70–90; PULSE 62–110; RESP 14–20; TEMP 36.2–37.1; O2SAT 95–100
[2022-11-24] MEDS: Ampicillin Sodium/Sulbactam Na 3 GM in 0.9 % Sodium Chloride 100 ML IV ×4 (03:00→20:36)
[2022-11-24 07:31] LABS: Hematocrit 32.8 % (42.0-52.0); Hemoglobin 10.7 g/dl (14.0-18.0); Mean Corpuscular HGB Conc 32.6 g/dl (31.0-36.0); Mean Corpuscular Hemoglobin 31.4 pg (27.0-33.0); Mean Corpuscular Volume 96.2 fL (80.0-98.0); Mean Platelet Volume 11.6 fL (9.4-12.4); Platelet Count 159 X10*3/uL (160-400); Red Blood Count 3.41 X10*6/uL (4.60-5.80); Red Cell Distribution Width 14.1 % (11.0-16.0); White Blood Count 9.8 X10*3/uL (4.8-10.8)
[2022-11-24 07:42] LABS: Glucose, Whole Blood 105 mg/dL (60-115)
[2022-11-24 08:01] LABS: Blood Urea Nitrogen 20 mg/dL (9-16); Calcium 8.4 mg/dL (8.4-10.2); Estimated Glomerular Filt Rate > 60; Glucose Random 105 mg/dL (60-115)
[2022-11-24 08:16] LABS: Anion Gap 14 (12-20); Carbon Dioxide 22 mmol/L (22-29); Chloride 115 mmol/L (96-108); Sodium 148 mmol/L (135-145)
[2022-11-24] MEDS: 0.9 % Sodium Chloride Flush 3 ML SYRINGE IVFLUSH ×2 (08:43→23:13)
--- NOTE | 2022-11-24 09:17 | MHC.CM.PN ---
IMM DELIVERED TO BEDSIDE, EXPLAINED TO DAUGHTER/HCP , WHITE COPY TO BEDSIDE, YELLOW COPY TO CHART. PT LIVES AT [facility]. USES W/C FOR MAJOR MOBILITY, WALKER AT TIMES. NO COVID VAX +HCP RETURN REFERRAL TO SENT. DP: RESUME LTC AT [facility] , BLS TRANSPORT
[2022-11-24] MEDS: Carbidopa/Levodopa 25/100 TABLET 2 TAB PO ×5 (09:52→20:24)
[2022-11-24] MEDS: Gabapentin 100 MG CAPSULE 200 MG PO ×2 (09:52→20:23)
[2022-11-24] MEDS: Dextrose 5 % and 0.2 % NaCl 1,000 ML 100 ML IVCONT ×2 (09:53→20:22)
[2022-11-24] MEDS: Metoprolol Succinate ER 50 MG TAB.ER.24H PO (09:53)
[2022-11-24 11:29] LABS: Glucose, Whole Blood 143 mg/dL (60-115)
[2022-11-24] MEDS: Docusate Sodium 100 MG CAPSULE PO ×2 (12:19→20:24)
[2022-11-24] MEDS: ARIPiprazole 10 MG TABLET PO (12:20)
[2022-11-24] MEDS: Potassium Chloride Packet 20 MEQ PACKET 40 MEQ PO ×2 (12:20→15:13)
[2022-11-24 14:30] LABS: INTERNATIONAL NORM RATIO 1.5 (0.9-1.1); Prothrombin Time 17.7 SEC (10.0-13.1)
--- NOTE | 2022-11-24 15:04 | HO.PM.IMPN ---
Subjective Subjective Date of Service: 11/24/22 Interval History: Seen and evaluated this morning More alert and interactive Denies any fever, chills or pain Able to take his food No reported any overnight events Review of Systems Review of Systems: Yes all other systems are reviewed and are negative Physical Exam Vital Signs: Vital Signs: Last Vital Signs Temp 97.9 F 11/24/22 11:37 Pulse 110 H 11/24/22 14:19 Resp 16 11/24/22 14:19 BP 134/78 11/24/22 11:37 Pulse Ox 100 11/24/22 11:37 O2 Del Method 11/24/22 11:37 O2 Flow Rate 2 11/23/22 23:44 FiO2 60 11/23/22 04:00 BMI result Body Mass Index 26.7 Const: Other: Constitutional : Awake, interactive, not in distress Neck : Normal inspection, Supple Cardiovascular : RRR, no JVP, no lower extremity edema Respiratory : good bilateral air entry, basal bilateral crackles, no wheezes or rhonchi Gastrointestinal: soft, lax, Normal bowel sounds, Non tender Skin : Warm, Dry Neurological : Alert & oriented to self, No focal deficit Objective Data Active Medications Albuterol Sulfate (Albuterol Sulfate 90 Mcg 8 Gm Inhaler) 2 puff INHALE Q6H PRN PRN Reason: Wheezing Aripiprazole (Aripiprazole 10 Mg Tablet) 10 mg PO DAILY [facility] Last Admin: 11/24/22 12:20 Dose: 10 mg Documented By: SOTO Carbidopa/Levodopa (Carbidopa/Levodopa 25/100 Tablet) 2 tab PO 6XD [facility] Last Admin: 11/24/22 12:19 Dose: 2 tab Documented By: SOTO Carbidopa/Levodopa (Carbidopa/Levodopa Cr 50/200 Tablet.Er) 1 tab PO BID@0900,2100 [facility] Last Admin: 11/24/22 14:28 Dose: Not Given Documented By: SOTO Non-Admin Reason: pharmacy called to fill order Albuterol Sulfate 2.5 mg/ (Ipratropium [place] 0.5 mg) 0 mg INHALE RQ6H WHILE AWAKE [facility] Last Admin: 11/24/22 14:16 Dose: 2.5 each Documented By: TALIA Dextrose (Dextrose 50 % 25 Gm/50 Ml Syringe) 25 gm IVPUSH Q15M PRN; Protocol PRN Reason: per Hypoglycemia Standing Ord. Docusate Sodium (Docusate Sodium 100 Mg Capsule) 100 mg PO BID [facility] Last Admin: 11/24/22 12:19 Dose: 100 mg Documented By: SOTO Enoxaparin Sodium (Enoxaparin Sodium 80 Mg/0.8 Ml Syringe) 70 mg 1 mg/kg (70 mg) SUBCUT Q12H [facility] Last Admin: 11/24/22 01:40 Dose: Not Given Documented By: DRAKE Non-Admin Reason: Patient Refused Gabapentin (Gabapentin 100 Mg Capsule) 200 mg PO BID [facility] Last Admin: 11/24/22 09:52 Dose: 200 mg Documented By: SOTO Glucose (Glucose Gel 15 Gm Gel..Gram.) 15 gm PO Q15M PRN; Protocol PRN Reason: per Hypoglycemia Standing Ord. Ampicillin Sodium/Sulbactam (Sodium 3 gm/ Sodium Chloride) 100 mls @ 200 mls/hr IV Q6H [facility] Last Infusion: 11/24/22 09:59 Dose: 0 mls/hr Documented By: SOTO Dextrose/Sodium Chloride (D51/4ns) 1,000 mls @ 100 mls/hr IVCONT .Q10H [facility] Last Admin: 11/24/22 09:53 Dose: 100 mls/hr Documented By: SOTO Insulin Human Lispro (Insulin Lispro 100 Unit/Ml 3 Ml Vial) 0 unit SUBCUT QIDACHS [facility]; Protocol Last Admin: 11/24/22 11:33 Dose: Not Given Documented By: SOTO Non-Admin Reason: No Insulin Coverage Metoprolol Succinate (Metoprolol Succinate Er 50 Mg Tab.Er.24h) 50 mg PO DAILY [facility]; Protocol Last Admin: 11/24/22 09:53 Dose: 50 mg Documented By: SOTO Ondansetron HCl (Ondansetron Hcl 4 Mg/2 Ml Vial) 4 mg IVPUSH Q8H PRN PRN Reason: Nausea and Vomiting Pharmacy Consult (Consult Rx Perform Med Rec) 1 each MISCELLANE ONCE PRN PRN Reason: Consult order Sodium Chloride (0.9 % Sodium Chloride Flush 3 Ml Syringe) 3 ml IVFLUSH QSHIFT [facility] Last Admin: 11/24/22 08:43 Dose: 3 ml Documented By: SOTO Labs 11/24/22 06:51 11/24/22 06:51 Labs: Laboratory Results - last 24 hr 11/23/22 11/23/22 11/24/22 15:36 22:15 06:51 MCV 96.2 MCH 31.4 MCHC 32.6 RDW 14.1 Plt Count 159 L MPV 11.6 Absolute Nucleated RBC 0.000 Nucleated RBC % (auto) 0.0 PT INR VBG pH 7.35 VBG pCO2 36 VBG pO2 60 VBG HCO3 20 L VBG O2 Saturation 87.0 VBG Base Excess -4.7 Anion Gap Estim Creat Clear Calc Estimated GFR POC Glucose 116 H Random Glucose Calcium 11/24/22 11/24/22 11/24/22 06:51 07:38 11:21 MCV MCH MCHC RDW Plt Count MPV Absolute Nucleated RBC Nucleated RBC % (auto) PT INR VBG pH VBG pCO2 VBG pO2 VBG HCO3 VBG O2 Saturation VBG Base Excess Anion Gap 14 Estim Creat Clear Calc 65.0 Estimated GFR > 60 POC Glucose 105 143 H Random Glucose 105 Calcium 8.4 D 11/24/22 13:46 MCV MCH MCHC RDW Plt Count MPV Absolute Nucleated RBC Nucleated RBC % (auto) PT 17.7 H INR 1.5 H VBG pH VBG pCO2 VBG pO2 VBG HCO3 VBG O2 Saturation VBG Base Excess Anion Gap Estim Creat Clear Calc Estimated GFR POC Glucose Random Glucose Calcium Microbiology Microbiology Results: Microbiology 11/23/22 02:40 Blood Culture - Preliminary Blood - Venous No growth after 24 hours. 11/23/22 02:40 Blood Culture - Preliminary Blood - Venous No growth after 24 hours. Assessment and Plan (1) Acute hypoxemic respiratory failure: Status: Acute (2) Multifocal pneumonia: Status: Acute (3) Encephalopathy: Status: Acute (4) Severe sepsis: Status: Acute Plan Pt is a 87-year-old male with a PMH significant for?Parkinson's, COPD, paroxysmal AFib on Eliquis, sick sinus syndrome s/p pacemaker, HTN, and HLD who presents to the ED from SNF with increased SOB and decreased mentation. Pt found in ED to be in septic shock and received sepsis bundle. Pt will be admitted to the hospital for treatment of acute hypoxic respiratory failure and metabolic encephalopathy in setting of multifocal pneumonia. Severe sepsis & Acute hypoxic respiratory failure in the setting of multifocal pneumonia CT with evidence of multifocal pneumonia Pending final cultures Continue Unasyn 3g q6hr Titrate O2>90, wean as tolerated Repeated VBG acceptable Acute metabolic encephalopathy Likely secondary to multifocal pneumonia, improving Avoid medications that might affect his mentation Monitor mentation, recurrent reorientation Acute lactic acidosis resolved, received septic bundle in ED: IVF 30 mls/kg, IV abx, vasopressors Stercoral colitis Laxatives, enema COPD Continue home inhaler DuoNebs AFib Hold home PO meds pending swallow eval, metoprolol, Eliquis Lovenox 1mg/kg q12 until can restart Eliquis Parkinson's Hold p.o. carbidopa levodopa pending swallow eval History of Diabetes Patient currently not on medication Random glucose 207 SSI Full Code DVT Prophylaxis: Lovenox Pt will require overnight hospital stay for treatment of?acute hypoxic respiratory failure and metabolic encephalopathy in setting of multifocal pneumonia with IV abx. Time Spent With Patient Time: Total time managing care of this patient today ____ minutes. Quality Stroke Does the patient have a stroke diagnosis?: No VTE Prior VTE?: No VTE Risk Level:: Medical - moderate - high VTE Device Contraindication: Treatment Not Indicated VTE Drug Contraindication: N/A - Med Ordered
[2022-11-24 16:31] LABS: Glucose, Whole Blood 161 mg/dL (60-115)
--- NOTE | 2022-11-24 17:05 | PC.NURSE ---
pt refused evening insulin dose, stating that insulin doesn't work. Attempted education to no avail
[2022-11-24] MEDS: Carbidopa/Levodopa CR 50/200 TABLET.ER 1 TAB PO (20:24)
[2022-11-24 20:43] LABS: Glucose, Whole Blood 168 mg/dL (60-115)
[2022-11-25] VITALS (9 sets, daily range): BP systolic 127–161; BP diastolic 72–84; PULSE 66–82; RESP 18–22; TEMP 36.1–37.7; O2SAT 92–100
[2022-11-25] MEDS: Ampicillin Sodium/Sulbactam Na 3 GM in 0.9 % Sodium Chloride 100 ML IV ×4 (03:11→21:34)
[2022-11-25] MEDS: Dextrose 5 % and 0.2 % NaCl 1,000 ML 100 ML IVCONT (06:05)
[2022-11-25] MEDS: Carbidopa/Levodopa 25/100 TABLET 2 TAB PO ×5 (06:09→19:08)
[2022-11-25 08:21] LABS: Glucose, Whole Blood 146 mg/dL (60-115)
[2022-11-25] MEDS: Carbidopa/Levodopa CR 50/200 TABLET.ER 1 TAB PO (08:40)
[2022-11-25] MEDS: ARIPiprazole 10 MG TABLET PO (08:41)
[2022-11-25] MEDS: Metoprolol Succinate ER 50 MG TAB.ER.24H PO (08:42)
[2022-11-25] MEDS: Gabapentin 100 MG CAPSULE 200 MG PO (08:42)
[2022-11-25] MEDS: 0.9 % Sodium Chloride Flush 3 ML SYRINGE IVFLUSH (08:45)
[2022-11-25 11:32] LABS: Glucose, Whole Blood 163 mg/dL (60-115)
--- NOTE | 2022-11-25 11:32 | MHC.SL.SWA ---
Speech Pathologist Impression:Oropharynngeal dysphagia Risk of Aspiration Due to: Neurological Condition History of Pneumonia Weak Cough Dysphasia Diet Status: No change at this time Liquid Consistency and Strategies for Safe Swallow: Liquid Intake Recommendation: [place] Thick Liquid Intake Strategies: Small Sips No Straws Solid Food Consistency: Dietary Recommendations: Grnd/Mech Altered (NDD2) Oral Medication Intake: Crushed with Puree Please contact the pharmacy regarding appropriate crushable or liquid drug formulations that are available whenever modified delivery is recommended. Compensatory Strategies and Precautions to be Taken for Safe Swallow: Sitting Upright (90 deg) No Straw Liquids from Cup Small Bites and Sips Rate of Ingestion Change Avoid Specific Foods Supervision While Eating and Drinking for Safe Swallow: Total Supervision (1:1) Foods to Avoid: Mixed consistencies (i.e. fruit cups, cereal w/ milk) Swallowing Recommended Treatments: Compens. Strategy Educat. Recommendation for Speech: Speech therapy for dysphagia during hospitalization and at next level of care Barrel Driller Clinican/Clinical Fellow: No Supervisory Statement: I have reviewed and agree with the student/clinical fellow's documentation: N/A Speech Language Pathologist: Carley Anderson M.A., CCC-AD OPERATIONS SPECIALIST
--- NOTE | 2022-11-25 15:06 | PC.RT ---
Updraft given per order. found pt. with rhonchorous breath sounds. no improvement after treamtent. NT suctioned for large amount of thick,white substance. pt. states he ate yogurt for lunch. SpO2 and breath sounds improved after NT suctioning.
[2022-11-25 16:34] LABS: Glucose, Whole Blood 113 mg/dL (60-115)
[2022-11-25 20:55] LABS: Glucose, Whole Blood 129 mg/dL (60-115)
[2022-11-26] VITALS (9 sets, daily range): BP systolic 145–167; BP diastolic 71–86; PULSE 60–86; RESP 18–20; TEMP 36.9–37.4; O2SAT 91–94
[2022-11-26] MEDS: 0.9 % Sodium Chloride Flush 3 ML SYRINGE IVFLUSH ×3 (00:30→10:33)
[2022-11-26] MEDS: Ampicillin Sodium/Sulbactam Na 3 GM in 0.9 % Sodium Chloride 100 ML IV ×2 (03:47→22:21)
[2022-11-26] MEDS: Carbidopa/Levodopa 25/100 TABLET 2 TAB PO ×3 (06:14→17:22)
[2022-11-26 06:35] LABS: Anion Gap 12 (12-20); Blood Urea Nitrogen 10 mg/dL (9-16); Calcium 8.3 mg/dL (8.4-10.2); Carbon Dioxide 25 mmol/L (22-29); Chloride 112 mmol/L (96-108); Creatinine Clr Calc Pharmacy 69.9; Estimated Glomerular Filt Rate > 60; Glucose Random 110 mg/dL (60-115); Potassium 2.7 mmol/L (3.3-5.1); Sodium 146 mmol/L (135-145)
[2022-11-26 07:51] LABS: Glucose, Whole Blood 125 mg/dL (60-115)
[2022-11-26] MEDS: Potassium Chloride/H20 10 MEQ/100 ML PIGGYBACK 100 MEQ IV ×4 (09:30→22:36)
[2022-11-26 10:55] LABS: Glucose, Whole Blood 127 mg/dL (60-115)
--- NOTE | 2022-11-26 14:22 | P.PNIM_ITS ---
Subjective Subjective Date of Service: 11/26/22 Interval History: Seen and evaluated this morning More alert and interactive but sodium going up low potassium of 2.7 this morning Able to eat food with assistance No reported any overnight events Review of Systems Review of Systems: Yes all other systems are reviewed and are negative Physical Exam Vital Signs: Vital Signs: Last Vital Signs Temp 98.4 F 11/26/22 11:18 Pulse 66 11/26/22 11:18 Resp 20 11/26/22 11:18 BP 159/86 H 11/26/22 11:18 Pulse Ox 94 11/26/22 11:18 O2 Del Method 11/26/22 11:18 O2 Flow Rate 2 11/25/22 08:00 FiO2 60 11/23/22 04:00 BMI result Body Mass Index 26.7 Const: Other: Constitutional : Awake, interactive, not in distress Neck : Normal inspection, Supple Cardiovascular : RRR, no JVP, no lower extremity edema Respiratory : good bilateral air entry, basal bilateral crackles, no wheezes or rhonchi Gastrointestinal: soft, lax, Normal bowel sounds, Non tender Skin : Warm, Dry Neurological : Alert & oriented to self, No focal deficit Objective Data Active Medications Albuterol Sulfate (Albuterol Sulfate 90 Mcg 8 Gm Inhaler) 2 puff INHALE Q6H PRN PRN Reason: Wheezing Aripiprazole (Aripiprazole 10 Mg Tablet) 10 mg PO DAILY [facility] Last Admin: 11/26/22 10:05 Dose: Not Given Documented By: ALFREDO Non-Admin Reason: Patient Refused Carbidopa/Levodopa (Carbidopa/Levodopa 25/100 Tablet) 2 tab PO 6XD [facility] Last Admin: 11/26/22 10:06 Dose: Not Given Documented By: ALFREDO Non-Admin Reason: Patient Refused Carbidopa/Levodopa (Carbidopa/Levodopa Cr 50/200 Tablet.Er) 1 tab PO BID@0900,2100 [facility] Last Admin: 11/26/22 10:06 Dose: Not Given Documented By: ALFREDO Non-Admin Reason: Patient Refused Albuterol Sulfate 2.5 mg/ (Ipratropium [place] 0.5 mg) 0 mg INHALE RQ6H WHILE AWAKE [facility] Last Admin: 11/26/22 07:43 Dose: 2.5 each Documented By: ULRIC Dextrose (Dextrose 50 % 25 Gm/50 Ml Syringe) 25 gm IVPUSH Q15M PRN; Protocol PRN Reason: per Hypoglycemia Standing Ord. Docusate Sodium (Docusate Sodium 100 Mg Capsule) 100 mg PO BID [facility] Last Admin: 11/26/22 10:06 Dose: Not Given Documented By: ALFREDO Non-Admin Reason: Patient Refused Enoxaparin Sodium (Enoxaparin Sodium 80 Mg/0.8 Ml Syringe) 70 mg 1 mg/kg (70 mg) SUBCUT Q12H [facility] Last Admin: 11/26/22 02:53 Dose: Not Given Documented By: KAYLYN Non-Admin Reason: Patient Refused Gabapentin (Gabapentin 100 Mg Capsule) 200 mg PO BID [facility] Last Admin: 11/26/22 10:06 Dose: Not Given Documented By: ALFREDO Non-Admin Reason: Patient Refused Glucose (Glucose Gel 15 Gm Gel..Gram.) 15 gm PO Q15M PRN; Protocol PRN Reason: per Hypoglycemia Standing Ord. Ampicillin Sodium/Sulbactam (Sodium 3 gm/ Sodium Chloride) 100 mls @ 200 mls/hr IV Q6H [facility] Last Infusion: 11/26/22 04:59 Dose: 200 mls/hr Documented By: KAYLYN Dextrose (D5w) 1,000 mls @ 125 mls/hr IVCONT .Q8H [facility] Stop: 11/26/22 20:00 Last Admin: 11/26/22 14:11 Dose: Not Given Documented By: ALFREDO Non-Admin Reason: Medication Discontinued Insulin Human Lispro (Insulin Lispro 100 Unit/Ml 3 Ml Vial) 0 unit SUBCUT QIDACHS [facility]; Protocol Last Admin: 11/26/22 14:12 Dose: Not Given Documented By: ALFREDO Non-Admin Reason: No Insulin Coverage Metoprolol Succinate (Metoprolol Succinate Er 50 Mg Tab.Er.24h) 50 mg PO DAILY [facility]; Protocol Last Admin: 11/26/22 10:06 Dose: Not Given Documented By: ALFREDO Non-Admin Reason: Patient Refused Ondansetron HCl (Ondansetron Hcl 4 Mg/2 Ml Vial) 4 mg IVPUSH Q8H PRN PRN Reason: Nausea and Vomiting Pharmacy Consult (Consult Rx Perform Med Rec) 1 each MISCELLANE ONCE PRN PRN Reason: Consult order Sodium Chloride (0.9 % Sodium Chloride Flush 3 Ml Syringe) 3 ml IVFLUSH QSHIFT [facility] Last Admin: 11/26/22 10:33 Dose: 3 ml Documented By: ALFREDO Labs 11/24/22 06:51 11/26/22 05:44 Labs: Laboratory Results - last 24 hr 11/25/22 11/25/22 11/26/22 16:20 20:14 05:44 Anion Gap 12 Estim Creat Clear Calc 69.9 Estimated GFR > 60 POC Glucose 113 129 H Random Glucose 110 Calcium 8.3 L 11/26/22 11/26/22 07:45 10:48 Anion Gap Estim Creat Clear Calc Estimated GFR POC Glucose 125 H 127 H Random Glucose Calcium Assessment and Plan (1) Severe sepsis: Status: Acute (2) Acute hypoxemic respiratory failure: Status: Acute (3) Multifocal pneumonia: Status: Acute Plan Pt is a 87-year-old male with a PMH significant for?Parkinson's, COPD, paroxysmal AFib on Eliquis, sick sinus syndrome s/p pacemaker, HTN, and HLD who presents to the ED from SNF with increased SOB and decreased mentation. Pt found in ED to be in septic shock and received sepsis bundle. Pt will be admitted to the hospital for treatment of acute hypoxic respiratory failure and metabolic encephalopathy in setting of multifocal pneumonia. Severe sepsis & Acute hypoxic respiratory failure in the setting of multifocal pneumonia CT with evidence of multifocal pneumonia negative blood cultures Continue Unasyn 3g q6hr Titrate O2>90, wean as tolerated Repeated VBG acceptable Acute metabolic encephalopathy Likely secondary to multifocal pneumonia, improving Avoid medications that might affect his mentation Monitor mentation, recurrent reorientation Hypernatremia & Hypokalemia D5W, potassium supplement PO & IV follow BMP Acute lactic acidosis resolved, received septic bundle in ED: IVF 30 mls/kg, IV abx, vasopressors Stercoral colitis Laxatives, enema COPD Continue home inhaler DuoNebs AFib Hold home PO meds pending swallow eval, metoprolol, Eliquis Lovenox 1mg/kg q12 until can restart Eliquis Parkinson's Hold p.o. carbidopa levodopa pending swallow eval History of Diabetes Patient currently not on medication SSI Full Code DVT Prophylaxis: Lovenox Pt will require overnight hospital stay for treatment of?acute hypoxic respiratory failure and metabolic encephalopathy in setting of multifocal p neumonia with IV abx. Time Spent With Patient Time: Total time managing care of this patient today ____ minutes. Quality Stroke Does the patient have a stroke diagnosis?: No VTE Prior VTE?: No VTE Risk Level:: Medical - moderate - high VTE Device Contraindication: Treatment Not Indicated VTE Drug Contraindication: N/A - Med Ordered
[2022-11-26] MEDS: Enoxaparin Sodium 80 MG/0.8 ML SYRINGE 70 MG SUBCUT (14:51)
[2022-11-26 15:18] LABS: Anion Gap 11 (12-20); Blood Urea Nitrogen 10 mg/dL (9-16); Calcium 8.4 mg/dL (8.4-10.2); Carbon Dioxide 26 mmol/L (22-29); Chloride 111 mmol/L (96-108); Creatinine Clr Calc Pharmacy 69.9; Estimated Glomerular Filt Rate > 60; Glucose Random 129 mg/dL (60-115); Potassium 2.7 mmol/L (3.3-5.1); Sodium 145 mmol/L (135-145)
[2022-11-26 15:51] LABS: Glucose, Whole Blood 137 mg/dL (60-115)
[2022-11-26] MEDS: Potassium Chloride Packet 20 MEQ PACKET 40 MEQ PO (17:22)
[2022-11-26 20:23] LABS: Glucose, Whole Blood 112 mg/dL (60-115)
[2022-11-27] MEDS: Potassium Chloride/H20 10 MEQ/100 ML PIGGYBACK 100 MEQ IV ×2 (01:00→08:44)
[2022-11-27] MEDS: Ampicillin Sodium/Sulbactam Na 3 GM in 0.9 % Sodium Chloride 100 ML IV ×2 (02:45→10:51)
[2022-11-27 04:00] VITALS: BP 150/74; PULSE 60; RESP 20; TEMP 36.6; O2SAT 94
[2022-11-27 07:35] LABS: Glucose, Whole Blood 107 mg/dL (60-115)
[2022-11-27 07:40] VITALS: BP 158/85; PULSE 67; RESP 20; TEMP 37.1; O2SAT 92
[2022-11-27 07:40] LABS: Anion Gap 12 (12-20); Blood Urea Nitrogen 10 mg/dL (9-16); Calcium 8.4 mg/dL (8.4-10.2); Carbon Dioxide 26 mmol/L (22-29); Chloride 110 mmol/L (96-108); Creatinine Clr Calc Pharmacy 73.2; Estimated Glomerular Filt Rate > 60; Glucose Random 107 mg/dL (60-115); Sodium 145 mmol/L (135-145)
[2022-11-27] MEDS: Potassium Chloride Packet 20 MEQ PACKET 40 MEQ PO (08:44)
[2022-11-27] MEDS: 0.9 % Sodium Chloride Flush 3 ML SYRINGE IVFLUSH (08:52)
[2022-11-27] MEDS: Docusate Sodium 100 MG CAPSULE PO (08:52)
[2022-11-27] MEDS: Carbidopa/Levodopa CR 50/200 TABLET.ER 1 TAB PO (08:52)
[2022-11-27] MEDS: Carbidopa/Levodopa 25/100 TABLET 2 TAB PO ×2 (08:55→11:47)
[2022-11-27] MEDS: ARIPiprazole 10 MG TABLET PO (09:01)
[2022-11-27] MEDS: Metoprolol Succinate ER 50 MG TAB.ER.24H PO (09:01)
[2022-11-27] MEDS: Gabapentin 100 MG CAPSULE 200 MG PO (09:03)
[2022-11-27 10:56] LABS: Glucose, Whole Blood 144 mg/dL (60-115)
[2022-11-27 11:11] VITALS: BP 143/82; PULSE 59; RESP 20; TEMP 36.4; O2SAT 92
--- NOTE | 2022-11-27 11:11 | MHC.CM.PN ---
Per MD, Patient is medically cleared to return to LTC. Patient will return to LTC @ [facility] today at 2PM, via [facility]. CM called HCP/Lyndsey @ [phone] and the Gentleman who answered on behalf of Lyndsey is agreeable to inform Lyndsey of today's dc plan. IMM addressed.
--- NOTE | 2022-11-27 12:12 | P.DS_ITS ---
DS: Providers Provider Date of Service: 11/27/22 Date of admission: 11/23/22 13:35 Primary care physician: Nita Saez MD DS: Diagnosis Discharge Diagnosis (1) Severe sepsis: Status: Acute (2) Acute hypoxemic respiratory failure: Status: Acute (3) Multifocal pneumonia: Status: Acute DS: Summary Hospital Course Hospital Course: Admission note HPI Pt is a 87-year-old male with a PMH significant for?Parkinson's, COPD, paroxysmal AFib on Eliquis, sick sinus syndrome s/p pacemaker, HTN, and HLD who presents to the ED from SNF with increased SOB and decreased mentation.? Patient unable to provide HPI; HPI obtained from chart review , family, and facility staff. Pt was apparently at baseline yesterday evening, but found during the night by staff to be satting in the 70s. Supplemental O2 at the facility only brought him up to the low 80s.? In the ED patient was found to be febrile at 102.2, tachypneic up to 31, and tachycardic up to 113.? Patient was placed on CP AP and oxygenating at 100%.? In the morning patient's blood pressure dropped to 84/47 and then 81/46. Pt given 30 ml/kg crystalloids for septic shock. Patient was then started on Levophed drip. Patient seen and evaluated by sub master, with patient's systolic pressure in the 120s after receiving 3 L fluid, lethargic but arousable, on 4-5 L of supplemental O2; deemed stable enough for hospital floor and not requiring ICU level of care at this time.? Patient's healthcare proxy says that patient is normally alert and oriented x3, and has had a recent history for the past couple of years of septic shock whenever he is finding often infection.? Healthcare proxy also notes patient has a history of sigmoid volvulus and receives regular enemas. In the ED labs were significant for no leukocytosis, lactic acid of 2.2 with repeat of 2.6 and 2.3, glucose of 207, BNP slightly elevated at 138. VBG showed pH of 7.29.? UA negative for UTI. CXR showed focal opacity in the mid to upper right lung suspicious for pneumonia. CT?chest showed multifocal bilateral pulmonary consolidations suspicious for multifocal pneumonia.? CT of abdomen and pelvis showed distended colon with gas and stool most prominently in the sigmoid colon without findings of volvulus, suggestive of early/mild stercoral colitis, and dilated main pulmonary artery suggestive of artery hypertension. CT of head showed no acute intracranial pathology.? Repeat EKG demonstrated sinus rhythm with first-degree AV block and no evidence ST elevations or depressions. Pt was treated with Pt will be admitted to the hospital for treatment of acute respiratory failure and metabolic encephalopathy in the setting of multifocal pneumonia. Hospital course The patient was admitted for treatment of toxic encephalopathy, severe sepsis and hypoxic respiratory failure secondary to multifocal pneumonia with IV antibiotics. He was weaned off oxygen eventually as his blood cultures remain negative. Mental status improved back to baseline as gabapentin was cut down from 400 mg q.i.d. to 200 mg b.i.d. during the hospital stay. Noted to have hypernatremia and hypokalemia which both were corrected with IV fluid and po tassium replacement. Found to have significant constipation and received enema and laxatives with good response. Evaluated by speech therapy team who recommended modified diet of NDD2 and nectar thick liquids. Continue Augmentin for 5 more days Cutdown gabapentin to 200 mg t.i.d. Start daily bowel regimen Time Spent with Patient Time attestation: Total time managing care of this patient today ____ minutes. Discharge coordination time: Greater than 30 minutes Quality: Safe Use of Opioids Does Pt have an Active Cancer Diagnosis on the Problem List?: No Quality: Stroke Does the patient have a stroke diagnosis?: No Physical Exam Vital Signs: Vital Signs: Last Vital Signs Temp 97.6 F 11/27/22 11:11 Pulse 59 11/27/22 11:11 Resp 20 11/27/22 11:11 BP 143/82 H 11/27/22 11:11 Pulse Ox 92 11/27/22 11:11 O2 Del Method 11/27/22 11:11 O2 Flow Rate 2 11/25/22 08:00 FiO2 60 11/23/22 04:00 BMI result Body Mass Index 26.7 Const: Other: Constitutional : Awake with stimulation, not in distress Neck : Normal inspection, Supple Cardiovascular : RRR, no JVP, no lower extremity edema Respiratory : good bilateral air entry, basal bilateral crackles, no wheezes or rhonchi Gastrointestinal: soft, lax, Normal bowel sounds, Non tender Skin : Warm, Dry Neurological : Alert & oriented to self, No focal deficit DS: Data Data Completed and Pending Completed studies during hospitalization [Text1]: Procedures Dilation of Sigmoid Colon, Via Natural or Artificial Opening Endoscopic (02/21/22) Insertion of Pacemaker Lead into Right Atrium, Percutaneous Approach (10/23/21) Insertion of Pacemaker Lead into Right Ventricle, Percutaneous Approach (10/23/21) Insertion of Pacemaker, Dual Chamber into Chest Subcutaneous Tissue and Fascia, Open Approach (10/23/21) Labs on day of discharge: Laboratory Results - last 24 hr 11/26/22 11/26/22 11/26/22 14:29 15:45 20:19 Sodium 145 Potassium 2.7 L Chloride 111 H Carbon Dioxide 26 Anion Gap 11 L BUN 10 Creatinine 0.66 Estim Creat Clear Calc 69.9 Estimated GFR > 60 POC Glucose 137 H 112 Random Glucose 129 H Calcium 8.4 11/27/22 11/27/22 11/27/22 06:35 07:30 10:50 Sodium 145 Potassium 3.0 L Chloride 110 H Carbon Dioxide 26 Anion Gap 12 BUN 10 Creatinine 0.63 Estim Creat Clear Calc 73.2 Estimated GFR > 60 POC Glucose 107 144 H Random Glucose 107 Calcium 8.4 Preliminary micro results at discharge 11/23/22 02:40 Blood Culture - Preliminary Blood - Venous No growth after 48 hours. 11/23/22 02:40 Blood Culture - Preliminary Blood - Venous No growth after 48 hours. Imaging Chest x-ray: Radiologist's impression: ITS Impressions Chest X-Ray 11/23/22 02:58 IMPRESSION: Focal opacity in the mid to upper right lung, suspicious for pneumonia in the proper clinical setting. Radiographic followup after treatment/resolution of symptoms is recommended. Abdomen/Pelvis CT 11/23/22 04:15 IMPRESSION: 1. Multifocal bilateral pulmonary consolidations, most extensive in the right upper lobe. Appearance is suspicious for multifocal pneumonia. 2. Much of the colon is distended with gas and stool, most prominently the sigmoid colon, without findings of volvulus. Mild perirectal stranding is noted, which could reflect early/mild stercoral colitis. 3. Dilated main pulmonary artery, suggesting pulmonary artery hypertension. Chest CT 11/23/22 04:15 IMPRESSION: 1. Multifocal bilateral pulmonary consolidations, most extensive in the right upper lobe. Appearance is suspicious for multifocal pneumonia. 2. Much of the colon is distended with gas and stool, most prominently the sigmoid colon, without findings of volvulus. Mild perirectal stranding is noted, which could reflect early/mild stercoral colitis. 3. Dilated main pulmonary artery, suggesting pulmonary artery hypertension. Head CT 11/23/22 04:15 IMPRESSION: No acute intracranial pathology. Discharge Plan Discharge Anticipated Discharge Date/Time: 11/27/22 12:07 Patient Disposition: Xfer [facility] Discharge Diagnosis: Severe sepsis multifocal pneumonia Referrals: [facility] [Outside] - 1 Week Nita Saez MD [Primary Care Provider] - 1 Week Discharge Medications: New amoxicillin-pot clavulanate 400-57 mg/5 mL suspension for reconstitution 10 ml PO BID Qty: 100 0RF docusate sodium [Colace] 100 mg capsule 100 mg PO BID Qty: 60 0RF senna 8.6 mg capsule 8.6 mg PO BEDTIME Qty: 30 0RF Continued carbidopa-levodopa 25-100 mg tablet 2 tab PO 6XD Rx Instructions: 0600,0900,1100,1400,1700,2100 cholecalciferol (vitamin D3) 1,250 mcg (50,000 unit) Capsule 1,250 mcg PO QMONTH Rx Instructions: takes on the 4th of each month amlodipine 5 mg tablet 5 mg PO DAILY Qty: 30 0RF carbidopa-levodopa 50-200 mg Tablet Extended Release 1 tab PO BID@09,21 aripiprazole 10 mg tablet 10 mg PO DAILY metoprolol succinate [Toprol XL] 50 mg tablet extended release 24 hr 50 mg PO DAILY Qty: 30 5RF Eliquis 5 mg tablet 5 mg PO BID Qty: 60 5RF potassium chloride 20 mEq/15 mL liquid 20 meq PO DAILY albuterol sulfate 90 mcg/actuation HFA aerosol inhaler 2 puff inhalation Q6H PRN (Reason: Wheezing) Changed gabapentin 400 mg capsule 200 mg PO TID Qty: 60 0RF Discharge Orders: Discharge Order (Routine); Ordered 11/27/22 Ordered By: Jaylin Butts Diet: Modified diet Activity on Discharge: As tolerated Stand Alone Forms: Patient Portal Discharge page Care Plan Goals: Read below Health Concerns: Read below Plan of Treatment: Multifocal pneumonia Assessment: Received IV antibiotics with good response and wean down the oxygen Continue Augmentin for 5 more days Cutdown gabapentin to 200 mg t.i.d. Discharge Date/Time: 11/27/22 14:30
[2022-11-27 12:27] LABS: COVID-19 Test Negative (Negative); IDNOW Serial# 16C4AD1C
--- NOTE | 2022-11-27 12:54 | MHC.CM.PN ---
Dc summary and face to face have been sent to [facility] via [facility] and faxed to [phone] at their Nursing Sheet Metal Superintendent/Santy's request.
== END 2022-11-27 14:30 | DRG 871 ==
LOC: HO.ED 09:33 → HO.EDOVER 13:46 → HO.IMC 21:21
PROVIDERS: Admitting Provider Student in an Organized Health Care Education/Training Program; Emergency Provider Internal Medicine; PCP Internal Medicine Geriatric Medicine; Visit Provider Student in an Organized Health Care Education/Training Program
DX: A41.9 Sepsis, unspecified organism (principal); G93.41 Metabolic encephalopathy; J18.9 Pneumonia, unspecified organism; R65.21 Severe sepsis with septic shock; J96.01 Acute respiratory failure with hypoxia; J44.0 Chronic obstructive pulmonary disease with (acute) lower respiratory infection; I48.0 Paroxysmal atrial fibrillation; K52.89 Other specified noninfective gastroenteritis and colitis; G20 Parkinson's disease; Z20.822 Contact with and (suspected) exposure to COVID-19; Z95.0 Presence of cardiac pacemaker; Z87.891 Personal history of nicotine dependence; Z88.8 Allergy status to other drugs, medicaments and biological substances; Z79.899 Other long term (current) drug therapy
CPT/HCPCS: 0241U; 36415; 36600; 70450; 71045; 71260; 74177; 80048; 80053; 81003; 82803; 82947; 83605; 83735; 83880; 84484; 85025; 85027; 85610; 85730; 87040; 87635; 92526; 92610; 93005; 94640; 99285; C1758; J0295; J1650; J1885; J2543; Q9967

== ENCOUNTER 2023-01-02 11:32 | Emergency (ER) | payer MEDICARE, SELFPAY ==
--- NOTE | ~2023-01-02 | XR_ITS ---
EXAMINATION: XR CHEST CLINICAL INFORMATION: Altered mental status COMPARISON: 11/23/2022 TECHNIQUE: Frontal view of the chest was obtained. FINDINGS: Left chest wall pacer with leads over the right atrium and right ventricle. Lung volumes are low. No consolidation, edema, or effusion. No pneumothorax. Resolution of prior airspace opacities. The cardiomediastinal silhouette is unchanged, with a calcified aorta. XR/XR chest 1V IMPRESSION: No acute pulmonary disease. Resolution of prior airspace opacities.
--- NOTE | ~2023-01-02 | CT_ITS ---
EXAMINATION: CT HEAD WITHOUT CONTRAST CLINICAL INFORMATION: Altered mental status. COMPARISON: 11/23/[address] scan[address] TECHNIQUE: Contiguous axial imaging was performed from the skull base to vertex without intravenous administration of contrast. Coronal and sagittal reformatted images were obtained. This CT examination was performed using dose optimization techniques as appropriate, variously including the following: *Automated exposure control *Adjustment of mA and/or kV according to patient size (this includes techniques or standardized protocols for targeted exams where dose is matched to indication/reason for exam; i.e. extremities or head) *Use of iterative reconstruction technique DLP: 795 mGy-cm FINDINGS: There is mild widening of the cortical sulci and associated ventriculomegaly. The lateral ventricles are symmetrical. The third and fourth ventricles are in their normal midline position. The basilar and prepontine cisterns are unremarkable. Incidental empty sella without associated abnormality. There is no acute intra or extracerebral abnormality. There is no mass effect or midline shift. Sections through the bony calvarium are unremarkable. The orbits are intact. The paranasal sinuses are clear. The mastoid air cells are clear. CT/CT head/brain wo IV con IMPRESSION: No acute intracranial pathology.
[2023-01-02 11:43] VITALS: BP 115/67; PULSE 60; RESP 18; TEMP 36.6; O2SAT 97
--- NOTE | 2023-01-02 11:52 | ED_ITS ---
HPI - General Adult General Chief complaint: Altered Mental Status Stated complaint: AMS FROM SNF,H/O UTI PER EMS Time Seen by Provider: 01/02/23 11:52 Source: EMS Mode of arrival: EMS Limitations: altered mental status History of Present Illness HPI narrative: Patient is an 87 year old assigned male at with a history of cognitive impairment, parkinson's disease, pacemaker, and HTN presenting to the emergency department today with worsening altered mental status. Patient is minimally responsive to questions but declines any complaints. SNF staff states that the patient seems more flat than usual but is acting otherwise appropriate. Onset (ago): day(s) Severity: mild Severity scale (1-10): 1 Relieving factors: none Exacerbating factors: none Associated symptoms: denies other symptoms Treatments prior to arrival: none Related Data Home Medications Medication Instructions Recorded Confirmed carbidopa 25 mg-levodopa 100 mg 2 tab PO USEASDIRECTD 10/24/21 01/02/23 tablet cholecalciferol (vitamin D3) 1,250 1,250 mcg PO QMONTH 10/24/21 01/02/23 mcg (50,000 unit) capsule aripiprazole 10 mg tablet 10 mg PO DAILY 01/06/22 01/02/23 carbidopa ER 50 mg-levodopa 200 mg 1 tab PO BID 02/20/22 01/02/23 tablet,extended release albuterol sulfate 90 mcg/actuation 2 puff inhalation Q6H PRN Wheezing 11/14/22 01/02/23 aerosol inhaler potassium chloride 20 mEq/15 mL 20 meq PO DAILY 11/14/22 01/02/23 oral liquid gabapentin 100 mg capsule 200 mg PO TID 01/02/23 01/02/23 polyethylene glycol 3350 17 17 g PO DAILY 01/02/23 01/02/23 gram/dose oral powder (Miralax) sennosides 8.6 mg capsule (senna) 17.2 mg PO DAILY 01/02/23 01/02/23 thiamine HCl (vitamin B1) 100 mg 50 mg PO DAILY 01/02/23 01/02/23 tablet Previous Rx's Medication Instructions Recorded amlodipine 5 mg tablet 5 mg PO DAILY #30 tabs 10/29/21 apixaban 5 mg tablet (Eliquis) 5 mg PO BID #60 tabs 12/22/21 metoprolol succinate 50 mg 50 mg PO DAILY #30 tabs 12/22/21 tablet,extended release 24 hr (Toprol XL) Allergies Allergy/AdvReac Type Severity Reaction Status Date / Time risperidone Allergy Unknown Verified 05/12/22 10:24 sertraline Allergy Unknown Verified 05/12/22 10:24 rasagiline [From Azilect] AdvReac Unknown Verified 11/14/22 11:03 Review of Systems Constitutional: Constitutional: Reports no additional constitutional complaints, Denies chills, Denies fever(s) and Denies night sweats Eyes: Eyes: Reports no additional eye complaints, Denies blurry vision, Denies change in vision, Denies diplopia, Denies eye discharge, Denies loss of vision and Denies eye pain ENT: Denies dizziness Cardiovascular: Cardiovascular: Reports no additional cardiovascular complaints, Denies chest pain, Denies lightheadedness, Denies Loss of Conscious ness and Denies dyspnea Respiratory: Respiratory: Reports no additional respiratory complaints and Denies dyspnea Gastrointestinal: Gastrointestinal: Reports no additional gastrointestinal com plaints, Denies abdominal pain, Denies melena, Denies hematochezia, Denies change in bowel habits and Denies change in stool character Genitourinary: Genitourinary: Reports no additional male genitourinary complaints, Denies hematuria, Denies oliguria, Denies difficulty urinating, Denies dysuria, Denies urinary frequency, Denies urinary hesitancy, Denies urinary incontinence and Denies urinary urgency Musculoskeletal: Musculoskeletal: Reports no additional musculoskeletal complaints, Denies numbness and Denies tingling Neurologic: Reports confusion, Denies dizziness, Denies loss of vision, Denies numbness and Denies tingling Psychiatric: Psychiatric: Reports no additional psychiatric complaints and Reports confusion Endocrine: Endocrine: Reports no additional endocrine complaints Hematologic/Lymphatic: Hematologic/Lymphatic: Reports no additional hematologic/lymphatic complaints Allergic/Immunologic: Allergic/Immunologic: Reports no additional allergic/immunologic complaints [facility] Past Medical History Attestation statement: The following information was validated with the patient. (all information validated with the patient's daughter) Source: old records reviewed, obtained from family (patient's daughter), nursing notes reviewed and other ([facility] staff and records) Medical History Anemia Aphasia Diabetes High cholesterol HTN (hypertension) Neuropathy Pacemaker (~10/2021) Paranoid behavior Paroxysmal atrial fibrillation Psychosis Surgical History History of cardiac pacemaker (~10/2021) Social History Social History Household Members: Other Household Members Other:: roomates in [facility] Housing: [facility] Do you presently have visiting nurse or other home services: Yes Unable to assess alcohol history related to: Unknown Patient Tobacco Use Status: Former Tobacco user Tobacco use type: Cigar and Pipe Advance Directives: Yes Advance Directives on File: Yes Advance Directives Date on File: 10/28/21 service: No Current occupational status: retired Physical Exam ED Vital Signs: Vital Signs - 24 hr 01/02/23 11:43 01/02/23 11:54 Temperature 97.9 F 97.4 F Pulse Rate 60 60 Respiratory Rate 18 16 Blood Pressure 115/67 112/69 Pulse Oximetry 97 98 Oxygen Delivery Method Room Air Room Air BMI result Body Mass Index 26.7 Const General: confusion Nutritional Appearance: well nourished Orientation/consciousness: confusion Limitations: no limitations HENMT Head: Yes normal to inspection and Yes atraumatic Ears: hearing grossly normal bilaterally and external ears normal General nose exam: Normal external nose present, no nasal discharge noted and no epistaxis Face and sinus: Yes normal facial exam, No abrasion and No laceration Mouth: Normal oral and palatal mucosa present, no drooling and no muffled voice Eyes General: appearance normal, both eyes and all related structures Periorbital: periorbital findings normal Eyelids: Yes eyelids normal Conjunctivae: conjunctivae normal Pupils: Equal, round and reactive pupils present EOM: EOMs intact bilaterally Neck Neck: Yes normal visual inspection, Yes full ROM and Yes no lymphadenopathy Chest Chest palpation & inspection: normal inspection of the chest Resp Effort & Inspection: normal respiratory effort and able to speak in complete sentences GI Inspection: Yes normal to inspection Neuro General: confusion Cranial nerves: Yes Equal, round and reactive pupils present Extrem General: Yes normal to inspection, Yes full ROM and Yes capillary refill normal Psych Speech and movement: Normal speech and movement present Affect: Blunted affect present Medical Decision Making Medical Decision Making MDM Narrative: Patient is an 87 year old assigned male at with a history of parkinson's, HTN, cognitive impairment, and a pacemaker presenting to the emergency department today with worsening confusion. Patient's physical exam showed a blunted 87 year old male who is minimally responsive to questions but awake and alert. Patient's blood work was unremarkable. Patient's urine showed no acute process. Patient's chest x-ray and head CT showed no acute process. I explained my physical exam findings as well as all test results to the patient and the patient's daughter. I answered all questions asked by the patient and the patient's daughter. I had a lengthy conversation with the patient's daughter, Lyndsey, who agreed to discharge back to the SNF with outpatient neurology follow up. I stressed the importance of the patient taking his medication as prescribed. I stressed the importance of the patient following up with his primary care provider and neurologist. I stressed the importance of the patient returning to the emergency department immediately if his symptoms were to worsen or if he were to develop any dizziness, shortness of breath, difficulty breathing, chest pain, blurry vision, loss of vision, nausea, vomiting, abdominal pain, fever, chills, back pain, or any other complaints. Patient and the patient's daughter verbalized agreement and understanding with this treatment plan and discharge. Differential Diagnosis Differential Diagnoses: The differential diagnosis associated with the presentation includes cognitive decline Lab Data MDM Lab Attestation statement: I reviewed the patient's lab results. 01/02/23 13:18 01/02/23 13:18 Labs: Lab Results 01/02/23 01/02/23 01/02/23 Range/Units 12:06 13:18 13:18 WBC 7.4 (4.8-10.8) X10*3/uL RBC 4.10 L D (4.60-5.80) X10*6/uL Hgb 12.6 L (14.0-18.0) g/dl Hct 39.2 L (42.0-52.0) % MCV 95.6 (80.0-98.0) fL MCH 30.7 (27.0-33.0) pg MCHC 32.1 (31.0-36.0) g/dl RDW 13.5 (11.0-16.0) % Plt Count 206 D (160-400) X10*3/uL MPV 10.9 (9.4-12.4) fL Immature Gran % (Auto) 0.4 (0.0-0.4) % Neut % (Auto) 58.8 (45-73) % Lymph % (Auto) 32.8 (20-40) % [place] % (Auto) 5.4 (2-11) % Eos % (Auto) 1.8 (0-4) % Baso % (Auto) 0.8 (0-2) % Lymph # (Auto) 2.4 (1.2-4.9) X10*3/uL [place] # (Auto) 0.4 (0.1-1.2) X10*3/uL Eos # (Auto) 0.1 (0.0-0.4) X10*3/uL Baso # (Auto) 0.1 (0.0-0.2) X10*3/uL Abs Immat Gran (auto) 0.03 (0.00-0.03) X10*3/uL Absolute Neuts (auto) 4.4 (2.0-8.3) x10*3/uL Absolute Nucleated RBC 0.000 (0.0-0.012) X10*3/uL Nucleated RBC % (auto) 0.0 (0.0-0.2) /100WBC PT 17.0 H (10.0-13.1) SEC INR 1.5 H (0.9-1.1) APTT 29.9 (26.0-36.4) SEC Sodium (135-145) mmol/L Potassium (3.3-5.1) mmol/L Chloride (96-108) mmol/L Carbon Dioxide (22-29) mmol/L Anion Gap (12-20) BUN (9-16) mg/dL Creatinine (0.5-1.4) mg/dL Estim Creat Clear Calc Estimated GFR Random Glucose (60-115) mg/dL Calcium (8.4-10.2) mg/dL Magnesium (1.6-2.6) mg/dL Total Bilirubin (0.0-1.0) mg/dL AST (5-37) U/L ALT (0-40) U/L Alkaline Phosphatase (39-117) U/L Total Protein (6.5-8.0) g/dL Albumin (3.5-5.0) g/dL Urine Color Dark Yellow Urine Appearance Clear Urine pH 5.5 (5.0-9.0) Ur Specific [place] >= 1.030 H (1.005-1.025) Urine Protein Negative (Neg-Trace) mg/dL Urine Glucose (UA) Negative (Negative) mg/dL Urine Ketones Trace (Negative) mg/dL Urine Blood Trace H (Negative) Urine Nitrite Negative (Negative) Ur Leukocyte Esterase Negative (Negative) Urine RBC 6-10 H (0-2) /HPF Urine WBC 0-5 (0-5) /HPF Ur Squamous Epith Cells 0-2 (0-2) /HPF Urine Bacteria None Seen (None Seen) Hyaline Casts 3-5 (0-2) /LPF COVID-19 ([facility]) (Negative) COVID-19 Clin Com 01/02/23 01/02/23 Range/Units 13:18 13:18 WBC (4.8-10.8) X10*3/uL RBC (4.60-5.80) X10*6/uL Hgb (14.0-18.0) g/dl Hct (42.0-52.0) % MCV (80.0-98.0) fL MCH (27.0-33.0) pg MCHC (31.0-36.0) g/dl RDW (11.0-16.0) % Plt Count (160-400) X10*3/uL MPV (9.4-12.4) fL Immature Gran % (Auto) (0.0-0.4) % Neut % (Auto) (45-73) % Lymph % (Auto) (20-40) % [place] % (Auto) (2-11) % Eos % (Auto) (0-4) % Baso % (Auto) (0-2) % Lymph # (Auto) (1.2-4.9) X10*3/uL [place] # (Auto) (0.1-1.2) X10*3/uL Eos # (Auto) (0.0-0.4) X10*3/uL Baso # (Auto) (0.0-0.2) X10*3/uL Abs Immat Gran (auto) (0.00-0.03) X10*3/uL Absolute Neuts (auto) (2.0-8.3) x10*3/uL Absolute Nucleated RBC (0.0-0.012) X10*3/uL Nucleated RBC % (auto) (0.0-0.2) /100WBC PT (10.0-13.1) SEC INR (0.9-1.1) APTT (26.0-36.4) SEC Sodium 142 (135-145) mmol/L Potassium 3.7 D (3.3-5.1) mmol/L Chloride 110 H (96-108) mmol/L Carbon Dioxide 25 (22-29) mmol/L Anion Gap 11 L (12-20) BUN 20 H (9-16) mg/dL Creatinine 0.83 (0.5-1.4) mg/dL Estim Creat Clear Calc 55.6 Estimated GFR > 60 Random Glucose 112 (60-115) mg/dL Calcium 8.9 (8.4-10.2) mg/dL Magnesium 1.8 (1.6-2.6) mg/dL Total Bilirubin 0.8 (0.0-1.0) mg/dL AST 10 (5-37) U/L ALT < 6 (0-40) U/L Alkaline Phosphatase 61 (39-117) U/L Total Protein 6.3 L (6.5-8.0) g/dL Albumin 4.0 (3.5-5.0) g/dL Urine Color Urine Appearance Urine pH (5.0-9.0) Ur Specific [place] (1.005-1.025) Urine Protein (Neg-Trace) mg/dL Urine Glucose (UA) (Negative) mg/dL Urine Ketones (Negative) mg/dL Urine Blood (Negative) Urine Nitrite (Negative) Ur Leukocyte Esterase (Negative) Urine RBC (0-2) /HPF Urine WBC (0-5) /HPF Ur Squamous Epith Cells (0-2) /HPF Urine Bacteria (None Seen) Hyaline Casts (0-2) /LPF COVID-19 ([facility]) Negative (Negative) COVID-19 Clin Com See Note Independent Interpretation I performed an independent interpretation of an: Plain X-Ray and CT Scan Interpretation: My interpretation is in agreement with the radiologist's impression of these imaging studies. EXAMINATION: XR CHEST CLINICAL INFORMATION: Altered mental status COMPARISON: 11/23/2022 TECHNIQUE: Frontal view of the chest was obtained. FINDINGS: Left chest wall pacer with leads over the right atrium and right ventricle. Lung volumes are low. No consolidation, edema, or effusion. No pneumothorax. Resolution of prior airspace opacities. The cardiomediastinal silhouette is unchanged, with a calcified aorta. XR/XR chest 1V IMPRESSION: No acute pulmonary disease. Resolution of prior airspace opacities. Dictated By: Ranjith Morales MD Signed By: Electronically signed by Ranjith Morales MD 01/02/23 1401 EXAMINATION: CT HEAD WITHOUT CONTRAST CLINICAL INFORMATION: Altered mental status.? COMPARISON: 11/23/[address] scan.? TECHNIQUE: Contiguous axial imaging was performed from the skull base to vertex without intravenous administration of contrast. Coronal and sagittal reformatted images were obtained. This CT examination was performed using dose optimization techniques as appropriate, variously including the following: *Automated exposure control *Adjustment of mA and/or kV according to patient size (this includes techniques or standardized protocols for targeted exams where dose is matched to indication/reason for exam; i.e. extremities or head) *Use of iterative reconstruction technique DLP: 795 mGy-cm FINDINGS: There is mild widening of the cortical sulci and associated ventriculomegaly. The lateral ventricles are symmetrical. The third and fourth ventricles are in their normal midline position. The basilar and prepontine cisterns are unremarkable. Incidental empty sella without associated abnormality. There is no acute intra or extracerebral abnormality. There is no mass effect or midline shift. Sections through the bony calvarium are unremarkable. The orbits are intact. The paranasal sinuses are clear. The mastoid air cells are clear. CT/CT head/brain wo IV con IMPRESSION: No acute intracranial pathology. Dictated By: Ambrocio Gutierrez MD Signed By: Electronically signed by Ambrocio Gutierrez MD 01/02/23 3966 Independent Historian Clinical information obtained from an independent historian. History obtained from or confirmed by: EMS and Other (patient's daughter) External Record Review External record reviewed: Other (SNF documentation) Discharge Plan Discharge Clinical Impression: Cognitive decline Patient Disposition: er [facility] Transfer Details: Back to [facility] Additional Instructions: Follow up with your primary care provider and neurologist. Return to the emergency department immediately if your symptoms worsen or if you develop any dizziness, shortness of breath, difficulty breathing, chest pain, blurry vision, loss of vision, nausea, vomiting, abdominal pain, fever, chills, back pain, or any other complaints. Prescriptions: No Action carbidopa-levodopa 25-100 mg tablet 2 tab PO USEASDIRECTD Rx Instructions: TAKE AT 0600,0900,1100,1400,1700,2100 cholecalciferol (vitamin D3) 1,250 mcg (50,000 unit) Capsule 1,250 mcg PO QMONTH Rx Instructions: takes on the 4th of each month amlodipine 5 mg tablet 5 mg PO DAILY Qty: 30 0RF carbidopa-levodopa 50-200 mg Tablet Extended Release 1 tab PO BID thiamine HCl (vitamin B1) 100 mg Tablet 50 mg PO DAILY gabapentin 100 mg capsule 200 mg PO TID senna 8.6 mg capsule 17.2 mg PO DAILY polyethylene glycol 3350 [Miralax] 17 gram/dose Powder 17 g PO DAILY aripiprazole 10 mg tablet 10 mg PO DAILY metoprolol succinate [Toprol XL] 50 mg tablet extended release 24 hr 50 mg PO DAILY Qty: 30 5RF Eliquis 5 mg tablet 5 mg PO BID Qty: 60 5RF potassium chloride 20 mEq/15 mL liquid 20 meq PO DAILY albuterol sulfate 90 mcg/actuation HFA aerosol inhaler 2 puff inhalation Q6H PRN (Reason: Wheezing) Referrals: [facility] [place] [facility] [Provider Group] Nita Saez MD [Primary Care Provider] - Print Language: Sami
[2023-01-02 11:54] VITALS: BP 112/69; BP 83/64; PULSE 60; RESP 16; TEMP 36.3; O2SAT 96; O2SAT 98; BMI 26.7
--- NOTE | 2023-01-02 12:19 | PHA.MEDREC ---
Pharmacy Consult ? Medication Reconciliation Pharmacy has completed the medication reconciliation. Patient came from [facility] with med list. Elizabeth Lozano, GilbertoD
[2023-01-02 12:32] LABS: Appearance Urine Clear; Color Urine Dark Yellow; Glucose Urine UA Negative (Negative); Leukocyte Esterase Urine Negative (Negative); Nitrite Urine Negative (Negative); PH 5.5 (5.0-9.0); Specific Gravity - Urine >= 1.030 (1.005-1.025); UMIC TRIGGER UACC YES; Urine Blood Trace (Negative); Urine Ketones Trace mg/dL (Negative); Urine Protein Negative (Neg-Trace)
[2023-01-02 12:48] LABS: Bacteria Urine None Seen (None Seen); Squamous Epithelial Cell Urine 0-2 /HPF (0-2); WBC Urine 0-5 /HPF (0-5)
[2023-01-02 13:23] LABS: MANUAL DIFF FLAG NO
[2023-01-02 13:29] LABS: INTERNATIONAL NORM RATIO 1.5 (0.9-1.1)
[2023-01-02 13:32] LABS: Partial Thromboplastin Time 29.9 SEC (26.0-36.4)
[2023-01-02 13:36] LABS: Basophils Absolute Auto 0.1 X10*3/uL (0.0-0.2); Basophils Percent Auto 0.8 % (0-2); Eosinophils Absolute Auto 0.1 X10*3/uL (0.0-0.4); Eosinophils Percent Auto 1.8 % (0-4); Hematocrit 39.2 % (42.0-52.0); Hemoglobin 12.6 g/dl (14.0-18.0); Imm Gran Abs Auto 0.03 X10*3/uL (0.00-0.03); Imm Gran Pct Auto 0.4 % (0.0-0.4); Lymphocytes Absolute Auto 2.4 X10*3/uL (1.2-4.9); Lymphocytes Percent Auto 32.8 % (20-40); Mean Corpuscular HGB Conc 32.1 g/dl (31.0-36.0); Mean Corpuscular Hemoglobin 30.7 pg (27.0-33.0); Mean Corpuscular Volume 95.6 fL (80.0-98.0); Mean Platelet Volume 10.9 fL (9.4-12.4); Monocytes Absolute Auto 0.4 X10*3/uL (0.1-1.2); Monocytes Percent Auto 5.4 % (2-11); Neutrophils Absolute Auto 4.4 x10*3/uL (2.0-8.3); Neutrophils Percent Auto 58.8 % (45-73); Platelet Count 206 X10*3/uL (160-400); Red Cell Distribution Width 13.5 % (11.0-16.0); White Blood Count 7.4 X10*3/uL (4.8-10.8)
[2023-01-02 14:12] LABS: COVID-19 Test Negative (Negative); IDNOW Serial# 6674DD1D
[2023-01-02 14:28] LABS: Alanine Aminotransferase < 6 U/L (0-40); Alkaline Phosphatase 61 U/L (39-117); Anion Gap 11 (12-20); Aspartate Amino Transferase 10 U/L (5-37); Bilirubin Total 0.8 mg/dL (0.0-1.0); Blood Urea Nitrogen 20 mg/dL (9-16); Calcium 8.9 mg/dL (8.4-10.2); Carbon Dioxide 25 mmol/L (22-29); Chloride 110 mmol/L (96-108); Creatinine Clr Calc Pharmacy 55.6; Estimated Glomerular Filt Rate > 60; Glucose Random 112 mg/dL (60-115); Magnesium 1.8 mg/dL (1.6-2.6); Potassium 3.7 mmol/L (3.3-5.1); Sodium 142 mmol/L (135-145); Total Protein 6.3 g/dL (6.5-8.0)
[2023-01-02 17:25] VITALS: BP 129/90; PULSE 60; RESP 16; TEMP 36.4; O2SAT 100
== END 2023-01-02 17:32 | disposition skilled nursing facility (03) ==
PROVIDERS: Physician Assistant Medical; Emergency Provider Emergency Medicine; PCP Internal Medicine Geriatric Medicine
DX: R41.81 Age-related cognitive decline (principal); R07.89 Other chest pain; R51.9 Headache, unspecified; Z20.822 Contact with and (suspected) exposure to COVID-19; Z20.828 Contact with and (suspected) exposure to other viral communicable diseases; Z79.899 Other long term (current) drug therapy
CPT/HCPCS: 70450; 71045; 80053; 81001; 83735; 85025; 85610; 85730; 87635; 99284

== ENCOUNTER → 2023-11-12 23:59 | Outpatient (BNV) | payer MEDICARE, SELFPAY ==
--- NOTE | 2023-11-13 12:32 | MHC.OFFVIS ---
Intake Intake Visit Reasons: Remote Device Check- [place] Allergies risperidone Allergy (Verified 05/12/22 10:24) Unknown sertraline Allergy (Verified 05/12/22 10:24) Unknown rasagiline [From Azilect] Adverse Reaction (Verified 11/14/22 11:03) Unknown [facility] Medical History Anemia Aphasia Diabetes High cholesterol HTN (hypertension) Neuropathy Pacemaker (~10/2021) Paranoid behavior Paroxysmal atrial fibrillation Psychosis Surgical History History of cardiac pacemaker (~10/2021) Social History Household Members: Other Household Members Other:: roomates in senior living Housing: Retirement Do you presently have visiting nurse or other home services: Yes Unable to assess alcohol history related to: Unknown Patient Tobacco Use Status: Former Tobacco user Tobacco use type: Cigar and Pipe Advance Directives Date on File: 10/28/21 service: No Current occupational status: retired Office Procedures Cardiac Device Check Cardiac Device Check Details: Remote pacemaker report generated 11/13/2023. Pacemaker function is adequate. [place] [id number] Cardiac Device Interrogation, pacemaker Procedure code (CPT) selection complete Assessment & Plan Assessment & Plan (1) Pacemaker: Onset Date: ~10/2021 Comment: ([facility] [place] DC[facility] - placed 10/28/2021) Code(s): Z95.0 - Presence of cardiac pacemaker Plan: See above Coding Level of Care Code Procedure Only Diagnoses Pacemaker Z95.0 CPT Codes Cardiac Device Check - Cardiac Device 12: [id number] Cardiac Device Interrogation, pacemaker ([id number])
== END ==
PROVIDERS: PCP Internal Medicine Geriatric Medicine; Visit Provider Internal Medicine Cardiovascular Disease
DX: I48.0 Paroxysmal atrial fibrillation (principal); Z95.0 Presence of cardiac pacemaker
CPT/HCPCS: 93294